=== PATIENT | female | born 1965 | race Caucasian/White ===

== ENCOUNTER 2016-05-13 10:55 | Outpatient (CLI) | payer MEDICAID | END 2016-05-13 10:56 | disposition home or self-care (01) | DX: Z12.31 Encounter for screening mammogram for malignant neoplasm of breast (principal) ==

== ENCOUNTER 2016-05-17 08:19 | Outpatient (CLI) | payer MEDICAID | END 2016-05-17 08:20 | disposition home or self-care (01) | DX: M85.88 Other specified disorders of bone density and structure, other site (principal) ==

== ENCOUNTER 2017-06-21 08:25 | Outpatient (CLI) | payer MEDICAID ==
--- NOTE | 2017-06-21 17:22 | Mammography Report ---
DIGITAL SCREENING MAMMOGRAM: 06/21/2017 CLINICAL INDICATION: A 52-year-old with history of late childbearing for screening. COMPARISON: 04/2016, 04/2014, 03/2010, 04/2009. TECHNIQUE: Routine CC and MLO projections as well as bilateral laterally exaggerated craniocaudal views were obtained of the breasts. FINDINGS: The breasts again demonstrate heterogeneously dense fibroglandular parenchyma bilaterally. Coarse and punctate, typically benign calcifications are present. No suspicious masses, clustered microcalcifications, or regions of architectural distortion are identified. IMPRESSION: BENIGN FINDINGS. RECOMMENDATION: Routine annual screening unless otherwise clinically indicated. BI-RADS category 2 benign findings. STANDARD QUALIFYING STATEMENTS 1. This examination was reviewed with the aid of Computed-Aided Detection (CAD). 2. A negative or benign imaging report should not delay biopsy if clinically suspicious findings are present. Consider surgical consultation if warranted. More than 5% of cancers are not identified by imaging. 3. Dense breasts may obscure an underlying neoplasm. TD: 06/21/2017 17:21
== END 2017-06-21 08:26 | disposition home or self-care (01) ==
LOC: DI.S 08:25
PROVIDERS: ATTEND Nurse Practitioner Family
DX: Z12.31 Encounter for screening mammogram for malignant neoplasm of breast (principal)
CPT/HCPCS: 77067

== ENCOUNTER 2017-10-02 12:15 | Outpatient (CLI) | payer MEDICAID | END 2017-10-02 12:16 | LOC: LAB.R 12:15 | PROVIDERS: ATTEND Nurse Practitioner Family | DX: E11.9 Type 2 diabetes mellitus without complications (principal) | CPT/HCPCS: 82043 ==

== ENCOUNTER 2017-10-09 08:59 | Outpatient (CLI) | payer MEDICAID ==
[2017-10-09 17:51] LABS: BASOPHILS % (AUTO) 0.7 %; EOSINOPHILS % (AUTO) 0.9 %; HGB - HEMOGLOBIN 13.4 g/dL (12.0-16.0); LYMPHOCYTES # (AUTO) 1.4 10^3/uL (1.5-3.5); MEAN CORPUSCULAR HEMOGLOBIN 36.6 pg (27.0-31.0); MEAN CORPUSCULAR HGB CONC 34.3 g/dL (32.0-36.0); MEAN CORPUSCULAR VOLUME 106.8 fL (81.0-99.0); MEAN PLATELET VOLUME 11.2 fL (7.9-10.8); MONOCYTES # (AUTO) 0.5 10^3/uL (0.0-1.0); MONOCYTES % (AUTO) 10.8 %; NEUTROPHILS # (AUTO) 2.7 10^3/uL (1.5-6.6); NEUTROPHILS % (AUTO) 57.6 %; PLT - PLATELET COUNT 131 10^3/uL (130-450); RED BLOOD COUNT 3.67 10^6/uL (4.20-5.40); RED CELL DISTRIBUTION WIDTH 12.6 % (12.0-15.0); WHITE BLOOD COUNT 4.6 x10^3/uL (4.8-10.8)
[2017-10-09 18:29] LABS: ALBUMIN 4.2 g/dL (3.2-5.5); ALBUMIN/GLOBULIN RATIO 1.2 (1.0-2.2); ALKALINE PHOSPHATASE 87 IU/L (42-121); ALT ALANINE AMINOTRANSFERASE 55 IU/L (10-60); AST ASPARTATE AMINOTRANSFERASE 161 IU/L (10-42); BILIRUBIN,TOTAL 1.1 mg/dL (0.2-1.0); BUN - BLOOD UREA NITROGEN 5 mg/dL (6-20); CALCIUM 9.3 mg/dL (8.5-10.3); CARBON DIOXIDE - CO2 25 mmol/L (21-32); CHLORIDE 92 mmol/L (101-111); CHOL/HDL RATIO 1.5 (<4.4); CHOLESTEROL 168 mg/dL; CREATININE 0.4 mg/dL (0.4-1.0); GFR - MDRD 166 (>89); GLUCOSE 119 mg/dL (70-100); HDL CHOLESTEROL 113 mg/dL; LDL CHOLESTEROL,CALCULATED 45 mg/dL; LDL/HDL RATIO 0.4 (<4.4); SODIUM 133 mmol/L (135-145); TOTAL PROTEIN 7.6 g/dL (6.7-8.2); VLDL CHOLESTEROL 10 mg/dL
[2017-10-09 19:05] LABS: PLATELET ESTIMATE, MANUAL NORMAL (130-450,000) (NORMAL); PLATELET MORPHOLOGY 1+ GIANT PLATELETS (NORMAL); RBC MORPHOLOGY (MULTIPLE) 2+ MACROCYTOSIS (NORMAL)
[2017-10-09 19:27] LABS: HB2 TOTAL 14.1 g/dL; HEMOGLOBIN A1C 0.52 g/dL; HEMOGLOBIN A1C % 5.5 % (4.6-6.2)
== END 2017-10-09 09:00 | disposition home or self-care (01) ==
LOC: LAB.S 08:59
PROVIDERS: ATTEND Nurse Practitioner Family
DX: I10 Essential (primary) hypertension (principal); Z13.220 Encounter for screening for lipoid disorders; E11.9 Type 2 diabetes mellitus without complications
CPT/HCPCS: 36415; 80053; 80061; 82043; 83036; 83721; 84443; 85025

== ENCOUNTER 2017-10-12 08:23 | Outpatient (CLI) | payer MEDICAID | END 2017-10-12 08:24 | disposition home or self-care (01) | LOC: LAB.F 08:23 | PROVIDERS: ATTEND Nurse Practitioner Family | DX: D53.9 Nutritional anemia, unspecified (principal) | CPT/HCPCS: 36415; 82607; 82746; 82977 ==

== ENCOUNTER 2017-11-06 11:18 | Outpatient (CLI) | payer MEDICAID ==
[2017-11-06 18:13] LABS: BASOPHILS % (AUTO) 0.6 %; EOSINOPHILS % (AUTO) 0.3 %; HGB - HEMOGLOBIN 13.1 g/dL (12.0-16.0); LYMPHOCYTES # (AUTO) 1.2 10^3/uL (1.5-3.5); LYMPHOCYTES % (AUTO) 18.8 %; MEAN CORPUSCULAR HEMOGLOBIN 36.5 pg (27.0-31.0); MEAN CORPUSCULAR HGB CONC 34.2 g/dL (32.0-36.0); MEAN CORPUSCULAR VOLUME 106.8 fL (81.0-99.0); MEAN PLATELET VOLUME 10.7 fL (7.9-10.8); MONOCYTES # (AUTO) 0.6 10^3/uL (0.0-1.0); MONOCYTES % (AUTO) 9.1 %; NEUTROPHILS # (AUTO) 4.6 10^3/uL (1.5-6.6); NEUTROPHILS % (AUTO) 71.2 %; PLT - PLATELET COUNT 153 10^3/uL (130-450); RED BLOOD COUNT 3.59 10^6/uL (4.20-5.40); RED CELL DISTRIBUTION WIDTH 12.8 % (12.0-15.0); WHITE BLOOD COUNT 6.5 x10^3/uL (4.8-10.8)
[2017-11-06 18:33] LABS: ALBUMIN 4.4 g/dL (3.2-5.5); ALBUMIN/GLOBULIN RATIO 1.5 (1.0-2.2); BILIRUBIN,TOTAL 0.8 mg/dL (0.2-1.0); CALCIUM 9.3 mg/dL (8.5-10.3); CREATININE 0.4 mg/dL (0.4-1.0); TOTAL PROTEIN 7.4 g/dL (6.7-8.2)
== END 2017-11-06 11:19 | disposition home or self-care (01) ==
LOC: LAB.S 11:18
PROVIDERS: ATTEND Nurse Practitioner Family
DX: R11.2 Nausea with vomiting, unspecified (principal); R10.9 Unspecified abdominal pain
CPT/HCPCS: 36415; 80053; 82150; 83690; 85025

== ENCOUNTER 2017-11-07 08:00 | Outpatient (CLI) | payer MEDICAID ==
[2017-11-07 16:47] LABS: H. PYLORIS ANTIGEN STL NEGATIVE (Negative)
== END 2017-11-07 08:01 | disposition home or self-care (01) ==
LOC: LAB.R 08:00
PROVIDERS: ATTEND Nurse Practitioner Family
DX: R11.2 Nausea with vomiting, unspecified (principal); R10.9 Unspecified abdominal pain
CPT/HCPCS: 87338

== ENCOUNTER 2017-11-17 08:24 | Outpatient (CLI) | payer MEDICAID ==
--- NOTE | 2017-11-17 16:10 | Ultrasound Report ---
Reason: NAUSEA AND VOMITING Procedure Date: 11/17/2017 Accession Number: [id number] / [id number] Procedure: US - Abdomen Limited CPT Code: FULL RESULT: EXAM: ABDOMEN ULTRASOUND LIMITED, RUQ EXAM DATE: 11/17/2017 10:13 AM. CLINICAL HISTORY: Nausea and vomiting. COMPARISON: None. TECHNIQUE: Real-time scanning was performed with static images obtained. FINDINGS: Liver: Liver parenchyma is echogenic in keeping with parenchymal disease such as steatosis. Right lobe measures at least 14.6 cm. Main portal vein flow: Hepatopetal. Gallbladder: Normal. No stones, wall thickening, or sonographic Deleon's sign. Biliary System: CBD measures 4 mm. No intrahepatic or extrahepatic ductal dilatation. Other: Right kidney appears grossly unremarkable and measures up to 9.8 cm. IMPRESSION: Echogenic hepatic parenchyma, suspect steatosis. [facility]
== END 2017-11-17 08:25 | disposition home or self-care (01) ==
LOC: DI 08:24
PROVIDERS: ATTEND Nurse Practitioner Family
DX: R11.2 Nausea with vomiting, unspecified (principal); K76.89 Other specified diseases of liver
CPT/HCPCS: 76705

== ENCOUNTER 2017-11-28 22:45 | Outpatient (CLI) | payer MEDICAID ==
[2017-11-28 17:20] LABS: BILIRUBIN,URINE NEGATIVE (NEGATIVE); GLUCOSE, URINE (UA) >=1000 mg/dL (NEGATIVE); KETONES,URINE (UA) TRACE mg/dL (NEGATIVE); LEUKOCYTE ESTERASE, URINE SMALL (NEGATIVE); NITRITE,URINE NEGATIVE (NEGATIVE); OCCULT BLOOD,URINE TRACE-INTA (NEGATIVE); PROTEIN,URINE NEGATIVE (NEGATIVE); UROBILINOGEN,URINE 0.2 (NORMAL) E.U./dL (NORMAL)
[2017-11-28 17:27] LABS: CLARITY,URINE CLOUDY (CLEAR)
[2017-11-28 17:46] LABS: BACTERIA,URINE Rare /HPF (None Seen); RBC,URINE 0-5 /HPF (0-5); SQUAMOUS EPITHELIAL CELL,UR RARE Squamous (<= Few); WBC CLUMPS,URINE PRESENT
== END 2017-11-28 22:46 | disposition home or self-care (01) ==
LOC: LAB.R 22:45
PROVIDERS: ATTEND Nurse Practitioner Family
DX: R30.0 Dysuria (principal)
CPT/HCPCS: 81001; 87086

== ENCOUNTER 2017-12-11 18:01 | Outpatient (CLI) | payer MEDICAID | END 2017-12-11 18:02 | disposition critical access hospital (66) | LOC: EMS 18:01 | PROVIDERS: ATTEND Surgery | DX: S49.92XA Unspecified injury of left shoulder and upper arm, initial encounter (principal); W18.2XXA Fall in (into) shower or empty bathtub, initial encounter; Y92.002 Bathroom of unspecified non-institutional (private) residence as the place of occurrence of the external cause | CPT/HCPCS: A0425; A0427; A0999 ==

== ENCOUNTER 2017-12-11 18:37 | Inpatient (IN) | payer MEDICAID ==
[2017-12-11] MEDS ORDERED: MORPHINE 2 MG/ML CARPUJECT IVP STA (19:33)
--- NOTE | 2017-12-11 19:37 | ED Physician Documentation ---
History of Present Illness - Stated complaint Stated Complaint: L ARM PAIN, FALL - Chief complaint Chief Complaint: General - History obtained from History obtained from: Patient - History of Present Illness Timing: Other (52-year-old woman with history of alcohol abuse. Says she was drinking last night but denies alcohol use today. Around 1030 this morning she was taking the stopper out of her tub and slipped and fell on her left arm and also hit her head. She had a couple more dizzy episodes today and scraped up her left leg. Tetanus is up-to-date. She is able to walk and bear weight. 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 - Present Medications Home Medications: Ambulatory Orders Medication Instructions Recorded Confirmed RX: Lisinopril 30 mg PO 12/11/17 RX: Omeprazole 12/11/17 RX: buPROPion [Wellbutrin Sr] 12/11/17 - Allergies Allergies/Adverse Reactions: Allergies Allergy/AdvReac Type Severity Reaction Status Date / Time Penicillins Allergy Hives Verified 12/11/17 19:18 - Social History Does the pt smoke?: Yes Smoking Status: Current every day smoker Does the pt drink ETOH?: Yes ETOH Use: Beer Does the pt have substance abuse?: No - Family History Family history: reports: Non contributory - Immunizations Immunizations are current?: Yes PD ED PE NORMAL - Vitals Vital signs reviewed: Yes - General General: Alert and oriented X 3, No acute distress - HEENT HEENT: PERRL, EOMI, Pharynx benign - Neck Neck: Supple, no meningeal sign, No bony TTP - Cardiac Cardiac: RRR, No murmur - Respiratory Respiratory: No respiratory distress, Clear bilaterally - Abdomen Abdomen: Non tender - Rectal Rectal: Other (brown guaiac neg stool) - Back Back: No CVA TTP, No spinal TTP - Extremities Extremities: Other (Very tender to the mid humerus on the left, cannot range it at all. Wrist and hand seem normal. Right upper extremity is nontender. She has scrapes over the anterior left tib-fib, tender over the tibial plateau on the left but not exquisitely so. Pedal pulses are normal.) - Neuro Neuro: Alert and oriented X 3, Normal speech - Psych Psych: Normal mood, Normal affect Results - Vitals Vitals: Vital Signs - 24 hr 12/11/17 12/11/17 12/11/17 18:50 19:22 21:27 Temperature 35.9 C L Heart Rate 99 105 H 98 Respiratory 19 15 15 Rate Blood Pressure 89/54 L 103/60 100/70 O2 Saturation 93 99 100 Oxygen O2 Source Room air - Labs Labs: Laboratory Tests 12/11/17 12/11/17 12/11/17 19:51 19:51 19:51 WBC 7.9 RBC 2.21 L Hgb 8.2 L Hct 22.7 L MCV 102.7 H MCH 36.9 H MCHC 35.9 RDW 11.8 L Plt Count 147 MPV 9.8 Neut # (Auto) 6.7 H Lymph # (Auto) 0.5 L [place] # (Auto) 0.6 Eos # (Auto) 0.0 Baso # (Auto) 0.0 Absolute Nucleated RBC 0.00 Nucleated RBC % 0.0 Sodium 114 L* Potassium 3.7 Chloride 79 L* Carbon Dioxide 15 L Anion Gap 20.0 H BUN 37 H Creatinine 1.7 H Estimated GFR (MDRD) 31 L Glucose 152 H Calcium 8.7 Magnesium 2.3 Total Bilirubin 0.8 AST 42 ALT 26 Alkaline Phosphatase 87 Total Protein 7.1 Albumin 4.0 Globulin 3.1 Albumin/Globulin Ratio 1.3 Amylase 223 H Lipase 205 H Ethyl Alcohol 18.4 - Rads (name of study) CT C spine Radiology: EMP read contemporaneously (DDD/ no frx) L humerus XR' Radiology: EMP read contemporaneously (Angulated and displaced mid humeral fracture) L knee and tib fib XR Radiology: EMP read contemporaneously (neg) Procedures - Splint (location) L arm Splint applied by: Physician Type of splint: Fiberglass (co-apt), Long arm Other: Patient tolerated well, No complications, Neurovascular intact PD MEDICAL DECISION MAKING - ED course ED course: 52-year-old woman with history of alcohol abuse presents with episodes of dizziness calling set causing several falls today and clearly pretty bad humeral fracture. Case was discussed by phone with Dr. Flores, agrees with coaptation splint and admission to medicine given her comorbidities. Plan is likely nonoperative/conservative Management. Workup also shows profound hyponatremia and anemia. She is surprisingly guaiac negative. These labs are new and significantly worsened compared to outpatient labs done a month ago. Spoke with Dr. Lord for admission at 9:25 PM Departure - Departure Disposition: 66 [facility] DC/Xfer Clinical Impression: Anemia, Alcohol abuse, Hyponatremia, Dizziness, Fall, Left humeral fracture, Head injury, Contusion of knee, left Condition: Serious
[2017-12-11 20:09] LABS: BASOPHILS % (AUTO) 0.2 %; HGB - HEMOGLOBIN 8.2 g/dL (12.0-16.0); LYMPHOCYTES # (AUTO) 0.5 10^3/uL (1.5-3.5); LYMPHOCYTES % (AUTO) 6.7 %; MEAN CORPUSCULAR HEMOGLOBIN 36.9 pg (27.0-31.0); MEAN CORPUSCULAR HGB CONC 35.9 g/dL (32.0-36.0); MEAN CORPUSCULAR VOLUME 102.7 fL (81.0-99.0); MEAN PLATELET VOLUME 9.8 fL (7.9-10.8); MONOCYTES # (AUTO) 0.6 10^3/uL (0.0-1.0); MONOCYTES % (AUTO) 7.8 %; NEUTROPHILS # (AUTO) 6.7 10^3/uL (1.5-6.6); NEUTROPHILS % (AUTO) 85.3 %; PLT - PLATELET COUNT 147 10^3/uL (130-450); RED BLOOD COUNT 2.21 10^6/uL (4.20-5.40); RED CELL DISTRIBUTION WIDTH 11.8 % (12.0-15.0); WHITE BLOOD COUNT 7.9 x10^3/uL (4.8-10.8)
[2017-12-11 20:40] LABS: ALBUMIN/GLOBULIN RATIO 1.3 (1.0-2.2); BILIRUBIN,TOTAL 0.8 mg/dL (0.2-1.0); CALCIUM 8.7 mg/dL (8.5-10.3); CREATININE 1.7 mg/dL (0.4-1.0); TOTAL PROTEIN 7.1 g/dL (6.7-8.2)
[2017-12-11] MEDS ORDERED: FOLIC ACID INJ 1 MG, THIAMINE INJ 100 MG, MAGNESIUM SULFATE 2 GM, MULTIVITAMIN 10 ML in... IV STA ×5 (20:47)
[2017-12-11] MEDS ORDERED: HYDROmorphone 1 MG/ML CARPUJECT IVP STA (20:52)
--- NOTE | 2017-12-11 20:57 | CT Report ---
Reason: head, L arm/leg inj p fall Procedure Date: 12/11/2017 Accession Number: [id number] / [id number] Procedure: CT - Cervical Spine W/O CPT Code: FULL RESULT: EXAM: CT CERVICAL SPINE WITHOUT CONTRAST DATE: 12/11/2017 08:34 PM. HISTORY: Fall. Head injury. Neck pain. COMPARISONS: None. TECHNIQUE: Thin-section axial images were acquired of the cervical spine without contrast. Post-processing: Coronal and sagittal reformats. Other: None. In accordance with CT protocol optimization, one or more of the following dose reduction techniques were utilized for this exam: automated exposure control, adjustment of mA and/or KV based on patient size, or use of iterative reconstructive technique. FINDINGS: Alignment: Moderate kyphosis centered at C5. Bones: No fracture or bone lesion. Interspace Levels/Facets: C1-C2: Unremarkable. C2-C3: Unremarkable. C3-C4: Normal caliber. Old small right-sided disk herniation. Moderate right C3-C4 bony neural foraminal compromise. C4-C5: Mild narrowing. Moderate left C4-C5 bony neural foraminal compromise. C5-C6: Moderate to marked narrowing. Old large central and left-sided disk herniation. Moderate central spinal canal stenosis with flattening of the cervical cord. Mild right and moderate to marked left C5-C6 neural foraminal compromise. C6-C7: Moderate to marked narrowing. Old moderate central and right-sided disk herniation. Moderate central spinal canal stenosis with flattening of the cervical cord. Moderate left C6-C7 bony neural foraminal compromise. C7-T1: Unremarkable. Musculature: Normal. No fatty atrophy. Other: The paravertebral and prevertebral soft tissues are unremarkable. The lung apices are clear. IMPRESSION: 1. No acute bony abnormality. 2. Moderate central spinal canal stenosis at C5-C6 and C6-C7. [facility]
--- NOTE | 2017-12-11 21:03 | XRAY Report ---
Reason: head, L arm/leg inj p fall Procedure Date: 12/11/2017 Accession Number: [id number] / [id number] Procedure: XR - Tib/Fib LT CPT Code: FULL RESULT: EXAM: LEFT TIBIA/FIBULA RADIOGRAPHY EXAM DATE: 12/11/2017 08:42 PM. CLINICAL HISTORY: Fall. Injury. Lower leg pain. COMPARISON: None. TECHNIQUE: 2 views. FINDINGS: Bones: Normal. No fracture or bone lesion. Joints: The visualized knee and ankle joints are normal. No effusions. Soft Tissues: Unremarkable. IMPRESSION: Normal tibia/fibula radiography. [facility]
--- NOTE | 2017-12-11 21:04 | XRAY Report ---
Reason: head, L arm/leg inj p fall Procedure Date: 12/11/2017 Accession Number: [id number] / [id number] Procedure: XR - Knee 4 View LT CPT Code: FULL RESULT: EXAM: LEFT KNEE RADIOGRAPHY EXAM DATE: 12/11/2017 08:42 PM. CLINICAL HISTORY: Fall. Injury. Knee pain. COMPARISON: None. TECHNIQUE: 4 views. FINDINGS: Bones: Normal. No fractures or bone lesions. Joints: Normal. No effusion. No subluxations. Soft Tissues: Unremarkable. IMPRESSION: Normal knee radiography. [facility]
--- NOTE | 2017-12-11 21:06 | XRAY Report ---
Reason: head, L arm/leg inj p fall Procedure Date: 12/11/2017 Accession Number: [id number] / [id number] Procedure: XR - Humerus LT CPT Code: FULL RESULT: EXAM: LEFT HUMERUS RADIOGRAPHY EXAM DATE: 12/11/2017 08:42 PM. CLINICAL HISTORY: Fall. Injury. Arm pain. COMPARISON: None. TECHNIQUE: 2 views. FINDINGS: Bones: There is an angulated and displaced distal shaft fracture. Joints: Normal. No effusions or subluxations in the visualized shoulder or elbow joints. Soft Tissues: Associated soft tissue swelling. IMPRESSION: Angulated and displaced distal humeral shaft fracture. [facility]
[2017-12-11] MEDS ORDERED: THIAMINE 100 MG/1 ML 2 ML MDV ONE (21:35)
--- NOTE | 2017-12-11 21:37 | CT Report ---
Reason: head, L arm/leg inj p fall Procedure Date: 12/11/2017 Accession Number: [id number] / [id number] Procedure: CT - Head W/O CPT Code: FULL RESULT: EXAM: CT HEAD EXAM DATE: 12/11/2017 08:33 PM. CLINICAL HISTORY: Fall. Head injury. COMPARISON: None. TECHNIQUE: Multiaxial CT images were obtained from the foramen magnum to the vertex. Reformats: Sagittal and coronal. IV contrast: None. In accordance with CT protocol optimization, one or more of the following dose reduction techniques were utilized for this exam: automated exposure control, adjustment of mA and/or KV based on patient size, or use of iterative reconstructive technique. FINDINGS: Parenchyma: No intraparenchymal hemorrhage. No evidence of mass, midline shift, or CT findings of infarction. Gomez-white differentiation is distinct. Extraaxial Spaces: Normal for age. No subdural or epidural collections identified. Ventricles: Normal in size and position. Sinuses and Orbits: Imaged paranasal sinuses, orbits, and mastoids show no significant abnormality. Bones: No evidence of fracture or calvarial defect. Other: None. IMPRESSION: Normal head CT. RAD[facility]
[2017-12-11] MEDS ORDERED: PROCHLORPERAZINE 10 MG/2 ML VIAL IVP PRN (21:38)
[2017-12-11] MEDS ORDERED: MAGNESIUM SULFATE 2 GRAM 0 GM/0 ML BAG IV ONE (21:53)
[2017-12-11] MEDS ORDERED: MAGNESIUM SULFATE 1 GM/2 ML VIAL ONE (22:01)
[2017-12-11 22:17] LABS: MAGNESIUM 2.3 mg/dL (1.7-2.8)
[2017-12-11] MEDS: HYDROmorphone 0.5 MG/0.5 ML SYRINGE IVP PRN (22:56)
[2017-12-11 23:13] LABS: INR 1.1 (0.8-1.2)
[2017-12-12] MEDS: SODIUM CHLORIDE FLUSH 0.9% 10 ML SYRINGE IVP SCH ×3 (00:13→17:16)
[2017-12-12] MEDS: SODIUM CHLORIDE FLUSH 0.9% 10 ML SYRINGE IVP PRN (00:46)
[2017-12-12] MEDS: oxyCODONE ER 10 MG TABLET PO SCH ×3 (00:46→20:29)
--- NOTE | 2017-12-12 01:01 | XRAY Report ---
Reason: Smoker, eval for mass Procedure Date: 12/11/2017 Accession Number: [id number] / [id number] Procedure: XR - Chest 1 View X-Ray CPT Code: 77781 FULL RESULT: EXAM: CHEST RADIOGRAPHY EXAM DATE: 12/11/2017 10:44 PM. CLINICAL HISTORY: Smoker, eval for mass. COMPARISON: None. TECHNIQUE: 1 view. FINDINGS: Lungs/Pleura: Minimal linear atelectasis in the left lung. No effusion or pneumothorax. Mediastinum: Within exam limitations, the cardiomediastinal contour is normal. Other: None. IMPRESSION: Minimal linear atelectasis in the left lung. [facility]
--- NOTE | 2017-12-12 01:22 | HISTORY & PHYSICAL EXAMINATION ---
DATE OF SERVICE: 12/11/2017 Physician: Sherry Lord MD HISTORY OF PRESENT ILLNESS: This is a 52-year-old white female with history of alcohol abuse. She drinks many beers a day. The patient otherwise just has a history of hypertension and a prior . She was drinking the previous night but on the day of admission was in her tub, slipped and fell, and hit her left arm and also her head. She described being dizzy. There were a few more episodes of falling in her home, and she scraped her left leg with those. She does not think there was syncope with any of the episodes. She came to the emergency room because of severe pain in the left arm and has been diagnosed with a fracture as well as signs of liver disease from alcohol abuse and severe hyponatremia. PAST MEDICAL HISTORY 1. Alcohol abuse. 2. Hypertension. ALLERGIES: PENICILLIN. MEDICATIONS 1. Lisinopril 30 mg daily. 2. Omeprazole possibly daily. 3. Wellbutrin SR 100 mg daily. SOCIAL HISTORY: The patient smokes daily for many years, drinks beer daily, the total amount is not known (I am seeing her after she has received narcotics for pain; therefore, she is somnolent and cannot give a detailed history). The chart indicates she does not use illicit drugs. FAMILY HISTORY: No inherited diseases. REVIEW OF SYSTEMS: A comprehensive review of systems was performed from chart review, and the pertinent positives are in the HPI; the rest are negative. PHYSICAL EXAMINATION GENERAL: Somnolent, thin white female. She smells of smoke. She is disheveled, and she appears older than her age. She is in no distress currently after a narcotic dose. VITAL SIGNS: Blood pressure 89/54, pulse of 99 in sinus rhythm, afebrile, room air saturation 93%. HEENT: Reveals dry oral mucosa, disheveled appearance, temporal wasting. NECK: Without JVD. No carotid bruits. CHEST: Clear. HEART: Sounds are distant. ABDOMEN: Soft, nontender. No organomegaly. EXTREMITIES: No clubbing, cyanosis, edema. The left knee has a contusion. The left arm is in a splint. NEUROLOGIC: Somnolent. She was responding normally, alert and oriented according to the emergency room evaluation. LABORATORY DATA: Sodium 114, potassium 3.7, chloride 79, BUN 37, creatinine 1.7, magnesium 2.3. Normal liver tests, bilirubin and alkaline phosphatase. Lipase 205. Amylase 223. INR normal at 1.1. White blood count 7.9 with a left shift, hemoglobin 8.2 with an MCV of 102.7, platelet count normal at 147. Serum alcohol level was present at 18.4 (despite her last alcohol intake being about 24 hours before this). Urinalysis is pending. IMAGING 1. Her head CT showed no masses or bleeding. Normal head CT. 2. X-ray of the left arm showed angulated and displaced distal humerus shaft fracture with surrounding edema of the soft tissue. 3. Her left knee x-ray showed no fracture or dislocation. 4. The lower leg x-ray was unremarkable. ELECTROCARDIOGRAM: No EKG was done. Her telemetry shows sinus rhythm. IMPRESSION/DIAGNOSES 1. Dehydration with hyponatremia. 2. Acute kidney injury. 3. Alcohol abuse. 4. Fall(s) in her home. Possibly from dehydration causing orthostasis, or due to an arrhythmia from the severe hyponatremia or due to poor gait from chronic alcohol use or simply from being drunk. 5. Fracture of the left humerus. 6. Left knee contusion. 7. Macrocytic anemia. 8. Elevated amylase and lipase, possible pancreatitis, but without GI complaints. PLAN: 1) Admit the patient to a medical/surgical bed on telemetry. 2) Continue with IV fluids, and start a banana bag. Follow her electrolytes, BUN and creatinine, magnesium daily. 3) Continue with pain control for the fractured humerus. Obtain an Orthopedic consult (Dr. Flores was called by the emergency room doctor and indicated that her management would be non-operative). 4) Start a CIWA protocol for likely impending alcohol withdrawal, with Ativan IV as needed. Obtain a MUDS screen for other illicit drug use. 5) Type and Screen for a possible blood transfusion. Follow her CBC and obtain a stool guaiac. The problem would be if she has a heme positive stool guaic test, since an EGD would be high risk since she is very likely to have esophageal varices and therefore an EGD would need to be done at a center with capability to handle acute esophageal variceal bleeding. Start H2 blockers. 6) Obtain imaging of the pancreas for possibly present pancreatitis and follow her amylase and lipase daily. Adjust her diet and consider a surgery consult if she has pancreatitis. CODE STATUS: FULL CODE. DEEP VENOUS THROMBOSIS PROPHYLAXIS: SCDs. ATTESTATION: The patient is expected to be discharged or transferred to another facility within 96 hours: Yes. cc: MAR Jimenez TD: 12/12/2017 01:02 MTDD
[2017-12-12] MEDS: SODIUM CHLORIDE 0.9% 1,000 ML IV SCH ×2 (05:22→20:33)
[2017-12-12 05:55] LABS: MUDS CUTOFF CONCENTRATIONS CUTOFF CONC BELOW:
[2017-12-12 05:56] LABS: BILIRUBIN,URINE NEGATIVE (NEGATIVE); GLUCOSE, URINE (UA) >=1000 mg/dL (NEGATIVE); KETONES,URINE (UA) TRACE mg/dL (NEGATIVE); LEUKOCYTE ESTERASE, URINE NEGATIVE (NEGATIVE); NITRITE,URINE NEGATIVE (NEGATIVE); OCCULT BLOOD,URINE SMALL (NEGATIVE); PROTEIN,URINE NEGATIVE (NEGATIVE); UROBILINOGEN,URINE 0.2 (NORMAL) E.U./dL (NORMAL)
[2017-12-12 05:57] LABS: CLARITY,URINE CLEAR (CLEAR)
[2017-12-12 06:02] LABS: BACTERIA,URINE Rare /HPF (None Seen); RBC,URINE 0-5 /HPF (0-5); SQUAMOUS EPITHELIAL CELL,UR MANY Squamous (<= Few)
[2017-12-12 06:03] LABS: BASOPHILS % (AUTO) 0.1 %; EOSINOPHILS % (AUTO) 0.1 %; HGB - HEMOGLOBIN 7.3 g/dL (12.0-16.0); LYMPHOCYTES % (AUTO) 14.1 %; MEAN CORPUSCULAR HEMOGLOBIN 36.3 pg (27.0-31.0); MEAN CORPUSCULAR HGB CONC 35.2 g/dL (32.0-36.0); MEAN CORPUSCULAR VOLUME 103.1 fL (81.0-99.0); MEAN PLATELET VOLUME 10.1 fL (7.9-10.8); MONOCYTES # (AUTO) 0.6 10^3/uL (0.0-1.0); MONOCYTES % (AUTO) 8.9 %; NEUTROPHILS # (AUTO) 5.6 10^3/uL (1.5-6.6); NEUTROPHILS % (AUTO) 76.8 %; PLT - PLATELET COUNT 125 10^3/uL (130-450); RED CELL DISTRIBUTION WIDTH 11.8 % (12.0-15.0); WHITE BLOOD COUNT 7.3 x10^3/uL (4.8-10.8)
[2017-12-12 06:08] LABS: AMPHETAMINE SCREEN,URINE NEGATIVE (NEGATIVE); BENZODIAZEPINES SCREEN, URINE NEGATIVE (NEGATIVE); COCAINE SCREEN URINE NEGATIVE (NEGATIVE); METHADONE SCREEN, URINE NEGATIVE (NEGATIVE); METHAMPHETAMINES SCREEN, URINE NEGATIVE (NEGATIVE); OPIATE SCREEN, URINE POSITIVE (NEGATIVE); OXYCODONE SCREEN, URINE NEGATIVE (NEGATIVE); PROPOXYPHENE SCREEN, URINE NEGATIVE (NEGATIVE); TRICYCLIC ANTIDEPRESSANT,URINE NEGATIVE (NEGATIVE)
[2017-12-12 06:18] LABS: ALBUMIN 3.6 g/dL (3.2-5.5); ALBUMIN/GLOBULIN RATIO 1.2 (1.0-2.2); CALCIUM 8.6 mg/dL (8.5-10.3); CREATININE 1.2 mg/dL (0.4-1.0); TOTAL PROTEIN 6.5 g/dL (6.7-8.2)
[2017-12-12] MEDS: buPROPion SR 100 MG TABLET PO SCH (08:34)
[2017-12-12] MEDS: POLYETHYLENE GLYCOL 3350 17 GM PACKET PO SCH (08:34)
[2017-12-12] MEDS: FAMOTIDINE 20 MG TABLET PO SCH (08:34)
[2017-12-12] MEDS ORDERED: IOPAMIDOL-300 100 ML VIAL ONE (08:44)
[2017-12-12] MEDS ORDERED: IOPAMIDOL-300 100 ML VIAL IVP ONE (09:44)
[2017-12-12 09:48] LABS: MEAN RETIC VALUE 103.5; RED BLOOD COUNT 1.89 10^6/uL (4.20-5.40)
[2017-12-12 09:57] LABS: % IRON SATURATION 70 % (20-50); IRON 145 ug/dL (28-170); TOTAL IRON BINDING CAPACITY 206 ug/dL (250-450); TRANSFERRIN 147 mg/dL (192-382)
[2017-12-12] MEDS: MULTIVITAMIN 10 ML, FOLIC ACID INJ 1 MG, THIAMINE INJ 100 MG, MAGNESIUM SULFATE 2 GM in... IV SCH ×5 (09:59)
--- NOTE | 2017-12-12 10:41 | CT Report ---
Reason: POSSIBLE PANCREATITIS Procedure Date: 12/12/2017 Accession Number: [id number] / [id number] Procedure: CT - Abdomen/Pelvis W/ CPT Code: FULL RESULT: EXAM: CT ABDOMEN AND PELVIS WITH CONTRAST EXAM DATE: 12/12/2017 09:35 AM. CLINICAL HISTORY: Possible pancreatitis. COMPARISONS: CT abdomen and pelvis 04/16/2009. TECHNIQUE: Routine helical CT imaging was performed through the abdomen and pelvis. IV contrast: Isovue 300, 60 mL. Enteric contrast: No. Reconstructions: Coronal and sagittal. In accordance with CT protocol optimization, one or more of the following dose reduction techniques were utilized for this exam: automated exposure control, adjustment of mA and/or KV based on patient size, or use of iterative reconstructive technique. FINDINGS: Lung Bases: Unremarkable. Liver: Normal. No masses. Gallbladder/Bile Ducts: Unremarkable. Spleen: Normal. Pancreas: Interval development of pancreatic atrophy and calcification of the pancreatic body and tail. Masslike enlargement without atrophy of the pancreatic head. Adrenal Glands: Normal. Kidneys: Normal. No masses or hydronephrosis. Peritoneal Cavity/Bowel: Normal. No free fluid, free air or adenopathy. No masses or acute inflammatory process. Pelvic Organs: There is a 13 x 6.8 x 11.4 cm pelvic soft tissue density, relatively homogenous mass without overt enhancement intimately associated with the uterus. Comparison to the 2009 CT reveals a previous left adnexal region mass which measured 2.6 x 6.7 cm. Vasculature: No aneurysms or other significant abnormality. Bones: No aggressive osseous lesions. Other: None. IMPRESSION: Interval development of pancreatic atrophy of the body and tail with an appearance compatible with chronic pancreatitis with questionable preservation/development of mass in the pancreatic head. Marked interval enlargement of the previously seen left adnexal mass. Recommendation: Recommend ERCP with consideration for brush biopsy. Recommend referral to gynecology with consideration for transabdominal and transvaginal pelvic ultrasound versus exploratory laparotomy. [facility] CRITICAL RESULT: The findings were discussed with PA. Brown On 12/12/2017 at 10:40 AM.
[2017-12-12] MEDS: HYDROmorphone 0.5 MG/0.5 ML SYRINGE IVP PRN (12:49)
--- NOTE | 2017-12-12 12:59 | PROVIDER PROGRESS NOTE ---
Subjective - Prog Note Date Prog Note Date: 12/12/17 - Subjective Pt reports feeling: No change Subjective: pt still complain her left shoulder pain after she had fall. she denies fever,chill, cough, chest pain, and SOB. Pt had CT of abdomen in the morning. 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 I discussed with pt for the plan to transfer her to other hospital to do ERCP. unfortunately pt refused to do that. She state she had animal she need to take care of. she like her PCP to refer to GI to do ERCP as out-pt. Current Medications - Current Medications Current Medications: Active Medications Bupropion HCl (Wellbutrin Sr) 100 mg PO DAILY [facility] Last Admin: 12/12/17 08:34 Dose: 100 mg Famotidine (Pepcid) 20 mg PO DAILY NOEL Last Admin: 12/12/17 08:34 Dose: 20 mg Hydromorphone HCl (Dilaudid Inj Syringe) 1 mg IVP Q2H PRN PRN Reason: Pain 8 to 10 Last Admin: 12/12/17 12:49 Dose: 1 mg Sodium Chloride (Normal Saline 0.9%) 1,000 mls @ 100 mls/hr IV .Q10H NOEL Last Infusion: 12/12/17 09:45 Dose: 100 mls/hr Multivitamins 10 ml/ Folic Acid 1 mg/ Thiamine HCl 100 mg / Magnesium Sulfate 2 gm/Sodium Chloride 1,015.2 mls @ 100 mls/hr IV DAILY NOEL Last Admin: 12/12/17 09:59 Dose: 100 mls/hr Lorazepam (Ativan Inj (Vial)) 2 mg IVP Q2H PRN PRN Reason: Alcohol Withdrawal Nicotine (Nicoderm) 1 patch TOP DAILY PRN PRN Reason: Nicotine Craving Oxycodone HCl (Oxycontin) 10 mg PO BID NOEL Last Admin: 12/12/17 08:34 Dose: 10 mg Polyethylene Glycol (Miralax) 17 gm PO DAILY NOEL Last Admin: 12/12/17 08:34 Dose: 17 gm Prochlorperazine Edisylate (Compazine Inj) 10 mg IVP Q6HR PRN PRN Reason: Nausea / Vomiting Last Admin: 12/12/17 00:46 Dose: 10 mg Sodium Chloride (Normal Saline Flush 0.9%) 10 ml IVP PRN PRN PRN Reason: NEEDED PER PROVIDER ORDERS Last Admin: 12/12/17 00:46 Dose: 10 ml Sodium Chloride (Normal Saline Flush 0.9%) 10 ml IVP 0100,0900,1700 NOEL Last Admin: 12/12/17 07:44 Dose: Not Given Lisinopril 30 mg PO 12/11/17 Omeprazole 12/11/17 buPROPion [Wellbutrin Sr] 12/11/17 Objective - Vital Signs/Intake & Output Reviewed Vital Signs: Yes Vital Signs: Vital Signs x48h Temp Pulse Resp BP Pulse Ox 12/12/17 11:02 36.9 C 105 H 18 106/46 L 97 12/12/17 08:00 36.6 C 107 H 18 98/50 L 94 12/12/17 05:33 37.0 C 100 16 94/47 L 98 Intake & Output: Intake & Output 12/09/17 12/10/17 12/11/17 12/12/17 23:59 23:59 23:59 23:59 Intake Total 1573.533 Output Total 625 Balance 948.533 - Objective General Appearance: positive: No acute distress, Alert. negative: Lethargic Eyes Bilateral: positive: Normal inspection, PERRL, No lid inflammation, Conjunctivae nml ENT: positive: ENT inspection nml, Pharynx nml, No signs of dehydration. negative: Purulent nasal drainage, Pharyngeal erythema, Oral lesions Neck: positive: Nml inspection, Thyroid nml, No JVD, Trachea midline. negative: Thyromegaly, Lymphadenopathy (R), Lymphadenopathy (L), Stiff neck, Swelling/bruising, Tracheal deviation Respiratory: positive: Chest non-tender, No respiratory distress, Breath sounds nml. negative: Wheezes, Rales, Rhonchi Cardiovascular: positive: Regular rate & rhythm, No murmur, No gallop. negative: Irregularly irregular, Extrasystoles, Tachycardia, Bradycardia, Systolic murmur, Diastolic murmur Peripheral Pulses: 2+ Radial (R), 2+ Radial (L), 2+ Dorsalis pedis (R), 2+ Dorsalis pedis (L) Abdomen: positive: No organomegaly, Nml bowel sounds, No distention, Tenderness. negative: Guarding, Rebound Back: positive: Nml inspection. negative: CVA tenderness (R), CVA tenderness (L) Skin: positive: Color nml, No rash, Warm, Dry. negative: Cyanosis, Diaphoresis, Pallor Extremities: positive: Non-tender, Full ROM, Nml appearance. negative: Calf tenderness, Joint swelling, Manuel's sign/cords Neurologic/Psychiatric: positive: Motor nml, Sensation nml, Mood/affect nml. negative: Weakness, Sensory loss, Facial droop, Slurred/abnml speech, Depressed mood/affect - Lab Results Fish Bones: 12/12/17 05:40 12/12/17 05:40 Other Labs: Lab Results x24hrs 12/12/17 12/12/17 12/12/17 Range/Units 09:00 09:00 09:00 WBC (4.8-10.8) x10^3/uL RBC (4.20-5.40) 10^6/uL Hgb (12.0-16.0) g/dL Hct (37.0-47.0) % MCV (81.0-99.0) fL MCH (27.0-31.0) pg MCHC (32.0-36.0) g/dL RDW (12.0-15.0) % Plt Count (130-450) 10^3/uL MPV (7.9-10.8) fL Reticulocyte % (Auto) (0.5-2.3) % Neut # (Auto) (1.5-6.6) 10^3/uL Lymph # (Auto) (1.5-3.5) 10^3/uL Coal # (Auto) (0.0-1.0) 10^3/uL Eos # (Auto) (0.0-0.7) 10^3/uL Baso # (Auto) (0.0-0.1) 10^3/uL Absolute Nucleated RBC x10^3/uL Nucleated RBC % /100WBC Absolute Retic (0.020-0.110) 10^6/uL PT (9.9-12.6) secs INR (0.8-1.2) Sodium (135-145) mmol/L Potassium (3.5-5.0) mmol/L Chloride (101-111) mmol/L Carbon Dioxide (21-32) mmol/L Anion Gap (6-13) BUN (6-20) mg/dL Creatinine (0.4-1.0) mg/dL Estimated GFR (MDRD) (>89) Glucose (70-100) mg/dL Calcium (8.5-10.3) mg/dL Magnesium (1.7-2.8) mg/dL Iron (28-170) ug/dL TIBC (250-450) ug/dL % Saturation (20-50) % Transferrin (192-382) mg/dL Ferritin 1394.0 H (11.0-306.8) ng/mL Total Bilirubin (0.2-1.0) mg/dL AST (10-42) IU/L ALT (10-60) IU/L Alkaline Phosphatase (42-121) IU/L Lactate Dehydrogenase 116 (91-225) IU/L Total Protein (6.7-8.2) g/dL Albumin (3.2-5.5) g/dL Globulin (2.1-4.2) g/dL Albumin/Globulin Ratio (1.0-2.2) Amylase (28-100) U/L Lipase (22-51) U/L Carcinoembryonic Ag 4.2 ng/mL Vitamin B12 1069 H (180-914) pg/mL Urine Color Urine Clarity (CLEAR) Urine pH (5.0-7.5) PH Ur Specific [place] (1.002-1.030) Urine Protein (NEGATIVE) mg/dL Urine Glucose (UA) (NEGATIVE) mg/dL Urine Ketones (NEGATIVE) mg/dL Urine Occult Blood (NEGATIVE) Urine Nitrite (NEGATIVE) Urine Bilirubin (NEGATIVE) Urine Urobilinogen (NORMAL) E.U./dL Ur Leukocyte Esterase (NEGATIVE) Urine RBC (0-5) /HPF Urine WBC (0-5) /HPF Ur Squamous Epith Cells (<= Few) Urine Bacteria (None Seen) /HPF Urine Culture Comments Urine Opiates Screen (NEGATIVE) Ur Oxycodone Screen (NEGATIVE) Urine Methadone Screen (NEGATIVE) Ur Propoxyphene Screen (NEGATIVE) Ur Barbiturates Screen (NEGATIVE) Ur Tricyclics Screen (NEGATIVE) Ur Phencyclidine Scrn (NEGATIVE) Ur Amphetamine Screen (NEGATIVE) U Methamphetamines Scrn (NEGATIVE) U Benzodiazepines Scrn (NEGATIVE) Urine Cocaine Screen (NEGATIVE) U Cannabinoids Screen (NEGATIVE) Ethyl Alcohol mg/dL Blood Type Blood Type Recheck Antibody Screen 12/12/17 12/12/17 12/12/17 Range/Units 09:00 09:00 05:40 WBC (4.8-10.8) x10^3/uL RBC 1.89 L (4.20-5.40) 10^6/uL Hgb (12.0-16.0) g/dL Hct (37.0-47.0) % MCV (81.0-99.0) fL MCH (27.0-31.0) pg MCHC (32.0-36.0) g/dL RDW (12.0-15.0) % Plt Count (130-450) 10^3/uL MPV (7.9-10.8) fL Reticulocyte % (Auto) 0.40 L (0.5-2.3) % Neut # (Auto) (1.5-6.6) 10^3/uL Lymph # (Auto) (1.5-3.5) 10^3/uL Coal # (Auto) (0.0-1.0) 10^3/uL Eos # (Auto) (0.0-0.7) 10^3/uL Baso # (Auto) (0.0-0.1) 10^3/uL Absolute Nucleated RBC x10^3/uL Nucleated RBC % /100WBC Absolute Retic 0.008 L (0.020-0.110) 10^6/uL PT (9.9-12.6) secs INR (0.8-1.2) Sodium 118 L* (135-145) mmol/L Potassium 4.3 (3.5-5.0) mmol/L Chloride 86 L (101-111) mmol/L Carbon Dioxide 19 L (21-32) mmol/L Anion Gap 13.0 (6-13) BUN 35 H (6-20) mg/dL Creatinine 1.2 H (0.4-1.0) mg/dL Estimated GFR (MDRD) 47 L (>89) Glucose 156 H (70-100) mg/dL Calcium 8.6 (8.5-10.3) mg/dL Magnesium (1.7-2.8) mg/dL Iron 145 (28-170) ug/dL TIBC 206 L (250-450) ug/dL % Saturation 70 H (20-50) % Transferrin 147 L (192-382) mg/dL Ferritin (11.0-306.8) ng/mL Total Bilirubin 1.0 (0.2-1.0) mg/dL AST 34 (10-42) IU/L ALT 23 (10-60) IU/L Alkaline Phosphatase 75 (42-121) IU/L Lactate Dehydrogenase (91-225) IU/L Total Protein 6.5 L (6.7-8.2) g/dL Albumin 3.6 (3.2-5.5) g/dL Globulin 2.9 (2.1-4.2) g/dL Albumin/Globulin Ratio 1.2 (1.0-2.2) Amylase 144 H (28-100) U/L Lipase 105 H (22-51) U/L Carcinoembryonic Ag ng/mL Vitamin B12 (180-914) pg/mL Urine Color Urine Clarity (CLEAR) Urine pH (5.0-7.5) PH Ur Specific [place] (1.002-1.030) Urine Protein (NEGATIVE) mg/dL Urine Glucose (UA) (NEGATIVE) mg/dL Urine Ketones (NEGATIVE) mg/dL Urine Occult Blood (NEGATIVE) Urine Nitrite (NEGATIVE) Urine Bilirubin (NEGATIVE) Urine Urobilinogen (NORMAL) E.U./dL Ur Leukocyte Esterase (NEGATIVE) Urine RBC (0-5) /HPF Urine WBC (0-5) /HPF Ur Squamous Epith Cells (<= Few) Urine Bacteria (None Seen) /HPF Urine Culture Comments Urine Opiates Screen (NEGATIVE) Ur Oxycodone Screen (NEGATIVE) Urine Methadone Screen (NEGATIVE) Ur Propoxyphene Screen (NEGATIVE) Ur Barbiturates Screen (NEGATIVE) Ur Tricyclics Screen (NEGATIVE) Ur Phencyclidine Scrn (NEGATIVE) Ur Amphetamine Screen (NEGATIVE) U Methamphetamines Scrn (NEGATIVE) U Benzodiazepines Scrn (NEGATIVE) Urine Cocaine Screen (NEGATIVE) U Cannabinoids Screen (NEGATIVE) Ethyl Alcohol mg/dL Blood Type Blood Type Recheck Antibody Screen 12/12/17 12/12/17 12/12/17 Range/Units 05:40 05:27 00:50 WBC 7.3 (4.8-10.8) x10^3/uL RBC 2.00 L (4.20-5.40) 10^6/uL Hgb 7.3 L (12.0-16.0) g/dL Hct 20.6 L (37.0-47.0) % MCV 103.1 H (81.0-99.0) fL MCH 36.3 H (27.0-31.0) pg MCHC 35.2 (32.0-36.0) g/dL RDW 11.8 L (12.0-15.0) % Plt Count 125 L (130-450) 10^3/uL MPV 10.1 (7.9-10.8) fL Reticulocyte % (Auto) (0.5-2.3) % Neut # (Auto) 5.6 (1.5-6.6) 10^3/uL Lymph # (Auto) 1.0 L (1.5-3.5) 10^3/uL Coal # (Auto) 0.6 (0.0-1.0) 10^3/uL Eos # (Auto) 0.0 (0.0-0.7) 10^3/uL Baso # (Auto) 0.0 (0.0-0.1) 10^3/uL Absolute Nucleated RBC 0.00 x10^3/uL Nucleated RBC % 0.0 /100WBC Absolute Retic (0.020-0.110) 10^6/uL PT (9.9-12.6) secs INR (0.8-1.2) Sodium 116 L* (135-145) mmol/L Potassium (3.5-5.0) mmol/L Chloride (101-111) mmol/L Carbon Dioxide (21-32) mmol/L Anion Gap (6-13) BUN (6-20) mg/dL Creatinine (0.4-1.0) mg/dL Estimated GFR (MDRD) (>89) Glucose (70-100) mg/dL Calcium (8.5-10.3) mg/dL Magnesium (1.7-2.8) mg/dL Iron (28-170) ug/dL TIBC (250-450) ug/dL % Saturation (20-50) % Transferrin (192-382) mg/dL Ferritin (11.0-306.8) ng/mL Total Bilirubin (0.2-1.0) mg/dL AST (10-42) IU/L ALT (10-60) IU/L Alkaline Phosphatase (42-121) IU/L Lactate Dehydrogenase (91-225) IU/L Total Protein (6.7-8.2) g/dL Albumin (3.2-5.5) g/dL Globulin (2.1-4.2) g/dL Albumin/Globulin Ratio (1.0-2.2) Amylase (28-100) U/L Lipase (22-51) U/L Carcinoembryonic Ag ng/mL Vitamin B12 (180-914) pg/mL Urine Color YELLOW Urine Clarity CLEAR (CLEAR) Urine pH 6.0 (5.0-7.5) PH Ur Specific [place] 1.020 (1.002-1.030) Urine Protein NEGATIVE (NEGATIVE) mg/dL Urine Glucose (UA) >=1000 H (NEGATIVE) mg/dL Urine Ketones TRACE (NEGATIVE) mg/dL Urine Occult Blood SMALL H (NEGATIVE) Urine Nitrite NEGATIVE (NEGATIVE) Urine Bilirubin NEGATIVE (NEGATIVE) Urine Urobilinogen 0.2 (NORMAL) (NORMAL) E.U./dL Ur Leukocyte Esterase NEGATIVE (NEGATIVE) Urine RBC 0-5 (0-5) /HPF Urine WBC 0-3 (0-5) /HPF Ur Squamous Epith Cells MANY Squamous H (<= Few) Urine Bacteria Rare (None Seen) /HPF Urine Culture Comments NOT INDICATED Urine Opiates Screen POSITIVE H (NEGATIVE) Ur Oxycodone Screen NEGATIVE (NEGATIVE) Urine Methadone Screen NEGATIVE (NEGATIVE) Ur Propoxyphene Screen NEGATIVE (NEGATIVE) Ur Barbiturates Screen NEGATIVE (NEGATIVE) Ur Tricyclics Screen NEGATIVE (NEGATIVE) Ur Phencyclidine Scrn NEGATIVE (NEGATIVE) Ur Amphetamine Screen NEGATIVE (NEGATIVE) U Methamphetamines Scrn NEGATIVE (NEGATIVE) U Benzodiazepines Scrn NEGATIVE (NEGATIVE) Urine Cocaine Screen NEGATIVE (NEGATIVE) U Cannabinoids Screen NEGATIVE (NEGATIVE) Ethyl Alcohol mg/dL Blood Type Blood Type Recheck Antibody Screen 12/11/17 12/11/17 12/11/17 Range/Units 23:00 23:00 19:51 WBC (4.8-10.8) x10^3/uL RBC (4.20-5.40) 10^6/uL Hgb (12.0-16.0) g/dL Hct (37.0-47.0) % MCV (81.0-99.0) fL MCH (27.0-31.0) pg MCHC (32.0-36.0) g/dL RDW (12.0-15.0) % Plt Count (130-450) 10^3/uL MPV (7.9-10.8) fL Reticulocyte % (Auto) (0.5-2.3) % Neut # (Auto) (1.5-6.6) 10^3/uL Lymph # (Auto) (1.5-3.5) 10^3/uL Coal # (Auto) (0.0-1.0) 10^3/uL Eos # (Auto) (0.0-0.7) 10^3/uL Baso # (Auto) (0.0-0.1) 10^3/uL Absolute Nucleated RBC x10^3/uL Nucleated RBC % /100WBC Absolute Retic (0.020-0.110) 10^6/uL PT 12.0 (9.9-12.6) secs INR 1.1 (0.8-1.2) Sodium (135-145) mmol/L Potassium (3.5-5.0) mmol/L Chloride (101-111) mmol/L Carbon Dioxide (21-32) mmol/L Anion Gap (6-13) BUN (6-20) mg/dL Creatinine (0.4-1.0) mg/dL Estimated GFR (MDRD) (>89) Glucose (70-100) mg/dL Calcium (8.5-10.3) mg/dL Magnesium (1.7-2.8) mg/dL Iron (28-170) ug/dL TIBC (250-450) ug/dL % Saturation (20-50) % Transferrin (192-382) mg/dL Ferritin (11.0-306.8) ng/mL Total Bilirubin (0.2-1.0) mg/dL AST (10-42) IU/L ALT (10-60) IU/L Alkaline Phosphatase (42-121) IU/L Lactate Dehydrogenase (91-225) IU/L Total Protein (6.7-8.2) g/dL Albumin (3.2-5.5) g/dL Globulin (2.1-4.2) g/dL Albumin/Globulin Ratio (1.0-2.2) Amylase (28-100) U/L Lipase (22-51) U/L Carcinoembryonic Ag ng/mL Vitamin B12 (180-914) pg/mL Urine Color Urine Clarity (CLEAR) Urine pH (5.0-7.5) PH Ur Specific [place] (1.002-1.030) Urine Protein (NEGATIVE) mg/dL Urine Glucose (UA) (NEGATIVE) mg/dL Urine Ketones (NEGATIVE) mg/dL Urine Occult Blood (NEGATIVE) Urine Nitrite (NEGATIVE) Urine Bilirubin (NEGATIVE) Urine Urobilinogen (NORMAL) E.U./dL Ur Leukocyte Esterase (NEGATIVE) Urine RBC (0-5) /HPF Urine WBC (0-5) /HPF Ur Squamous Epith Cells (<= Few) Urine Bacteria (None Seen) /HPF Urine Culture Comments Urine Opiates Screen (NEGATIVE) Ur Oxycodone Screen (NEGATIVE) Urine Methadone Screen (NEGATIVE) Ur Propoxyphene Screen (NEGATIVE) Ur Barbiturates Screen (NEGATIVE) Ur Tricyclics Screen (NEGATIVE) Ur Phencyclidine Scrn (NEGATIVE) Ur Amphetamine Screen (NEGATIVE) U Methamphetamines Scrn (NEGATIVE) U Benzodiazepines Scrn (NEGATIVE) Urine Cocaine Screen (NEGATIVE) U Cannabinoids Screen (NEGATIVE) Ethyl Alcohol mg/dL Blood Type O POSITIVE Blood Type Recheck O POSITIVE Antibody Screen NEGATIVE 12/11/17 12/11/17 12/11/17 Range/Units 19:51 19:51 19:51 WBC 7.9 (4.8-10.8) x10^3/uL RBC 2.21 L (4.20-5.40) 10^6/uL Hgb 8.2 L (12.0-16.0) g/dL Hct 22.7 L (37.0-47.0) % MCV 102.7 H (81.0-99.0) fL MCH 36.9 H (27.0-31.0) pg MCHC 35.9 (32.0-36.0) g/dL RDW 11.8 L (12.0-15.0) % Plt Count 147 (130-450) 10^3/uL MPV 9.8 (7.9-10.8) fL Reticulocyte % (Auto) (0.5-2.3) % Neut # (Auto) 6.7 H (1.5-6.6) 10^3/uL Lymph # (Auto) 0.5 L (1.5-3.5) 10^3/uL Coal # (Auto) 0.6 (0.0-1.0) 10^3/uL Eos # (Auto) 0.0 (0.0-0.7) 10^3/uL Baso # (Auto) 0.0 (0.0-0.1) 10^3/uL Absolute Nucleated RBC 0.00 x10^3/uL Nucleated RBC % 0.0 /100WBC Absolute Retic (0.020-0.110) 10^6/uL PT (9.9-12.6) secs INR (0.8-1.2) Sodium 114 L* (135-145) mmol/L Potassium 3.7 (3.5-5.0) mmol/L Chloride 79 L* (101-111) mmol/L Carbon Dioxide 15 L (21-32) mmol/L Anion Gap 20.0 H (6-13) BUN 37 H (6-20) mg/dL Creatinine 1.7 H (0.4-1.0) mg/dL Estimated GFR (MDRD) 31 L (>89) Glucose 152 H (70-100) mg/dL Calcium 8.7 (8.5-10.3) mg/dL Magnesium 2.3 (1.7-2.8) mg/dL Iron (28-170) ug/dL TIBC (250-450) ug/dL % Saturation (20-50) % Transferrin (192-382) mg/dL Ferritin (11.0-306.8) ng/mL Total Bilirubin 0.8 (0.2-1.0) mg/dL AST 42 (10-42) IU/L ALT 26 (10-60) IU/L Alkaline Phosphatase 87 (42-121) IU/L Lactate Dehydrogenase (91-225) IU/L Total Protein 7.1 (6.7-8.2) g/dL Albumin 4.0 (3.2-5.5) g/dL Globulin 3.1 (2.1-4.2) g/dL Albumin/Globulin Ratio 1.3 (1.0-2.2) Amylase 223 H (28-100) U/L Lipase 205 H (22-51) U/L Carcinoembryonic Ag ng/mL Vitamin B12 (180-914) pg/mL Urine Color Urine Clarity (CLEAR) Urine pH (5.0-7.5) PH Ur Specific [place] (1.002-1.030) Urine Protein (NEGATIVE) mg/dL Urine Glucose (UA) (NEGATIVE) mg/dL Urine Ketones (NEGATIVE) mg/dL Urine Occult Blood (NEGATIVE) Urine Nitrite (NEGATIVE) Urine Bilirubin (NEGATIVE) Urine Urobilinogen (NORMAL) E.U./dL Ur Leukocyte Esterase (NEGATIVE) Urine RBC (0-5) /HPF Urine WBC (0-5) /HPF Ur Squamous Epith Cells (<= Few) Urine Bacteria (None Seen) /HPF Urine Culture Comments Urine Opiates Screen (NEGATIVE) Ur Oxycodone Screen (NEGATIVE) Urine Methadone Screen (NEGATIVE) Ur Propoxyphene Screen (NEGATIVE) Ur Barbiturates Screen (NEGATIVE) Ur Tricyclics Screen (NEGATIVE) Ur Phencyclidine Scrn (NEGATIVE) Ur Amphetamine Screen (NEGATIVE) U Methamphetamines Scrn (NEGATIVE) U Benzodiazepines Scrn (NEGATIVE) Urine Cocaine Screen (NEGATIVE) U Cannabinoids Screen (NEGATIVE) Ethyl Alcohol 18.4 mg/dL Blood Type Blood Type Recheck Antibody Screen ABX Reporting Has patient been on IV antibiotics over the past 48 hours?: No Assessment/Plan - Problem List (1) Left humeral fracture Impression: pt had fall, Xray reveals left humeral fracture. pt had splint follow up orthopedics pain control fall precaution will consider PT/OT Qualifiers: Encounter type: initial encounter Humerus Location: shaft Fracture type: closed Fracture morphology: oblique Fracture alignment: displaced Qualif ied Code(s): S42.332A - Displaced oblique fracture of shaft of humerus, left arm, initial encounter for closed fracture (2) Alcohol abuse Impression: hx of alcohol abuse CAWA protocol, alcohol withdrawal continue banana bag advise pt quit alcohol (3) Hyponatremia Impression: it seems hypovolum hyponatremia will IVF of NS lab monitor (4) Anemia Impression: HGB 7.3 today, anemia study, B12 is high. alcoholic Macrocytic anemia daily lab monitor, continue monitor HGB, Qualifiers: Anemia type: other cause Other causes of anemia: other cause, not classified Qualified Code(s): D64.89 - Other specified anemias (5) Acute kidney injury Impression: improved. will continue IVF of NS, may be caused by dehydration daily lab monitor (6) Elevated amylase and lipase Impression: mild elevated lipase and amylase. pt is with hx of chronic pancreatitis with alcoholism CT of abdomen, radiologist recommend pt has ERCP for brush biopsy, pt refuse to be transferred to other hospital for ERCP, advise follow up out-pt GI for ERCP continue IVF of NS continue check Lipase, amylase. continue pain control continue clear diet for bowel rest now
[2017-12-12] MEDS: NICOTINE 14 MG PATCH TOP PRN (13:33)
[2017-12-12] MEDS ORDERED: SODIUM CHLORIDE 0.9% 500 ML IV ONE (16:34)
--- NOTE | 2017-12-12 17:52 | CONSULTATION NOTE ---
DATE OF SERVICE: 12/12/2017 Physician: Anabelle Flores MD REQUESTING PHYSICIAN: Dr. Alexis De Jesus REASON FOR CONSULTATION: Left closed humerus fracture. HISTORY OF PRESENT ILLNESS: This 52-year-old right-hand dominant female is a chronic alcoholic who, at 10:30 in the morning on 12/11/2017, suffered a fall into her bathtub, causing injury of her left a rm with deformity and severe pain. The patient was brought to the emergency room and evaluated and d iagnosed by x-ray. She was found to have significant abnormalities of her electrolytes, and she was anemic with hematocrit of 22. The patient, however, by reports of Dr. De Jesus, was not intoxicated wi th ethyl alcohol level of 18.4. Patient was admitted to the hospital. Also by report of Dr. De Jesus, the patient was in extreme pain, and it is unclear whether she had radial nerve function or not, but the patient claims that she did on admission. The patient's history and physical exam are delineated in her admit note and record. Her physical ex am shows a somewhat emaciated lady who appears older than her stated age, but today is alert and orie nted and not in distress or severe pain. The patient voices that she does not want to have any surge ry done on her arm, and she is anxious to have a cast placed. The patient has noticed some numbness on the radial side of her forearm extending into her thumb and hand. She had not previously noticed until I pointed it out to her that she could not extend her wrist or her fingers or her thumb, and th erefore has a complete radial nerve palsy. The patient has normal color of skin, pulses, and no abno rmal swelling. She has less pressure on her arm when some of the Mando wrap is loosened, but there is no evidence of bunching or rolls or pressure under her splint, which is fitting well. LAB RESULTS: The patient's x-ray evaluation shows a distal third of the humerus oblique displaced an d angulated into varus fracture. IMPRESSION AND PLAN: The patient has a closed humerus fracture, oblique in the distal third of the b one with an associated radial nerve palsy, and my suspicion is that the palsy has been present from a dmission and from the point of injury. The patient is presently not a surgery candidate with unstabl e vital signs and unstable laboratory tests because of instability of her anemia and hyponatremia. T he patient continues to voice an opinion that she does not want to have surgery on her arm, but she h as just now become aware of a radial nerve palsy, and I believe this may change the discussion a inderjit le bit. I have advised her of the palsy and will have further discussion with her. The patient will be follo wed and is expected to be in the hospital at least for a few days. TD: 12/12/2017 13:51
[2017-12-13] MEDS: SODIUM CHLORIDE FLUSH 0.9% 10 ML SYRINGE IVP SCH ×3 (00:10→17:36)
[2017-12-13] MEDS: HYDROmorphone 0.5 MG/0.5 ML SYRINGE IVP PRN ×4 (00:21→20:55)
[2017-12-13] MEDS: SODIUM CHLORIDE 0.9% 1,000 ML IV SCH ×3 (06:43→19:05)
[2017-12-13 08:13] LABS: BASOPHILS % (AUTO) 0.6 %; EOSINOPHILS % (AUTO) 0.5 %; LYMPHOCYTES % (AUTO) 20.6 %; MEAN CORPUSCULAR HEMOGLOBIN 36.2 pg (27.0-31.0); MEAN CORPUSCULAR HGB CONC 34.9 g/dL (32.0-36.0); MEAN CORPUSCULAR VOLUME 103.6 fL (81.0-99.0); MEAN PLATELET VOLUME 9.8 fL (7.9-10.8); MONOCYTES # (AUTO) 0.7 10^3/uL (0.0-1.0); MONOCYTES % (AUTO) 14.3 %; NEUTROPHILS # (AUTO) 3.3 10^3/uL (1.5-6.6); PLT - PLATELET COUNT 108 10^3/uL (130-450); RED BLOOD COUNT 1.74 10^6/uL (4.20-5.40); RED CELL DISTRIBUTION WIDTH 11.8 % (12.0-15.0); WHITE BLOOD COUNT 5.1 x10^3/uL (4.8-10.8)
[2017-12-13 08:19] LABS: HGB - HEMOGLOBIN 6.3 g/dL (12.0-16.0)
[2017-12-13 08:23] LABS: ALBUMIN 3.5 g/dL (3.2-5.5); ALBUMIN/GLOBULIN RATIO 1.3 (1.0-2.2); BILIRUBIN,TOTAL 0.6 mg/dL (0.2-1.0); CALCIUM 8.3 mg/dL (8.5-10.3); CREATININE 0.6 mg/dL (0.4-1.0); TOTAL PROTEIN 6.3 g/dL (6.7-8.2)
[2017-12-13] MEDS: buPROPion SR 100 MG TABLET PO SCH (10:03)
[2017-12-13] MEDS: FAMOTIDINE 20 MG TABLET PO SCH (10:03)
[2017-12-13] MEDS: oxyCODONE ER 10 MG TABLET PO SCH ×2 (10:03→20:56)
[2017-12-13] MEDS: POLYETHYLENE GLYCOL 3350 17 GM PACKET PO SCH (10:03)
[2017-12-13] MEDS: NICOTINE 14 MG PATCH TOP PRN (10:03)
[2017-12-13] MEDS: MULTIVITAMIN 10 ML, FOLIC ACID INJ 1 MG, THIAMINE INJ 100 MG, MAGNESIUM SULFATE 2 GM in... IV SCH ×5 (10:04)
--- NOTE | 2017-12-13 12:00 | XRAY Report ---
Reason: cough, fever Procedure Date: 12/13/2017 Accession Number: [id number] / [id number] Procedure: XR - Chest 1 View X-Ray CPT Code: 84622 FULL RESULT: EXAM: CHEST RADIOGRAPHY EXAM DATE: 12/13/2017 11:50 AM. CLINICAL HISTORY: Cough, fever. COMPARISON: None. TECHNIQUE: 1 view. FINDINGS: Lungs/Pleura: There is indistinct slight silhouetting of the left hemidiaphragm, concerning for left lower lobe infiltrate. Lateral view was not performed. Mediastinum: Within exam limitations, the cardiomediastinal contour is normal. IMPRESSION: Favor a left lower lobe infiltrate. Correlate clinically for pneumonia. Recommend follow-up evaluation. [facility]
[2017-12-13] MEDS: AZITHROMYCIN 250 MG TABLET PO SCH (13:03)
--- NOTE | 2017-12-13 14:52 | PROVIDER PROGRESS NOTE ---
Subjective - Prog Note Date Prog Note Date: 12/13/17 - Subjective Pt reports feeling: No change Subjective: pt report she had cough, but denies chest pain, dizziness, palpitation. Pt's HGB is 6.3, but pt refused to have blood transfusion. I discussed with pt's elevated tumor jazz CA19-9, pancreatic cancer tumor marker. pt still refused to have ERCP and refused to be transferred to other hospital to have ERCP for biopsy. Current Medications - Current Medications Current Medications: Active Medications Azithromycin (Zithromax) 500 mg PO DAILY [facility] Last Admin: 12/13/17 13:03 Dose: 500 mg Bupropion HCl (Wellbutrin Sr) 100 mg PO DAILY [facility] Last Admin: 12/13/17 10:03 Dose: 100 mg Ceftriaxone Sodium (Rocephin) 1 gm IVP DAILY [facility] Famotidine (Pepcid) 20 mg PO DAILY [facility] Last Admin: 12/13/17 10:03 Dose: 20 mg Hydromorphone HCl (Dilaudid Inj Syringe) 1 mg IVP Q2H PRN PRN Reason: Pain 8 to 10 Last Admin: 12/13/17 11:22 Dose: 1 mg Sodium Chloride (Normal Saline 0.9%) 1,000 mls @ 75 mls/hr IV .[id number] [facility] Last Admin: 12/13/17 14:31 Dose: 75 mls/hr Lorazepam (Ativan Inj (Vial)) 2 mg IVP Q2H PRN PRN Reason: Alcohol Withdrawal Nicotine (Nicoderm) 1 patch TOP DAILY PRN PRN Reason: Nicotine Craving Last Admin: 12/13/17 10:03 Dose: 1 patch Oxycodone HCl (Oxycontin) 10 mg PO BID [facility] Last Admin: 12/13/17 10:03 Dose: 10 mg Polyethylene Glycol (Miralax) 17 gm PO DAILY [facility] Last Admin: 12/13/17 10:03 Dose: 17 gm Multivit/Folic Acid/Iron (Trinatal Rx 1) 1 tab PO DAILYWM [facility] Prochlorperazine Edisylate (Compazine Inj) 10 mg IVP Q6HR PRN PRN Reason: Nausea / Vomiting Last Admin: 12/12/17 00:46 Dose: 10 mg Sodium Chloride (Normal Saline Flush 0.9%) 10 ml IVP PRN PRN PRN Reason: NEEDED PER PROVIDER ORDERS Last Admin: 12/12/17 00:46 Dose: 10 ml Sodium Chloride (Normal Saline Flush 0.9%) 10 ml IVP 0100,0900,1700 [facility] Last Admin: 12/13/17 08:33 Dose: Not Given Thiamine HCl (Vitamin B-1) 100 mg PO DAILY [facility] Lisinopril 30 mg PO DAILY 12/11/17 buPROPion [Wellbutrin Sr] 100 mg PO TID 12/11/17 Omeprazole 20 mg PO DAILY 12/12/17 QUEtiapine [SEROquel] 25 mg PO QPM 12/12/17 Objective - Vital Signs/Intake & Output Reviewed Vital Signs: Yes Vital Signs: Vital Signs x48h Temp Pulse Pulse Resp BP Pulse Ox 12/13/17 11:22 37.9 C H 101 H 20 131/74 H 100 12/13/17 09:10 37 C 110 H 18 93 12/13/17 07:57 37.0 C 116 H 18 126/71 93 Intake & Output: Intake & Output 12/10/17 12/11/17 12/12/17 12/13/17 23:59 23:59 23:59 23:59 Intake Total 4530.733 2361.66 Output Total 1075 200 Balance 3455.733 2161.66 - Objective General Appearance: positive: No acute distress, Alert. negative: Lethargic Eyes Bilateral: positive: Normal inspection, PERRL, No lid inflammation, Conjunctivae nml ENT: positive: ENT inspection nml, Pharynx nml, No signs of dehydration. negative: Purulent nasal drainage, Pharyngeal erythema, Oral lesions Neck: positive: Nml inspection, Thyroid nml, No JVD, Trachea midline. negative: Thyromegaly, Lymphadenopathy (R), Lymphadenopathy (L), Stiff neck, Swelling/bruising, Tracheal deviation Respiratory: positive: Chest non-tender, No respiratory distress, Breath sounds nml. negative: Wheezes, Rales, Rhonchi Cardiovascular: positive: Regular rate & rhythm, No murmur, No gallop. negative: Irregularly irregular, Extrasystoles, Tachycardia, Bradycardia, JVD present, Systolic murmur, Diastolic murmur Peripheral Pulses: 2+ Radial (R), 2+ Radial (L), 2+ Dorsalis pedis (R), 2+ Dorsalis pedis (L) Abdomen: positive: Non-tender, No organomegaly, Nml bowel sounds, No distention. negative: Tenderness, Guarding, Rebound Back: positive: Nml inspection. negative: CVA tenderness (R), CVA tenderness (L) Skin: positive: Color nml, No rash, Warm, Dry. negative: Cyanosis, Diaphoresis, Pallor Extremities: positive: Non-tender, Full ROM, Nml appearance. negative: Calf tenderness, Joint swelling, Manuel's sign/cords Neurologic/Psychiatric: positive: Oriented x3, Sensation nml, Mood/affect nml. negative: Weakness, Sensory loss, Facial droop, Slurred/abnml speech, Depressed mood/affect - Lab Results Fish Bones: 12/13/17 08:03 12/13/17 08:03 Other Labs: Lab Results x24hrs 12/13/17 12/13/17 12/13/17 Range/Units 08:03 08:03 08:03 WBC (4.8-10.8) x10^3/uL RBC (4.20-5.40) 10^6/uL Hgb (12.0-16.0) g/dL Hct (37.0-47.0) % MCV (81.0-99.0) fL MCH (27.0-31.0) pg MCHC (32.0-36.0) g/dL RDW (12.0-15.0) % Plt Count (130-450) 10^3/uL MPV (7.9-10.8) fL Neut # (Auto) (1.5-6.6) 10^3/uL Lymph # (Auto) (1.5-3.5) 10^3/uL [place] # (Auto) (0.0-1.0) 10^3/uL Eos # (Auto) (0.0-0.7) 10^3/uL Baso # (Auto) (0.0-0.1) 10^3/uL Absolute Nucleated RBC x10^3/uL Nucleated RBC % /100WBC Sodium 128 L (135-145) mmol/L Potassium 3.9 (3.5-5.0) mmol/L Chloride 96 L (101-111) mmol/L Carbon Dioxide 21 (21-32) mmol/L Anion Gap 11.0 (6-13) BUN 24 H (6-20) mg/dL Creatinine 0.6 (0.4-1.0) mg/dL Estimated GFR (MDRD) 104 (>89) Glucose 185 H (70-100) mg/dL Calcium 8.3 L (8.5-10.3) mg/dL Total Bilirubin 0.6 (0.2-1.0) mg/dL AST 42 (10-42) IU/L ALT 26 (10-60) IU/L Alkaline Phosphatase 113 (42-121) IU/L Total Protein 6.3 L (6.7-8.2) g/dL Albumin 3.5 (3.2-5.5) g/dL Globulin 2.8 (2.1-4.2) g/dL Albumin/Globulin Ratio 1.3 (1.0-2.2) Amylase 91 (28-100) U/L Lipase 77 H (22-51) U/L CA 19-9 Antigen (<34) U/mL TSH 2.03 (0.34-5.60) uIU/mL Cortisol AM Sample 17.9 ug/dL Cortisol 4pm Sample ug/dL 12/13/17 12/12/17 12/12/17 Range/Units 08:03 16:48 09:00 WBC 5.1 (4.8-10.8) x10^3/uL RBC 1.74 L (4.20-5.40) 10^6/uL Hgb 6.3 L* (12.0-16.0) g/dL Hct 18.0 L* (37.0-47.0) % MCV 103.6 H (81.0-99.0) fL MCH 36.2 H (27.0-31.0) pg MCHC 34.9 (32.0-36.0) g/dL RDW 11.8 L (12.0-15.0) % Plt Count 108 L (130-450) 10^3/uL MPV 9.8 (7.9-10.8) fL Neut # (Auto) 3.3 (1.5-6.6) 10^3/uL Lymph # (Auto) 1.0 L (1.5-3.5) 10^3/uL [place] # (Auto) 0.7 (0.0-1.0) 10^3/uL Eos # (Auto) 0.0 (0.0-0.7) 10^3/uL Baso # (Auto) 0.0 (0.0-0.1) 10^3/uL Absolute Nucleated RBC 0.00 x10^3/uL Nucleated RBC % 0.0 /100WBC Sodium (135-145) mmol/L Potassium (3.5-5.0) mmol/L Chloride (101-111) mmol/L Carbon Dioxide (21-32) mmol/L Anion Gap (6-13) BUN (6-20) mg/dL Creatinine (0.4-1.0) mg/dL Estimated GFR (MDRD) (>89) Glucose (70-100) mg/dL Calcium (8.5-10.3) mg/dL Total Bilirubin (0.2-1.0) mg/dL AST (10-42) IU/L ALT (10-60) IU/L Alkaline Phosphatase (42-121) IU/L Total Protein (6.7-8.2) g/dL Albumin (3.2-5.5) g/dL Globulin (2.1-4.2) g/dL Albumin/Globulin Ratio (1.0-2.2) Amylase (28-100) U/L Lipase (22-51) U/L CA 19-9 Antigen 101 H (<34) U/mL TSH (0.34-5.60) uIU/mL Cortisol AM Sample ug/dL Cortisol 4pm Sample 11.7 ug/dL ABX Reporting Has patient been on IV antibiotics over the past 48 hours?: Yes Assessment/Plan - Problem List (1) Left humeral fracture Impression: 12/13 pt's left hand, distal of left humeral fracture with intact sensation, but slight reduced mobility, but also denies pain. Nurse will contact Orthopedics to check pt. continue pain control pt had fall, Xray reveals left humeral fracture. pt had splint follow up orthopedics pain control fall precaution will consider PT/OT (2) Alcohol abuse Impression: hx of alcohol abuse CAWA protocol, alcohol withdrawal continue banana bag advise pt quit alcohol (3) Hyponatremia Impression: 12/13, improved Na 128 continue slight IVF of NS, 75cc/h daily lab monitor it seems hypovolum hyponatremia will IVF of NS lab monitor (4) Anemia Impression: 12/13 HGB 6.3 today, pt refused to have blood transfusion. pt is asymptomatic, no palpitation, chest pain, dizziness Occult stool test is pending, pt denies black stool, GI bleeding HGB 7.3 today, anemia study, B12 is high. alcoholic Macrocytic anemia daily lab monitor, continue monitor HGB, (5) Acute kidney injury Impression: resolved improved. will continue IVF of NS, may be caused by dehydration daily lab monitor (6) Elevated amylase and lipase Impression: 12/13 pt tolerate regular diet, denies N/V/D, no abdominal pain, lipase is down to 77 mild elevated lipase and amylase. pt is with hx of chronic pancreatitis with alcoholism CT of abdomen, radiologist recommend pt has ERCP for brush biopsy, pt refuse to be transferred to other hospital for ERCP, advise follow up out-pt GI for ERCP continue IVF of NS continue check Lipase, amylase. continue pain control continue clear diet for bowel rest now (7) pneumonia pt present cough, and elevated to temp 37.9 pt refused to have blood culture CXR reveals infiltration antibiotics, Azith and rocephin Qualifiers: Encounter type: initial encounter Humerus Location: shaft Fracture type: closed Fracture morphology: oblique Fracture alignment: displaced Qualified Code(s): S42.332A - Displaced oblique fracture of shaft of humerus, left arm, initial encounter for closed fracture (4) Anemia Qualifiers: Anemia type: other cause Other causes of anemia: other cause, not classified Qualified Code(s): D64.89 - Other specified anemias
[2017-12-14] MEDS: SODIUM CHLORIDE FLUSH 0.9% 10 ML SYRINGE IVP SCH ×4 (00:58→23:53)
[2017-12-14 06:00] LABS: BASOPHILS % (AUTO) 0.7 %; EOSINOPHILS % (AUTO) 0.7 %; LYMPHOCYTES % (AUTO) 16.9 %; MEAN CORPUSCULAR HGB CONC 33.7 g/dL (32.0-36.0); MEAN CORPUSCULAR VOLUME 106.9 fL (81.0-99.0); MEAN PLATELET VOLUME 9.9 fL (7.9-10.8); MONOCYTES # (AUTO) 0.8 10^3/uL (0.0-1.0); MONOCYTES % (AUTO) 13.2 %; NEUTROPHILS # (AUTO) 4.1 10^3/uL (1.5-6.6); NEUTROPHILS % (AUTO) 68.5 %; PLT - PLATELET COUNT 124 10^3/uL (130-450); RED BLOOD COUNT 1.63 10^6/uL (4.20-5.40); RED CELL DISTRIBUTION WIDTH 12.2 % (12.0-15.0)
[2017-12-14 06:06] LABS: HGB - HEMOGLOBIN 5.9 g/dL (12.0-16.0)
[2017-12-14 06:09] LABS: ALBUMIN 3.4 g/dL (3.2-5.5); ALBUMIN/GLOBULIN RATIO 1.2 (1.0-2.2); BILIRUBIN,TOTAL 0.6 mg/dL (0.2-1.0); CALCIUM 8.8 mg/dL (8.5-10.3); CREATININE 0.5 mg/dL (0.4-1.0); TOTAL PROTEIN 6.3 g/dL (6.7-8.2)
[2017-12-14] MEDS: SODIUM CHLORIDE 0.9% 1,000 ML IV SCH (08:29)
[2017-12-14] MEDS: cefTRIAXone 1 GM in SODIUM CHLORIDE 0.9% MINIBAG 100 ML IV SCH (08:29)
[2017-12-14] MEDS: AZITHROMYCIN 250 MG TABLET PO SCH (08:35)
[2017-12-14] MEDS: THIAMINE 100 MG TABLET PO SCH (08:35)
[2017-12-14] MEDS: oxyCODONE ER 10 MG TABLET PO SCH ×2 (08:35→22:30)
[2017-12-14] MEDS: FAMOTIDINE 20 MG TABLET PO SCH (08:35)
[2017-12-14] MEDS: buPROPion SR 100 MG TABLET PO SCH (08:36)
[2017-12-14] MEDS: NICOTINE 14 MG PATCH TOP PRN (08:36)
[2017-12-14] MEDS: DOCUSATE SODIUM 250 MG CAPSULE PO SCH (08:36)
[2017-12-14] MEDS: SENNA 8.6 MG TABLET PO SCH (08:36)
[2017-12-14] MEDS: POLYETHYLENE GLYCOL 3350 17 GM PACKET PO SCH (08:36)
[2017-12-14] MEDS: PRENATAL VITAMIN TABLET PO SCH (08:36)
[2017-12-14] MEDS ORDERED: cefTRIAXone 1 GM VIAL IVP SCH (09:00)
--- NOTE | 2017-12-14 09:43 | CONSULTATION NOTE ---
DATE OF SERVICE: 12/12/2017 Physician: Anabelle Flores MD REQUESTING PHYSICIAN: Dr. Goodman. REASON FOR CONSULTATION: Patient with left humeral fracture. HISTORY OF PRESENT ILLNESS: Patient is a 52-year-old female who is an alcoholic who suffered a in th e bathtub slip and fall on the morning of 12/11/2017. Came to the hospital with a displaced fracture of the left humerus and with abrasions on her left leg. She was found to be severely hyponatremic a nd anemic and for this reason for medical reasons only was admitted to the hospital. She was placed in a coaptation splint by Dr. De Jesus. The patient's prior medical history is documented in her recor d. The patient's examination showed her to be on December 12, 2017, alert and fully oriented and not in severe pain and not complaining of anything but her humerus. She had a coaptation splint around h er arm and her exposed forearm and hand had mild to moderate swelling. Her radial nerve was definite ly not functioning. She could not extend her fingers, wrist or thumb and she had sensory deficit on the dorsal forearm and hand. Her pulses were normal, skin color normal, and no evidence of compartme nt syndrome. Upon loosening her splint somewhat she had some relief of discomfort in the arm. The p atient's elbow itself was palpated from the anterior aspect between the coaptation splint. It was no t painful. The patient's remaining abrasions on the left leg were unremarkable and neurovascular exa m in the lower extremities was normal. X-ray review showed an oblique non-comminuted but widely disp laced and angulated fracture of the left distal humerus, [place] type fracture. RECOMMENDATION: The patient will remain in a coaptation splint, that occupational therapy be drawn i n as a consult to place a wrist dorsiflexion splint and to begin range of motion of fingers and thumb in the view of radial nerve palsy. She ultimately will be transferred into a humeral fracture brace with a nonoperative course of management. The patient has a high likelihood of both healing and a h igh likelihood also of eventual radial nerve recovery. TD: 12/14/2017 08:57
[2017-12-14] MEDS ORDERED: SODIUM CHLORIDE 0.9% 500 ML IV ONE ×2 (10:18→13:45)
--- NOTE | 2017-12-14 11:52 | PROVIDER PROGRESS NOTE ---
Subjective - General Admit Date: 12/11/17 - Review of Systems Wound/Incisions: positive: Other (splint on left arm. Admission here) Musculoskeletal: positive: Joint pain, Joint swelling Neurological: Objective - Patient Data Reviewed Vital Signs: Yes Vital Signs: Vital Signs x48h Temp Pulse Pulse Resp BP BP Pulse Ox 12/14/17 10:37 37.1 C 110 H 18 139/81 H 12/14/17 10:20 37.2 C 114 H 20 134/80 H 12/14/17 10:03 37.2 C 114 H 18 134/80 H 92 12/14/17 07:54 37.1 C 112 H 18 146/82 H 93 12/14/17 04:00 37.1 C 114 H 20 140/77 H 98 Weight: Weight 12/12/17 12/13/17 12/14/17 23:59 23:59 23:59 Weight (kg) 53 kg 54 kg 56.5 kg Intake & Output: Intake and Output Totals x24h 12/12/17 12/13/17 12/14/17 23:59 23:59 23:59 Intake Total 4530.733 3404.16 2044.25 Output Total 2571 614 9903 Balance 3455.733 2724.16 1044.25 - Lab Results Lab Results: 12/14/17 05:25 12/14/17 05:25 Other Lab Results: Lab Results x24hrs 12/14/17 12/14/17 12/11/17 Range/Units 05:25 05:25 23:00 WBC 6.0 (4.8-10.8) x10^3/uL RBC 1.63 L (4.20-5.40) 10^6/uL Hgb 5.9 L* (12.0-16.0) g/dL Hct 17.4 L* (37.0-47.0) % MCV 106.9 H (81.0-99.0) fL MCH 36.0 H (27.0-31.0) pg MCHC 33.7 (32.0-36.0) g/dL RDW 12.2 (12.0-15.0) % Plt Count 124 L (130-450) 10^3/uL MPV 9.9 (7.9-10.8) fL Neut # (Auto) 4.1 (1.5-6.6) 10^3/uL Lymph # (Auto) 1.0 L (1.5-3.5) 10^3/uL [place] # (Auto) 0.8 (0.0-1.0) 10^3/uL Eos # (Auto) 0.0 (0.0-0.7) 10^3/uL Baso # (Auto) 0.0 (0.0-0.1) 10^3/uL Absolute Nucleated RBC 0.00 x10^3/uL Nucleated RBC % 0.1 /100WBC Sodium 131 L (135-145) mmol/L Potassium 4.0 (3.5-5.0) mmol/L Chloride 101 (101-111) mmol/L Carbon Dioxide 21 (21-32) mmol/L Anion Gap 9.0 (6-13) BUN 17 (6-20) mg/dL Creatinine 0.5 (0.4-1.0) mg/dL Estimated GFR (MDRD) 129 (>89) Glucose 212 H (70-100) mg/dL Calcium 8.8 (8.5-10.3) mg/dL Total Bilirubin 0.6 (0.2-1.0) mg/dL AST 39 (10-42) IU/L ALT 23 (10-60) IU/L Alkaline Phosphatase 85 (42-121) IU/L Total Protein 6.3 L (6.7-8.2) g/dL Albumin 3.4 (3.2-5.5) g/dL Globulin 2.9 (2.1-4.2) g/dL Albumin/Globulin Ratio 1.2 (1.0-2.2) Amylase 66 (28-100) U/L Lipase 49 (22-51) U/L Blood Type O POSITIVE Antibody Screen NEGATIVE Crossmatch IS Only See Detail - Current Medications Current Medications: Current Medications Generic Name Dose Route Start Last Admin Trade Name Ashuq PRN Reason Stop Dose Admin Azithromycin 500 mg 12/13/17 12:00 12/14/17 08:35 Zithromax PO 500 mg DAILY NOEL Administration Bupropion HCl 100 mg 12/12/17 09:00 12/14/17 08:36 Wellbutrin Sr PO 100 mg DAILY NOEL Administration Docusate Sodium 250 - 500 mg 12/14/17 09:00 12/14/17 08:36 Colace 250mg Capsule PO 250 mg DAILY NOEL Administration Famotidine 20 mg 12/12/17 09:00 12/14/17 08:35 Pepcid PO 20 mg DAILY [facility] Administration Hydromorphone HCl 1 mg 12/11/17 21:38 12/13/17 20:55 Dilaudid Inj Syringe IVP 1 mg Q2H PRN Administration Pain 8 to 10 Sodium Chloride 1,000 mls @ 75 mls/hr 12/13/17 14:08 12/14/17 10:24 Normal Saline 0.9% IV 0 mls/hr .[id number] NO[facility] Infusion Ceftriaxone Sodium 1 gm/ 100 mls @ 200 mls/hr 12/14/17 09:00 12/14/17 09:07 Sodium Chloride IV Infused DAILY [facility] Infusion Nicotine 1 patch 12/11/17 22:02 12/14/17 08:36 Nicoderm TOP 1 patch DAILY PRN Administration Nicotine Craving Oxycodone HCl 10 mg 12/12/17 01:00 12/14/17 08:35 Oxycontin PO 10 mg BID NOEL Administration Polyethylene Glycol 17 gm 12/12/17 09:00 12/14/17 08:36 Miralax PO 17 gm DAILY NO[facility] Administration Multivit/Folic Acid/Iron 1 tab 12/14/17 08:00 12/14/17 08:36 Trinatal Rx 1 PO 1 tab DAILYWM NOEL Administration Prochlorperazine Edisylate 10 mg 12/11/17 21:38 12/12/17 00:46 Compazine Inj IVP 10 mg Q6HR PRN Administration Nausea / Vomiting Senna 8.6 - 17.2 mg 12/14/17 09:00 12/14/17 08:36 Senokot PO 8.6 mg DAILY [facility] Administration Sodium Chloride 10 ml 12/11/17 21:38 12/12/17 00:46 Normal Saline Flush 0.9% IVP 10 ml PRN PRN Administration NEEDED PER PROVIDER ORDERS Sodium Chloride 10 ml 12/12/17 01:00 12/14/17 08:15 Normal Saline Flush 0.9% IVP Not Given 0100,0900,1700 NOEL Thiamine HCl 100 mg 12/14/17 09:00 12/14/17 08:35 Vitamin B-1 PO 100 mg DAILY NO[facility] Administration - Physical Exam General Appearance: positive: Anxious Extremities: positive: Joint swelling, Other (compartments are soft. Tender at humeral fx site. 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 decreased sensation in left forearm, no wrist extension, thumb or finger extension.) Impression/Plan - Problem List Problem List: Ortho: Consult has been done on 12/12. Redictated today 12/14 This patient has a closed left distal 1/3 humeral shaft fracture associated with radial nerve palsy. This injury will be treated closed and with a fracture brace which has been ordered. Hospitalization at this time is solely due to medical issues. Occupation therapy has been ordered. They are not available today. They will proceed to work on ROM of the wrist, fingers and thumb, and try to control swelling. It is expected and inevitable that the patient will struggle with forearm and hand swelling with a humeral fracture. This problem is also exacebated by the radial nerve palsy. At ultimate discharge the patient will be seen in ortho clinic within 3-5 days.
[2017-12-14] MEDS: HYDROmorphone 0.5 MG/0.5 ML SYRINGE IVP PRN (14:37)
--- NOTE | 2017-12-14 15:41 | PROVIDER PROGRESS NOTE ---
Subjective - Prog Note Date Prog Note Date: 12/14/17 - Subjective Pt reports feeling: Improved Subjective: pt report she feel weakness and change her mind, and agree to have blood transfusion. pt denies GI bleeding, block stool. Occult blood stool is pending from nurse to collect the sample for test. I called Dr. Flores and reported to him pt's swelling pt's dorsum of hand and reduced mobility on her left hand. Current Medications - Current Medications Current Medications: Active Medications Azithromycin (Zithromax) 500 mg PO DAILY [facility] Last Admin: 12/14/17 08:35 Dose: 500 mg Bupropion HCl (Wellbutrin Sr) 100 mg PO DAILY [facility] Last Admin: 12/14/17 08:36 Dose: 100 mg Docusate Sodium (Colace 250mg Capsule) 250 - 500 mg PO DAILY [facility] Last Admin: 12/14/17 08:36 Dose: 250 mg Famotidine (Pepcid) 20 mg PO DAILY [facility] Last Admin: 12/14/17 08:35 Dose: 20 mg Hydromorphone HCl (Dilaudid Inj Syringe) 1 mg IVP Q2H PRN PRN Reason: Pain 8 to 10 Last Admin: 12/14/17 14:37 Dose: 1 mg Ceftriaxone Sodium 1 gm/ (Sodium Chloride) 100 mls @ 200 mls/hr IV DAILY [facility] Last Infusion: 12/14/17 09:07 Dose: Infused Lorazepam (Ativan Inj (Vial)) 2 mg IVP Q2H PRN PRN Reason: Alcohol Withdrawal Metoprolol Succinate (Toprol Xl) 25 mg PO DAILY [facility] Last Admin: 12/14/17 16:41 Dose: 25 mg Nicotine (Nicoderm) 1 patch TOP DAILY PRN PRN Reason: Nicotine Craving Last Admin: 12/14/17 08:36 Dose: 1 patch Oxycodone HCl (Oxycontin) 10 mg PO BID [facility] Last Admin: 12/14/17 08:35 Dose: 10 mg Polyethylene Glycol (Miralax) 17 gm PO DAILY [facility] Last Admin: 12/14/17 08:36 Dose: 17 gm Multivit/Folic Acid/Iron (Trinatal Rx 1) 1 tab PO DAILYWM [facility] Last Admin: 12/14/17 08:36 Dose: 1 tab Prochlorperazine Edisylate (Compazine Inj) 10 mg IVP Q6HR PRN PRN Reason: Nausea / Vomiting Last Admin: 12/12/17 00:46 Dose: 10 mg Senna (Senokot) 8.6 - 17.2 mg PO DAILY [facility] Last Admin: 12/14/17 08:36 Dose: 8.6 mg Sodium Chloride (Normal Saline Flush 0.9%) 10 ml IVP PRN PRN PRN Reason: NEEDED PER PROVIDER ORDERS Last Admin: 12/12/17 00:46 Dose: 10 ml Sodium Chloride (Normal Saline Flush 0.9%) 10 ml IVP 0100,0900,1700 [facility] Last Admin: 12/14/17 16:41 Dose: 10 ml Thiamine HCl (Vitamin B-1) 100 mg PO DAILY [facility] Last Admin: 12/14/17 08:35 Dose: 100 mg Lisinopril 30 mg PO DAILY 12/11/17 buPROPion [Wellbutrin Sr] 100 mg PO TID 12/11/17 Omeprazole 20 mg PO DAILY 12/12/17 QUEtiapine [SEROquel] 25 mg PO QPM 12/12/17 Objective - Vital Signs/Intake & Output Reviewed Vital Signs: Yes Vital Signs: Vital Signs x48h Temp Pulse Pulse Resp BP BP Pulse Ox 12/14/17 14:10 37.5 C 110 H 18 149/84 H 12/14/17 14:01 37.5 C 116 H 18 151/81 H 12/14/17 13:52 37.5 C 116 H 18 146/85 H 12/14/17 13:31 37.5 C 112 H 18 149/83 H 12/14/17 10:37 37.1 C 110 H 18 139/81 H 12/14/17 10:30 100 12/14/17 10:20 37.2 C 114 H 20 134/80 H 12/14/17 10:03 37.2 C 114 H 18 134/80 H 92 12/14/17 07:54 37.1 C 112 H 18 146/82 H 93 Intake & Output: Intake & Output 12/11/17 12/12/17 12/13/17 12/14/17 23:59 23:59 23:59 23:59 Intake Total 4530.733 3404.16 2664.25 Output Total 4735 388 2444 Balance 3455.733 2724.16 1539.25 - Objective General Appearance: positive: No acute distress, Alert. negative: Lethargic Eyes Bilateral: positive: Normal inspection, PERRL, No lid inflammation, Conjunctivae nml ENT: positive: ENT inspection nml, Pharynx nml, No signs of dehydration. negative: Purulent nasal drainage, Pharyngeal erythema, Oral lesions Neck: positive: Nml inspection, Thyroid nml, No JVD, Trachea midline. negative: Thyromegaly, Lymphadenopathy (R), Lymphadenopathy (L), Stiff neck, Swelling/bruising, Tracheal deviation Respiratory: positive: Chest non-tender, No respiratory distress, Breath sounds nml. negative: Wheezes, Rales, Rhonchi Cardiovascular: positive: Regular rate & rhythm, No murmur, No gallop, Tachycardia. negative: Irregularly irregular, Extrasystoles, Bradycardia, JVD present, Systolic murmur, Diastolic murmur Peripheral Pulses: 2+ Radial (R), 2+ Radial (L), 2+ Dorsalis pedis (R), 2+ Dorsalis pedis (L) Abdomen: positive: Non-tender, No organomegaly, Nml bowel sounds, No distention. negative: Tenderness, Guarding, Rebound Back: positive: Nml inspection. negative: CVA tenderness (R), CVA tenderness (L) Skin: positive: Color nml, No rash, Warm, Dry. negative: Cyanosis, Diaphoresis, Pallor Extremities: positive: Non-tender, Full ROM, Nml appearance. negative: Calf tenderness, Joint swelling, Manuel's sign/cords Neurologic/Psychiatric: positive: Oriented x3, Sensation nml, Mood/affect nml. negative: Weakness, Sensory loss, Facial droop, Slurred/abnml speech, Depressed mood/affect - Lab Results Fish Bones: 12/14/17 05:25 12/14/17 05:25 Other Labs: Lab Results x24hrs 12/14/17 12/14/17 12/11/17 Range/Units 05:25 05:25 23:00 WBC 6.0 (4.8-10.8) x10^3/uL RBC 1.63 L (4.20-5.40) 10^6/uL Hgb 5.9 L* (12.0-16.0) g/dL Hct 17.4 L* (37.0-47.0) % MCV 106.9 H (81.0-99.0) fL MCH 36.0 H (27.0-31.0) pg MCHC 33.7 (32.0-36.0) g/dL RDW 12.2 (12.0-15.0) % Plt Count 124 L (130-450) 10^3/uL MPV 9.9 (7.9-10.8) fL Neut # (Auto) 4.1 (1.5-6.6) 10^3/uL Lymph # (Auto) 1.0 L (1.5-3.5) 10^3/uL [place] # (Auto) 0.8 (0.0-1.0) 10^3/uL Eos # (Auto) 0.0 (0.0-0.7) 10^3/uL Baso # (Auto) 0.0 (0.0-0.1) 10^3/uL Absolute Nucleated RBC 0.00 x10^3/uL Nucleated RBC % 0.1 /100WBC Sodium 131 L (135-145) mmol/L Potassium 4.0 (3.5-5.0) mmol/L Chloride 101 (101-111) mmol/L Carbon Dioxide 21 (21-32) mmol/L Anion Gap 9.0 (6-13) BUN 17 (6-20) mg/dL Creatinine 0.5 (0.4-1.0) mg/dL Estimated GFR (MDRD) 129 (>89) Glucose 212 H (70-100) mg/dL Calcium 8.8 (8.5-10.3) mg/dL Total Bilirubin 0.6 (0.2-1.0) mg/dL AST 39 (10-42) IU/L ALT 23 (10-60) IU/L Alkaline Phosphatase 85 (42-121) IU/L Total Protein 6.3 L (6.7-8.2) g/dL Albumin 3.4 (3.2-5.5) g/dL Globulin 2.9 (2.1-4.2) g/dL Albumin/Globulin Ratio 1.2 (1.0-2.2) Amylase 66 (28-100) U/L Lipase 49 (22-51) U/L Blood Type O POSITIVE Antibody Screen NEGATIVE Crossmatch IS Only See Detail ABX Reporting Has patient been on IV antibiotics over the past 48 hours?: Yes Assessment/Plan - Problem List (1) Left humeral fracture Impression: 12/[address] Flores about pt's distal of hand's conditions: swelling hand, and reduced mobility. pt did not report increase pain on her left hand. order home OT per Dr. Flores's recommendation. 12/13 pt's left hand, distal of left humeral fracture with intact sensation, but slight reduced mobility, but also denies pain. Nurse will contact Orthopedics to check pt. continue pain control pt had fall, Xray reveals left humeral fracture. pt had splint follow up orthopedics pain control fall precaution will consider PT/OT (2) Alcohol abuse Impression: continue CAWA protocol hx of alcohol abuse CAWA protocol, alcohol withdrawal continue banana bag advise pt quit alcohol (3) Hyponatremia Impression: 12/14 improved, Na 131 today 12/13, improved Na 128 continue slight IVF of NS, 75cc/h daily lab monitor it seems hypovolum hyponatremia will IVF of NS lab monitor (4) Anemia Impression: pt agree to have blood transfusion. pt had 5.9 HGB today 12/13 HGB 6.3 today, pt refused to have blood transfusion. pt is asymptomatic, no palpitation, chest pain, dizziness Occult stool test is pending, pt denies black stool, GI bleeding HGB 7.3 today, anemia study, B12 is high. alcoholic Macrocytic anemia daily lab monitor, continue monitor HGB, (5) Acute kidney injury Impression: resolved improved. will continue IVF of NS, may be caused by dehydration daily lab monitor (6) Elevated amylase and lipase Impression: 12/13 pt tolerate regular diet, denies N/V/D, no abdominal pain, lipase is down to 77 mild elevated lipase and amylase. pt is with hx of chronic pancreatitis with alcoholism CT of abdomen, radiologist recommend pt has ERCP for brush biopsy, pt refuse to be transferred to other hospital for ERCP, advise follow up out-pt GI for ERCP continue IVF of NS continue check Lipase, amylase. continue pain control continue clear diet for bowel rest now (7) pneumonia 12/14 Improved. no fever, chill. WBC is normal. 94% sats on room air continue antibiotics pt present cough, and elevated to temp 37.9 pt refused to have blood culture CXR reveals infiltration antibiotics, Azith and rocephin (8) elevated tumor jazz CA19-9 pt refused to be transferred to other other hospital to do ERCP and biopsy. I discussed pt about elevated tumor marker CA19-9. pt would like to her PCP to referral to GI as out-pt after d/c from hospital. (9) sinus tachycardia pt has HR is around 110. EKG reveals ST. denies palpitation, chest pain pt also had slight elevated BP, order Metoprolol Succinate for pt Qualifiers: Encounter type: initial encounter Humerus Location: shaft Fracture type: closed Fracture morphology: oblique Fracture alignment: displaced Qualified Code(s): S42.332A - Displaced oblique fracture of shaft of humerus, left arm, initial encounter for closed fracture (4) Anemia Qualifiers: Anemia type: other cause Other causes of anemia: other cause, not classified Qualified Code(s): D64.89 - Other specified anemias
[2017-12-14] MEDS: METOPROLOL SUCCINATE 25 MG TABLET PO SCH (16:41)
[2017-12-14] MEDS: SODIUM CHLORIDE FLUSH 0.9% 10 ML SYRINGE IVP PRN (18:07)
[2017-12-14] MEDS: LORazepam 2 MG/ML VIAL IVP PRN ×2 (18:07→23:53)
[2017-12-14 22:45] LABS: BILIRUBIN,URINE NEGATIVE (NEGATIVE); GLUCOSE, URINE (UA) >=1000 mg/dL (NEGATIVE); KETONES,URINE (UA) NEGATIVE (NEGATIVE); LEUKOCYTE ESTERASE, URINE NEGATIVE (NEGATIVE); NITRITE,URINE NEGATIVE (NEGATIVE); OCCULT BLOOD,URINE NEGATIVE (NEGATIVE); PROTEIN,URINE NEGATIVE (NEGATIVE); UROBILINOGEN,URINE 0.2 (NORMAL) E.U./dL (NORMAL)
[2017-12-14 22:58] LABS: CLARITY,URINE CLEAR (CLEAR); RBC,URINE 0-5 /HPF (0-5)
[2017-12-14 22:59] LABS: BACTERIA,URINE None Seen /HPF (None Seen); SQUAMOUS EPITHELIAL CELL,UR MANY Squamous (<= Few)
[2017-12-15] MEDS ORDERED: FUROSEMIDE 20 MG/2 ML VIAL IVP STA (00:30)
--- NOTE | 2017-12-15 00:40 | XRAY Report ---
Reason: SOB and hypoxia worried about fluid overload Procedure Date: 12/15/2017 Accession Number: [id number] / [id number] Procedure: XR - Chest 1 View X-Ray CPT Code: 28584 FULL RESULT: EXAM: CHEST RADIOGRAPHY EXAM DATE: 12/15/2017 12:23 AM. CLINICAL HISTORY: Shortness of breath and hypoxia. Recent broken arm. COMPARISON: CHEST 1 VIEW 12/13/2017 11:37 AM. TECHNIQUE: 1 view. FINDINGS: Lungs/Pleura: Pulmonary vascular congestion. New bilateral interstitial and airspace opacities. Trace pleural effusions. No pneumothorax. Mediastinum: Within exam limitations, the cardiomediastinal contour is probably normal. Other: Osteopenia. Spiral fracture in the shaft of the left humerus. IMPRESSION: 1. Pulmonary vascular congestion or volume overload with new pulmonary opacities probably due to pulmonary edema. Infiltrate less likely but not entirely excluded. 2. Trace pleural effusions. [facility]
[2017-12-15] MEDS: SODIUM CHLORIDE FLUSH 0.9% 10 ML SYRINGE IVP PRN ×2 (01:14→18:52)
[2017-12-15 06:08] LABS: EOSINOPHILS % (AUTO) 0.1 %; HGB - HEMOGLOBIN 9.3 g/dL (12.0-16.0); LYMPHOCYTES % (AUTO) 13.6 %; MEAN CORPUSCULAR HEMOGLOBIN 33.6 pg (27.0-31.0); MEAN CORPUSCULAR HGB CONC 34.7 g/dL (32.0-36.0); MEAN CORPUSCULAR VOLUME 96.8 fL (81.0-99.0); MEAN PLATELET VOLUME 9.5 fL (7.9-10.8); MONOCYTES % (AUTO) 17.1 %; NEUTROPHILS % (AUTO) 68.2 %; PLT - PLATELET COUNT 148 10^3/uL (130-450); RED BLOOD COUNT 2.76 10^6/uL (4.20-5.40); RED CELL DISTRIBUTION WIDTH 16.9 % (12.0-15.0); WHITE BLOOD COUNT 9.2 x10^3/uL (4.8-10.8)
[2017-12-15 06:16] LABS: ABNORMAL LYMPHS % (MANUAL) 0 %
[2017-12-15 06:26] LABS: ALBUMIN 3.4 g/dL (3.2-5.5); ALBUMIN/GLOBULIN RATIO 1.2 (1.0-2.2); BILIRUBIN,TOTAL 1.3 mg/dL (0.2-1.0); CALCIUM 9.1 mg/dL (8.5-10.3); CREATININE 0.3 mg/dL (0.4-1.0); TOTAL PROTEIN 6.3 g/dL (6.7-8.2)
[2017-12-15 06:44] LABS: BAND NEUTROPHILS % (MANUAL) 6 %; LYMPHOCYTES # (MANUAL) 1.9 10^3/uL (1.5-3.5); LYMPHOCYTES % (MANUAL) 21 %; NEUTROPHILS # (MANUAL) 6.3 10^3/uL (1.5-6.6); NEUTROPHILS % (MANUAL) 62 %; PLATELET ESTIMATE, MANUAL NORMAL (130-450,000) (NORMAL); RBC MORPHOLOGY (MULTIPLE) NORMAL APPEARANCE (NORMAL)
[2017-12-15 06:45] LABS: DIFFERENTIAL COMMENT MANUAL DIFFERENTIAL
[2017-12-15] MEDS ORDERED: FUROSEMIDE 20 MG TABLET PO SCH ×2 (09:00→15:00)
[2017-12-15] MEDS: LORazepam 2 MG/ML VIAL IVP PRN ×3 (10:13→18:52)
[2017-12-15] MEDS: SODIUM CHLORIDE FLUSH 0.9% 10 ML SYRINGE IVP SCH ×2 (10:13→15:49)
[2017-12-15] MEDS: AZITHROMYCIN 250 MG TABLET PO SCH (10:15)
[2017-12-15] MEDS: FAMOTIDINE 20 MG TABLET PO SCH (10:17)
[2017-12-15] MEDS: oxyCODONE ER 10 MG TABLET PO SCH ×2 (10:17→21:44)
[2017-12-15] MEDS: buPROPion SR 100 MG TABLET PO SCH (10:20)
[2017-12-15] MEDS: THIAMINE 100 MG TABLET PO SCH (10:20)
[2017-12-15] MEDS: DOCUSATE SODIUM 250 MG CAPSULE PO SCH (10:20)
[2017-12-15] MEDS: SENNA 8.6 MG TABLET PO SCH (10:20)
[2017-12-15] MEDS: POLYETHYLENE GLYCOL 3350 17 GM PACKET PO SCH (10:22)
[2017-12-15] MEDS: METOPROLOL SUCCINATE 25 MG TABLET PO SCH (10:24)
[2017-12-15] MEDS: PRENATAL VITAMIN TABLET PO SCH (10:27)
[2017-12-15] MEDS: cefTRIAXone 1 GM in SODIUM CHLORIDE 0.9% MINIBAG 100 ML IV SCH (10:32)
[2017-12-15] MEDS ORDERED: POTASSIUM CHLORIDE 20 MEQ TABLET PO ONE (13:56)
[2017-12-15] MEDS ORDERED: FUROSEMIDE 20 MG/2 ML VIAL IVP ONE ×2 (14:00→16:00)
--- NOTE | 2017-12-15 15:09 | PROVIDER PROGRESS NOTE ---
Subjective - Prog Note Date Prog Note Date: 12/15/17 - Subjective Pt reports feeling: Worse Subjective: pt is very congested today, and some confused. But she really want to be d/c to home. I called pt's parents Ms Conklin but could not get help to calm down pt and let pt stay at hospital for at least overnight. Pt is not ready to be d/c yet. I called pt's but I could not reach him and left short message to him. Current Medications - Current Medications Current Medications: Active Medications Azithromycin (Zithromax) 250 mg PO DAILY [facility] Bupropion HCl (Wellbutrin Sr) 100 mg PO DAILY [facility] Last Admin: 12/15/17 10:20 Dose: 100 mg Docusate Sodium (Colace 250mg Capsule) 250 - 500 mg PO DAILY [facility] Last Admin: 12/15/17 10:20 Dose: 250 mg Famotidine (Pepcid) 20 mg PO DAILY [facility] Last Admin: 12/15/17 10:17 Dose: 20 mg Furosemide (Lasix) 40 mg PO DAILY [facility] Furosemide (Lasix) 20 mg PO ONCE [facility] Stop: 12/15/17 17:00 Last Admin: 12/15/17 14:37 Dose: 20 mg Hydromorphone HCl (Dilaudid Inj Syringe) 1 mg IVP Q2H PRN PRN Reason: Pain 8 to 10 Last Admin: 12/14/17 14:37 Dose: 1 mg Ceftriaxone Sodium 1 gm/ (Sodium Chloride) 100 mls @ 200 mls/hr IV DAILY [facility] Last Infusion: 12/15/17 11:12 Dose: Infused Lorazepam (Ativan Inj (Vial)) 2 mg IVP Q2H PRN PRN Reason: Alcohol Withdrawal Last Admin: 12/15/17 10:13 Dose: 2 mg Metoprolol Succinate (Toprol Xl) 25 mg PO DAILY [facility] Last Admin: 12/15/17 10:24 Dose: 25 mg Nicotine (Nicoderm) 1 patch TOP DAILY PRN PRN Reason: Nicotine Craving Last Admin: 12/14/17 08:36 Dose: 1 patch Oxycodone HCl (Oxycontin) 10 mg PO BID [facility] Last Admin: 12/15/17 10:17 Dose: 10 mg Polyethylene Glycol (Miralax) 17 gm PO DAILY [facility] Last Admin: 12/15/17 10:22 Dose: 17 gm Multivit/Folic Acid/Iron (Trinatal Rx 1) 1 tab PO DAILYWM [facility] Last Admin: 12/15/17 10:27 Dose: 1 tab Prochlorperazine Edisylate (Compazine Inj) 10 mg IVP Q6HR PRN PRN Reason: Nausea / Vomiting Last Admin: 12/12/17 00:46 Dose: 10 mg Senna (Senokot) 8.6 - 17.2 mg PO DAILY [facility] Last Admin: 12/15/17 10:20 Dose: 8.6 mg Sodium Chloride (Normal Saline Flush 0.9%) 10 ml IVP PRN PRN PRN Reason: NEEDED PER PROVIDER ORDERS Last Admin: 12/15/17 01:14 Dose: 10 ml Sodium Chloride (Normal Saline Flush 0.9%) 10 ml IVP 0100,0900,1700 [facility] Last Admin: 12/15/17 10:13 Dose: 10 ml Thiamine HCl (Vitamin B-1) 100 mg PO DAILY [facility] Last Admin: 12/15/17 10:20 Dose: 100 mg Lisinopril 30 mg PO DAILY 12/11/17 buPROPion [Wellbutrin Sr] 100 mg PO TID 12/11/17 Omeprazole 20 mg PO DAILY 12/12/17 QUEtiapine [SEROquel] 25 mg PO QPM 12/12/17 Objective - Vital Signs/Intake & Output Reviewed Vital Signs: Yes Vital Signs: Vital Signs x48h Temp Pulse Resp BP Pulse Ox 12/15/17 13:06 117 H 19 109/77 92 12/15/17 08:00 36.4 C L 120 H 19 131/85 H 92 Intake & Output: Intake & Output 12/12/17 12/13/17 12/14/17 12/15/17 23:59 23:59 23:59 23:59 Intake Total 4530.733 3404.16 3034.25 920 Output Total 1847 476 5695 500 Balance 3455.733 2724.16 1759.25 420 - Objective General Appearance: positive: No acute distress, Alert. negative: Lethargic Eyes Bilateral: positive: Normal inspection, PERRL, No lid inflammation, Conjunctivae nml ENT: positive: ENT inspection nml, Pharynx nml, No signs of dehydration. negative: Purulent nasal drainage, Pharyngeal erythema, Oral lesions Neck: positive: Nml inspection, Thyroid nml, No JVD, Trachea midline. negative: Thyromegaly, Lymphadenopathy (R), Lymphadenopathy (L), Stiff neck, Swelling/bruising, Tracheal deviation Respiratory: positive: Chest non-tender, No respiratory distress, Breath sounds nml. negative: Wheezes, Rales, Rhonchi Cardiovascular: positive: Regular rate & rhythm, No murmur, No gallop. negative: Irregularly irregular, Extrasystoles, Tachycardia, Bradycardia, JVD present, Systolic murmur, Diastolic murmur Peripheral Pulses: 2+ Radial (R), 2+ Radial (L), 2+ Dorsalis pedis (R), 2+ Dorsalis pedis (L) Abdomen: positive: Non-tender, No organomegaly, Nml bowel sounds, No distention. negative: Tenderness, Guarding, Rebound Back: positive: Nml inspection. negative: CVA tenderness (R), CVA tenderness (L) Skin: positive: Color nml, No rash, Warm, Dry. negative: Cyanosis, Diaphoresis, Pallor Extremities: positive: Non-tender, Full ROM, Nml appearance. negative: Calf tenderness, Joint swelling, Manuel's sign/cords Neurologic/Psychiatric: positive: Sensation nml, Mood/affect nml. negative: Weakness, Sensory loss, Facial droop, Slurred/abnml speech, Depressed mood/affect - Lab Results Fish Bones: 12/15/17 06:00 12/15/17 06:00 Other Labs: Lab Results x24hrs 12/15/17 12/15/17 12/15/17 Range/Units 06:00 06:00 06:00 WBC 9.2 (4.8-10.8) x10^3/uL RBC 2.76 L (4.20-5.40) 10^6/uL Hgb 9.3 L (12.0-16.0) g/dL Hct 26.8 L (37.0-47.0) % MCV 96.8 (81.0-99.0) fL MCH 33.6 H (27.0-31.0) pg MCHC 34.7 (32.0-36.0) g/dL RDW 16.9 H (12.0-15.0) % Plt Count 148 (130-450) 10^3/uL MPV 9.5 (7.9-10.8) fL Neut # (Auto) Not Reportable Lymph # (Auto) Not Reportable [place] # (Auto) Not Reportable Eos # (Auto) Not Reportable Baso # (Auto) Not Reportable Absolute Nucleated RBC Not Reportable Total Counted 100 Band Neuts % (Manual) 6 (0 - 10) % Abnorm Lymph % (Manual) 0 % Nucleated RBC % Not Reportable Neutrophils # (Manual) 6.3 (1.5-6.6) 10^3/uL Lymphocytes # (Manual) 1.9 (1.5-3.5) 10^3/uL Monocytes # (Manual) 1.0 (0.0-1.0) 10^3/uL Eosinophils # (Manual) 0.0 (0-0.7) 10^3/uL Basophils # (Manual) 0.0 (0-0.1) 10^3/uL Differential Comment MANUAL DIFFERENTIAL Platelet Estimate NORMAL (130-450,000) (NORMAL) RBC Morph Micro Appear NORMAL APPEARANCE (NORMAL) Sodium 132 L (135-145) mmol/L Potassium 4.3 (3.5-5.0) mmol/L Chloride 102 (101-111) mmol/L Carbon Dioxide 19 L (21-32) mmol/L Anion Gap 11.0 (6-13) BUN 16 (6-20) mg/dL Creatinine 0.3 L (0.4-1.0) mg/dL Estimated GFR (MDRD) 232 (>89) Glucose 194 H (70-100) mg/dL Calcium 9.1 (8.5-10.3) mg/dL Total Bilirubin 1.3 H (0.2-1.0) mg/dL AST 37 (10-42) IU/L ALT 25 (10-60) IU/L Alkaline Phosphatase 69 (42-121) IU/L B-Natriuretic Peptide 1824 H (5-100) pg/mL Total Protein 6.3 L (6.7-8.2) g/dL Albumin 3.4 (3.2-5.5) g/dL Globulin 2.9 (2.1-4.2) g/dL Albumin/Globulin Ratio 1.2 (1.0-2.2) Urine Color Urine Clarity (CLEAR) Urine pH (5.0-7.5) PH Ur Specific [place] (1.002-1.030) Urine Protein (NEGATIVE) mg/dL Urine Glucose (UA) (NEGATIVE) mg/dL Urine Ketones (NEGATIVE) mg/dL Urine Occult Blood (NEGATIVE) Urine Nitrite (NEGATIVE) Urine Bilirubin (NEGATIVE) Urine Urobilinogen (NORMAL) E.U./dL Ur Leukocyte Esterase (NEGATIVE) Urine RBC (0-5) /HPF Urine WBC (0-5) /HPF Ur Squamous Epith Cells (<= Few) Urine Bacteria (None Seen) /HPF Urine Culture Comments 12/14/17 Range/Units 22:41 WBC (4.8-10.8) x10^3/uL RBC (4.20-5.40) 10^6/uL Hgb (12.0-16.0) g/dL Hct (37.0-47.0) % MCV (81.0-99.0) fL MCH (27.0-31.0) pg MCHC (32.0-36.0) g/dL RDW (12.0-15.0) % Plt Count (130-450) 10^3/uL MPV (7.9-10.8) fL Neut # (Auto) Lymph # (Auto) [place] # (Auto) Eos # (Auto) Baso # (Auto) Absolute Nucleated RBC Total Counted Band Neuts % (Manual) (0 - 10) % Abnorm Lymph % (Manual) % Nucleated RBC % Neutrophils # (Manual) (1.5-6.6) 10^3/uL Lymphocytes # (Manual) (1.5-3.5) 10^3/uL Monocytes # (Manual) (0.0-1.0) 10^3/uL Eosinophils # (Manual) (0-0.7) 10^3/uL Basophils # (Manual) (0-0.1) 10^3/uL Differential Comment Platelet Estimate (NORMAL) RBC Morph Micro Appear (NORMAL) Sodium (135-145) mmol/L Potassium (3.5-5.0) mmol/L Chloride (101-111) mmol/L Carbon Dioxide (21-32) mmol/L Anion Gap (6-13) BUN (6-20) mg/dL Creatinine (0.4-1.0) mg/dL Estimated GFR (MDRD) (>89) Glucose (70-100) mg/dL Calcium (8.5-10.3) mg/dL Total Bilirubin (0.2-1.0) mg/dL AST (10-42) IU/L ALT (10-60) IU/L Alkaline Phosphatase (42-121) IU/L B-Natriuretic Peptide (5-100) pg/mL Total Protein (6.7-8.2) g/dL Albumin (3.2-5.5) g/dL Globulin (2.1-4.2) g/dL Albumin/Globulin Ratio (1.0-2.2) Urine Color YELLOW Urine Clarity CLEAR (CLEAR) Urine pH 6.0 (5.0-7.5) PH Ur Specific [place] 1.010 (1.002-1.030) Urine Protein NEGATIVE (NEGATIVE) mg/dL Urine Glucose (UA) >=1000 H (NEGATIVE) mg/dL Urine Ketones NEGATIVE (NEGATIVE) mg/dL Urine Occult Blood NEGATIVE (NEGATIVE) Urine Nitrite NEGATIVE (NEGATIVE) Urine Bilirubin NEGATIVE (NEGATIVE) Urine Urobilinogen 0.2 (NORMAL) (NORMAL) E.U./dL Ur Leukocyte Esterase NEGATIVE (NEGATIVE) Urine RBC 0-5 (0-5) /HPF Urine WBC 6-10 H (0-5) /HPF Ur Squamous Epith Cells MANY Squamous H (<= Few) Urine Bacteria None Seen (None Seen) /HPF Urine Culture Comments NOT INDICATED ABX Reporting Has patient been on IV antibiotics over the past 48 hours?: Yes Assessment/Plan - Problem List (1) Left humeral fracture Impression: 12/15, pt denies pain but still some swelling at dorsum of hand will follow up orthopedics. pt will have OT evaulation and treatment, 12/[address] Flores about pt's distal of hand's conditions: swelling hand, and reduced mobility. pt did not report increase pain on her left hand. order home OT per Dr. Flores's recommendation. 12/13 pt's left hand, distal of left humeral fracture with intact sensation, but slight reduced mobility, but also denies pain. Nurse will contact Orthopedics to check pt. continue pain control pt had fall, Xray reveals left humeral fracture. pt had splint follow up orthopedics pain control fall precaution will consider PT/OT (2) Alcohol abuse Impression: CAWA protocol hx of alcohol abuse CAWA protocol, alcohol withdrawal continue banana bag advise pt quit alcohol (3) Hyponatremia Impression: 12/15 Improved Na 132 12/14 improved, Na 131 today 12/13, improved Na 128 continue slight IVF of NS, 75cc/h daily lab monitor it seems hypovolum hyponatremia will IVF of NS lab monitor (4) Anemia Impression: 12/15 HGB 9.3. Unknown the etiology for anemia. Occult stool is negative. continue monitor pt agree to have blood transfusion. pt had 5.9 HGB today 12/13 HGB 6.3 today, pt refused to have blood transfusion. pt is asymptomatic, no palpitation, chest pain, dizziness Occult stool test is pending, pt denies black stool, GI bleeding HGB 7.3 today, anemia study, B12 is high. alcoholic Macrocytic anemia daily lab monitor, continue monitor HGB, (5) Acute kidney injury Impression: resolved improved. will continue IVF of NS, may be caused by dehydration daily lab monitor (6) Elevated amylase and lipase Impression: 12/13 pt tolerate regular diet, denies N/V/D, no abdominal pain, lipase is down to 77 mild elevated lipase and amylase. pt is with hx of chronic pancreatitis with alc oholism CT of abdomen, radiologist recommend pt has ERCP for brush biopsy, pt refuse to be transferred to other hospital for ERCP, advise follow up out-pt GI for ERCP continue IVF of NS continue check Lipase, amylase. continue pain control continue clear diet for bowel rest now (7) pneumonia 12/14 Improved. no fever, chill. WBC is normal. 94% sats on room air continue antibiotics pt present cough, and elevated to temp 37.9 pt refused to have blood culture CXR reveals infiltration antibiotics, Azith and rocephin (8) elevated tumor jazz CA19-9 pt refused to be transferred to other other hospital to do ERCP and biopsy. I discussed pt about elevated tumor marker CA19-9. pt would like to her PCP to referral to GI as out-pt after d/c from hospital. (9) sinus tachycardia HR is still around 120, ST. add Cardizem 30 mg qid continue tele monitor pt has HR is around 110. EKG reveals ST. denies palpitation, chest pain pt also had slight elevated BP, order Metoprolol Succinate for pt (10) systolic heart failure ECHO reveals EF 30-35%, pt present congestion. CXR reveals pulmonary congestion Lasix vital and BNP monitor, continue tele monitor Qualifiers: Encounter type: initial encounter Humerus Location: shaft Fracture type: closed Fracture morphology: oblique Fracture alignment: displaced Qualified Code(s): S42.332A - Displaced oblique fracture of shaft of humerus, left arm, initial encounter for closed fracture (4) Anemia Qualifiers: Anemia type: other cause Other causes of anemia: other cause, not classified Qualified Code(s): D64.89 - Other specified anemias
[2017-12-15] MEDS: diltiaZEM 30 MG TABLET PO SCH (17:41)
[2017-12-15 18:46] LABS: ABG BASE EXCESS -4.9 mmol/L (-2.0-3.0); ABG HCO3 18.1 mmol/L (22.0-26.0); ABG OXYGEN SATURATION 91 % (94-98); ABG PCO2 27 mmHg (34-45); ABG PH 7.44 (7.35-7.45); ABG PO2 59 mmHg (80-100); ABG TCO2 18.9 MMOL/L (21.0-29.0); ALLEN TEST POSITIVE
--- NOTE | 2017-12-15 19:58 | XRAY Report ---
Reason: SOB Procedure Date: 12/15/2017 Accession Number: [id number] / [id number] Procedure: XR - Chest 1 View X-Ray CPT Code: 72755 FULL RESULT: EXAM: CHEST RADIOGRAPHY EXAM DATE: 12/15/2017 07:04 PM. CLINICAL HISTORY: Shortness of breath COMPARISON: CHEST 1 VIEW 12/15/2017 12:05 AM CHEST 1 VIEW 12/11/2017 10:32 PM. TECHNIQUE: 1 view. FINDINGS: Lungs/Pleura: Diffuse hazy lung opacities obscuring vascular markings. Probable trace left pleural effusion. No pneumothorax. Mediastinum: Within exam limitations, the cardiomediastinal contour is normal. Other: Displaced transverse left humeral shaft fracture noted. IMPRESSION: 1. Slight interval increase in pulmonary edema. 2. Displaced left humeral shaft fracture. [facility]
[2017-12-16] MEDS: diltiaZEM 30 MG TABLET PO SCH ×3 (00:06→13:01)
[2017-12-16] MEDS: SODIUM CHLORIDE FLUSH 0.9% 10 ML SYRINGE IVP SCH ×3 (00:14→13:35)
[2017-12-16] MEDS: LORazepam 2 MG/ML VIAL IVP PRN ×3 (00:55→13:33)
[2017-12-16 05:16] LABS: BASOPHILS # (AUTO) 0.1 10^3/uL (0.0-0.1); BASOPHILS % (AUTO) 0.5 %; EOSINOPHILS % (AUTO) 0.1 %; HGB - HEMOGLOBIN 9.1 g/dL (12.0-16.0); LYMPHOCYTES # (AUTO) 1.4 10^3/uL (1.5-3.5); LYMPHOCYTES % (AUTO) 14.1 %; MEAN CORPUSCULAR HEMOGLOBIN 33.5 pg (27.0-31.0); MEAN CORPUSCULAR HGB CONC 34.4 g/dL (32.0-36.0); MEAN CORPUSCULAR VOLUME 97.4 fL (81.0-99.0); MEAN PLATELET VOLUME 9.6 fL (7.9-10.8); MONOCYTES % (AUTO) 19.8 %; NEUTROPHILS # (AUTO) 6.7 10^3/uL (1.5-6.6); NEUTROPHILS % (AUTO) 65.5 %; PLT - PLATELET COUNT 174 10^3/uL (130-450); RED CELL DISTRIBUTION WIDTH 16.4 % (12.0-15.0); WHITE BLOOD COUNT 10.2 x10^3/uL (4.8-10.8)
[2017-12-16 05:29] LABS: ALBUMIN 3.3 g/dL (3.2-5.5); BILIRUBIN,TOTAL 1.3 mg/dL (0.2-1.0); CALCIUM 9.1 mg/dL (8.5-10.3); CREATININE 0.5 mg/dL (0.4-1.0); TOTAL PROTEIN 6.5 g/dL (6.7-8.2)
[2017-12-16] MEDS ORDERED: FUROSEMIDE 40 MG/4 ML VIAL IVP SCH (08:00)
[2017-12-16] MEDS: POLYETHYLENE GLYCOL 3350 17 GM PACKET PO SCH (08:22)
[2017-12-16] MEDS: oxyCODONE ER 10 MG TABLET PO SCH (08:29)
[2017-12-16] MEDS: METOPROLOL SUCCINATE 25 MG TABLET PO SCH (08:29)
[2017-12-16] MEDS: buPROPion SR 100 MG TABLET PO SCH (08:31)
[2017-12-16] MEDS: FAMOTIDINE 20 MG TABLET PO SCH (08:31)
[2017-12-16] MEDS: NICOTINE 14 MG PATCH TOP PRN (08:40)
[2017-12-16 08:50] LABS: ABG PH 7.47 (7.35-7.45)
[2017-12-16 08:51] LABS: ABG BASE EXCESS -4.4 mmol/L (-2.0-3.0); ABG OXYGEN SATURATION 93 % (94-98); ABG PO2 67 mmHg (80-100); ABG TCO2 18.8 MMOL/L (21.0-29.0); ALLEN TEST POSITIVE
[2017-12-16 08:54] LABS: ABG PCO2 25 mmHg (34-45)
[2017-12-16] MEDS ORDERED: AZITHROMYCIN 250 MG TABLET PO SCH ×2 (09:00)
[2017-12-16] MEDS ORDERED: guaiFENesin 600 MG TABLET PO SCH (09:00)
[2017-12-16] MEDS ORDERED: CEFEPIME 2 GM in SODIUM CHLORIDE 0.9% MINIBAG 100 ML IV SCH (09:00)
[2017-12-16] MEDS ORDERED: SPIRONOLACTONE 25 MG TABLET PO SCH (09:00)
[2017-12-16] MEDS ORDERED: LISINOPRIL 5 MG TABLET PO SCH (09:00)
[2017-12-16] MEDS ORDERED: FUROSEMIDE 40 MG TABLET PO SCH (09:00)
--- NOTE | 2017-12-16 12:45 | DISCHARGE SUMMARY ---
"Discharge Summary Discharge Date: 12/16/17 Discharging Provider: SHORT Primary Care Provider: Marta Sorto Condition at Discharge: Serious Discharge [facility] Name[facility] - DIAGNOSES Admission Diagnoses: (1) Left humeral fracture (2) Alcohol abuse (3) Hyponatremia (4) Anemia (5) Acute kidney injury (6) Elevated amylase and lipase Discharge Diagnoses with Status of Each Condition: (1) Left humeral fracture Orthopedics surgeon put Splints for pt, without surgery. reduced pain, but with some swelling at dorsum of hand, followup orthopedics care in [place] (2) Alcohol abuse Impression: chronic alcohol problem, stable. (3) Hyponatremia resolved. Na is 136 today (4) Anemia Impression: pt had two units of transfusion of blood, it appear alcoholic anemia. HGB 9.1 today (5) Acute kidney injury resolved (6) Elevated amylase and lipase Impression: resolved. pt tolerate regular diet, No N/V/D. (7) pneumonia 12/14 Improved. no fever, chill. WBC is normal. 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 Now she request to be transferred to have ERCP (9) sinus tachycardia HR is 105, ST, Cardizem 30 mg qid (10) systolic heart failure ECHO 30-35%. pt has metoprolol Succinate, Lisinopril, Spironolactine and Lasix (11) hypoxia 95% sats on for 4 liter of O2, CXR indicate increase pulmonary congestion. pt is on Lasix. - HPI History of Present Illness: pt was admitted for fall and left hand injury due to alcohol-caused fall. - CONSULTS | PROCEDURES Consultations: Dr. Flores, orthopedics Procedures: Splints - HOSPITAL COURSE Hospital Course: pt was admitted for fall and left hand injury due to alcohol-caused fall. Pt had orthopedics consult, unoperative fracture. pt had splints. Pt also complain abdominal pain, N/V. Pt had slight elevated Lipase. CT of abdomen reveals pancreatitis with mass-like head of pancreas, recommended to have ERCP for bio psy. pt also developed anemia. HGB was down to 5.9 without GI rectal bleeding or iron deficiency. Pt had ECHO reveals EF 30-35%. pt initially refused to have ERCP and transfer to other hospital, blood transfusion, now she request to have. Pt also developed pulmonary congestion, infiltration in the lung, and hypoxia. Lasix and antibiotics were prescribed to pt. - ALLERGIES Allergies/Adverse Reactions: Allergies Allergy/AdvReac Type Severity Reaction Status Date / Time Penicillins Allergy Hives Verified 12/11/17 19:18 - MEDICATIONS Home Medications: Ambulatory Orders Medication Instructions Recorded Confirmed Lisinopril 30 mg PO DAILY 12/11/17 12/12/17 buPROPion [Wellbutrin Sr] 100 mg PO TID 12/11/17 12/12/17 Omeprazole 20 mg PO DAILY 12/12/17 12/12/17 QUEtiapine [SEROquel] 25 mg PO QPM 12/12/17 12/12/17 - PHYSICAL EXAM AT DISCHARGE General Appearance: positive: No acute distress, Mild distress. negative: Lethargic Eyes Bilateral: positive: Normal inspection, PERRL, No lid inflammation, Conjunctivae nml ENT: positive: ENT inspection nml, Pharynx nml, No signs of dehydration. negative: Purulent nasal drainage, Pharyngeal erythema, Oral lesions Neck: positive: Nml inspection, Thyroid nml, No JVD, Trachea midline. negative: Thyromegaly, Lymphadenopathy (R), Lymphadenopathy (L), Stiff neck, Swelling/bruising, Tracheal deviation Respiratory: positive: Chest non-tender, No respiratory distress, Rales. negative: Wheezes Cardiovascular: positive: Regular rate & rhythm, No murmur, No gallop, Tachycardia. negative: Irregularly irregular, Extrasystoles, Bradycardia, JVD present, Systolic murmur, Diastolic murmur Peripheral Pulses: positive: 2+ Abdomen: positive: Non-tender, No organomegaly, Nml bowel sounds, No distention. negative: Tenderness, Guarding, Rebound Back: positive: Nml inspection. negative: CVA tenderness (R), CVA tenderness (L) Skin: positive: Color nml, No rash, Warm, Dry. negative: Cyanosis, Diaphoresis, Pallor Extremities: positive: Non-tender, Full ROM, Nml appearance. negative: Calf tenderness, Joint swelling, Manuel's sign/cords Neurologic/Psychiatric: positive: Motor nml, Sensation nml, Mood/affect nml. negative: Weakness, Sensory loss, Facial droop, Slurred/abnml speech, Depressed mood/affect - LABS Result Diagrams: 12/16/17 05:00 12/16/17 05:00 - FOLLOW UP Follow Up: transfer to [facility] for advance care - TIME SPENT Time Spent in Discharge (Minutes): 50"
[2017-12-16] MEDS: DOCUSATE SODIUM 250 MG CAPSULE PO SCH (12:57)
[2017-12-16] MEDS: SENNA 8.6 MG TABLET PO SCH (12:57)
[2017-12-16 13:01] VITALS: BP 102/78
[2017-12-16] MEDS: THIAMINE 100 MG TABLET PO SCH (13:03)
[2017-12-16] MEDS: PRENATAL VITAMIN TABLET PO SCH (13:05)
== END 2017-12-16 13:50 | disposition short-term general hospital (02) | DRG 682 ==
LOC: EDUNIT# → ED 18:37 → MS2 21:38
PROVIDERS: ADMIT Internal Medicine; ATTEND Nurse Practitioner Gerontology
PROC: 30233N1 Transfusion of Nonautologous Red Blood Cells into Peripheral Vein, Percutaneous Approach (ICD-10-PCS; principal; 2017-12-14)
DX: N17.9 Acute kidney failure, unspecified (principal); J18.9 Pneumonia, unspecified organism; S42.332A Displaced oblique fracture of shaft of humerus, left arm, initial encounter for closed fracture; E87.1 Hypo-osmolality and hyponatremia; I50.20 Unspecified systolic (congestive) heart failure; K86.0 Alcohol-induced chronic pancreatitis; F10.10 Alcohol abuse, uncomplicated; Y90.0 Blood alcohol level of less than 20 mg/100 ml; D63.8 Anemia in other chronic diseases classified elsewhere; I11.0 Hypertensive heart disease with heart failure; K86.89 Other specified diseases of pancreas; R97.8 Other abnormal tumor markers; R00.0 Tachycardia, unspecified; F17.201 Nicotine dependence, unspecified, in remission; E86.0 Dehydration; S64.22XA Injury of radial nerve at wrist and hand level of left arm, initial encounter; S09.90XA Unspecified injury of head, initial encounter; S80.212A Abrasion, left knee, initial encounter; W18.2XXA Fall in (into) shower or empty bathtub, initial encounter; R29.6 Repeated falls; Y93.E1 Activity, personal bathing and showering; Y92.002 Bathroom of unspecified non-institutional (private) residence as the place of occurrence of the external cause; Z91.81 History of falling
CPT/HCPCS: 29105; 36415; 36600; 70450; 71045; 72125; 74177; 80053; 80306; 80320; 81001; 81003; 82150; 82272; 82378; 82533; 82607; 82728; 82803; 83540; 83615; 83690; 83735; 83880; 84295; 84443; 84466; 85025; 85044; 85610; 86301; 86850; 86900; 86901; 86920; 87086; 93005; 93306; 96374; 96375; 99284; 99285

== ENCOUNTER 2018-01-01 07:24 | Outpatient (CLI) | payer MEDICAID ==
[2018-01-01 15:17] LABS: ALBUMIN 3.4 g/dL (3.2-5.5); ALBUMIN/GLOBULIN RATIO 0.9 (1.0-2.2); BILIRUBIN,TOTAL 0.8 mg/dL (0.2-1.0); CALCIUM 9.2 mg/dL (8.5-10.3); CREATININE 0.4 mg/dL (0.4-1.0); TOTAL PROTEIN 7.4 g/dL (6.7-8.2)
[2018-01-01 15:38] LABS: HB2 TOTAL 11.3 g/dL; HEMOGLOBIN A1C 0.52 g/dL; HEMOGLOBIN A1C % 6.4 % (4.6-6.2)
[2018-01-01 15:55] LABS: HGB - HEMOGLOBIN 10.8 g/dL (12.0-16.0); MEAN CORPUSCULAR HEMOGLOBIN 33.3 pg (27.0-31.0); MEAN CORPUSCULAR HGB CONC 32.6 g/dL (32.0-36.0); MEAN CORPUSCULAR VOLUME 102.2 fL (81.0-99.0); MEAN PLATELET VOLUME 10.4 fL (7.9-10.8); RED BLOOD COUNT 3.23 10^6/uL (4.20-5.40); RED CELL DISTRIBUTION WIDTH 16.6 % (12.0-15.0); WHITE BLOOD COUNT 6.3 x10^3/uL (4.8-10.8)
[2018-01-02 13:43] LABS: HEPATITIS C ANTIBODY NON-REACTIVE (NON-REACTIVE)
== END 2018-01-01 07:25 | disposition home or self-care (01) ==
LOC: LAB.F 07:24
PROVIDERS: ATTEND Nurse Practitioner Family
DX: I50.9 Heart failure, unspecified (principal); R74.8 Abnormal levels of other serum enzymes; R30.0 Dysuria; R81 Glycosuria; K70.0 Alcoholic fatty liver
CPT/HCPCS: 36415; 80053; 83036; 83880; 85027; 85610; 86803

== ENCOUNTER 2018-02-15 10:35 | Outpatient (CLI) | payer MEDICAID ==
--- NOTE | 2018-02-15 12:16 | XRAY Report ---
Reason: RADIAL NERVE PALSY,DISPLACE SEGMENTAL FRACTURE OF Procedure Date: 02/15/2018 Accession Number: [id number] / [id number] Procedure: XR - Wrist 4 View LT CPT Code: FULL RESULT: EXAM: LEFT WRIST RADIOGRAPHY EXAM DATE: 02/15/2018 11:09 AM. CLINICAL HISTORY: Complains of pain in wrist. 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 COMPARISON: KNEE 4 VIEW LT 12/11/2017 8:10 PM HUMERUS LT 12/11/2017 8:10 PM. TECHNIQUE: 3 views. FINDINGS: Bones: Bones appear globally osteopenic. No acute fracture is identified. Joints: The distal ulna is dorsally subluxed in relation to the proximal carpal row and radius which are aligned. Soft Tissues: Normal. No soft tissue swelling. IMPRESSION: Subluxation/dislocation of the distal ulna. RADIA
== END 2018-02-15 10:36 | disposition home or self-care (01) ==
LOC: DI 10:35
PROVIDERS: ATTEND Nurse Practitioner
DX: S63.072A Subluxation of distal end of left ulna, initial encounter (principal)

== ENCOUNTER 2018-09-07 13:07 | Outpatient (CLI) | payer MEDICAID ==
--- NOTE | 2018-09-10 08:15 | Mammography Report ---
Reason: MAMMO SCREENING Procedure Date: 09/07/2018 Accession Number: [id number] / [id number] Procedure: MGS - Screening Mammo Dig Bilat CPT Code: FULL RESULT: EXAM: Screening Mammo Dig Bilat DATE: 09/07/2018 1:40 PM CLINICAL HISTORY: Screening encounter. History of late childbearing. TECHNIQUE: (B) - Bilateral CC and MLO views were obtained. Left laterally exaggerated CC views obtained. COMPARISON: 06/21/2017 through 04/12/2010. PARENCHYMAL PATTERN: (D) - The breast(s) demonstrate(s) heterogeneously dense fibroglandular parenchyma. FINDINGS: There is an increasing grouping of calcifications in the region of focal asymmetry in the left upper outer breast 6.5 cm from the nipple which requires additional spot magnification views for characterization potentially with breast ultrasound.. There are no suspicious masses, calcifications, or areas of distortion. IMPRESSION: Incomplete examination. BI-RADS category 0. RECOMMENDATION: (ADDMU) - Additional views using both Mammography and Ultrasound recommended. BI-RADS CATEGORY: (0) - Incomplete Examination - need additional evaluation. STANDARD QUALIFYING STATEMENTS: 1. This examination was reviewed with the aid of Computer-Aided Detection (CAD). 2. A negative or benign imaging report should not preclude biopsy if clinically suspicious findings are present. 3. Dense breasts may obscure an underlying neoplasm. 4. This examination was reviewed without the aid of 3D breast imaging (tomosynthesis).
== END 2018-09-07 13:08 | disposition home or self-care (01) ==
LOC: DI.S 13:07
DX: Z12.31 Encounter for screening mammogram for malignant neoplasm of breast (principal)
CPT/HCPCS: 77067

== ENCOUNTER 2018-09-18 09:33 | Outpatient (CLI) | payer MEDICAID ==
--- NOTE | 2018-09-18 13:07 | Mammography Report ---
Reason: ABNORMAL MAMMOGRAM Procedure Date: 09/18/2018 Accession Number: [id number] / [id number] Procedure: GURU - Diag Special Views Dig LT CPT Code: FULL RESULT: EXAM: Diag Special Views Dig LT DATE: 09/18/2018 9:00 AM CLINICAL HISTORY: Diagnostic examination. The patient is recalled from screening for increasing left breast calcifications. TECHNIQUE: (L) - Left spot magnified CC, spot magnified MLO and ML images are obtained. COMPARISON: 09/07/2018 through 04/12/2010. PARENCHYMAL PATTERN: (D) - The breast(s) demonstrate(s) heterogeneously dense fibroglandular parenchyma. FINDINGS: Spot magnification views confirm the grouping of increasing calcifications in a region of focal asymmetry. 3-D mammography suggests regional architectural distortion as seen on 3-D image 16 in the same area, left upper outer breast 6.5 cm from the nipple. This should be further characterized by focused left breast ultrasound to complete evaluation. IMPRESSION: Incomplete examination. BI-RADS category 0. RECOMMENDATION: (ADDUS) - Targeted ultrasound recommended. BI-RADS CATEGORY: (0) - Incomplete Examination - need additional evaluation. STANDARD QUALIFYING STATEMENTS: 1. This examination was not reviewed with the aid of Computer-Aided Detection (CAD). 2. A negative or benign imaging report should not preclude biopsy if clinically suspicious findings are present. 3. Dense breasts may obscure an underlying neoplasm. 4. This examination was reviewed with the aid of 3D breast imaging (tomosynthesis).
== END 2018-09-18 09:34 | disposition home or self-care (01) ==
LOC: DI 09:33
PROVIDERS: ATTEND Physician Assistant Medical
DX: R92.8 Other abnormal and inconclusive findings on diagnostic imaging of breast (principal)

== ENCOUNTER 2018-09-20 11:35 | Outpatient (CLI) | payer MEDICAID ==
--- NOTE | 2018-09-20 16:44 | Ultrasound Report ---
Reason: ABNORMAL MAMMO Procedure Date: 09/20/2018 Accession Number: [id number] / [id number] Procedure: US - Breast Unilateral Limited CPT Code: FULL RESULT: EXAM: Breast Unilateral Limited DATE: 09/20/2018 12:15 PM CLINICAL HISTORY: Left breast nodule. Abnormal mammogram finding. COMPARISON: Diagnostic exam 09/18/2018 and screening exam 09/07/2018. TECHNIQUE: Targeted ultrasound was performed of the left breast in the area of clinical concern at 12 o'clock and 7 cm distance from the nipple. Color Doppler was employed as appropriate. FINDINGS: No mass lesion is identified in the region of mammographically appreciated architectural distortion with calcifications. Overall constellation remains probably benign. No suspicious sonographic findings are identified. IMPRESSION: Probable benign findings RECOMMENDATION: Recommend diagnostic left breast mammogram in 6 months. BIRADS CATEGORY 3 RADIA
== END 2018-09-20 11:36 | disposition home or self-care (01) ==
LOC: DI 11:35
PROVIDERS: ATTEND Physician Assistant Medical
DX: R92.8 Other abnormal and inconclusive findings on diagnostic imaging of breast (principal)
CPT/HCPCS: 76642

== ENCOUNTER 2019-04-16 08:17 | Outpatient (CLI) | payer MEDICAID ==
[2019-04-16 09:02] LABS: ALBUMIN 3.8 g/dL (3.2-5.5); BILIRUBIN,TOTAL 1.1 mg/dL (0.2-1.0); CALCIUM 9.9 mg/dL (8.5-10.3); CREATININE 0.8 mg/dL (0.4-1.0); TOTAL PROTEIN 7.6 g/dL (6.7-8.2)
[2019-04-16 09:15] LABS: BASOPHILS # (AUTO) 0.1 10^3/uL (0.0-0.1); BASOPHILS % (AUTO) 0.9 %; EOSINOPHILS # (AUTO) 0.1 10^3/uL (0.0-0.7); HGB - HEMOGLOBIN 11.3 g/dL (12.0-16.0); LYMPHOCYTES # (AUTO) 2.9 10^3/uL (1.5-3.5); LYMPHOCYTES % (AUTO) 35.4 %; MEAN CORPUSCULAR HEMOGLOBIN 34.7 pg (27.0-31.0); MEAN CORPUSCULAR HGB CONC 33.2 g/dL (32.0-36.0); MEAN CORPUSCULAR VOLUME 104.3 fL (81.0-99.0); MEAN PLATELET VOLUME 10.9 fL (7.9-10.8); MONOCYTES # (AUTO) 0.9 10^3/uL (0.0-1.0); MONOCYTES % (AUTO) 11.5 %; NEUTROPHILS # (AUTO) 4.1 10^3/uL (1.5-6.6); NEUTROPHILS % (AUTO) 50.5 %; PLT - PLATELET COUNT 281 10^3/uL (130-450); RED BLOOD COUNT 3.26 10^6/uL (4.20-5.40); RED CELL DISTRIBUTION WIDTH 12.5 % (12.0-15.0); WHITE BLOOD COUNT 8.1 x10^3/uL (4.8-10.8)
== END 2019-04-16 08:18 | disposition home or self-care (01) ==
LOC: LAB 08:17
PROVIDERS: ATTEND Physician Assistant Medical
DX: I10 Essential (primary) hypertension (principal)
CPT/HCPCS: 36415; 80053; 85025

== ENCOUNTER 2019-04-16 08:19 | Outpatient (CLI) | payer MEDICAID ==
--- NOTE | 2019-04-16 10:17 | Mammography Report ---
Reason: ABN MAMMO - 6 MO F/U Procedure Date: 04/16/2019 Accession Number: [id number] / [id number] Procedure: GURU - Diagnostic Dig LT CPT Code: Final Report FULL RESULT: EXAM: Diagnostic Dig LT DATE: 04/16/2019 9:07 AM CLINICAL HISTORY: Diagnostic examination. History of late childbearing. 6 month follow-up of left breast calcifications. TECHNIQUE: (L) - Left CC, MLO, LM images are obtained. Spot magnified LM and CC images are obtained. COMPARISON: 09/18/2018 through 04/12/2010. PARENCHYMAL PATTERN: (D) - The breast(s) demonstrate(s) heterogeneously dense fibroglandular parenchyma. FINDINGS: The probably benign grouping of calcifications in the left upper outer breast 6.5 cm from the nipple in the 1:00 axis demonstrates no interval pleomorphism and remains probably benign. There are no suspicious masses, calcifications, or areas of distortion. IMPRESSION: Probably Benign. BI-RADS category 3. RECOMMENDATION: (6MOS) - Recommend 6 month follow-up exam. At the time of annual screening tomography of the right breast. BI-RADS CATEGORY: (3) - Probably Benign. STANDARD QUALIFYING STATEMENTS: 1. This examination was not reviewed with the aid of Computer-Aided Detection (CAD). 2. A negative or benign imaging report should not preclude biopsy if clinically suspicious findings are present. 3. Dense breasts may obscure an underlying neoplasm. 4. This examination was reviewed without the aid of 3D breast imaging (tomosynthesis).
== END 2019-04-16 08:20 | disposition home or self-care (01) ==
LOC: DI 08:19
PROVIDERS: ATTEND Physician Assistant Medical
DX: R92.1 Mammographic calcification found on diagnostic imaging of breast (principal); I10 Essential (primary) hypertension
CPT/HCPCS: 36415; 80053; 85025

== ENCOUNTER 2019-07-05 09:48 | Outpatient (CLI) | payer MEDICAID ==
[2019-07-05 13:27] LABS: BASOPHILS % (AUTO) 0.5 %; EOSINOPHILS % (AUTO) 0.1 %; HGB - HEMOGLOBIN 9.1 g/dL (12.0-16.0); MEAN CORPUSCULAR HEMOGLOBIN 33.2 pg (27.0-31.0); MEAN CORPUSCULAR HGB CONC 34.2 g/dL (32.0-36.0); MEAN CORPUSCULAR VOLUME 97.1 fL (81.0-99.0); MEAN PLATELET VOLUME 10.7 fL (7.9-10.8); MONOCYTES % (AUTO) 10.3 %; NEUTROPHILS % (AUTO) 79.5 %; PLT - PLATELET COUNT 410 10^3/uL (130-450); RED BLOOD COUNT 2.74 10^6/uL (4.20-5.40); RED CELL DISTRIBUTION WIDTH 11.6 % (12.0-15.0); WHITE BLOOD COUNT 18.2 x10^3/uL (4.8-10.8)
[2019-07-05 13:31] LABS: ABNORMAL LYMPHS % (MANUAL) 0 %; BAND NEUTROPHILS % (MANUAL) 0 %
[2019-07-05 14:14] LABS: LYMPHOCYTES # (MANUAL) 1.5 10^3/uL (1.5-3.5); LYMPHOCYTES % (MANUAL) 8 %; MONOCYTES # (MANUAL) 1.8 10^3/uL (0.0-1.0)
[2019-07-05 14:15] LABS: DIFFERENTIAL COMMENT MANUAL DIFFERENTIAL; PLATELET ESTIMATE, MANUAL NORMAL (130-450,000) (NORMAL); PLATELET MORPHOLOGY NORMAL APPEARANCE (NORMAL); RBC MORPHOLOGY (MULTIPLE) 1+ HYPOCHROMASIA (NORMAL)
[2019-07-05 14:27] LABS: ALBUMIN 3.8 g/dL (3.2-5.5); ALBUMIN/GLOBULIN RATIO 0.9 (1.0-2.2); BILIRUBIN,TOTAL 0.7 mg/dL (0.2-1.0); CALCIUM 9.8 mg/dL (8.5-10.3); CREATININE 2.3 mg/dL (0.4-1.0); TOTAL PROTEIN 8.1 g/dL (6.7-8.2)
== END 2019-07-05 23:59 | disposition home or self-care (01) ==
LOC: LAB.WCP 09:48
PROVIDERS: ATTEND Family Medicine
DX: R10.13 Epigastric pain (principal)
CPT/HCPCS: 36415; 80053; 82150; 83690; 85025

== ENCOUNTER 2019-07-23 06:51 | Outpatient (CLI) | payer MEDICAID ==
--- NOTE | 2019-07-23 09:11 | Ultrasound Report ---
Reason: EPIGASTRIC PX Procedure Date: 07/23/2019 Accession Number: [id number] / [id number] Procedure: US - Abdomen Complete CPT Code: Final Report FULL RESULT: PROCEDURE: Abdomen Complete INDICATIONS: EPIGASTRIC PX TECHNIQUE: Real-time scanning was performed of the abdominal and retroperitoneal organs, with image documentation. COMPARISON: None. FINDINGS: Liver: Liver is 12.5 cm in length and demonstrates increased echogenicity throughout. Gallbladder: The gallbladder wall measures 1.7 mm in diameter. No stones, sludge, pericholecystic fluid, or sonographic Deleon sign. Biliary ducts: Intrahepatic bile ducts are non-dilated. Extrahepatic bile duct caliber measures 2.8 mm. Normal is 6-7 mm or less in diameter, or 10 mm or less post-cholecystectomy. Pancreas: The pancreas is not visualized. Spleen: Spleen is normal in size and homogeneous in echotexture. Kidneys: Kidneys are normal in size and echotexture. Right kidney measures 10.6 cm long; left kidney measures 9.8 cm long. No hydronephrosis or nephrolithiasis. No solid masses. Aorta: Visualized aorta is normal in caliber at less than 3 cm. Iliacs: The iliacs are not visualized. IVC: Intrahepatic inferior vena cava is patent. Miscellaneous: There is trace free fluid within the right upper quadrant adjacent to the right hepatic lobe. There is a 14.3 x 13.5 x 9.8 cm solid mass within the pelvis. This mass measured approximately 12.0 x 10.2 x 13.3 cm on the comparison CT dated 12/12/2017. IMPRESSION: 1. Probable hepatic steatosis although other sources of hepatocellular dysfunction cannot be excluded. 2. No cholelithiasis or findings to suggest choledocholithiasis or acute cholecystitis. 3. Large soft tissue mass within the pelvis likely associated with the uterus or adnexa. This mass is likely slightly increased in size when compared with the prior CT dated 12/12/2017. However, there is some limit to comparison given variation in imaging modality and measurements. If direct comparison is warranted, CT of the pelvis is recommended. To further characterize findings and evaluate uterine or adnexal origin, gynecological protocol MRI is recommended. Reviewed by: Jo Ann Tucker MD on 07/23/2019 9:10 AM PDT Approved by: Jo Ann Tucker MD on 07/23/2019 9:10 AM PDT Station ID: [id number]
== END 2019-07-23 06:52 | disposition home or self-care (01) ==
LOC: DI 06:51
PROVIDERS: ATTEND Family Medicine
DX: R19.00 Intra-abdominal and pelvic swelling, mass and lump, unspecified site (principal)
CPT/HCPCS: 76700

== ENCOUNTER 2019-07-30 14:57 | Outpatient (CLI) | payer MEDICAID ==
[2019-07-30 19:56] LABS: BASOPHILS # (AUTO) 0.1 10^3/uL (0.0-0.1); BASOPHILS % (AUTO) 0.6 %; EOSINOPHILS # (AUTO) 0.4 10^3/uL (0.0-0.7); HGB - HEMOGLOBIN 10.1 g/dL (12.0-16.0); LYMPHOCYTES # (AUTO) 2.3 10^3/uL (1.5-3.5); LYMPHOCYTES % (AUTO) 25.9 %; MEAN CORPUSCULAR HEMOGLOBIN 34.1 pg (27.0-31.0); MEAN CORPUSCULAR HGB CONC 32.3 g/dL (32.0-36.0); MEAN CORPUSCULAR VOLUME 105.7 fL (81.0-99.0); MEAN PLATELET VOLUME 11.2 fL (7.9-10.8); MONOCYTES # (AUTO) 0.7 10^3/uL (0.0-1.0); MONOCYTES % (AUTO) 7.6 %; NEUTROPHILS # (AUTO) 5.3 10^3/uL (1.5-6.6); NEUTROPHILS % (AUTO) 61.2 %; PLT - PLATELET COUNT 396 10^3/uL (130-450); RED BLOOD COUNT 2.96 10^6/uL (4.20-5.40); RED CELL DISTRIBUTION WIDTH 14.2 % (12.0-15.0); WHITE BLOOD COUNT 8.7 x10^3/uL (4.8-10.8)
[2019-07-30 20:04] LABS: ALBUMIN 4.1 g/dL (3.2-5.5); BILIRUBIN,TOTAL 0.7 mg/dL (0.2-1.0); CALCIUM 9.5 mg/dL (8.5-10.3); CREATININE 0.6 mg/dL (0.4-1.0); TOTAL PROTEIN 8.1 g/dL (6.7-8.2)
== END 2019-07-30 14:58 | disposition home or self-care (01) ==
LOC: LAB.S 14:57
PROVIDERS: ATTEND Family Medicine
DX: R19.00 Intra-abdominal and pelvic swelling, mass and lump, unspecified site (principal); R10.9 Unspecified abdominal pain
CPT/HCPCS: 36415; 80053; 85025

== ENCOUNTER 2019-08-07 12:03 | Outpatient (CLI) | payer MEDICAID ==
[2019-08-07 15:47] LABS: HB2 TOTAL 10.6 g/dL; HEMOGLOBIN A1C 0.53 g/dL; HEMOGLOBIN A1C % 6.7 % (4.6-6.2)
[2019-08-07 17:00] LABS: FOLATE > 49.60 ng/mL (5.90 - >24.8)
== END 2019-08-07 12:04 | disposition home or self-care (01) ==
LOC: LAB.S 12:03
PROVIDERS: ATTEND Physician Assistant
DX: R73.01 Impaired fasting glucose (principal); D64.9 Anemia, unspecified; I50.9 Heart failure, unspecified
CPT/HCPCS: 36415; 82043; 82607; 82746; 83036; 83880

== ENCOUNTER 2019-08-13 11:54 | Outpatient (CLI) | payer MEDICAID | END 2019-08-13 11:55 | disposition home or self-care (01) | LOC: LAB.S 11:54 | PROVIDERS: ATTEND Physician Assistant | DX: R73.01 Impaired fasting glucose (principal); D64.9 Anemia, unspecified; I50.9 Heart failure, unspecified | CPT/HCPCS: 36415; 83880 ==

== ENCOUNTER 2019-08-26 09:29 | Outpatient (CLI) | payer MEDICAID ==
[2019-08-26 16:24] LABS: HB2 TOTAL 10.9 g/dL; HEMOGLOBIN A1C 0.41 g/dL; HEMOGLOBIN A1C % 5.6 % (4.6-6.2)
== END 2019-08-26 09:30 | disposition home or self-care (01) ==
LOC: LAB.S 09:29
PROVIDERS: ATTEND Physician Assistant
DX: D64.9 Anemia, unspecified (principal); R73.01 Impaired fasting glucose
CPT/HCPCS: 36415; 82607; 82746; 83036

== ENCOUNTER 2019-08-26 10:45 | Outpatient (CLI) | payer MEDICAID ==
--- NOTE | 2019-08-26 17:33 | XRAY Report ---
PROCEDURE: Ribs w/PA Chest RT INDICATIONS: RIGHT SIDED RIB PAIN TECHNIQUE: 3 views of the right ribs were acquired, along with a single view chest. COMPARISON: Chest x-ray 12/15/2017 FINDINGS: Surgical changes and devices: None. Bones and chest wall: There is a posterior lateral ninth rib fracture. No suspicious bony lesions. O verlying soft tissues appear unremarkable. Lungs and pleura: Trace right effusion. Mediastinum: Mediastinal contours appear normal. Heart size is normal. IMPRESSION: Posterior lateral right rib fracture. Reviewed by: Minda Keys MD on 08/26/2019 5:32 PM PDT Approved by: Minda Keys MD on 08/26/2019 5:32 PM PDT Station ID: [id number]
== END 2019-08-26 10:46 | disposition home or self-care (01) ==
LOC: DI.S 10:45
PROVIDERS: ATTEND Physician Assistant
DX: S22.31XA Fracture of one rib, right side, initial encounter for closed fracture (principal); D64.9 Anemia, unspecified; R73.01 Impaired fasting glucose
CPT/HCPCS: 36415; 82607; 82746; 83036

== ENCOUNTER 2019-09-03 12:00 | Outpatient (CLI) | payer MEDICAID ==
[2019-09-03 15:53] LABS: % IRON SATURATION 15 % (20-50); IRON 55 ug/dL (28-170); TOTAL IRON BINDING CAPACITY 370 ug/dL (250-450); TRANSFERRIN 264 mg/dL (192-382)
== END 2019-09-03 12:01 | disposition home or self-care (01) ==
LOC: LAB.S 12:00
PROVIDERS: ATTEND Physician Assistant
DX: D64.9 Anemia, unspecified (principal)
CPT/HCPCS: 36415; 82728; 83540; 84466

== ENCOUNTER 2019-11-03 21:18 | Emergency (ER) | payer MEDICAID ==
[2019-11-03] MEDS ORDERED: BUFFERED LIDOCAINE 10 ML SYRINGE IU ONE (23:27)
--- NOTE | 2019-11-04 00:15 | ED Physician Documentation ---
History of Present Illness - Stated complaint Stated Complaint: LAC BUTTOCKS - Chief complaint Chief Complaint: Laceration - History obtained from History obtained from: Patient - Additonal information Additional information: Patient comes emergency department complaining of the last 3 into her right buttock after falling against her glass coffee table tonight after tripping over her dog. No other injuries. Patient states she is been ambulatory, but became alarmed when she is felt blood running down her leg. Tetanus up-to-date. No other complaints at this time. Review of Systems Ten Systems: 10 systems reviewed and negative Constitutional: reports: Reviewed and negative Eyes: reports: Reviewed and negative Ears: reports: Reviewed and negative Nose: reports: Reviewed and negative Throat: reports: Reviewed and negative Cardiac: reports: Reviewed and negative Respiratory: reports: Reviewed and negative GI: reports: Reviewed and negative : reports: Reviewed and negative Skin: reports: Laceration (s) Musculoskeletal: reports: Reviewed and negative Neurologic: reports: Reviewed and negative Psychiatric: reports: Reviewed and negative Endocrine: reports: Reviewed and negative Immunocompromised: reports: Reviewed and negative PD PAST MEDICAL HISTORY - Past Medical History Cardiovascular: Hypertension - Past Surgical History Past Surgical 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: 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 - Present Medications Home Medications: Ambulatory Orders Medication Instructions Recorded Confirmed buPROPion [Wellbutrin Sr] 100 mg PO TID 12/11/17 12/12/17 lisinopriL [Lisinopril] 30 mg PO DAILY 12/11/17 12/12/17 Omeprazole 20 mg PO DAILY 12/12/17 12/12/17 QUEtiapine [SEROquel] 25 mg PO QPM 12/12/17 12/12/17 - Allergies Allergies/Adverse Reactions: Allergies Allergy/AdvReac Type Severity Reaction Status Date / Time Penicillins Allergy Hives Verified 11/03/19 21:28 - Social History Does the pt smoke?: Yes Smoking Status: Current every day smoker Does the pt drink ETOH?: Yes Does the pt have substance abuse?: No - Immunizations Immunizations are current?: Yes PD ED PE NORMAL - Vitals Vital signs reviewed: Yes - General General: Alert and oriented X 3, No acute distress - HEENT HEENT: Atraumatic, PERRL, EOMI, Moist mucous membranes - Neck Neck: Supple, no meningeal sign - Respiratory Respiratory: No respiratory distress - Derm Derm: Normal color, Warm and dry, No rash, Other (5 cm total length Y-shaped laceration with a small arteriolar bleed on the right inferior buttock. No foreign body.) - Extremities Extremities: No deformity - Neuro Neuro: Alert and oriented X 3 - Psych Psych: Normal mood, Normal affect Results - Vitals Vitals: Vital Signs - 24 hr 11/03/19 21:28 Temperature 36.8 C Heart Rate 99 Respiratory 16 Rate Blood Pressure 149/65 H O2 Saturation 100 Oxygen O2 Source Room air Procedures - Laceration (location) buttock R Length in cm: 5 Wound type: Stellate Neurovascular status: Sensory intact, Motor intact Tendon involvement: No: Tendon Injury Anesthesia: Lidocaine 1% Wound Preparation: Hibiclens, Wound explored, To the base, Wound edges modified Skin layer closure: Nylon, Interrupted, Size #-0 - enter number (4.0), Sutures - enter # (11) Other: Patient tolerated well, No complications, Neurovascular intact, Dressing applied, Tetanus UTD Complexity: Intermediate PD MEDICAL DECISION MAKING - ED course Complexity details: considered differential, d/w patient ED course: Wound repaired as above. We have discussed home wound care and the timeline for suture removal. We have discussed the usual indications for return. Departure - Departure Disposition: 01 Home, Self Care Clinical Impression: Laceration Condition: Stable Instructions: ED Laceration All Comments: Please keep your wound clean and dry in general. You may let water and soap run over the wound, but please do not rub, scrub, or immerse the wound until sutures are removed. The sutures should be taken out by a medical provider in 10 days. If you develop redness and swelling that is spreading progressively away from your wound, or if the wound was dry and forming a scab but then splits open and drains pus, you should have it looked at immediately.
[2019-11-04] MEDS ORDERED: BACITRACIN ZINC OINT 1 PACKET TOP STA (00:19)
[2019-11-04 00:39] VITALS: BP 154/85
== END 2019-11-04 00:25 | disposition home or self-care (01) ==
LOC: ED 21:18
DX: S31.811A Laceration without foreign body of right buttock, initial encounter (principal); W01.190A Fall on same level from slipping, tripping and stumbling with subsequent striking against furniture, initial encounter; I10 Essential (primary) hypertension; F17.200 Nicotine dependence, unspecified, uncomplicated
CPT/HCPCS: 12032; 99282; A9270

== ENCOUNTER 2019-11-21 09:15 | Outpatient (CLI) | payer MEDICAID ==
--- NOTE | 2019-11-22 16:46 | Mammography Report ---
BILATERAL DIGITAL DIAGNOSTIC MAMMOGRAM 3D/2D: 11/21/2019 CLINICAL: Patient returns for 6 month follow up on left breast for calcifications. Comparison is made to exams dated: 04/16/2019 mammogram, 09/20/2018 ultrasound, 09/18/2018 mammogram, 09/07 mammogram, 06/21/2017 mammogram, and 05/13/2016 mammogram - [facility]. There a re scattered fibroglandular elements in both breasts. There are stable 0.4 cm grouped dystrophic appearing calcifications in the left breast at 1 o'clock m iddle depth. No other significant masses, calcifications, or other findings are seen in either breast. IMPRESSION: PROBABLY BENIGN Stable 0.4 cm grouped dystrophic appearing calcifications in the left breast are probably benign. A follow-up mammogram in 12 months is recommended to demonstrate 2 years long-term stability. Exam findings conveyed to the patient. This exam was interpreted at Station ID: [id number]. NOTE: For mammograms, a report in lay terms will be sent to the patient. Approximately 15% of breast malignancies will not be visualized mammographically. In the management of a palpable breast mass, a negative mammogram must not discourage biopsy of a clinically suspicious lesion. Electronically Signed By: Ok Wilkerson M.D. slc/:11/21/2019 11:54:54 ACR BI-RADS Category 3: Probably benign 3343F PARENCHYMAL PATTERN: (A) - The breast(s) demonstrate(s) scattered fibroglandular densities. BI-RADS CATEGORY: (3) - 3 Mammogram [id number] 12 month follow-up LATERALITY: (B)
== END 2019-11-21 09:16 | disposition home or self-care (01) ==
LOC: DI 09:15
PROVIDERS: ATTEND Physician Assistant
DX: R92.8 Other abnormal and inconclusive findings on diagnostic imaging of breast (principal)
CPT/HCPCS: 77066

== ENCOUNTER 2020-01-31 09:31 | Day surgery (SDC) | payer MEDICAID ==
[2020-01-31] MEDS ORDERED: LACTATED RINGERS 1,000 ML IV ONE (10:03)
[2020-01-31] MEDS ORDERED: MIDAZOLAM 2 MG/2 ML VIAL ONE ×4 (11:04→11:44)
[2020-01-31] MEDS ORDERED: fentaNYL 250 MCG/5 ML VIAL ONE (11:05)
[2020-01-31 12:07] VITALS: BP 114/61
== END 2020-01-31 09:32 | disposition home or self-care (01) ==
LOC: SDS 09:31
PROVIDERS: ATTEND Surgery
PROC: 0DBN8ZZ Excision of Sigmoid Colon, Via Natural or Artificial Opening Endoscopic (ICD-10-PCS; principal; 2020-01-31 10:45)
DX: Z12.11 Encounter for screening for malignant neoplasm of colon (principal); I11.0 Hypertensive heart disease with heart failure; I50.9 Heart failure, unspecified; F10.11 Alcohol abuse, in remission; K70.9 Alcoholic liver disease, unspecified; F17.210 Nicotine dependence, cigarettes, uncomplicated; F32.9 Major depressive disorder, single episode, unspecified; G62.9 Polyneuropathy, unspecified; Z79.891 Long term (current) use of opiate analgesic; Z79.899 Other long term (current) drug therapy
CPT/HCPCS: 45385; J3010; J7120

== ENCOUNTER 2020-02-09 08:00 | Outpatient (CLI) | payer MEDICAID | END 2020-02-09 23:59 | disposition home or self-care (01) | LOC: LAB.S 08:00 | PROVIDERS: ATTEND Emergency Medicine | DX: J02.9 Acute pharyngitis, unspecified (principal); R05 Cough; Z20.828 Contact with and (suspected) exposure to other viral communicable diseases ==

== ENCOUNTER 2020-03-26 07:08 | Outpatient (CLI) | payer MEDICAID ==
--- NOTE | 2020-03-26 13:44 | Ultrasound Report ---
PROCEDURE: Pelvic Limited or F/U INDICATIONS: ACUTE ABD PAIN, PALP LUMP IN PELVIC REGION TECHNIQUE: Real-time transabdominal scanning was performed of the pelvic organs, with image documentation. COMPARISON: CT abdomen and pelvis dated 09/20/2019. FINDINGS: Uterus: Status post interval hysterectomy. Ovaries: Status post interval bilateral oophorectomy. Other: No free pelvic fluid. At the palpable area of patient concern near the vertical surgical inc ision site, there is a lower abdominal/pelvic ventral hernia containing fat and a segment of peristal sing bowel. The incisional hernia defect measures approximately 4.9 x 4.2 cm in size. No suspicious m ass or fluid collections. IMPRESSION: Lower midline abdominal/pelvic ventral hernia containing fat and segment of peristalsing bowel. The s ize of the defect measures approximately 4.9 x 4.2 cm. Reviewed by: Michael Art MD on 03/26/2020 1:43 PM PST Approved by: Michael Art MD on 03/26/2020 1:43 PM PST Station ID: [id number]
== END 2020-03-26 07:09 | disposition home or self-care (01) ==
LOC: DI 07:08
PROVIDERS: ATTEND Physician Assistant
DX: R10.9 Unspecified abdominal pain (principal); K52.9 Noninfective gastroenteritis and colitis, unspecified; Z90.710 Acquired absence of both cervix and uterus; K43.9 Ventral hernia without obstruction or gangrene

== ENCOUNTER 2020-04-17 16:55 | Outpatient (CLI) | payer MEDICAID | END 2020-04-17 16:56 | disposition home or self-care (01) | LOC: COV 16:55 | PROVIDERS: ATTEND Surgery | DX: Z01.812 Encounter for preprocedural laboratory examination (principal); K43.2 Incisional hernia without obstruction or gangrene; Z20.822 Contact with and (suspected) exposure to COVID-19 ==

== ENCOUNTER 2020-04-28 13:30 | Inpatient (IN) | payer MEDICAID ==
[2020-05-01] MEDS ORDERED: LACTATED RINGERS 1,000 ML IV ONE ×2 (09:23→12:28)
[2020-05-01] MEDS ORDERED: BUPIVACAINE 0.5% PF 30 ML VIAL INFIL ONE ×2 (10:04)
[2020-05-01] MEDS ORDERED: LIDOCAINE 2%-EPI 1:100000 20 ML MDV SUBQ ONE ×2 (10:05)
[2020-05-01] MEDS ORDERED: ceFAZolin 1 GM VIAL IR ONE (10:05)
[2020-05-01] MEDS ORDERED: LIDOCAINE 2%-EPI 1:100000 20 ML MDV ONE (10:11)
[2020-05-01] MEDS ORDERED: BUPIVACAINE 0.5% PF 30 ML VIAL ONE (10:12)
[2020-05-01] MEDS ORDERED: ceFAZolin 1 GM VIAL ONE (10:12)
[2020-05-01] MEDS ORDERED: ePHEDrine 50 MG/ML VIAL IVP PRN (10:19)
[2020-05-01] MEDS ORDERED: NALOXONE 0.4 MG/ML VIAL IVP PRN (10:19)
[2020-05-01] MEDS ORDERED: ONDANSETRON 4 MG/2 ML VIAL IVP PRN (10:19)
[2020-05-01] MEDS ORDERED: HYDROmorphone 0.5 MG/0.5 ML SYRINGE IVP PRN (10:19)
[2020-05-01] MEDS ORDERED: ATROPINE ABBOJECT 1 MG/10 ML SYRINGE IVP PRN (10:19)
[2020-05-01] MEDS ORDERED: fentaNYL 100 MCG/2 ML VIAL IVP PRN (10:19)
[2020-05-01] MEDS ORDERED: MORPHINE 2 MG/ML CARPUJECT IVP PRN (10:19)
[2020-05-01] MEDS ORDERED: METOCLOPRAMIDE 10 MG/2 ML VIAL IVP PRN (10:19)
--- NOTE | 2020-05-01 10:19 | ANESTHESIA ---
Pre-Anesthesia VS, & Labs - Diagnosis incisional hernia - Procedure incisional hernia repair with mesh Vital Signs: Temp Pulse Resp BP Pulse Ox 36.4 C L 99 16 137/69 H 99 05/01/20 09:28 05/01/20 09:28 05/01/20 09:28 05/01/20 09:28 05/01/20 09:28 Height: 5 ft 2.5 in Weight (kg): 52.3 kg Body Mass Index: 20.7 BMI Classification: Healthy weight - NPO >8 hours - Is Patient ?: No - Lab Results Lab results reviewed: Yes Home Medications and Allergies buPROPion [Wellbutrin Sr] 200 mg PO DAILY 12/11/17 Gabapentin [Neurontin] 600 mg PO QID 01/30/20 Calcipotriene [Dovonex] 1 applic TP DAILY PRN 04/14/20 Fluocinolone Acetonide Oil [Flac Otic Oil] 1 applic TOP QPM 04/14/20 Losartan/Hydrochlorothiazide [Hyzaar 100-25 Tablet] 1 each PO DAILY 04/14/20 Ondansetron Odt [Zofran Odt] 4 mg TL Q6H PRN 04/14/20 methocarbamoL [Methocarbamol] 750 mg PO TID 04/14/20 Allergies/Adverse Reactions: Allergies Allergy/AdvReac Type Severity Reaction Status Date / Time Penicillins Allergy Hives Verified 05/01/20 09:54 Anes History & Medical History - Anesthetic History Anesthesia Complications: reports: No previous complications Family history of Anesthesia Complications: Denies Family history of Malignant Hyperthermia: Denies - Medical History Cardiovascular: reports: Hypertension Pulmonary: reports: None Gastrointestinal: reports: None, Other Urinary: reports: None Musculoskeletal: reports: None Endocrine/Autoimmune: reports: None Skin: reports: Psoriasis Smoking Status: Current every day smoker History of Cancer?: No - Surgical History Eyes Ears Nose Throat (EENT): reports: Cataracts Gynecologic: reports: Hysterectomy Orthopedic: reports: Other Exam General: Alert, Oriented x3, Cooperative Dental: WNL Mouth Openin Fingerbreadth Neck Mobility: Normal Mallampati classification: III Thyromental Distance: 4-6 cm Respiratory: Lungs clear, Normal breath sounds, No respiratory distress Cardiovascular: Regular rate Neurological: Normal speech Mental/Cognitive Status: Alert/Oriented X3 Cognitive Status: Within normal limits Plan Anesthesia Type: General, Transverse Abdominis Plane (TAP) Block Regional Block: Per Surgeon's request for Post Op pain control Consent for Procedure(s) Verified and Reviewed: Yes Code Status: Attempt Resuscitation ASA classification: 2-Mild systemic disease Is this case an emergency?: No
[2020-05-01] MEDS ORDERED: LACTATED RINGERS 1,000 ML IV SCH (11:00)
--- NOTE | 2020-05-01 12:08 | OPERATIVE REPORT ---
Operative Report - General Admit Date: 05/01/20 Procedure Date: 05/01/20 Planned Procedure: Incisional hernia repair with mesh Pre-Op Diagnosis: Large and painful incisional hernia Procedure Performed: Incisional hernia repair with mesh Post Op Diagnosis: Large and painful incisional hernia - Procedure Note Primary Surgeon: Thompson Anesthesia Provider: AKBAR Marcus Anesthesia Technique: General LMA, Local Estimated Blood Loss (mL): 75 Indications: Painful hernia following open JERROD Findings: 5 x 7 cm defect with a 12 x 12 cm hernia sac containing small bowel Complications: None apparent - Other Other Information/Narrative: After obtaining informed consent, the patient is brought to the operating room and placed in the supine position on the operating table. Following successful induction of general endotracheal anesthesia, appropriate padding of all bony prominences, and placement of appropriate monitors, the abdomen was prepped and draped in the standard surgical fashion. A timeout was held per scope protocol. All elements of the surgical safety checklist were followed before, during, and after the procedure. Following infiltration with local anesthetic to create a field block, an incision was created directly through the skin over the palpable and visible defect of the most inferior abdominal wall. The defect was noted to be appr oximately 5.0 cm x 7 cm in greatest dimension. The hernia sac itself was approximately 12 x 12 cm and was carefully dissected from the subcutaneous tissue and muscle surface. The contents of the sac was noted to small bowel. Proceeding with great care, the adhesions holding the small bowel to the abdominal wall were lysed creating space for mesh placement. The entire small bowel was carefully examined and was without evidence of injury or enterotomy following this process. Inferiorly, the bladder was identifed and carefully dissected from the anterior abdominal wall thereby creating a flap allowing the bladder to be freely distensible as well as creating space for mesh positioning. We elected to repair the defect with an 11 x [address] Hernia Patch. It was straightened and flattened in the peritoneal space up against the abdominal wall. Placement was checked and adjusted. Taking sutures of 0 Prolene were placed at the 4 quadrants. Once we were satisfied placement was ideal, the anterior leaflet of the mesh pocket was sewn to the fascia anteriorly superiorly and inferiorly. A 2-0 PDS suture was then applied as a whip stitich the secure the mesh to the abdominal wall without spaces that would allow entrapment of bowel in the future. The wound was checked for hemostasis and irrigated with warm saline solution. It was aspirated free of all fluid and particulate m atter. The hernia sac on the surface of the muscle and the subcutaneous space was now checked for hemostasis and irrigated once again. I elected to close the fascia with interrupted #1 Prolene sutures. The wound was checked for hemostasis once again. The subcutaneous tissue was reapproximated using 2-0 Vicryl sutures with an attempt to close the space more persistent on the left side than on the right. The skin was finally addressed with 4-0 Monocryl. All sponge, needle, and instrument counts were correct at the conclusion of the case. The patient was allowed awaken from anesthesia without difficulty and taken to the postanesthesia care unit in good condition.
[2020-05-01] MEDS ORDERED: SODIUM CHLORIDE FLUSH 0.9% 10 ML SYRINGE IVP PRN (12:20)
[2020-05-01] MEDS ORDERED: levoFLOXacin 500 MG/100 ML 500 MG/100 ML BAG IV SCH (13:00)
[2020-05-01] MEDS: oxyCODONE 5 MG TABLET PO PRN ×3 (13:23→21:19)
[2020-05-01] MEDS: SODIUM CHLORIDE 0.9% 1,000 ML IV SCH (13:23)
--- NOTE | 2020-05-01 15:57 | ANESTHESIA POST OP EVALUATION ---
Anesthesia Post Eval - Post Anesthesia Eval Vitals: Last Vital Signs Temp 36.7 C 05/01/20 15:00 Pulse 113 H 05/01/20 15:00 Resp 16 05/01/20 15:00 BP 134/61 H 05/01/20 15:00 Pulse Ox 92 05/01/20 15:00 CV Function Including HR & BP: positive: Stable Pain Control: positive: Satisfactory Nausea & Vomiting: positive: Negative Mental Status: positive: Baseline Respiratory Status: Airway Patent Hydration Status: Satisfactory Anesthesia Complications: positive: None
[2020-05-01] MEDS: SODIUM CHLORIDE FLUSH 0.9% 10 ML SYRINGE IVP SCH (16:01)
[2020-05-01] MEDS: HYDROmorphone 0.5 MG/0.5 ML SYRINGE IVP PRN ×3 (16:01→22:01)
[2020-05-01] MEDS: methocarbamoL 500 MG TABLET PO PRN ×2 (17:24→22:02)
[2020-05-01] MEDS: GABAPENTIN 300 MG CAPSULE PO SCH (20:44)
[2020-05-02] MEDS: HYDROmorphone 0.5 MG/0.5 ML SYRINGE IVP PRN ×5 (00:02→22:59)
[2020-05-02] MEDS: SODIUM CHLORIDE FLUSH 0.9% 10 ML SYRINGE IVP SCH ×3 (00:02→17:45)
[2020-05-02] MEDS: SODIUM CHLORIDE 0.9% 1,000 ML IV SCH ×2 (02:46→14:55)
[2020-05-02] MEDS: oxyCODONE 5 MG TABLET PO PRN ×5 (02:50→22:14)
[2020-05-02] MEDS: PANTOPRAZOLE 40 MG TABLET PO SCH (06:11)
[2020-05-02] MEDS: ENOXAPARIN 40 MG/0.4 ML SYRINGE SUBQ SCH (08:20)
[2020-05-02] MEDS: buPROPion XL 150 MG TABLET PO SCH (08:21)
[2020-05-02] MEDS: LOSARTAN 50 MG TABLET PO SCH (08:21)
[2020-05-02] MEDS: GABAPENTIN 300 MG CAPSULE PO SCH ×2 (08:21→20:20)
[2020-05-02] MEDS: hydroCHLOROthiazide 25 MG TABLET PO SCH (08:22)
[2020-05-02] MEDS: GABAPENTIN 400 MG CAPSULE PO SCH (11:20)
[2020-05-02] MEDS: polyethylene glycoL 3350 17 GM PACKET PO SCH (11:20)
--- NOTE | 2020-05-02 13:58 | PHARMACY PROGRESS NOTE ---
- Best Possible Medication History Admit Date and Time: 05/01/20917 Processed by: Nursing Medication History completed: Yes Patient Interview: Completed As the person ultimately responsible for medication therapy, providers are able to order a medication from an existing home medication list in [facility] via the "Reconcile Routine" prior to Confirmation of that medication by administrative support manager. Such practice is discouraged except when the physician, in their clinical judg ment, deems that a medical need exists for a medication without regard to previous use.
--- NOTE | 2020-05-02 15:22 | PROVIDER PROGRESS NOTE ---
Subjective - Prog Note Date Prog Note Date: 05/02/20 - Subjective Pt reports feeling: No change (very uncomfortable with movement) Objective - Vital Signs/Intake & Output Reviewed Vital Signs: Yes Vital Signs: Vital Signs x48h Temp Pulse Resp BP Pulse Ox 05/02/20 07:28 36.6 C 102 H 16 112/66 97 Intake & Output: Intake & Output 04/29/20 04/30/20 05/01/20 05/02/20 23:59 23:59 23:59 23:59 Intake Total 350 3168.75 Output Total 775 325 Balance -425 2843.75 - Objective General Appearance: positive: No acute distress, Alert Eyes Bilateral: positive: Normal inspection, PERRL, EOMI ENT: positive: No signs of dehydration Neck: positive: No JVD, Trachea midline Respiratory: positive: No respiratory distress Abdomen: positive: No distention, Other (dressing c/d/i no erythema) Neurologic/Psychiatric: positive: Oriented x3 Assessment/Plan - Problem List (1) Incisional hernia Impression: She had a very large repair of a very large incisional hernia. Pain as anticipated. Home when able to get out of bed and ambulate safely without assist
[2020-05-02] MEDS: methocarbamoL 500 MG TABLET PO PRN ×2 (15:32→23:47)
[2020-05-02] MEDS ORDERED: ONDANSETRON ODT 4 MG TABLET TL PRN (15:50)
[2020-05-02] MEDS: ONDANSETRON 4 MG/2 ML VIAL IVP PRN ×2 (16:12→20:30)
[2020-05-02] MEDS: DOCUSATE SODIUM 250 MG CAPSULE PO SCH ×2 (19:25→20:20)
[2020-05-02] MEDS ORDERED: LACTATED RINGERS 1,000 ML IV ONE (22:39)
[2020-05-02] MEDS: METOCLOPRAMIDE 10 MG/2 ML VIAL IVP PRN (23:46)
[2020-05-03] MEDS: HYDROmorphone 0.5 MG/0.5 ML SYRINGE IVP PRN (01:18)
[2020-05-03] MEDS: SODIUM CHLORIDE FLUSH 0.9% 10 ML SYRINGE IVP SCH ×3 (01:37→16:27)
[2020-05-03] MEDS: SODIUM CHLORIDE 0.9% 1,000 ML IV SCH ×2 (03:54→11:27)
[2020-05-03] MEDS: oxyCODONE 5 MG TABLET PO PRN ×3 (03:55→22:30)
[2020-05-03] MEDS: METOCLOPRAMIDE 10 MG/2 ML VIAL IVP PRN ×2 (05:40→20:54)
[2020-05-03] MEDS: PANTOPRAZOLE 40 MG TABLET PO SCH (06:33)
[2020-05-03 07:08] LABS: CALCIUM 8.3 mg/dL (8.5-10.3); POTASSIUM 3.8 mmol/L (3.5-5.0)
--- NOTE | 2020-05-03 09:00 | XRAY Report ---
PROCEDURE: Chest for Line Placement INDICATIONS: confirm NGT placement TECHNIQUE: One view of the chest was acquired. COMPARISON: CT chest 09/20/2019. CXR 08/26/2019. FINDINGS: Surgical changes and devices: Enteric tube courses into the stomach with the tip projecting in the re gion of the gastric fundus. Lungs and pleura: No pleural effusions or pneumothorax. Lungs are clear. Mediastinum: Mediastinal contours appear normal. Heart size is normal. Bones and chest wall: No suspicious bony lesions. Overlying soft tissues appear unremarkable. IMPRESSION: Enteric tube projects over the stomach. Lungs are clear. This report is concordant with the overnight preliminary interpretation. Reviewed by: Ok Wilkerson MD on 05/03/2020 7:58 AM SARANYA Approved by: Ok Wilkerson MD on 05/03/2020 7:58 AM SARANYA Station ID: [id number]
[2020-05-03] MEDS: GABAPENTIN 300 MG CAPSULE PO SCH ×2 (09:51→22:30)
[2020-05-03] MEDS: LOSARTAN 50 MG TABLET PO SCH (09:51)
[2020-05-03] MEDS: buPROPion XL 150 MG TABLET PO SCH (09:51)
[2020-05-03] MEDS: ENOXAPARIN 40 MG/0.4 ML SYRINGE SUBQ SCH (09:51)
[2020-05-03] MEDS: hydroCHLOROthiazide 25 MG TABLET PO SCH (09:51)
[2020-05-03] MEDS: DOCUSATE SODIUM 250 MG CAPSULE PO SCH ×2 (09:52→21:57)
[2020-05-03] MEDS: polyethylene glycoL 3350 17 GM PACKET PO SCH (09:52)
[2020-05-03] MEDS ORDERED: SODIUM CHLORIDE 0.9% 500 ML IV ONE (11:41)
[2020-05-03] MEDS: GABAPENTIN 400 MG CAPSULE PO SCH (11:41)
--- NOTE | 2020-05-03 12:29 | PROVIDER PROGRESS NOTE ---
Subjective - Prog Note Date Prog Note Date: 05/03/20 - Subjective Pt reports feeling: Improved (more comfortable with ngt) Objective - Vital Signs/Intake & Output Reviewed Vital Signs: Yes Vital Signs: Vital Signs x48h Temp Pulse Pulse Resp BP Pulse Ox 05/03/20 08:24 36.4 C L 120 H 20 96 05/03/20 08:10 37.2 C 119 H 20 114/79 94 05/03/20 05:45 36.4 C L 120 H 18 141/80 H 96 Intake & Output: Intake & Output 04/30/20 05/01/20 05/02/20 05/03/20 23:59 23:59 23:59 23:59 Intake Total 350 3923.75 2398.75 Output Total 775 1025 3000 Balance -425 2898.75 -601.25 - Objective General Appearance: positive: No acute distress, Alert Eyes Bilateral: positive: PERRL, EOMI Neck: positive: No JVD Respiratory: positive: No respiratory distress Abdomen: positive: Other (mild distension/ improved dressing c/d/i no erythema) Neurologic/Psychiatric: positive: Oriented x3 - Lab Results Fish Bones: 05/03/20 06:53 Other Labs: Lab Results x24hrs 05/03/20 Range/Units 06:53 Sodium 137 (135-145) mmol/L Potassium 3.8 (3.5-5.0) mmol/L Chloride 98 L (101-111) mmol/L Carbon Dioxide 23 (21-32) mmol/L Anion Gap 16.0 H (6-13) BUN 16 (6-20) mg/dL Creatinine 1.0 (0.4-1.0) mg/dL Estimated GFR (MDRD) 57 L (>89) Glucose 212 H (70-100) mg/dL Calcium 8.3 L (8.5-10.3) mg/dL Assessment/Plan - Problem List (1) Incisional hernia Impression: ileus after repair of a very large incisional hernia requiring ngt and ivf bolus. no signs or symptoms of infection or complication ivf bolus. continue ngt until improved recheck labs tomorrow
[2020-05-03] MEDS: D5.45NS W/20 MEQ KCL 1,000 ML IV SCH (14:10)
[2020-05-03] MEDS ORDERED: SODIUM CHLORIDE 0.9% 1,000 ML IV ONE (17:15)
[2020-05-03] MEDS: ONDANSETRON 4 MG/2 ML VIAL IVP PRN (18:37)
[2020-05-04] MEDS: D5.45NS W/20 MEQ KCL 1,000 ML IV SCH ×4 (02:49→18:36)
[2020-05-04] MEDS: SODIUM CHLORIDE FLUSH 0.9% 10 ML SYRINGE IVP SCH ×3 (02:50→17:26)
[2020-05-04] MEDS: oxyCODONE 5 MG TABLET PO PRN ×5 (05:51→22:51)
[2020-05-04] MEDS: PANTOPRAZOLE 40 MG TABLET PO SCH (05:51)
[2020-05-04 06:01] LABS: HCT - HEMATOCRIT 23.4 % (37.0-47.0); HGB - HEMOGLOBIN 7.9 g/dL (12.0-16.0); MEAN CORPUSCULAR HEMOGLOBIN 35.6 pg (27.0-31.0); MEAN CORPUSCULAR HGB CONC 33.8 g/dL (32.0-36.0); MEAN CORPUSCULAR VOLUME 105.4 fL (81.0-99.0); MEAN PLATELET VOLUME 11.7 fL (7.9-10.8); RED BLOOD COUNT 2.22 10^6/uL (4.20-5.40); RED CELL DISTRIBUTION WIDTH 12.9 % (12.0-15.0); WHITE BLOOD COUNT 7.6 x10^3/uL (4.8-10.8)
[2020-05-04 06:11] LABS: ALBUMIN 3.2 g/dL (3.2-5.5); ALBUMIN/GLOBULIN RATIO 1.2 (1.0-2.2); BILIRUBIN,TOTAL 0.8 mg/dL (0.2-1.0); CALCIUM 7.7 mg/dL (8.5-10.3); CREATININE 0.8 mg/dL (0.4-1.0); POTASSIUM 3.4 mmol/L (3.5-5.0); TOTAL PROTEIN 5.8 g/dL (6.7-8.2)
[2020-05-04] MEDS: buPROPion XL 150 MG TABLET PO SCH (09:09)
[2020-05-04] MEDS: LOSARTAN 50 MG TABLET PO SCH (09:09)
[2020-05-04] MEDS: hydroCHLOROthiazide 25 MG TABLET PO SCH (09:10)
[2020-05-04] MEDS: DOCUSATE SODIUM 250 MG CAPSULE PO SCH ×2 (09:10→21:30)
[2020-05-04] MEDS: polyethylene glycoL 3350 17 GM PACKET PO SCH (09:11)
[2020-05-04] MEDS: ENOXAPARIN 40 MG/0.4 ML SYRINGE SUBQ SCH (09:11)
[2020-05-04] MEDS: GABAPENTIN 300 MG CAPSULE PO SCH ×2 (09:11→21:30)
[2020-05-04] MEDS ORDERED: METOCLOPRAMIDE 10 MG/2 ML VIAL IVP PRN (11:42)
[2020-05-04] MEDS ORDERED: BISACODYL 10 MG SUPP PR PRN (11:42)
[2020-05-04] MEDS ORDERED: INSULIN REGULAR HUMAN 300 UNIT/3 ML VIAL SUBQ SCH (12:00)
[2020-05-04] MEDS: NICOTINE 7 MG PATCH TOP SCH (13:17)
[2020-05-04] MEDS: INSULIN ASPART 300 UNIT/3 ML PEN SUBQ SCH ×3 (13:17→21:29)
[2020-05-04] MEDS: GABAPENTIN 400 MG CAPSULE PO SCH (13:17)
--- NOTE | 2020-05-04 13:27 | PROVIDER PROGRESS NOTE ---
Subjective - Prog Note Date Prog Note Date: 05/04/20 Prog Note Time: 13:25 - Subjective Pt reports feeling: Improved Subjective: Medina reports feeling much improved today. She denies any nausea and says her pain is well controlled. She has passed some flatus this morning and feels that she can have a bowel movement if we would give her a cup of coffee.She is very anxious to go home. Objective - Vital Signs/Intake & Output Reviewed Vital Signs: Yes Vital Signs: Vital Signs x48h Temp Pulse Resp BP Pulse Ox 05/04/20 08:00 37.8 C 110 H 18 129/64 96 Intake & Output: Intake & Output 05/01/20 05/02/20 05/03/20 05/04/20 23:59 23:59 23:59 23:59 Intake Total 350 3923.75 4407.917 1638.333 Output Total 775 1025 5425 2200 Balance -425 2898.75 -1017.083 -561.667 - Objective General Appearance: positive: No acute distress, Alert Eyes Bilateral: positive: Normal inspection, PERRL ENT: positive: ENT inspection nml Neck: positive: Nml inspection Respiratory: positive: No respiratory distress, Breath sounds nml Cardiovascular: positive: Regular rate & rhythm, No murmur Abdomen: positive: Nml bowel sounds, Tenderness Extremities: positive: Non-tender, Full ROM - Lab Results Fish Bones: 05/04/20 05:25 05/04/20 05:25 Other Labs: Lab Results x24hrs 05/04/20 05/04/20 Range/Units 05:25 05:25 WBC 7.6 (4.8-10.8) x10^3/uL RBC 2.22 L (4.20-5.40) 10^6/uL Hgb 7.9 L (12.0-16.0) g/dL Hct 23.4 L (37.0-47.0) % MCV 105.4 H (81.0-99.0) fL MCH 35.6 H (27.0-31.0) pg MCHC 33.8 (32.0-36.0) g/dL RDW 12.9 (12.0-15.0) % Plt Count 124 L (130-450) 10^3/uL MPV 11.7 H (7.9-10.8) fL Sodium 138 (135-145) mmol/L Potassium 3.4 L (3.5-5.0) mmol/L Chloride 100 L (101-111) mmol/L Carbon Dioxide 26 (21-32) mmol/L Anion Gap 12.0 (6-13) BUN 11 (6-20) mg/dL Creatinine 0.8 (0.4-1.0) mg/dL Estimated GFR (MDRD) 74 L (>89) Glucose 260 H (70-100) mg/dL Calcium 7.7 L (8.5-10.3) mg/dL Total Bilirubin 0.8 (0.2-1.0) mg/dL AST 23 (10-42) IU/L ALT 20 (10-60) IU/L Alkaline Phosphatase 60 (42-121) IU/L Total Protein 5.8 L (6.7-8.2) g/dL Albumin 3.2 (3.2-5.5) g/dL Globulin 2.6 (2.1-4.2) g/dL Albumin/Globulin Ratio 1.2 (1.0-2.2) Assessment/Plan - Problem List (1) Incisional hernia Impression: Improving after treatment for ileus yesterday. 1. Remove NG tube 2. Dulcolax suppository 3. Full liquid diet 4. We will try to transition to oral pain medicines if she tolerates an oral diet. 5. Labs are reassuring. 6. Add 7 mg nicotine patch.
[2020-05-04] MEDS: methocarbamoL 500 MG TABLET PO PRN ×2 (14:15→21:37)
[2020-05-05] MEDS: SODIUM CHLORIDE FLUSH 0.9% 10 ML SYRINGE IVP SCH ×2 (01:01→08:09)
[2020-05-05] MEDS: BENZOCAINE/MENTHOL LOZENGE MM PRN ×2 (02:16→03:39)
[2020-05-05] MEDS: D5.45NS W/20 MEQ KCL 1,000 ML IV SCH (02:24)
[2020-05-05] MEDS: oxyCODONE 5 MG TABLET PO PRN ×2 (03:37→08:02)
[2020-05-05] MEDS: PANTOPRAZOLE 40 MG TABLET PO SCH (06:18)
[2020-05-05 07:33] VITALS: BP 153/89
[2020-05-05] MEDS: INSULIN ASPART 300 UNIT/3 ML PEN SUBQ SCH (08:00)
[2020-05-05] MEDS: LOSARTAN 50 MG TABLET PO SCH (08:01)
[2020-05-05] MEDS: DOCUSATE SODIUM 250 MG CAPSULE PO SCH (08:01)
[2020-05-05] MEDS: buPROPion XL 150 MG TABLET PO SCH (08:01)
[2020-05-05] MEDS: hydroCHLOROthiazide 25 MG TABLET PO SCH (08:02)
[2020-05-05] MEDS: polyethylene glycoL 3350 17 GM PACKET PO SCH (08:02)
[2020-05-05] MEDS: GABAPENTIN 300 MG CAPSULE PO SCH (08:02)
[2020-05-05] MEDS: ENOXAPARIN 40 MG/0.4 ML SYRINGE SUBQ SCH (08:03)
[2020-05-05] MEDS: NICOTINE 7 MG PATCH TOP SCH (08:10)
--- NOTE | 2020-05-05 10:15 | Discharge Plan ---
Discharge Plan Problem Reviewed?: Yes Disposition: Home, Self Care Condition: Stable Prescriptions: oxyCODONE [Roxicodone] 5 mg PO Q4HR PRN #30 tablet PRN Reason: Pain Ondansetron Odt [Zofran Odt] 4 mg TL Q6HR PRN #10 tablet PRN Reason: Nausea / Vomiting Docusate Sodium 250Mg Capsule [Colace 250Mg Capsule] 250 mg PO BID #60 tab methocarbamoL [Methocarbamol] 750 mg PO TID PRN #30 tab PRN Reason: Spasms Pantoprazole [Protonix] 40 mg PO QDAC #30 tablet Diet: Regular Activity Restrictions: 10 poumd lifting limit Shower Restrictions: No Driving Restrictions: Yes (not until after follow up) No Smoking: If you smoke, Please STOP! Call for help. Follow-up with: JIL NOLBE PA-C [Primary Care Provider] - Trevor Mackay MD [Provider Admit Priv/Credential] -
--- NOTE | 2020-05-05 10:35 | DISCHARGE SUMMARY ---
"Discharge Summary Admit Date: 05/02/20 Discharge Date: 05/05/20 Discharging Provider: Thompson Primary Care Provider: Zoey Machado Code Status: Attempt Resuscitation Condition at Discharge: Stable Discharge Disposition: 01 Home, Self Care - DIAGNOSES Admission Diagnoses: Incisional hernia Discharge Diagnoses with Status of Each Condition: Resolved - HPI History of Present Illness: Medina is a 54 year old lady with an incisional hernia after hysterectomy. She presented for repair on the date of admission. - CONSULTS | PROCEDURES Consultations: None Procedures: Incisonal hernia repair with mesh - HOSPITAL COURSE Hospital Course: Surgery was uneventful and the patient was admitted to the med surg unit for pain control and supportive care. On POD #2, she developed nausea and distension and an NGT was placed. Within 24 hours the distension resolved and bowel function returned. At this time, she is tolerating a full liquid diet and walking the halls unassisted. Her pain has been reasonably well controlled with oral medications - ALLERGIES Allergies/Adverse Reactions: Allergies Allergy/AdvReac Type Severity Reaction Status Date / Time Penicillins Allergy Hives Verified 05/01/20 09:54 - MEDICATIONS Home Medications: Ambulatory Orders Medication Instructions Recorded Confirmed Gabapentin [Neurontin] 600 mg PO QID 1704/30/20 Calcipotriene [Dovonex] 1 applic TP DAILY PRN 04/14/20 05/01/20 Fluocinolone Acetonide Oil [Flac 1 applic TOP QPM 04/14/20 05/01/20 Otic Oil] Losartan/Hydrochlorothiazide 1 each PO DAILY 04/14/20 04/30/20 [Hyzaar 100-25 Tablet] buPROPion HCL [Bupropion Xl] 300 mg PO DAILY 05/01/20 05/01/20 Docusate Sodium 250Mg Capsule 250 mg PO BID #60 tab 05/05/20 [Colace 250Mg Capsule] Ondansetron Odt [Zofran Odt] 4 mg TL Q6HR PRN #10 tablet 05/05/20 Pantoprazole [Protonix] 40 mg PO QDAC #30 tablet 05/05/20 buPROPion [Wellbutrin Xl] 300 mg PO DAILY tablet 05/05/20 methocarbamoL [Methocarbamol] 750 mg PO TID PRN #30 tab 05/05/20 oxyCODONE [Roxicodone] 5 mg PO Q4HR PRN #30 tablet 05/05/20 - PHYSICAL EXAM AT DISCHARGE General Appearance: positive: No acute distress, Alert Eyes Bilateral: positive: Normal inspection, PERRL, EOMI ENT: positive: ENT inspection nml Neck: positive: Nml inspection, Thyroid nml, No JVD Respiratory: positive: Chest non-tender, No respiratory distress, Breath sounds nml Cardiovascular: positive: Regular rate & rhythm, No murmur Abdomen: positive: Nml bowel sounds, No distention, Tenderness, Other (incision is clean and dry and intact) Back: positive: Nml inspection Skin: positive: Color nml Neurologic/Psychiatric: positive: Oriented x3, CN's nml (2-12) - LABS Result Diagrams: 05/04/20 05:25 05/04/20 05:25 - QUALITY (Female Hip Fx Only) Was patient sent home on osteoporosis medication?: No - FOLLOW UP Follow Up: Zoey Machado in 1 weeks for suspected hyperglycemia Thompson in 2 weeks for surgical follow up - TIME SPENT Time Spent in Discharge (Minutes): 20"
[2020-05-05] MEDS ORDERED: guaiFENesin 600 MG TABLET PO SCH (11:00)
== END 2020-05-05 13:00 | disposition home or self-care (01) | DRG 940 ==
LOC: MS2 05-01 09:18
PROVIDERS: ADMIT Surgery; ATTEND Surgery
PROC: 0WUF0JZ Supplement Abdominal Wall with Synthetic Substitute, Open Approach (ICD-10-PCS; principal; 2020-05-01 10:15)
DX: G89.18 Other acute postprocedural pain (principal); K56.7 Ileus, unspecified; K43.2 Incisional hernia without obstruction or gangrene; I11.0 Hypertensive heart disease with heart failure; I50.9 Heart failure, unspecified; F10.11 Alcohol abuse, in remission; F17.210 Nicotine dependence, cigarettes, uncomplicated; Z90.710 Acquired absence of both cervix and uterus
CPT/HCPCS: 36415; 71045; 80048; 80053; 85027; 97161; A9270; C1781; J1170; J1650; J2765; J7120; Q0162

== ENCOUNTER 2020-04-28 17:38 | Outpatient (CLI) | payer MEDICAID | END 2020-04-28 17:39 | disposition home or self-care (01) | LOC: COV 17:38 | PROVIDERS: ATTEND Surgery | DX: Z01.812 Encounter for preprocedural laboratory examination (principal); K43.2 Incisional hernia without obstruction or gangrene; Z20.822 Contact with and (suspected) exposure to COVID-19 ==

== ENCOUNTER 2020-05-13 10:42 | Outpatient (CLI) | payer MEDICAID ==
--- OUTSIDE RECORDS SUMMARY | 2020-05-20 00:33 | EXTERNAL MEDICAL SUMMARY RPT | Continuity of Care Document ---
:1965 Demographics Phone Unavailable Preferred Language Unknown Marital Status Unknown Samaritan Affiliation Unknown Race Unknown Ethnic Group Unknown Author Organization [facility] Address [address] [place] [address] Phone Problems date description facility [id number] High grade SBO complicated by ETOH [employer] withdrawl Social History date description facility [id number]
== END 2020-05-13 23:59 | disposition critical access hospital (66) ==
LOC: EMS 10:42
PROVIDERS: ATTEND Emergency Medicine
DX: R41.82 Altered mental status, unspecified (principal); Z74.2 Need for assistance at home and no other household member able to render care
CPT/HCPCS: A0425; A0427; A0999

== ENCOUNTER 2020-05-13 11:13 | Inpatient (IN) | payer MEDICAID ==
[2020-05-13] MEDS ORDERED: FOLIC ACID INJ 1 MG, THIAMINE INJ 100 MG, MAGNESIUM SULFATE 2 GM, MULTIVITAMIN 10 ML in... IV STA ×5 (11:20)
--- NOTE | 2020-05-13 11:20 | ED Physician Documentation ---
PD HPI ALTERED MENTAL STATUS - Stated complaint Stated Complaint: AMS - History obtained from History obtained from: Patient, Family, EMS - History of Present Illness Timing - onset: Today Timing - duration: Hours Timing - details: Gradual onset, Still present Quality / character: Less responsive, Confused, Disoriented Associated symptoms: General weakness Contributing factors: Intoxicated, Other (recent incisional hernia repair.) Basline status: Alert and oriented X 3, Ambulatory, Independent Similar symptoms before: Has not had sx before Recently seen: Surgery - Additional information Additional information: 54-year-old female who has had incisional hernia repair done 12 days ago called her this morning sounded confused. He had the son go to check on her and he found her laying on the floor confused. She does have blood to the back of her scalp. She is a heavy drinker and appears intoxicated according to the medics. They indicated that the patient wanted to refuse transport at the scene. 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 HEENT: Cataracts - Present Medications Home Medications: Ambulatory Orders Medication Instructions Recorded Confirmed Gabapentin [Neurontin] 600 mg PO QID 01/30/20 04/30/20 Calcipotriene [Dovonex] 1 applic TP DAILY PRN 04/14/20 05/01/20 Fluocinolone Acetonide Oil [Flac 1 applic TOP QPM 04/14/20 05/01/20 Otic Oil] Losartan/Hydrochlorothiazide 1 each PO DAILY 04/14/20 04/30/20 [Hyzaar 100-25 Tablet] buPROPion HCL [Bupropion Xl] 300 mg PO DAILY 05/01/20 05/01/20 Docusate Sodium 250Mg Capsule 250 mg PO BID #60 tab 05/05/20 [Colace 250Mg Capsule] Ondansetron Odt [Zofran Odt] 4 mg TL Q6HR PRN #10 tablet 05/05/20 Pantoprazole [Protonix] 40 mg PO QDAC #30 tablet 05/05/20 buPROPion [Wellbutrin Xl] 300 mg PO DAILY tablet 05/05/20 methocarbamoL [Methocarbamol] 750 mg PO TID PRN #30 tab 05/05/20 oxyCODONE [Roxicodone] 5 mg PO Q4HR PRN #30 tablet 05/05/20 - Allergies Allergies/Adverse Reactions: Allergies Allergy/AdvReac Type Severity Reaction Status Date / Time Penicillins Allergy Hives Verified 05/13/20 11:27 - Social History Does the pt smoke?: Yes Smoking Status: Current every day smoker Does the pt drink ETOH?: Yes Does the pt have substance abuse?: No - Immunizations Immunizations are current?: Yes - POLST Patient has POLST: No PD ED PE NORMAL - Vitals Vital signs reviewed: Yes (hypotensive ) - General General: No acute distress, Well developed/nourished, Other (responds appropriately but slowly ) - HEENT HEENT: Atraumatic, PERRL, EOMI - Neck Neck: Supple, no meningeal sign, No bony TTP - Cardiac Cardiac: No murmur, Other (tachy to 100) - Respiratory Respiratory: No respiratory distress, Other (diminished breath sounds) - Abdomen Abdomen: Soft, Other (seems distended. Non tender bandaged midline incision without signs of inflamation .) - Back Back: No CVA TTP, No spinal TTP - Derm Derm: Normal color, Warm and dry, No rash - Extremities Extremities: No deformity, No edema - Neuro Neuro: rehabilitator 2-12 intact, No motor deficit, No sensory deficit, Normal speech Eye Opening: Spontaneous Motor: Obeys Commands Verbal: Confused GCS Score: 14 - Psych Psych: Normal mood, Normal affect Results - Vitals Vitals: Vital Signs - 24 hr 05/13/20 05/13/20 05/13/20 11:19 11:29 11:37 Temperature 36.6 C 36.0 C L Heart Rate 100 97 Respiratory 20 15 Rate Blood Pressure 90/44 L 75/49 L 86/48 L O2 Saturation 97 98 05/13/20 05/13/20 05/13/20 11:56 12:19 12:30 Temperature 36.3 C L Heart Rate 96 98 93 Respiratory 16 15 15 Rate Blood Pressure 80/43 L 91/53 L 73/41 L O2 Saturation 99 100 100 05/13/20 05/13/20 05/13/20 13:00 13:30 13:58 Temperature 36.5 C Heart Rate 96 90 88 Respiratory 16 16 Rate Blood Pressure 80/53 L 79/44 L 86/48 L O2 Saturation 100 100 05/13/20 05/13/20 05/13/20 14:05 14:15 14:26 Temperature Heart Rate 87 95 89 Respiratory 11 L 12 Rate Blood Pressure 93/59 L 99/56 L 99/50 L O2 Saturation 100 100 05/13/20 05/13/20 05/13/20 14:30 15:00 15:20 Temperature 36.4 C L Heart Rate 89 89 88 Respiratory 16 16 Rate Blood Pressure 95/51 L 85/45 L 103/58 L O2 Saturation 99 96 Oxygen O2 Source Nasal cannula - Labs Labs: Laboratory Tests 05/13/20 05/13/20 05/13/20 12:00 12:15 13:41 WBC 20.8 H RBC 2.54 L Hgb 8.6 L Hct 25.7 L MCV 101.2 H MCH 33.9 H MCHC 33.5 RDW 13.0 Plt Count 376 MPV 12.4 H Neut # (Auto) 16.1 H Lymph # (Auto) 1.8 Forest # (Auto) 1.8 H Eos # (Auto) 0.0 Baso # (Auto) 0.0 Absolute Nucleated RBC 0.00 Nucleated RBC % 0.0 Manual Slide Review Indicated WBC Morphology 3+ TOXIC GRANULATION Sodium Potassium Chloride Carbon Dioxide Anion Gap BUN Creatinine Estimated GFR (MDRD) Glucose Lactic Acid Calcium Total Bilirubin AST ALT Alkaline Phosphatase Total Protein Albumin Globulin Albumin/Globulin Ratio Lipase Urine Color BROWN Urine Clarity HAZY Urine pH 5.0 Ur Specific [place] >=1.030 H Urine Protein TRACE Urine Glucose (UA) NEGATIVE Urine Ketones TRACE Urine Occult Blood NEGATIVE Urine Nitrite NEGATIVE Urine Bilirubin NEGATIVE Urine Urobilinogen 0.2 (NORMAL) Ur Leukocyte Esterase NEGATIVE Urine RBC 0-5 Urine WBC 4-5 Ur Epithelial Cells MANY Transitional H Ur Squamous Epith Cells MANY Squamous H Amorphous Sediment Marked Urine Bacteria Many H Urine Casts 3-5 Hyaline Casts Ur Microscopic Review INDICATED Urine Culture Comments NOT INDICATED Nasal Adenovirus (PCR) NOT DETECTED Nasal B. parapertussis DNA (PCR) NOT DETECTED Nasal Coronavir 229E PCR NOT DETECTED Nasal Coronavir HKU1 PCR NOT DETECTED Nasal Coronavir NL63 PCR NOT DETECTED Nasal Coronavir OC43 PCR NOT DETECTED Nasal Enterovir/Rhinovir PCR NOT DETECTED Nasal Influenza B PCR NOT DETECTED Nasal Influenza A PCR NOT DETECTED Nasal Parainfluen 1 PCR NOT DETECTED Nasal Parainfluen 2 PCR NOT DETECTED Nasal Parainfluen 3 PCR NOT DETECTED Nasal Parainfluen 4 PCR NOT DETECTED Nasal RSV (PCR) NOT DETECTED Nasal B.pertussis DNA PCR NOT DETECTED Nasal C.pneumoniae (PCR) NOT DETECTED Db Human Metapneumo PCR NOT DETECTED Nasal M.pneumoniae (PCR) NOT DETECTED Nasal SARS-CoV-2 (PCR) NOT DETECTED Urine Opiates Screen NEGATIVE Ur Oxycodone Screen POSITIVE H Urine Methadone Screen NEGATIVE Ur Propoxyphene Screen NEGATIVE Ur Barbiturates Screen NEGATIVE Ur Tricyclics Screen NEGATIVE Ur Phencyclidine Scrn NEGATIVE Ur Amphetamine Screen NEGATIVE U Methamphetamines Scrn NEGATIVE U Benzodiazepines Scrn NEGATIVE Urine Cocaine Screen NEGATIVE U Cannabinoids Screen NEGATIVE Ethyl Alcohol 05/13/20 05/13/20 14:50 14:50 WBC RBC Hgb Hct MCV MCH MCHC RDW Plt Count MPV Neut # (Auto) Lymph # (Auto) [place] # (Auto) Eos # (Auto) Baso # (Auto) Absolute Nucleated RBC Nucleated RBC % Manual Slide Review WBC Morphology Sodium 133 L Potassium 2.8 L Chloride 94 L Carbon Dioxide 16 L Anion Gap 23.0 H BUN 62 H Creatinine 7.5 H* Estimated GFR (MDRD) 6 L Glucose 162 H Lactic Acid 0.7 Calcium 6.2 L* Total Bilirubin 1.6 H AST 17 ALT 17 Alkaline Phosphatase 76 Total Protein 5.9 L Albumin 2.5 L Globulin 3.4 Albumin/Globulin Ratio 0.7 L Lipase 11 L Urine Color Urine Clarity Urine pH Ur Specific [place] Urine Protein Urine Glucose (UA) Urine Ketones Urine Occult Blood Urine Nitrite Urine Bilirubin Urine Urobilinogen Ur Leukocyte Esterase Urine RBC Urine WBC Ur Epithelial Cells Ur Squamous Epith Cells Amorphous Sediment Urine Bacteria Urine Casts Ur Microscopic Review Urine Culture Comments Nasal Adenovirus (PCR) Nasal B. parapertussis DNA (PCR) Nasal Coronavir 229E PCR Nasal Coronavir HKU1 PCR Nasal Coronavir NL63 PCR Nasal Coronavir OC43 PCR Nasal Enterovir/Rhinovir PCR Nasal Influenza B PCR Nasal Influenza A PCR Nasal Parainfluen 1 PCR Nasal Parainfluen 2 PCR Nasal Parainfluen 3 PCR Nasal Parainfluen 4 PCR Nasal RSV (PCR) Nasal B.pertussis DNA PCR Nasal C.pneumoniae (PCR) Db Human Metapneumo PCR Nasal M.pneumoniae (PCR) Nasal SARS-CoV-2 (PCR) Urine Opiates Screen Ur Oxycodone Screen Urine Methadone Screen Ur Propoxyphene Screen Ur Barbiturates Screen Ur Tricyclics Screen Ur Phencyclidine Scrn Ur Amphetamine Screen U Methamphetamines Scrn U Benzodiazepines Scrn Urine Cocaine Screen U Cannabinoids Screen Ethyl Alcohol < 5.0 - Rads (name of study) head CT Radiology: Prelim report reviewed (Impression: No intracranial hemorrhage is found, no brain parenchyma contusion is identified. Note is made of the mild leftward deviation of the anterior midline septum and the bilateral adjacent nasal bones in their tips, potentially a manifestation of acute trauma versus prior trauma.), EMP read indepedently, See rad report chest #2 Radiology: Prelim report reviewed (Impression: Interval increased bilateral pulmonary opacities. While there is the appearance of edema superimposed areas of airspace disease such as pneumonia cannot be excluded.), EMP read indepedently, See rad report chest #3 Radiology: Prelim report reviewed (Impression: Right internal jugular central venous catheter tip is projecting into the expected location of the at the SVC. persistent bilateral scattered pulmonary opacities suggestive of pulmonary edema and possibly superimposed infiltrates. No gross pneumothorax.), EMP read indepedently, See rad report Procedures - IVC sono (time) 1120 Bedside IVC sono: IVC measures (cm) (0.59), Profound dehydration (est 3+ liter deficit) 1600 Bedside IVC sono: IVC measures (cm) (1.20), IVC collapsed c insp (cm) (complete), Low CVP, Dehydration (est 1 liter deficit) PD MEDICAL DECISION MAKING - ED course Complexity details: reviewed old records, reviewed results, re-evaluated patient, considered differential, d/w patient ED course: 54-year-old female who is 12 days out from a ventral incisional hernia repair was found down in her home today confused and unable to provide any history. She is a known alcoholic and today she is found to have no alcohol on board. She arrived to the emergency department confused and with profound dehydration. We would not able to get blood initially and were able to provide intravenous hydration the patient was hypotensive in the upper 70s and lower 80s and she did not respond to 2 L of a banana bag and saline. A central line was begun and she was administered a Levophed drip keeping her pressure around 100.The patient continues to be confused and is unable to provide further history for us. She is unable to say how long she was on the floor. She has evidence of renal failure, With hypokalemia and hypocalcemia. She is administered both calcium gluconate and potassium.Her chest x-ray is concerning for pneumonia and possibly failure and I did go back to reevaluate the patient after having received 3 L saline and she still has a collapsing inferior vena cava consistent with sepsis. She is treated for hospital-acquired pneumonia with cefepime and vancomycin intravenously. At shift change a read for CT ab/pel is pending, Dr. Goodman is working on family contact and she continues to receive care in the ED including replacement of potassium, calcium and saline. She is on a levophed drip. Care in the ED is turned over to Dr. De Jesus. Departure - Departure Disposition: 66 [facility] DC/Xfer Clinical Impression: Sepsis associated hypotension, Dehydration, Acute kidney injury, Hypokalemia, Hypocalcemia Pneumonia Qualifiers: Pneumonia type: due to unspecified organism Laterality: bilateral Lung location: lower lobe of lung Qualified Code(s): J18.9 - Pneumonia, unspecified organism
[2020-05-13 12:15] LABS: BASOPHILS % (AUTO) 0.2 %; EOSINOPHILS % (AUTO) 0.2 %; HCT - HEMATOCRIT 25.7 % (37.0-47.0); HGB - HEMOGLOBIN 8.6 g/dL (12.0-16.0); LYMPHOCYTES # (AUTO) 1.8 10^3/uL (1.5-3.5); LYMPHOCYTES % (AUTO) 8.6 %; MEAN CORPUSCULAR HEMOGLOBIN 33.9 pg (27.0-31.0); MEAN CORPUSCULAR HGB CONC 33.5 g/dL (32.0-36.0); MEAN CORPUSCULAR VOLUME 101.2 fL (81.0-99.0); MEAN PLATELET VOLUME 12.4 fL (7.9-10.8); MONOCYTES # (AUTO) 1.8 10^3/uL (0.0-1.0); MONOCYTES % (AUTO) 8.8 %; NEUTROPHILS # (AUTO) 16.1 10^3/uL (1.5-6.6); NEUTROPHILS % (AUTO) 77.3 %; PLT - PLATELET COUNT 376 10^3/uL (130-450); RED BLOOD COUNT 2.54 10^6/uL (4.20-5.40); WHITE BLOOD COUNT 20.8 x10^3/uL (4.8-10.8)
[2020-05-13 12:16] LABS: SLIDE REVIEW? Indicated
[2020-05-13 12:24] LABS: MUDS CUTOFF CONCENTRATIONS CUTOFF CONC BELOW:
[2020-05-13 12:25] LABS: GLUCOSE, URINE (UA) NEGATIVE (NEGATIVE); KETONES,URINE (UA) TRACE mg/dL (NEGATIVE); LEUKOCYTE ESTERASE, URINE NEGATIVE (NEGATIVE); NITRITE,URINE NEGATIVE (NEGATIVE); OCCULT BLOOD,URINE NEGATIVE (NEGATIVE); PROTEIN,URINE TRACE mg/dL (NEGATIVE); UROBILINOGEN,URINE 0.2 (NORMAL) E.U./dL (NORMAL)
[2020-05-13 12:32] LABS: BILIRUBIN,URINE NEGATIVE (NEGATIVE); CLARITY,URINE HAZY (CLEAR); ICTOTEST,URINE NEGATIVE
[2020-05-13 12:36] LABS: WBC MORPHOLOGY (MULTIPLE) 3+ TOXIC GRANULATION (NORMAL)
[2020-05-13 12:36] LABS: AMPHETAMINE SCREEN,URINE NEGATIVE (NEGATIVE); BARBITURATE SCREEN,UR NEGATIVE (NEGATIVE); BENZODIAZEPINES SCREEN, URINE NEGATIVE (NEGATIVE); COCAINE SCREEN URINE NEGATIVE (NEGATIVE); METHADONE SCREEN, URINE NEGATIVE (NEGATIVE); METHAMPHETAMINES SCREEN, URINE NEGATIVE (NEGATIVE); OPIATE SCREEN, URINE NEGATIVE (NEGATIVE); OXYCODONE SCREEN, URINE POSITIVE (NEGATIVE); PROPOXYPHENE SCREEN, URINE NEGATIVE (NEGATIVE); THC CANNABINOID SCREEN, URINE NEGATIVE (NEGATIVE); TRICYCLIC ANTIDEPRESSANT,URINE NEGATIVE (NEGATIVE)
[2020-05-13 12:44] LABS: AMORPHOUS SEDIMENT,UR Marked /LPF; BACTERIA,URINE Many /HPF (None Seen); EPITHELIAL CELLS,UR MANY Transitional /HPF (<= Few); RBC,URINE 0-5 /HPF (0-5); SQUAMOUS EPITHELIAL CELL,UR MANY Squamous (<= Few)
--- NOTE | 2020-05-13 12:57 | CT Report ---
PROCEDURE: HEAD WO INDICATIONS: fall altered LOC TECHNIQUE: Noncontrast 4.5 mm thick angled axial sections acquired from the foramen magnum to the vertex. For r adiation dose reduction, the following was used: automated exposure control, adjustment of mA and/or kV according to patient size. COMPARISON: None. FINDINGS: Image quality: Mildly degraded by patient motion during image acquisition. CSF spaces: Basal cisterns are patent. No extra-axial fluid collections. Ventricles are normal in size and shape. Brain: No midline shift. No intracranial masses or hemorrhage. Gomez-white matter interface is norm al. Skull and face: Calvarium and visualized facial bones are intact, without suspicious lesions. Sinuses: Visualized sinuses and mastoids are clear. IMPRESSION: No intracranial hemorrhage is found, no brain parenchymal contusion is identified. Note is made of mild leftward deviation of the anterior midline septum and in the bilateral adjacent nasal bones at their tips, potentially a manifestation of acute trauma versus prior trauma. Reviewed by: Ayo Xie MD on 05/13/2020 12:55 PM PDT Approved by: Ayo Xie MD on 05/13/2020 12:55 PM PDT Station ID: [id number]
[2020-05-13] MEDS ORDERED: SODIUM CHLORIDE 0.9% 1,000 ML IV STA ×2 (13:11→13:39)
--- NOTE | 2020-05-13 13:56 | XRAY Report ---
PROCEDURE: Chest 1 View X-Ray INDICATIONS: chest pain TECHNIQUE: One view of the chest was acquired. COMPARISON: Chest x-ray 05/03/2020 FINDINGS: Surgical changes and devices: None. Lungs and pleura: Interval increased patchy bilateral opacities. Mediastinum: Mediastinal contours appear normal. Heart size is normal. Bones and chest wall: No suspicious bony lesions. Overlying soft tissues appear unremarkable. IMPRESSION: Interval increased bilateral pulmonary opacities. While there is an appearance of edema, superimposed areas of airspace disease such as pneumonia cannot be excluded. Reviewed by: Minda Keys MD on 05/13/2020 1:55 PM PDT Approved by: Minda Keys MD on 05/13/2020 1:55 PM PDT Station ID: [id number]
[2020-05-13 14:36] LABS: B. PARAPERTUSSIS- RESP PCR PAN NOT DETECTED; B. PERTUSSIS- RESP PCR PANEL NOT DETECTED; C. PNEUMONIAE- RESP PCR PANEL NOT DETECTED; CORONAVIRUS 229E-RESP PCR NOT DETECTED; CORONAVIRUS HKU1-RESP PCR NOT DETECTED; CORONAVIRUS NL63-RESP PCR NOT DETECTED; CORONAVIRUS OC43-RESP PCR NOT DETECTED; HUMAN METAPNEUMOVIRUS NOT DETECTED; INFLUENZA A- RESP PCR PANEL NOT DETECTED; INFLUENZA B - RESP PCR PANEL NOT DETECTED; M. PNEUMONIAE- RESP PCR PANEL NOT DETECTED; PARAINFLUENZA VIRUS 1 NOT DETECTED; PARAINFLUENZA VIRUS 2 NOT DETECTED; PARAINFLUENZA VIRUS 3 NOT DETECTED; PARAINFLUENZA VIRUS 4 NOT DETECTED; RHINOVIRUS/ENTEROVIRUS NOT DETECTED; RSV- RESP PCR PANEL NOT DETECTED; SARS-CoV-2 -RESP PCR PANEL NOT DETECTED
--- NOTE | 2020-05-13 15:08 | XRAY Report ---
PROCEDURE: Chest for Line Placement INDICATIONS: central line placement TECHNIQUE: One view of the chest was acquired. COMPARISON: Earlier study from the same day FINDINGS: Surgical changes and devices: There is interval placement of a right internal jugular central venous catheter, the tip is projecting in the expected location of SVC.. Lungs and pleura: No pleural effusions or pneumothorax. Ill-defined airspace opacities are again see n scattered in bilateral lung mayen more prominent on the left side. Mediastinum: Mediastinal contours appear normal. Heart size is normal. Bones and chest wall: No suspicious bony lesions. Overlying soft tissues appear unremarkable. IMPRESSION: Right internal jugular central venous catheter tip is projecting in the expected location of SVC. Per sistent bilateral scattered pulmonary opacities suggestive of pulmonary edema and possibly superimpos ed infiltrates. No gross pneumothorax. Reviewed by: nAupam Trejo MD on 05/13/2020 3:07 PM PDT Approved by: Anupam Trejo MD on 05/13/2020 3:07 PM PDT Station ID: [id number]
[2020-05-13 15:10] LABS: ALBUMIN 2.5 g/dL (3.2-5.5); ALBUMIN/GLOBULIN RATIO 0.7 (1.0-2.2); ALKALINE PHOSPHATASE 76 IU/L (42-121); ALT ALANINE AMINOTRANSFERASE 17 IU/L (10-60); AST ASPARTATE AMINOTRANSFERASE 17 IU/L (10-42); BILIRUBIN,TOTAL 1.6 mg/dL (0.2-1.0); BUN - BLOOD UREA NITROGEN 62 mg/dL (6-20); CARBON DIOXIDE - CO2 16 mmol/L (21-32); CHLORIDE 94 mmol/L (101-111); ETOH - ETHANOL < 5.0 mg/dL; GFR - MDRD 6 (>89); GLUCOSE 162 mg/dL (70-100); LIPASE 11 U/L (22-51); POTASSIUM 2.8 mmol/L (3.5-5.0); SODIUM 133 mmol/L (135-145); TOTAL PROTEIN 5.9 g/dL (6.7-8.2)
--- NOTE | 2020-05-13 15:10 | ANESTHESIA PROCEDURE NOTE ---
Anesth Central Line Template - Central Line Central Line Preparation: Consent Obtained Central line location: Right IJ Central line type: Triple lumen Central line catheter tip site resides: Superior vena cava (SVC) Central line aftercare: Chlorhexidine disc placed, Secured, Placement confirmed, No pneumothorax, No complications, Bundle checklist complete, Pt tolerated well
[2020-05-13 15:12] LABS: CALCIUM 6.2 mg/dL (8.5-10.3); CREATININE 7.5 mg/dL (0.4-1.0)
--- NOTE | 2020-05-13 15:13 | CONSULTATION NOTE ---
Consultation Report: consulted by Dr. Squires for emergency CVL placement in ED. Consent obtained from patient. U/S guided R IJ CVL placed with sterile technique. Secured at 14cm. Pt tolerated well, VSS, NAC. Placement confirmed with CXR
[2020-05-13] MEDS ORDERED: CEFEPIME 2 GM in SODIUM CHLORIDE 0.9% MINIBAG 100 ML IV STA (15:22)
[2020-05-13] MEDS ORDERED: VANCOMYCIN INJ 1.25 GM in SODIUM CHLORIDE 0.9% 250 ML IV STA (15:22)
[2020-05-13] MEDS ORDERED: CALCIUM GLUCONATE 1000 MG/10 ML VIAL IVP STA (15:41)
[2020-05-13] MEDS ORDERED: POTASSIUM CHLOR 20 MEQ/100 ML 20 MEQ/100 ML BAG IV ONE (15:41)
--- NOTE | 2020-05-13 16:49 | CT Report ---
PROCEDURE: Abdomen/Pelvis WO INDICATIONS: post op distention TECHNIQUE: Noncontrast 5 mm thick sections acquired from the diaphragms to the symphysis. 5 mm coronal and sagi ttal reformats were then performed. For radiation dose reduction, the following was used: automated exposure control, adjustment of mA and/or kV according to patient size. COMPARISON: None. FINDINGS: Image quality: Excellent. ABDOMEN: Lung bases: Lungs demonstrate patchy and confluent areas of bilateral pulmonary opacity. Minimal left effusion is present. Heart size is normal. Solid organs: Liver and spleen are normal in size. Gallbladder is unremarkable Pancreas is normal in contours. No adrenal nodules. Kidneys are normal in size, without hydronephrosis or nephrolithia sis. Peritoneum and bowel: Dilated fluid-filled small bowel loops are present largest measuring approximat blanquita 5.2 cm. Stomach is prominently dilated. Nodes and vessels: No retroperitoneal or mesenteric adenopathy by size criteria. Aorta and inferior vena cava are normal in caliber. Miscellaneous: No ventral hernias. PELVIS: Genitourinary: Bladder wall thickness is normal. Miscellaneous: No inguinal hernias or adenopathy. Mild fluid is noted within the subcutaneous fat o f the lower pelvis, suspected to be postoperative. Bones: No suspicious bony lesions. No vertebral body compression fractures. IMPRESSION: Prominently dilated fluid-filled loops of small bowel most consistent with partial small bowel obstru ction. Reviewed by: Minda Keys MD on 05/13/2020 4:47 PM PDT Approved by: Minda Keys MD on 05/13/2020 4:47 PM PDT Station ID: [id number]
[2020-05-13] MEDS ORDERED: ONDANSETRON ODT 4 MG TABLET TL PRN (17:10)
[2020-05-13] MEDS ORDERED: ONDANSETRON 4 MG/2 ML VIAL IVP PRN (17:10)
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
[2020-05-13] MEDS ORDERED: MULTIVITAMIN 10 ML, FOLIC ACID INJ 1 MG, THIAMINE INJ 100 MG, MAGNESIUM SULFATE 2 GM in... IV SCH ×5 (18:49)
[2020-05-13] MEDS: LACTATED RINGERS 1,000 ML IV SCH (19:07)
[2020-05-13] MEDS: PANTOPRAZOLE 40 MG VIAL IVP SCH (19:07)
[2020-05-13] MEDS: SODIUM CHLORIDE FLUSH 0.9% 10 ML SYRINGE IVP PRN ×2 (19:29→21:14)
[2020-05-13] MEDS: MORPHINE 2 MG/ML CARPUJECT IVP PRN (19:29)
--- NOTE | 2020-05-13 20:17 | XRAY Report ---
PROCEDURE: Chest for Line Placement INDICATIONS: NG tube placement TECHNIQUE: One view of the chest was acquired. COMPARISON: 05/13/2020 at 1436 hours FINDINGS: Surgical changes and devices: Right IJ line as before. Interval placement of an NG tube which project s at least into the stomach.. Lungs and pleura: No pleural effusions or pneumothorax. Patchy bilateral consolidation. Mediastinum: Mediastinal contours appear normal. Heart size is normal. Bones and chest wall: No suspicious bony lesions. Overlying soft tissues appear unremarkable. IMPRESSION: 1. NG tube projects at least into the stomach. 2. Patchy bilateral pulmonary infiltrates. Reviewed by: Yobany Hobbs MD on 05/13/2020 8:15 PM PDT Approved by: Yobany Hobbs MD on 05/13/2020 8:15 PM PDT Station ID: [id number]
[2020-05-13] MEDS: SODIUM CHLORIDE FLUSH 0.9% 10 ML SYRINGE IVP SCH (21:15)
[2020-05-13] MEDS ORDERED: LACTATED RINGERS 1,000 ML IV ONE (21:28)
[2020-05-13 21:38] LABS: CALCIUM 7.5 mg/dL (8.5-10.3); CREATININE 6.8 mg/dL (0.4-1.0); POTASSIUM 3.4 mmol/L (3.5-5.0)
[2020-05-13] MEDS: HEPARIN 5,000 UNIT/ML VIAL SUBQ SCH (21:54)
[2020-05-13] MEDS: metroNIDAZOLE 500 MG/100 ML 500 MG/100 ML BAG IV SCH (21:57)
[2020-05-13] MEDS ORDERED: SODIUM CHLORIDE 0.9% 500 ML IV PRN (22:05)
[2020-05-14] MEDS: POTASSIUM CHLOR 20 MEQ/100 ML 20 MEQ/100 ML BAG IV SCH ×2 (00:17→01:21)
[2020-05-14] MEDS: SODIUM CHLORIDE FLUSH 0.9% 10 ML SYRINGE IVP PRN ×2 (05:10)
[2020-05-14 06:11] LABS: BASOPHILS % (AUTO) 0.1 %; EOSINOPHILS % (AUTO) 1.2 %; HCT - HEMATOCRIT 22.9 % (37.0-47.0); HGB - HEMOGLOBIN 7.8 g/dL (12.0-16.0); LYMPHOCYTES % (AUTO) 16.4 %; MEAN CORPUSCULAR HEMOGLOBIN 34.1 pg (27.0-31.0); MEAN CORPUSCULAR HGB CONC 34.1 g/dL (32.0-36.0); MEAN PLATELET VOLUME 11.6 fL (7.9-10.8); MONOCYTES % (AUTO) 10.8 %; NEUTROPHILS % (AUTO) 66.3 %; PLT - PLATELET COUNT 309 10^3/uL (130-450); RED BLOOD COUNT 2.29 10^6/uL (4.20-5.40); RED CELL DISTRIBUTION WIDTH 13.2 % (12.0-15.0); WHITE BLOOD COUNT 11.2 x10^3/uL (4.8-10.8)
[2020-05-14 06:18] LABS: ALBUMIN 2.3 g/dL (3.2-5.5); ALBUMIN/GLOBULIN RATIO 0.7 (1.0-2.2); BILIRUBIN,TOTAL 1.7 mg/dL (0.2-1.0); CALCIUM 7.3 mg/dL (8.5-10.3); CREATININE 4.5 mg/dL (0.4-1.0); MAGNESIUM 2.3 mg/dL (1.7-2.8); PHOSPHORUS 2.5 mg/dL (2.5-4.6); POTASSIUM 3.9 mmol/L (3.5-5.0); TOTAL PROTEIN 5.6 g/dL (6.7-8.2)
[2020-05-14 06:19] LABS: ABNORMAL LYMPHS % (MANUAL) 0 %
[2020-05-14] MEDS: LACTATED RINGERS 1,000 ML IV SCH ×3 (07:02→21:55)
[2020-05-14] MEDS: PANTOPRAZOLE 40 MG VIAL IVP SCH (07:07)
[2020-05-14] MEDS: metroNIDAZOLE 500 MG/100 ML 500 MG/100 ML BAG IV SCH ×3 (07:09→21:29)
[2020-05-14 07:41] LABS: BAND NEUTROPHILS % (MANUAL) 5 %; BASOPHILS # (MANUAL) 0.1 10^3/uL (0-0.1); BASOPHILS % (MANUAL) 1 %; EOSINOPHILS # (MANUAL) 0.1 10^3/uL (0-0.7); LYMPHOCYTES # (MANUAL) 1.7 10^3/uL (1.5-3.5); LYMPHOCYTES % (MANUAL) 15 %; METAMYELOCYTES % (MANUAL) 1 %; MONOCYTES # (MANUAL) 1.1 10^3/uL (0.0-1.0); MYELOCYTES % (MANUAL) 1 %; PLATELET ESTIMATE, MANUAL NORMAL (130-450,000) (NORMAL); PLATELET MORPHOLOGY 1+ GIANT PLATELETS (NORMAL); RBC MORPHOLOGY (MULTIPLE) 1+ MACROCYTOSIS (NORMAL); WBC MORPHOLOGY (MULTIPLE) 2+ TOXIC GRANULATION (NORMAL)
[2020-05-14 07:42] LABS: DIFFERENTIAL COMMENT MANUAL DIFFERENTIAL
[2020-05-14] MEDS: MORPHINE 2 MG/ML CARPUJECT IVP PRN ×3 (07:45→21:55)
[2020-05-14] MEDS: SODIUM CHLORIDE FLUSH 0.9% 10 ML SYRINGE IVP SCH ×2 (08:48→17:02)
[2020-05-14] MEDS: CEFEPIME 1 GM in SODIUM CHLORIDE 0.9% MINIBAG 100 ML IV SCH (08:50)
[2020-05-14] MEDS ORDERED: ENOXAPARIN 40 MG/0.4 ML SYRINGE SUBQ SCH (09:00)
[2020-05-14] MEDS: HEPARIN 5,000 UNIT/ML VIAL SUBQ SCH ×2 (10:00→21:29)
--- NOTE | 2020-05-14 15:19 | PROVIDER PROGRESS NOTE ---
Subjective - Prog Note Date Prog Note Date: 05/14/20 Prog Note Time: 15:27 - Subjective Subjective: She sometimes does not know where she is. But she is definitely verbal this morning. Does not like the NG. Wants food. States that she is not in too much pain. Thinks throat is very sore because of the NG but she denies fever, chills, chest pain. Son has already called and spoken to her. Nursing has updated them. Still a little paranoid. A little worried that we are hurting her. Little worried that neighbors have put her in this place. Current Medications - Current Medications Current Medications: Active Medications Heparin Sodium (Porcine) (Heparin 5,000 Unit/Ml Vial) 5,000 unit SUBQ BID [facility] Last Admin: 05/14/20 10:00 Dose: 5,000 unit Documented by: Lactated Ringer's (Lr) 1,000 mls @ 100 mls/hr IV .Q10H [facility] Last Infusion: 05/14/20 15:00 Dose: 100 mls/hr Documented by: Cefepime HCl 1 gm/ Sodium (Chloride) 100 mls @ 200 mls/hr IV Q24H [facility] Last Infusion: 05/14/20 09:20 Dose: Infused Documented by: Metronidazole (Flagyl 500 Mg/100 Ml) 500 mg in 100 mls @ 100 mls/hr IV TID [facility] Last Admin: 05/14/20 14:25 Dose: 100 mls/hr Documented by: Norepinephrine Bitartrate 8 mg (/ Dextrose) 250 mls @ 15 mls/hr IV .[id number] [facility]; Protocol Last Titration: 05/14/20 15:00 Dose: 4 mcg/min, 7.5 mls/hr Documented by: Sodium Chloride (Normal Saline 0.9%) 500 mls @ 20 mls/hr IV Q24H PRN PRN Reason: TKO RATE Multivitamins 10 ml/ Folic Acid 1 mg/ Thiamine HCl 100 mg / Magnesium Sulfate 2 gm/Sodium Chloride 1,015.2 mls @ 100 mls/hr IV 1900 [facility] Morphine Sulfate (Morphine 2 Mg/Ml Carpuject) 2 mg IVP Q2HR PRN PRN Reason: Pain 8 to 10 Last Admin: 05/14/20 07:45 Dose: 2 mg Documented by: Ondansetron HCl (Ondansetron Odt 4 Mg Tablet) 4 mg TL Q6HR PRN PRN Reason: Nausea / Vomiting Ondansetron HCl (Ondansetron 4 Mg/2 Ml Vial) 4 mg IVP Q6HR PRN PRN Reason: Nausea / Vomiting Pantoprazole Sodium (Pantoprazole 40 Mg Vial) 40 mg IVP QDAC [facility] Last Admin: 05/14/20 07:07 Dose: 40 mg Documented by: Sodium Chloride (Sodium Chloride Flush 0.9% 10 Ml Syringe) 10 ml IVP 0100,0900,1700 [facility] Last Admin: 05/14/20 08:48 Dose: 10 ml Documented by: Sodium Chloride (Sodium Chloride Flush 0.9% 10 Ml Syringe) 10 ml IVP PRN PRN PRN Reason: NEEDED PER PROVIDER ORDERS Last Admin: 05/14/20 05:10 Dose: 10 ml Documented by: Sodium Chloride (Sodium Chloride Flush 0.9% 10 Ml Syringe) 20 ml IVP PRN PRN PRN Reason: After Blood Draw Last Admin: 05/14/20 05:10 Dose: 20 ml Documented by: Vancomycin HCl (Vancomycin: Pharmacy To Dose) 1 each MC ONCE PRN PRN Reason: PER PHARMACY Stop: 05/15/20 17:14 Gabapentin [Neurontin] 600 mg PO QID 01/30/20 Calcipotriene [Dovonex] 1 applic TP DAILY PRN 04/14/20 Fluocinolone Acetonide Oil [Flac Otic Oil] 1 applic TOP QPM 04/14/20 Losartan/Hydrochlorothiazide [Hyzaar 100-25 Tablet] 1 each PO DAILY 04/14/20 buPROPion HCL [Bupropion Xl] 300 mg PO DAILY 05/01/20 Objective - Vital Signs/Intake & Output Reviewed Vital Signs: Yes Vital Signs: Vital Signs x48h Temp Pulse Resp BP Pulse Ox 05/14/20 15:00 105 H 24 123/69 100 05/14/20 14:00 36.5 C 105 H 16 126/61 91 L 05/14/20 13:00 101 H 16 108/57 L 96 05/14/20 12:00 105 H 21 114/58 L 95 05/14/20 11:00 105 H 18 107/57 L 94 05/14/20 10:00 36.4 C L 101 H 19 117/60 96 05/14/20 09:00 100 18 107/52 L 95 05/14/20 08:00 103 H 19 90/60 98 Intake & Output: Intake & Output 05/11/20 05/12/20 05/13/20 05/14/20 23:59 23:59 23:59 23:59 Intake Total 4733.201 3670.450 Output Total 1475 2140 Balance 3258.201 1530.450 - Objective General Appearance: positive: No acute distress, Alert, Other (Speech is still slightly slow, lethargic but she is much more awake than when I saw her last night as I left shift.) Eyes Bilateral: positive: PERRL, EOMI ENT: positive: Dry mucous membranes Neck: negative: No JVD, Stiff neck Respiratory: positive: No respiratory distress. negative: Wheezes, Rales, Rhonchi Cardiovascular: positive: Regular rate & rhythm, Tachycardia (Sticking to 105 most of the day), Systolic murmur. negative: Gallop/S4, Friction rub Skin: positive: Warm, Dry, Pallor Extremities: positive: Non-tender, No pedal edema Neurologic/Psychiatric: positive: CN's nml (2-12), Motor nml, Disoriented to place, Disoriented to time, Weakness (generalized) - Lab Results Fish Bones: 05/14/20 05:12 05/14/20 05:12 Other Labs: Lab Results x24hrs 05/14/20 05/14/20 05/13/20 Range/Units 05:12 05:12 21:15 WBC 11.2 H (4.8-10.8) x10^3/uL RBC 2.29 L (4.20-5.40) 10^6/uL Hgb 7.8 L (12.0-16.0) g/dL Hct 22.9 L (37.0-47.0) % MCV 100.0 H (81.0-99.0) fL MCH 34.1 H (27.0-31.0) pg MCHC 34.1 (32.0-36.0) g/dL RDW 13.2 (12.0-15.0) % Plt Count 309 (130-450) 10^3/uL MPV 11.6 H (7.9-10.8) fL Neut # (Auto) Not Reportable Lymph # (Auto) Not Reportable [place] # (Auto) Not Reportable Eos # (Auto) Not Reportable Baso # (Auto) Not Reportable Absolute Nucleated RBC Not Reportable Total Counted 100 Band Neuts % (Manual) 5 (0 - 10) % Abnorm Lymph % (Manual) 0 % Metamyelocytes % 1 H ( - 0) % Myelocytes % 1 H ( - 0) % Nucleated RBC % Not Reportable Neutrophils # (Manual) 8.0 H (1.5-6.6) 10^3/uL Lymphocytes # (Manual) 1.7 (1.5-3.5) 10^3/uL Monocytes # (Manual) 1.1 H (0.0-1.0) 10^3/uL Eosinophils # (Manual) 0.1 (0-0.7) 10^3/uL Basophils # (Manual) 0.1 (0-0.1) 10^3/uL Differential Comment MANUAL DIFFERENTIAL WBC Morphology 2+ TOXIC GRANULATION (NORMAL) Platelet Estimate NORMAL (130-450,000) (NORMAL) Platelet Morphology 1+ GIANT PLATELETS (NORMAL) RBC Morph Micro Appear 1+ MACROCYTOSIS (NORMAL) Sodium 135 135 (135-145) mmol/L Potassium 3.9 3.4 L (3.5-5.0) mmol/L Chloride 102 97 L (101-111) mmol/L Carbon Dioxide 16 L 15 L (21-32) mmol/L Anion Gap 17.0 H 23.0 H (6-13) BUN 56 H 66 H (6-20) mg/dL Creatinine 4.5 H 6.8 H (0.4-1.0) mg/dL Estimated GFR (MDRD) 10 L 6 L (>89) Glucose 209 H 214 H (70-100) mg/dL Calcium 7.3 L 7.5 L (8.5-10.3) mg/dL Phosphorus 2.5 (2.5-4.6) mg/dL Magnesium 2.3 (1.7-2.8) mg/dL Total Bilirubin 1.7 H (0.2-1.0) mg/dL AST 17 (10-42) IU/L ALT 16 (10-60) IU/L Alkaline Phosphatase 70 (42-121) IU/L Troponin I High Sens (2.3-14.8) ng/L Total Protein 5.6 L (6.7-8.2) g/dL Albumin 2.3 L (3.2-5.5) g/dL Globulin 3.3 (2.1-4.2) g/dL Albumin/Globulin Ratio 0.7 L (1.0-2.2) Nasal Screen MRSA (PCR) (NEGATIVE) 05/13/20 05/13/20 Range/Units 18:30 17:30 WBC (4.8-10.8) x10^3/uL RBC (4.20-5.40) 10^6/uL Hgb (12.0-16.0) g/dL Hct (37.0-47.0) % MCV (81.0-99.0) fL MCH (27.0-31.0) pg MCHC (32.0-36.0) g/dL RDW (12.0-15.0) % Plt Count (130-450) 10^3/uL MPV (7.9-10.8) fL Neut # (Auto) Lymph # (Auto) [place] # (Auto) Eos # (Auto) Baso # (Auto) Absolute Nucleated RBC Total Counted Band Neuts % (Manual) (0 - 10) % Abnorm Lymph % (Manual) % Metamyelocytes % ( - 0) % Myelocytes % ( - 0) % Nucleated RBC % Neutrophils # (Manual) (1.5-6.6) 10^3/uL Lymphocytes # (Manual) (1.5-3.5) 10^3/uL Monocytes # (Manual) (0.0-1.0) 10^3/uL Eosinophils # (Manual) (0-0.7) 10^3/uL Basophils # (Manual) (0-0.1) 10^3/uL Differential Comment WBC Morphology (NORMAL) Platelet Estimate (NORMAL) Platelet Morphology (NORMAL) RBC Morph Micro Appear (NORMAL) Sodium (135-145) mmol/L Potassium (3.5-5.0) mmol/L Chloride (101-111) mmol/L Carbon Dioxide (21-32) mmol/L Anion Gap (6-13) BUN (6-20) mg/dL Creatinine (0.4-1.0) mg/dL Estimated GFR (MDRD) (>89) Glucose (70-100) mg/dL Calcium (8.5-10.3) mg/dL Phosphorus (2.5-4.6) mg/dL Magnesium (1.7-2.8) mg/dL Total Bilirubin (0.2-1.0) mg/dL AST (10-42) IU/L ALT (10-60) IU/L Alkaline Phosphatase (42-121) IU/L Troponin I High Sens 12.8 (2.3-14.8) ng/L Total Protein (6.7-8.2) g/dL Albumin (3.2-5.5) g/dL Globulin (2.1-4.2) g/dL Albumin/Globulin Ratio (1.0-2.2) Nasal Screen MRSA (PCR) NEGATIVE (NEGATIVE) Sepsis Event Note (H) - Evaluation Current Stage of Sepsis: Septic shock Possible source of Sepsis: positive: Unknown - Sepsis Criteria Sepsis Criteria: WBC count greater than 12,000 or less than 4000 Assessment/Plan - Problem List (1) Sepsis with encephalopathy and septic shock Impression: At the time of admission,the differential was wide open as to the cause of her infection. She appeared to have possible pneumonia. Urine was concentrated and turbid but no leukocyte Estrace or nitrites. Abdomen CT showed small bowel obstruction but no free air and no thickened bowel zeng. Bladder and gallbladder looked uninfected. She is now on her second day of admission and she is slowly turning the corner. Still on Levophed but the rate is coming down. Definitely more awake but thought process is erratic, delusional, and at times paranoid. So far no fever. Still tachycardic at approximately 105. Room air saturations 94 to 96%. Preliminary echo report is an excellent study. Sinus rhythm. Ejection fraction 65 to 70%. No regional wall motion abnormalities. As compared to prior echo of December 2017 where her ejection fraction was 30 to 35%, she had great improvement. Mildly elevated right heart pressures at 44 mmHg. No significant valvular heart disease. Blood culture negative after 1 day WBC 20.8>> 11.2 Troponin 12.8 yesterday Lactic acid 0.7 yesterday Plan: Continue fluid resuscitation Broad-spectrum antibiotics with cefepime, Flagyl, vancomycin. Day #2. Vancomycin is being dosed by pharmacy. Continue vasopressin until BP stable. Looks like she may be able to come off it today. Qualifiers: Sepsis type: sepsis due to unspecified organism Qualified Code(s): A41.9 - Sepsis, unspecified organism; R65.21 - Severe sepsis with septic shock; G93.40 - Encephalopathy, unspecified (2) Acute renal failure due to dehydration from ?no po intake at home for 2 days Conclusion/Plan: Her baseline creatinine in the past has been normal. With her ventral hernia repair with mesh her creatinine was 0.8. That was May 04. Granular casts and Transitional cells present on admit UA I must assume there is an element of ATN due to hypotension at home No obstruction seen on CT of the abdomen Being aggressively hydrated with IV fluids Creatinine 7.5>> 6.8>> 4.5 Plan: Continue IVF until she can take po. I am letting her have ice chips right now. Repeat labs daily Pharmacy to dose vancomycin because it is nephrotoxic Qualifiers: Acute renal failure type: with acute tubular necrosis Qualified Code(s): N17.0 - Acute kidney failure with tubular necrosis (3) Pneumonia Conclusion/Plan: Again, broad-spectrum antibiotics. Radiologist is not calling it pneumonia. Says it could be pulmonary edema but her inferior vena cava is flat. According to her stepmother, the patient is a full code. She will need intubation if she goes into respiratory failure. Plan: Blood cultures negative after 1 day. Repeat chest x-ray in am Qualifiers: Pneumonia type: due to unspecified organism Laterality: bilateral Lung location: lower lobe of lung Qualified Code(s): J18.9 - Pneumonia, unspecified organism (4) Hypokalemia Conclusion/Plan: Initiated ICU protocol for replacement Potassium started out at 2.8 and is 3.9 this morning (5) Hypocalcemia Conclusion/Plan: Initiate ICU protocol for replacement (6) Cirrhosis with alcoholism Conclusion/Plan: Electronic medical record notes chronic macrocytic anemia, cirrhotic liver changes. Up until now there have been no esophageal varices, or splenic enlargement. Plan: Watch for alcohol withdrawal. So far without agitation. Blood pressure is low. She is delusional and paranoid. banana bag For 3 days Transfuse as necessary when hemoglobin drops below 7. She is 7.8 this am. Check stool for FOBT. (7) S/P ventral herniorrhaphy Conclusion/Plan: Postoperative day 16. Dr. Mackay is aware her patient is her. I do not need a consult but let her know as a courtesy. (8) Partial small bowel obstruction Conclusion/Plan: NG to low intermittent suction Already on empiric antibiotics No flatus or BM so far. Plan: YAMINI in am. continue ice chips
--- NOTE | 2020-05-14 17:03 | PHARMACY PROGRESS NOTE ---
- Best Possible Medication History Admit Date and Time: 05/13/20 1711 Processed by: Pharmacy Medication History completed: Yes Patient Interview: Pt unable to participate (PATIENT UNABLE TO BE INTERVIEWED. MED REC COMPLETED USING INSURANCE AND PHYSICIAN RECORDS) Secondary Source(s): Physician records, Pharmacy records, Insurance records As the person ultimately responsible for medication therapy, providers are able to order a medication from an existing home medication list in [facility] via the "Reconcile Routine" prior to Confirmation of that medication by client support professional. Such practice is discouraged except when the physician, in their clinical judgment, deems that a medical need exists for a medication without regard to previous use.
[2020-05-14] MEDS: MULTIVITAMIN 10 ML, FOLIC ACID INJ 1 MG, THIAMINE INJ 100 MG, MAGNESIUM SULFATE 2 GM in... IV SCH ×5 (18:30)
[2020-05-15] MEDS: MORPHINE 2 MG/ML CARPUJECT IVP PRN ×2 (00:39→20:48)
[2020-05-15] MEDS: SODIUM CHLORIDE FLUSH 0.9% 10 ML SYRINGE IVP SCH ×3 (00:40→17:35)
[2020-05-15] MEDS ORDERED: ACETAMINOPHEN 1,000 MG/100 ML 100 ML IV PRN (01:41)
[2020-05-15] MEDS: LORazepam 2 MG/ML VIAL IVP PRN ×4 (04:15→20:41)
[2020-05-15] MEDS ORDERED: LORazepam 2 MG/ML VIAL ONE (04:23)
[2020-05-15 05:03] LABS: BASOPHILS % (AUTO) 0.9 %; EOSINOPHILS % (AUTO) 1.2 %; LYMPHOCYTES % (AUTO) 15.7 %; MEAN CORPUSCULAR HEMOGLOBIN 33.5 pg (27.0-31.0); MEAN CORPUSCULAR HGB CONC 34.5 g/dL (32.0-36.0); MEAN CORPUSCULAR VOLUME 97.1 fL (81.0-99.0); MEAN PLATELET VOLUME 11.2 fL (7.9-10.8); MONOCYTES % (AUTO) 9.5 %; NEUTROPHILS % (AUTO) 67.3 %; PLT - PLATELET COUNT 216 10^3/uL (130-450); RED BLOOD COUNT 2.06 10^6/uL (4.20-5.40); RED CELL DISTRIBUTION WIDTH 12.8 % (12.0-15.0); WHITE BLOOD COUNT 12.5 x10^3/uL (4.8-10.8)
[2020-05-15 05:12] LABS: CALCIUM 7.8 mg/dL (8.5-10.3); CREATININE 1.2 mg/dL (0.4-1.0); POTASSIUM 2.9 mmol/L (3.5-5.0)
[2020-05-15 05:35] LABS: ABNORMAL LYMPHS % (MANUAL) 0 %; BAND NEUTROPHILS % (MANUAL) 0 %; HGB - HEMOGLOBIN 6.9 g/dL (12.0-16.0)
[2020-05-15 05:37] LABS: EOSINOPHILS # (MANUAL) 0.1 10^3/uL (0-0.7); LYMPHOCYTES # (MANUAL) 1.8 10^3/uL (1.5-3.5); LYMPHOCYTES % (MANUAL) 14 %; METAMYELOCYTES % (MANUAL) 1 %; MYELOCYTES % (MANUAL) 1 %; NEUTROPHILS # (MANUAL) 9.4 10^3/uL (1.5-6.6); RBC MORPHOLOGY (MULTIPLE) 2+ HYPOCHROMASIA (NORMAL)
[2020-05-15 05:38] LABS: DIFFERENTIAL COMMENT MANUAL DIFFERENTIAL; PLATELET ESTIMATE, MANUAL NORMAL (130-450,000) (NORMAL); PLATELET MORPHOLOGY NORMAL APPEARANCE (NORMAL); WBC MORPHOLOGY (MULTIPLE) NORMAL APPEARANCE (NORMAL)
[2020-05-15 06:06] LABS: MAGNESIUM 2.2 mg/dL (1.7-2.8); PHOSPHORUS 1.5 mg/dL (2.5-4.6)
[2020-05-15] MEDS: metroNIDAZOLE 500 MG/100 ML 500 MG/100 ML BAG IV SCH (06:27)
[2020-05-15] MEDS: POTASSIUM CHLOR 20 MEQ/100 ML 20 MEQ/100 ML BAG IV SCH ×4 (06:27→11:11)
[2020-05-15] MEDS: PANTOPRAZOLE 40 MG VIAL IVP SCH (06:27)
[2020-05-15 08:13] LABS: CALCIUM, IONIZED 1.08 mmol/L (1.15-1.33); VBG PH 7.356 (7.31-7.41)
[2020-05-15] MEDS: SODIUM CHLORIDE FLUSH 0.9% 10 ML SYRINGE IVP PRN ×3 (08:25→17:52)
--- NOTE | 2020-05-15 08:56 | XRAY Report ---
PROCEDURE: Abdomen 1 View X-Ray INDICATIONS: sbo on CT TECHNIQUE: 1 view of the abdomen were acquired. COMPARISON: CT dated 05/13/2020. FINDINGS: Surgical changes and devices: None. Bowel: There are dilated loops of small bowel consistent with bowel obstruction. No pneumoperitoneum . The bowel gas pattern is normal. No free air, pneumatosis, or portal venous gas. Soft tissues: No masses; visualized solid organ contours appear normal in size. No suspicious abdom inal calcifications. Bones: No suspicious bony abnormalities. IMPRESSION: Persistent dilated loops of small bowel consistent with small bowel obstruction seen on prior CT. No free air. Reviewed by: Sreedhar Felix on 05/15/2020 8:55 AM PDT Approved by: Sreedhar Felix on 05/15/2020 8:55 AM PDT Station ID: [id number]
--- NOTE | 2020-05-15 09:05 | XRAY Report ---
PROCEDURE: Chest 1 View X-Ray INDICATIONS: pneumonia on admit TECHNIQUE: One view of the chest was acquired. COMPARISON: None FINDINGS: Surgical changes and devices: A right IJ central catheter is seen. Nasogastric tube appears well-posi tioned.. Lungs and pleura: Perihilar patchy airspace opacities are seen consistent with pulmonary edema likel y due to CHF, volume overload, or a diffuse infectious process. No pleural effusions or pneumothorax. Lungs are clear. Mediastinum: Mediastinal contours appear normal. Heart size is normal. Bones and chest wall: No suspicious bony lesions. Overlying soft tissues appear unremarkable. IMPRESSION: Diffuse airspace opacities bilaterally consistent with CHF, volume overload, versus a di ffuse infectious process. Reviewed by: Sreedhar Felix on 05/15/2020 9:04 AM PDT Approved by: Sreedhar Felix on 05/15/2020 9:04 AM PDT Station ID: [id number]
[2020-05-15] MEDS: CEFEPIME 1 GM in SODIUM CHLORIDE 0.9% MINIBAG 100 ML IV SCH (09:48)
[2020-05-15] MEDS: HEPARIN 5,000 UNIT/ML VIAL SUBQ SCH ×2 (09:55→20:42)
[2020-05-15] MEDS: LACTATED RINGERS 1,000 ML IV SCH ×2 (11:13→20:39)
[2020-05-15 11:38] LABS: VANCOMYCIN,RANDOM 7.5 ug/mL
--- NOTE | 2020-05-15 11:40 | PROVIDER PROGRESS NOTE ---
Subjective - Prog Note Date Prog Note Date: 05/15/20 Prog Note Time: 11:44 - Subjective Subjective: A little more agitated last night and required some Ativan. Still mildly tachycardic at 100 and 5 in the morning. Hemoglobin dropped to less than 7 this morning and is being transfused per orders of proj mgr. No evidence of GI bleed with black stool or melena or vomiting of blood. She did not have any fevers. Able to come off of Levophed. NG drainage yesterday was 1025 cc. This morning so far she has 175 cc. Current Medications - Current Medications Current Medications: Active Medications Generic Name Dose Route Start Last Admin Trade Name Freq PRN Reason Stop Dose Admin Heparin Sodium (Porcine) 5,000 unit 05/13/20 21:00 05/15/20 09:55 Heparin 5,000 Unit/Ml Vial SUBQ 5,000 unit BID NOEL Administration Lactated Ringer's 1,000 mls @ 100 mls/hr 05/13/20 18:00 05/15/20 11:13 Lr IV 100 mls/hr .Q10H NOEL Administration Cefepime HCl 1 gm/ Sodium 100 mls @ 200 mls/hr 05/14/20 09:00 05/15/20 09:48 Chloride IV 200 mls/hr Q24H NOEL Administration Metronidazole 500 mg in 100 mls @ 100 mls/hr 05/13/20 22:00 05/15/20 07:30 Flagyl 500 Mg/100 Ml IV Infused TID NOEL Infusion Sodium Chloride 500 mls @ 20 mls/hr 05/13/20 22:05 Normal Saline 0.9% IV Q24H PRN TKO RATE Multivitamins 10 ml/ Folic 1,015.2 mls @ 100 mls/hr 05/14/20 10:00 05/15/20 04:40 Acid 1 mg/ Thiamine HCl 100 mg IV Infused / Magnesium Sulfate 2 gm/ 1900 NOEL Infusion Sodium Chloride Acetaminophen 100 mls @ 400 mls/hr 05/15/20 01:41 Ofirmev IV Q6HR PRN Pain or Fever > 38C (100.4F) Lorazepam 1 mg 05/15/20 04:11 05/15/20 04:15 Lorazepam 2 Mg/Ml Vial IVP 1 mg Q1H PRN Administration Alcohol Withdrawal Morphine Sulfate 2 mg 05/13/20 17:10 05/15/20 00:39 Morphine 2 Mg/Ml Carpuject IVP 2 mg Q2HR PRN Administration Pain 8 to 10 Ondansetron HCl 4 mg 05/13/20 17:10 Ondansetron Odt 4 Mg Tablet TL Q6HR PRN Nausea / Vomiting Ondansetron HCl 4 mg 05/13/20 17:10 Ondansetron 4 Mg/2 Ml Vial IVP Q6HR PRN Nausea / Vomiting Pantoprazole Sodium 40 mg 05/13/20 18:00 05/15/20 06:27 Pantoprazole 40 Mg Vial IVP 40 mg QDAC NOEL Administration Sodium Chloride 10 ml 05/14/20 01:00 05/15/20 00:40 Sodium Chloride Flush 0.9% 10 Ml Syringe IVP 10 ml 0100,0900,1700 NOEL Administration Sodium Chloride 10 ml 05/13/20 17:10 05/14/20 05:10 Sodium Chloride Flush 0.9% 10 Ml Syringe IVP 10 ml PRN PRN Administration NEEDED PER PROVIDER ORDERS Sodium Chloride 20 ml 05/13/20 22:05 05/15/20 08:25 Sodium Chloride Flush 0.9% 10 Ml Syringe IVP 30 ml PRN PRN Administration After Blood Draw Vancomycin HCl 1 each 05/13/20 17:15 Vancomycin: Pharmacy To Dose 05/15/20 17:14 ONCE PRN PER PHARMACY Gabapentin [Neurontin] 600 mg PO BID 01/30/20 Losartan/Hydrochlorothiazide [Hyzaar 100-25 Tablet] 1 each PO DAILY 04/14/20 Gabapentin [Neurontin] 600 mg PO 1200 05/14/20 Objective - Vital Signs/Intake & Output Reviewed Vital Signs: Yes Vital Signs: Vital Signs Temp Pulse Resp BP Pulse Ox 05/15/20 11:00 105 H 27 H 128/82 H 98 05/15/20 10:05 104 H 26 H 110/63 100 05/15/20 10:04 36.6 C 05/15/20 09:30 98 18 98/56 L 98 05/15/20 09:00 36.6 C 97 18 101/58 L 99 05/15/20 08:00 102 H 22 125/60 98 Intake & Output: Intake & Output 05/12/20 05/13/20 05/14/20 05/15/20 23:59 23:59 23:59 23:59 Intake Total 4733.201 5164.013 1813.867 Output Total 2085 3965 1635 Balance 3258.201 1199.013 178.867 - Objective General Appearance: positive: No acute distress, Lethargic, Other (In the morning she is relatively quiet. Legs with eyes closed, on her back, will open them to my voice and respond. Voice is low and hoarse.) Eyes Bilateral: positive: PERRL, EOMI ENT: positive: Dry mucous membranes Neck: positive: No JVD. negative: Stiff neck Respiratory: positive: No respiratory distress, Rhonchi. negative: Wheezes, Rales Cardiovascular: positive: Regular rate & rhythm, Tachycardia (Occasionally. Yesterday consistently above 105. This morning she drops into the 80s and 90s and bounced back up to 105.), Systolic murmur. negative: Gallop/S4, Friction rub Abdomen: positive: No organomegaly, Tenderness (Mild, generalized and upper abdomen.), Other (NG tube in place. No flatus or stools). negative: Guarding, Rebound Skin: positive: Warm, Dry, Pallor Extremities: positive: Non-tender, No pedal edema Neurologic/Psychiatric: positive: CN's nml (2-12), Disoriented to time. negative: Motor nml (generalized weakness, no tremors) - Lab Results Fish Bones: 05/15/20 04:34 05/15/20 04:34 Other Labs: Lab Results x24hrs 05/15/20 05/15/20 05/15/20 Range/Units 07:56 07:56 07:51 WBC (4.8-10.8) x10^3/uL RBC (4.20-5.40) 10^6/uL Hgb (12.0-16.0) g/dL Hct (37.0-47.0) % MCV (81.0-99.0) fL MCH (27.0-31.0) pg MCHC (32.0-36.0) g/dL RDW (12.0-15.0) % Plt Count (130-450) 10^3/uL MPV (7.9-10.8) fL Neut # (Auto) Lymph # (Auto) [place] # (Auto) Eos # (Auto) Baso # (Auto) Absolute Nucleated RBC Total Counted Band Neuts % (Manual) (0 - 10) % Abnorm Lymph % (Manual) % Metamyelocytes % ( - 0) % Myelocytes % ( - 0) % Nucleated RBC % Neutrophils # (Manual) (1.5-6.6) 10^3/uL Lymphocytes # (Manual) (1.5-3.5) 10^3/uL Monocytes # (Manual) (0.0-1.0) 10^3/uL Eosinophils # (Manual) (0-0.7) 10^3/uL Basophils # (Manual) (0-0.1) 10^3/uL Differential Comment WBC Morphology (NORMAL) Platelet Estimate (NORMAL) Platelet Morphology (NORMAL) RBC Morph Micro Appear (NORMAL) VBG pH 7.356 (7.31-7.41) Ionized Calcium 1.08 L (1.15-1.33) mmol/L Sodium (135-145) mmol/L Potassium (3.5-5.0) mmol/L Chloride (101-111) mmol/L Carbon Dioxide (21-32) mmol/L Anion Gap (6-13) BUN (6-20) mg/dL Creatinine (0.4-1.0) mg/dL Estimated GFR (MDRD) (>89) Glucose (70-100) mg/dL Calcium (8.5-10.3) mg/dL Phosphorus (2.5-4.6) mg/dL Magnesium (1.7-2.8) mg/dL Albumin 2.0 L (3.2-5.5) g/dL Blood Type O POSITIVE Antibody Screen NEGATIVE Crossmatch IS Only See Detail 05/15/20 05/15/20 05/15/20 Range/Units 04:34 04:34 04:34 WBC 12.5 H (4.8-10.8) x10^3/uL RBC 2.06 L (4.20-5.40) 10^6/uL Hgb 6.9 L* (12.0-16.0) g/dL Hct 20.0 L* (37.0-47.0) % MCV 97.1 (81.0-99.0) fL MCH 33.5 H (27.0-31.0) pg MCHC 34.5 (32.0-36.0) g/dL RDW 12.8 (12.0-15.0) % Plt Count 216 (130-450) 10^3/uL MPV 11.2 H (7.9-10.8) fL Neut # (Auto) Not Reportable Lymph # (Auto) Not Reportable [place] # (Auto) Not Reportable Eos # (Auto) Not Reportable Baso # (Auto) Not Reportable Absolute Nucleated RBC Not Reportable Total Counted 100 Band Neuts % (Manual) 0 (0 - 10) % Abnorm Lymph % (Manual) 0 % Metamyelocytes % 1 H ( - 0) % Myelocytes % 1 H ( - 0) % Nucleated RBC % Not Reportable Neutrophils # (Manual) 9.4 H (1.5-6.6) 10^3/uL Lymphocytes # (Manual) 1.8 (1.5-3.5) 10^3/uL Monocytes # (Manual) 1.0 (0.0-1.0) 10^3/uL Eosinophils # (Manual) 0.1 (0-0.7) 10^3/uL Basophils # (Manual) 0.0 (0-0.1) 10^3/uL Differential Comment MANUAL DIFFERENTIAL WBC Morphology NORMAL APPEARANCE (NORMAL) Platelet Estimate NORMAL (130-450,000) (NORMAL) Platelet Morphology NORMAL APPEARANCE (NORMAL) RBC Morph Micro Appear 2+ HYPOCHROMASIA (NORMAL) VBG pH (7.31-7.41) Ionized Calcium (1.15-1.33) mmol/L Sodium 137 (135-145) mmol/L Potassium 2.9 L (3.5-5.0) mmol/L Chloride 105 (101-111) mmol/L Carbon Dioxide 20 L (21-32) mmol/L Anion Gap 12.0 (6-13) BUN 38 H (6-20) mg/dL Creatinine 1.2 H (0.4-1.0) mg/dL Estimated GFR (MDRD) 46 L (>89) Glucose 199 H (70-100) mg/dL Calcium 7.8 L (8.5-10.3) mg/dL Phosphorus 1.5 L (2.5-4.6) mg/dL Magnesium 2.2 (1.7-2.8) mg/dL Albumin (3.2-5.5) g/dL Blood Type Antibody Screen Crossmatch IS Only Sepsis Event Note (H) - Evaluation Current Stage of Sepsis: Resolved Possible source of Sepsis: positive: Unknown - Sepsis Criteria Sepsis Criteria: WBC count greater than 12,000 or less than 4000, FLAT FOLDER: altered consciousness (unrelated to primary neuro pathology), SBP drop more than 40mHg, MAP less than 65 mmHg Assessment/Plan - Problem List (1) Sepsis with encephalopathy and septic shock Impression: Resolved At the time of admission,the differential was wide open as to the cause of her infection. +She appeared to have possible pneumonia on CXR with bilateral pulmonary opacities. +Urine was concentrated and turbid but no leukocyte Estrace or nitrites. Many squamous cells so no culture done. +Abdomen CT showed small bowel obstruction but no free air and no thickened bowel zeng. Bladder and gallbladder looked uninfected. +Preliminary echo report is an excellent study. Sinus rhythm. Ejection fraction 65 to 70%. No regional wall motion abnormalities. As compared to prior echo of December 2017 where her ejection fraction was 30 to 35%, she had great improvement. Mildly elevated right heart pressures at 44 mmHg. No significant valvular heart disease. +Follow-up chest x-ray today continues to show diffuse airspace opacities bilaterally consistent with either CHF, volume overload or an infectious process. Sitting her IVC was flat on admission, we are going with infectious process. +Blood cultures negative She is now on Day#3 of admission and she is improving. Levophed stopped this morning. Awake and throught process is erratic, delusional, and at times paranoid. So far no fever. Still tachycardic at approximately 105. Room air saturations 94 to 96%. Still on IVF for resuscitaion and for replacement of NG tube losses WBC 20.8>> 11.2>>12.5 Broad-spectrum antibiotics with cefepime, Flagyl, vancomycin. Day #3. Vancomycin is being dosed by pharmacy. Plan: The Flagyl and vancomycin. Continue with cefepime for total of 7 days. At this time is not clear if there is infected urine, or pneumonia or just severe, severe dehydration with small bowel obstruction. Qualifiers: Sepsis type: sepsis due to unspecified organism Qualified Code(s): A41.9 - Sepsis, unspecified organism; R65.21 - Severe sepsis with septic shock; G93.40 - Encephalopathy, unspecified (2) Acute renal failure due to dehydration from ?no po intake at home for 2 days Conclusion/Plan: Her baseline creatinine in the past has been normal. With her ventral hernia repair with mesh her creatinine was 0.8. That was May 04. Granular casts and Transitional cells present on admit UA I must assume there is an element of ATN due to hypotension at home No obstruction seen on CT of the abdomen Being aggressively hydrated with IV fluids Creatinine 7.5>> 6.8>> 4.5>>1.2 Plan: Continue IVF until she can take po. I am letting her have ice chips right now. Repeat labs daily Avoid nephrotoxic meds Qualifiers: Acute renal failure type: with acute tubular necrosis Qualified Code(s): N17.0 - Acute kidney failure with tubular necrosis (3) Pneumonia Conclusion/Plan: On broad-spectrum antibiotics. Radiologist is not calling it pneumonia. Says it could be pulmonary edema but her inferior vena cava is flat. According to her stepmother, the patient is a full code. She will need intubation if she goes into respiratory failure. Plan: Blood cultures negative after 2 day. Repeat x-ray continues to say either fluid overload or pneumonia. And again because her IVC was flat we think this is pneumonia. As above, de-escalate antibiotics to single agent cefepime Qualifiers: Pneumonia type: due to unspecified organism Laterality: bilateral Lung location: lower lobe of lung Qualified Code(s): J18.9 - Pneumonia, unspecified organism (4) Hypokalemia and hypophosphatemia Conclusion/Plan: Initiated ICU protocol for replacement Potassium started out at 2.8 and is 3.9 this morning (5) Hypocalcemia Conclusion/Plan: Initiate ICU protocol for replacement (6) Cirrhosis with alcoholism Conclusion/Plan: Electronic medical record notes chronic macrocytic anemia, cirrhotic liver changes. Today with Acute anemia, but no blood loss noted. Up until now there have been no esophageal varices, or splenic enlargement.Not sure if she is in alcohol withdrawal or with baseline delusional/paranoid status. Mild agitation. Ativan started last night with CIWA protocol. Plan: Today is of banana bag. Will oil change technician to IV thiamine IV push and IV folate if possible. Hemoglobin has dropped below 7. She is being transfused 1 unit. No stool yet for fecal occult blood positive check (7) S/P ventral herniorrhaphy Conclusion/Plan: Postoperative day 17. Dr. Mackay is aware her patient is her. I do not need a consult but let her know as a courtesy. (8) Partial small bowel obstruction Conclusion/Plan: NG to low intermittent suction Already on empiric antibiotics No flatus or BM so far. KUB shows persistent dilated loops of small bowel consistent with small bowel obstruction. No free air. Plan: continue ice chips, NG suction.
[2020-05-15] MEDS ORDERED: POTASSIUM PHOSPHATE 21 MMOL in SODIUM CHLORIDE 0.9% 250 ML IV ONE (12:30)
[2020-05-15] MEDS: CEFEPIME 2 GM in SODIUM CHLORIDE 0.9% MINIBAG 100 ML IV SCH (15:57)
[2020-05-15] MEDS: MIN OIL/DIMETHICON/COCONUT OIL 92 GM TUBE TOP PRN (17:42)
[2020-05-15] MEDS: MULTIVITAMIN 10 ML, FOLIC ACID INJ 1 MG, THIAMINE INJ 100 MG, MAGNESIUM SULFATE 2 GM in... IV SCH ×5 (20:39)
[2020-05-16] MEDS: SODIUM CHLORIDE FLUSH 0.9% 10 ML SYRINGE IVP SCH ×4 (01:39→18:27)
[2020-05-16] MEDS: LORazepam 2 MG/ML VIAL IVP PRN ×7 (01:39→23:16)
[2020-05-16] MEDS: CEFEPIME 2 GM in SODIUM CHLORIDE 0.9% MINIBAG 100 ML IV SCH ×2 (03:30→16:30)
[2020-05-16] MEDS: MORPHINE 2 MG/ML CARPUJECT IVP PRN ×6 (04:00→21:20)
[2020-05-16 05:11] LABS: CALCIUM, IONIZED 1.11 mmol/L (1.15-1.33); VBG PH 7.283 (7.31-7.41)
[2020-05-16 05:14] LABS: BASOPHILS # (AUTO) 0.2 10^3/uL (0.0-0.1); BASOPHILS % (AUTO) 0.9 %; EOSINOPHILS # (AUTO) 0.1 10^3/uL (0.0-0.7); EOSINOPHILS % (AUTO) 0.4 %; HCT - HEMATOCRIT 25.8 % (37.0-47.0); HGB - HEMOGLOBIN 9.2 g/dL (12.0-16.0); LYMPHOCYTES # (AUTO) 1.9 10^3/uL (1.5-3.5); LYMPHOCYTES % (AUTO) 10.2 %; MEAN CORPUSCULAR HEMOGLOBIN 33.7 pg (27.0-31.0); MEAN CORPUSCULAR HGB CONC 35.7 g/dL (32.0-36.0); MEAN CORPUSCULAR VOLUME 94.5 fL (81.0-99.0); MEAN PLATELET VOLUME 11.5 fL (7.9-10.8); MONOCYTES # (AUTO) 1.1 10^3/uL (0.0-1.0); NEUTROPHILS # (AUTO) 14.3 10^3/uL (1.5-6.6); NEUTROPHILS % (AUTO) 76.7 %; PLT - PLATELET COUNT 202 10^3/uL (130-450); RED BLOOD COUNT 2.73 10^6/uL (4.20-5.40); RED CELL DISTRIBUTION WIDTH 14.7 % (12.0-15.0); WHITE BLOOD COUNT 18.6 x10^3/uL (4.8-10.8)
[2020-05-16 05:21] LABS: CALCIUM 7.9 mg/dL (8.5-10.3); CREATININE 0.7 mg/dL (0.4-1.0); MAGNESIUM 1.8 mg/dL (1.7-2.8); PHOSPHORUS 2.6 mg/dL (2.5-4.6); POTASSIUM 3.5 mmol/L (3.5-5.0)
[2020-05-16] MEDS: SODIUM CHLORIDE FLUSH 0.9% 10 ML SYRINGE IVP PRN ×9 (05:46→23:16)
[2020-05-16] MEDS: LACTATED RINGERS 1,000 ML IV SCH (06:12)
[2020-05-16] MEDS: PANTOPRAZOLE 40 MG VIAL IVP SCH (06:16)
[2020-05-16] MEDS: HEPARIN 5,000 UNIT/ML VIAL SUBQ SCH ×2 (08:54→21:14)
--- NOTE | 2020-05-16 09:03 | PROVIDER PROGRESS NOTE ---
Subjective - Prog Note Date Prog Note Date: 05/16/20 Prog Note Time: 09:01 - Subjective Subjective: Not as alert today. More agitated. Constantly pulling at lines, uncomfortable in bed. Needing Ativan and morphine. Tachycardic and hypertensive. In this patient she is presenting as either worsening infection, or sliding into alcohol withdrawal and needing CIWA protocol Respiratory rate is up, pulse is up. NG-tube drainage is about 150 per shift. Current Medications - Current Medications Current Medications: Active Medications Albuterol (Albuterol Neb 2.5 Mg/3 Ml) 2.5 mg INH RTQ4H PRN PRN Reason: Wheezing Albuterol/Ipratropium (Ipratropium/Albuterol 3 Ml Neb) 3 ml INH RTQID PRN PRN Reason: Shortness of Air/Wheezing Budesonide (Budesonide 0.5 Mg/2 Ml Neb) 0.5 mg INH RTBID NOEL Heparin Sodium (Porcine) (Heparin 5,000 Unit/Ml Vial) 5,000 unit SUBQ BID [facility] Last Admin: 05/16/20 08:54 Dose: 5,000 unit Documented by: Lactated Ringer's (Lr) 1,000 mls @ 100 mls/hr IV .Q10H [facility] Last Infusion: 05/16/20 08:37 Dose: 100 mls/hr Documented by: Sodium Chloride (Normal Saline 0.9%) 500 mls @ 20 mls/hr IV Q24H PRN PRN Reason: TKO RATE Multivitamins 10 ml/ Folic Acid 1 mg/ Thiamine HCl 100 mg / Magnesium Sulfate 2 gm/Sodium Chloride 1,015.2 mls @ 100 mls/hr IV 1900 [facility] Last Infusion: 05/16/20 06:51 Dose: Infused Documented by: Acetaminophen (Ofirmev) 100 mls @ 400 mls/hr IV Q6HR PRN PRN Reason: Pain or Fever > 38C (100.4F) Cefepime HCl 2 gm/ Sodium (Chloride) 100 mls @ 200 mls/hr IV Q12H [facility] Last Infusion: 05/16/20 05:39 Dose: Infused Documented by: Lorazepam (Lorazepam 2 Mg/Ml Vial) 1 mg IVP Q1H PRN PRN Reason: Alcohol Withdrawal Last Admin: 05/16/20 04:37 Dose: 1 mg Documented by: Mineral Oil (Min Oil/Dimethicon/Coconut Oil 92 Gm Tube) 1 applic TOP PRN PRN PRN Reason: Skin Care Last Admin: 05/16/20 09:49 Dose: 1 applic Documented by: Morphine Sulfate (Morphine 2 Mg/Ml Carpuject) 2 mg IVP Q2HR PRN PRN Reason: Pain 8 to 10 Last Admin: 05/16/20 09:45 Dose: 2 mg Documented by: Ondansetron HCl (Ondansetron Odt 4 Mg Tablet) 4 mg TL Q6HR PRN PRN Reason: Nausea / Vomiting Ondansetron HCl (Ondansetron 4 Mg/2 Ml Vial) 4 mg IVP Q6HR PRN PRN Reason: Nausea / Vomiting Pantoprazole Sodium (Pantoprazole 40 Mg Vial) 40 mg IVP QDAC [facility] Last Admin: 05/16/20 06:16 Dose: 40 mg Documented by: Sodium Chloride (Sodium Chloride Flush 0.9% 10 Ml Syringe) 10 ml IVP 0100,0900,1700 [facility] Last Admin: 05/16/20 09:00 Dose: 10 ml Documented by: Sodium Chloride (Sodium Chloride Flush 0.9% 10 Ml Syringe) 10 ml IVP PRN PRN PRN Reason: NEEDED PER PROVIDER ORDERS Last Admin: 05/16/20 09:49 Dose: 20 ml Documented by: Sodium Chloride (Sodium Chloride Flush 0.9% 10 Ml Syringe) 20 ml IVP PRN PRN PRN Reason: After Blood Draw Last Admin: 05/16/20 10:05 Dose: 30 ml Documented by: Gabapentin [Neurontin] 600 mg PO BID 01/30/20 Losartan/Hydrochlorothiazide [Hyzaar 100-25 Tablet] 1 each PO DAILY 04/14/20 Gabapentin [Neurontin] 600 mg PO 1200 05/14/20 Objective - Vital Signs/Intake & Output Reviewed Vital Signs: Yes Vital Signs: Vital Signs Temp Pulse Pulse Resp BP Pulse Ox 05/16/20 08:00 36.7 C 106 H 24 126/71 96 05/16/20 07:00 109 H 20 125/61 95 05/16/20 06:00 110 H 23 137/68 H 93 05/16/20 05:50 36.6 C 120 H 24 94 Intake & Output: Intake & Output 05/13/20 05/14/20 05/15/20 04/03/21 23:59 23:59 23:59 23:59 Intake Total 4733.201 5164.013 3700.867 1356.867 Output Total 1475 3965 2975 1115 Balance 3258.201 1199.013 725.867 241.867 - Objective General Appearance: positive: Moderate distress, Lethargic, Other (Severely emaciated arms and legs with a protuberant slightly distended belly) Eyes Bilateral: positive: PERRL, EOMI ENT: positive: Dry mucous membranes (mouth breathing) Neck: positive: No JVD Respiratory: positive: Wheezes (Audible even without a stethoscope), Other (Abdominal wall retraction, rib cage retraction But not hypoxic) Cardiovascular: positive: Regular rate & rhythm, Tachycardia, Systolic murmur. negative: Gallop/S4, Friction rub Abdomen: positive: Other (Distended, NG tube draining 150 cc per shift, no bowel sounds) Skin: positive: Warm, Dry, Pallor Extremities: positive: Non-tender, No pedal edema Neurologic/Psychiatric: positive: CN's nml (2-12), Motor nml, Disoriented to person, Disoriented to place, Disoriented to time, Weakness (generalized), Other (She presented comatose, then started verbalizing and was asking for water and able to complete sentences. Then started getting delusional and paranoid. Today is mumbling, but no lucid sentences.) - Lab Results Fish Bones: 05/16/20 05:00 05/16/20 05:00 Other Labs: Lab Results x24hrs 05/16/20 05/16/20 05/16/20 Range/Units 05:00 05:00 05:00 WBC 18.6 H (4.8-10.8) x10^3/uL RBC 2.73 L (4.20-5.40) 10^6/uL Hgb 9.2 L (12.0-16.0) g/dL Hct 25.8 L (37.0-47.0) % MCV 94.5 (81.0-99.0) fL MCH 33.7 H (27.0-31.0) pg MCHC 35.7 (32.0-36.0) g/dL RDW 14.7 (12.0-15.0) % Plt Count 202 (130-450) 10^3/uL MPV 11.5 H (7.9-10.8) fL Neut # (Auto) 14.3 H (1.5-6.6) 10^3/uL Lymph # (Auto) 1.9 (1.5-3.5) 10^3/uL [place] # (Auto) 1.1 H (0.0-1.0) 10^3/uL Eos # (Auto) 0.1 (0.0-0.7) 10^3/uL Baso # (Auto) 0.2 H (0.0-0.1) 10^3/uL Absolute Nucleated RBC 0.00 x10^3/uL Nucleated RBC % 0.0 /100WBC VBG pH 7.283 L (7.31-7.41) Ionized Calcium 1.11 L (1.15-1.33) mmol/L Sodium 143 (135-145) mmol/L Potassium 3.5 (3.5-5.0) mmol/L Chloride 109 (101-111) mmol/L Carbon Dioxide 24 (21-32) mmol/L Anion Gap 10.0 (6-13) BUN 21 H (6-20) mg/dL Creatinine 0.7 (0.4-1.0) mg/dL Estimated GFR (MDRD) 86 L (>89) Glucose 187 H (70-100) mg/dL Calcium 7.9 L (8.5-10.3) mg/dL Phosphorus 2.6 (2.5-4.6) mg/dL Magnesium 1.8 (1.7-2.8) mg/dL Albumin (3.2-5.5) g/dL Last Dose Date Last Dose Time Random Vancomycin ug/mL Blood Type Antibody Screen Crossmatch IS Only 05/15/20 05/15/20 05/15/20 Range/Units 13:54 11:07 07:56 WBC (4.8-10.8) x10^3/uL RBC (4.20-5.40) 10^6/uL Hgb (12.0-16.0) g/dL Hct (37.0-47.0) % MCV (81.0-99.0) fL MCH (27.0-31.0) pg MCHC (32.0-36.0) g/dL RDW (12.0-15.0) % Plt Count (130-450) 10^3/uL MPV (7.9-10.8) fL Neut # (Auto) (1.5-6.6) 10^3/uL Lymph # (Auto) (1.5-3.5) 10^3/uL [place] # (Auto) (0.0-1.0) 10^3/uL Eos # (Auto) (0.0-0.7) 10^3/uL Baso # (Auto) (0.0-0.1) 10^3/uL Absolute Nucleated RBC x10^3/uL Nucleated RBC % /100WBC VBG pH (7.31-7.41) Ionized Calcium (1.15-1.33) mmol/L Sodium (135-145) mmol/L Potassium 3.9 (3.5-5.0) mmol/L Chloride (101-111) mmol/L Carbon Dioxide (21-32) mmol/L Anion Gap (6-13) BUN (6-20) mg/dL Creatinine (0.4-1.0) mg/dL Estimated GFR (MDRD) (>89) Glucose (70-100) mg/dL Calcium (8.5-10.3) mg/dL Phosphorus (2.5-4.6) mg/dL Magnesium (1.7-2.8) mg/dL Albumin (3.2-5.5) g/dL Last Dose Date NO DATE DOCUMENTED Last Dose Time NO TIME DOCUMENTED Random Vancomycin 7.5 ug/mL Blood Type O POSITIVE Antibody Screen NEGATIVE Crossmatch IS Only See Detail 05/15/20 Range/Units 07:51 WBC (4.8-10.8) x10^3/uL RBC (4.20-5.40) 10^6/uL Hgb (12.0-16.0) g/dL Hct (37.0-47.0) % MCV (81.0-99.0) fL MCH (27.0-31.0) pg MCHC (32.0-36.0) g/dL RDW (12.0-15.0) % Plt Count (130-450) 10^3/uL MPV (7.9-10.8) fL Neut # (Auto) (1.5-6.6) 10^3/uL Lymph # (Auto) (1.5-3.5) 10^3/uL [place] # (Auto) (0.0-1.0) 10^3/uL Eos # (Auto) (0.0-0.7) 10^3/uL Baso # (Auto) (0.0-0.1) 10^3/uL Absolute Nucleated RBC x10^3/uL Nucleated RBC % /100WBC VBG pH (7.31-7.41) Ionized Calcium (1.15-1.33) mmol/L Sodium (135-145) mmol/L Potassium (3.5-5.0) mmol/L Chloride (101-111) mmol/L Carbon Dioxide (21-32) mmol/L Anion Gap (6-13) BUN (6-20) mg/dL Creatinine (0.4-1.0) mg/dL Estimated GFR (MDRD) (>89) Glucose (70-100) mg/dL Calcium (8.5-10.3) mg/dL Phosphorus (2.5-4.6) mg/dL Magnesium (1.7-2.8) mg/dL Albumin 2.0 L (3.2-5.5) g/dL Last Dose Date Last Dose Time Random Vancomycin ug/mL Blood Type Antibody Screen Crossmatch IS Only Sepsis Event Note (H) - Evaluation Current Stage of Sepsis: Resolved Possible source of Sepsis: positive: Unknown - Sepsis Criteria Sepsis Criteria: WBC count greater than 12,000 or less than 4000, RETAIL COORDINATOR: altered consciousness (unrelated to primary neuro pathology), SBP drop more than 40mHg, MAP less than 65 mmHg Assessment/Plan - Problem List (1) Protein calorie malnutrition Impression: This patient is with severely decreased muscle mass, and extremities are painfully thin in comparison to her distended belly. She was not eating for at least 2 days before admission, and has not eaten for the 4 days she has been here. She is an alcoholic. All of this combines to a clinical picture of malnutrition. Plan: Start TPN Qualifiers: Protein-calorie malnutrition severity: unspecified severity Qualified Code(s): E46 - Unspecified protein-calorie malnutrition (2) Pneumonia Impression: At the time of admission,the differential was wide open as to the cause of her infection. She had sepsis with shock, and that criteria has resolved. +She appeared to have possible pneumonia on CXR with bilateral pulmonary opacities. +Urine was concentrated and turbid but no leukocyte Estrace or nitrites. Many squamous cells so no culture done. +Abdomen CT showed small bowel obstruction but no free air and no thickened bowel zeng. Bladder and gallbladder looked uninfected. +Preliminary echo report is an excellent study. Sinus rhythm. Ejection fraction 65 to 70%. No regional wall motion abnormalities. As compared to prior echo of December 2017 where her ejection fraction was 30 to 35%, she had great improvement. Mildly elevated right heart pressures at 44 mmHg. No significant valvular heart disease. +Follow-up chest x-ray 05/15 continues to show diffuse airspace opacities bilaterally consistent with either CHF, volume overload or an infectious process. Sitting her IVC was flat on admission, we are going with infectious p rocess. +Blood cultures negative +Follow-up KUB May 15 continues to show dilated loops of small bowel and no free air She is now on Day#4 of admission and she had improved enough to be off levophed by 4/2 am but she has not changed from then to today. WBC slightly higher, a little more tachycardica and tachypneic. Awake and throught process is erratic, delusional, and at times paranoid. So far no fever. Room air saturations 94 to 96%. Still on IVF for resuscitaion and for replacement of NG tube losses WBC 20.8>> 11.2>>12.5>>18.6 The change between yesterday and today with regards to treatment was stopping Flagyl and vancomycin. She is only on cefepime. Broad-spectrum antibiotics with cefepime, Flagyl, vancomycin completed 3 days. Vancomycin was being dosed by pharmacy. Flagyl and vanc dc'd 05/15. Plan: Continue with cefepime for total of 7 days. Today Day #4. At this time is not clear if there is infected urine, or pneumonia or just severe, severe dehydration with small bowel obstruction. She is a full code. Add azithromycin. She does have a hx of smoking, and is wheezing, add steroids for possible COPD exacerbation (3) Acute renal failure due to dehydration from ?no po intake at home for 2 days Conclusion/Plan: Her baseline creatinine in the past has been normal. With her ventral hernia repair with mesh her creatinine was 0.8. That was May 04. Granular casts and Transitional cells present on admit UA I must assume there is an element of ATN due to hypotension at home No obstruction seen on CT of the abdomen Being aggressively hydrated with IV fluids. She is approximately 5373 cc ahead over the last 4 days. Considering her severe dehydration status, it sounds about the fluid that she would need overall so I do not think she is fluid overloaded. Creatinine 7.5>> 6.8>> 4.5>>1.2 Plan: I will be changing over to TPN to start feeding her. Once that starts, we will stop maintenance IV fluids. Until that bag is hung, decrease fluid rate Repeat labs daily Avoid nephrotoxic meds Qualifiers: Acute renal failure type: with acute tubular necrosis Qualified Code(s): N17.0 - Acute kidney failure with tubular necrosis (4) Hypokalemia and hypophosphatemia Conclusion/Plan: Initiated ICU protocol for replacement Potassium started out at 2.8 (5) Hypocalcemia Conclusion/Plan: Initiate ICU protocol for replacement (6) Cirrhosis with alcoholism Conclusion/Plan: Electronic medical record notes chronic macrocytic anemia, cirrhotic liver changes. 4/2 had drop of hgb with Acute anemia, but no blood loss noted. Up until now there have been no esophageal varices, or splenic enlargement.Not sure if she is in alcohol withdrawal or with baseline delusional/paranoid status. Mild agitation. Ativan started last 05/14 in the evening with CIWA protocol. 4/2 was 3rd day of banana bag. Will gas meter prover to IV thiamine IV push and IV folate if possible. 4/2 Hemoglobin had dropped below 7. She was transfused 1 unit. No stool yet for fecal occult blood positive check This morning still confused, and I will check ammonia level. (7) S/P ventral herniorrhaphy Conclusion/Plan: Postoperative day 18. Dr. Mackay is aware her patient is her. I do not need a consult but let her know as a courtesy. (8) Partial small bowel obstruction Conclusion/Plan: NG to low intermittent suction Already on empiric antibiotics No flatus or BM so far. followup / KUB shows persistent dilated loops of small bowel consistent with small bowel obstruction. No free air. Plan: continue ice chips, NG suction. Will discuss with General Surgery today to see if they need me to do anything differently. After discussion with Dr. Mackay, not yet.
[2020-05-16] MEDS ORDERED: ALBUTEROL NEB 2.5 MG/3 ML INH PRN (09:41)
[2020-05-16] MEDS: MIN OIL/DIMETHICON/COCONUT OIL 92 GM TUBE TOP PRN ×2 (09:49→17:00)
[2020-05-16] MEDS ORDERED: methylPREDNISolone SUCCINATE 40 MG/ML VIAL IVP SCH (10:20)
[2020-05-16] MEDS: IPRATROPIUM/ALBUTEROL 3 ML NEB INH PRN (10:25)
[2020-05-16] MEDS ORDERED: LACTATED RINGERS 1,000 ML IV SCH (10:27)
[2020-05-16] MEDS: AZITHROMYCIN INJ 500 MG in SODIUM CHLORIDE 0.9% 250 ML IV SCH (11:27)
[2020-05-16 14:28] LABS: ABG BASE EXCESS -3.9 mmol/L (-2.0-3.0); ABG HCO3 20.7 mmol/L (22.0-26.0); ABG OXYGEN SATURATION 92 % (94-98); ABG PCO2 36 mmHg (34-45); ABG PH 7.38 (7.35-7.45); ABG PO2 62 mmHg (80-100); ABG TCO2 21.8 MMOL/L (21.0-29.0)
--- NOTE | 2020-05-16 14:55 | XRAY Report ---
PROCEDURE: Chest 1 View X-Ray INDICATIONS: acute resp failure TECHNIQUE: One view of the chest was acquired. COMPARISON: 05/15/2020 chest x-ray FINDINGS: Surgical changes and devices: Unchanged location of right internal jugular central venous catheter an d enteric tubes. Lungs and pleura: There are diffuse airspace opacities, similar in appearance to prior day chest radi ograph. Mediastinum: Mediastinal contours appear normal. Heart size is normal. Bones and chest wall: No suspicious bony lesions. Overlying soft tissues appear unremarkable. IMPRESSION: Diffuse airspace opacities throughout the lungs which can be seen in the setting of diffuse infectiou s process or pulmonary edema. The appearance is similar to 05/15/2000 comparison chest x-ray. Reviewed by: Jose Ryan on 05/16/2020 1:54 PM SARANYA Approved by: Jose Ryan on 05/16/2020 1:54 PM SARANYA Station ID: [id number]
[2020-05-16] MEDS: methylPREDNISolone SUCCINATE 40 MG/ML VIAL IVP SCH ×2 (16:34→21:14)
[2020-05-16] MEDS: FAT EMULSION 20% 250 ML IV SCH (18:36)
[2020-05-16] MEDS ORDERED: FORMOTEROL FUMARATE NEB 20 MCG/2 ML INH SCH (19:00)
[2020-05-16] MEDS ORDERED: TPN (CLINIMIX E 5/15) 2,000 ML with MULTIVITAMIN 10 ML, TRACE ELEMENTS 1 ML IV SCH ×3 (19:00)
[2020-05-16] MEDS: BUDESONIDE 0.5 MG/2 ML NEB INH SCH (19:00)
[2020-05-17] MEDS: MORPHINE 2 MG/ML CARPUJECT IVP PRN ×6 (00:19→21:12)
[2020-05-17] MEDS: SODIUM CHLORIDE FLUSH 0.9% 10 ML SYRINGE IVP SCH ×3 (00:20→16:58)
[2020-05-17] MEDS: LORazepam 2 MG/ML VIAL IVP PRN ×2 (01:59→04:19)
[2020-05-17] MEDS: SODIUM CHLORIDE FLUSH 0.9% 10 ML SYRINGE IVP PRN ×2 (01:59→04:20)
[2020-05-17] MEDS: CEFEPIME 2 GM in SODIUM CHLORIDE 0.9% MINIBAG 100 ML IV SCH ×2 (04:07→16:53)
[2020-05-17 05:15] LABS: BASOPHILS # (AUTO) 0.1 10^3/uL (0.0-0.1); BASOPHILS % (AUTO) 0.8 %; HCT - HEMATOCRIT 27.4 % (37.0-47.0); HGB - HEMOGLOBIN 9.1 g/dL (12.0-16.0); LYMPHOCYTES # (AUTO) 0.9 10^3/uL (1.5-3.5); LYMPHOCYTES % (AUTO) 4.8 %; MEAN CORPUSCULAR HEMOGLOBIN 33.6 pg (27.0-31.0); MEAN CORPUSCULAR HGB CONC 33.2 g/dL (32.0-36.0); MEAN CORPUSCULAR VOLUME 101.1 fL (81.0-99.0); MEAN PLATELET VOLUME 11.9 fL (7.9-10.8); MONOCYTES # (AUTO) 0.5 10^3/uL (0.0-1.0); MONOCYTES % (AUTO) 2.8 %; NEUTROPHILS % (AUTO) 82.3 %; PLT - PLATELET COUNT 247 10^3/uL (130-450); RED BLOOD COUNT 2.71 10^6/uL (4.20-5.40); RED CELL DISTRIBUTION WIDTH 15.9 % (12.0-15.0); WHITE BLOOD COUNT 18.2 x10^3/uL (4.8-10.8)
[2020-05-17 05:17] LABS: CALCIUM, IONIZED 1.16 mmol/L (1.15-1.33); VBG PH 7.196 (7.31-7.41)
[2020-05-17 05:19] LABS: INR 1.6 (0.8-1.2); PT - PROTHROMBIN TIME 16.9 secs (9.9-12.6)
[2020-05-17] MEDS: methylPREDNISolone SUCCINATE 40 MG/ML VIAL IVP SCH ×3 (06:06→21:08)
[2020-05-17] MEDS: PANTOPRAZOLE 40 MG VIAL IVP SCH (06:06)
[2020-05-17 06:14] LABS: ALBUMIN 2.5 g/dL (3.2-5.5); ALBUMIN/GLOBULIN RATIO 0.8 (1.0-2.2); BILIRUBIN,TOTAL 0.9 mg/dL (0.2-1.0); CALCIUM 8.1 mg/dL (8.5-10.3); MAGNESIUM 1.6 mg/dL (1.7-2.8); PHOSPHORUS 4.5 mg/dL (2.5-4.6); POTASSIUM 4.9 mmol/L (3.5-5.0); TOTAL PROTEIN 5.7 g/dL (6.7-8.2)
[2020-05-17] MEDS ORDERED: INSULIN REGULAR HUMAN 300 UNIT/3 ML VIAL IVP ONE (06:47)
[2020-05-17 08:20] LABS: ABG BASE EXCESS -6.4 mmol/L (-2.0-3.0); ABG HCO3 20.2 mmol/L (22.0-26.0); ABG PCO2 45 mmHg (34-45); ABG PH 7.27 (7.35-7.45); ABG PO2 60 mmHg (80-100); ABG TCO2 21.5 MMOL/L (21.0-29.0)
[2020-05-17 08:21] LABS: ABG OXYGEN SATURATION 89 % (94-98); ALLEN TEST POSITIVE
[2020-05-17] MEDS: THIAMINE INJ 100 MG in SODIUM CHLORIDE 0.9% 50 ML IV SCH (08:23)
[2020-05-17] MEDS: HEPARIN 5,000 UNIT/ML VIAL SUBQ SCH ×2 (08:27→21:08)
[2020-05-17] MEDS ORDERED: SUCCINYLCHOLINE 200 MG/10 ML VIAL ONE (08:41)
[2020-05-17] MEDS ORDERED: INSULIN GLARGINE 300 UNIT/3 ML PEN SUBQ SCH (09:00)
[2020-05-17] MEDS ORDERED: THIAMINE INJ 100 MG in SODIUM CHLORIDE 0.9% 50 ML IV SCH (09:00)
[2020-05-17] MEDS ORDERED: SUCCINYLCHOLINE 200 MG/10 ML VIAL IVP ONE (09:08)
[2020-05-17] MEDS ORDERED: VECURONIUM 10 MG VIAL IVP ONE (09:08)
[2020-05-17] MEDS: AZITHROMYCIN INJ 500 MG in SODIUM CHLORIDE 0.9% 250 ML IV SCH (09:36)
[2020-05-17] MEDS: MIDAZOLAM DRIP 50 MG/100 ML BAG IV SCH (09:42)
--- NOTE | 2020-05-17 09:47 | XRAY Report ---
PROCEDURE: Chest for Line Placement INDICATIONS: intubated now TECHNIQUE: One view of the chest was acquired. COMPARISON: 05/16/2020 chest x-ray FINDINGS: Surgical changes and devices: Interval placement of an endotracheal tube. The tip of the endotracheal tube terminates approximately 1.5 cm above the rg. Unchanged positioning of right internal jugul ar central venous catheter. An endotracheal tube tip terminates below the field of view, below the di aphragm. Lungs and pleura: There are worsening bibasilar airspace opacities and perihilar opacities. This susp ected trace right pleural effusion. No pneumothorax. Mediastinum: Mediastinal contours appear normal. Heart size is unremarkable. Bones and chest wall: No suspicious bony lesions. Overlying soft tissues appear unremarkable. IMPRESSION: Interval placement of endotracheal tube. The tip terminates 1.5 cm above the rg. Recommend retrac tion by approximately 2.5 cm. Bibasilar and perihilar airspace opacities, progressed since prior day's chest x-ray. Reviewed by: Jose Ryan on 05/17/2020 8:46 AM SARANYA Approved by: Jose Ryan on 05/17/2020 8:46 AM SARANYA Station ID: [id number]
--- NOTE | 2020-05-17 09:49 | XRAY Report ---
PROCEDURE: Abdomen 1 View X-Ray INDICATIONS: obtunded, ileus of sb TECHNIQUE: 1 view of the abdomen were acquired. COMPARISON: 05/16/2019 abdominal x-ray and 05/17/2020 chest x-ray FINDINGS: Surgical changes and devices: Enteric tube again seen projecting over the expected location of the st omach.. Bowel: No pneumoperitoneum. The bowel gas pattern is nonspecific. Soft tissues: No masses; visualized solid organ contours appear normal in size. No suspicious abdom inal calcifications. Bones: No suspicious bony abnormalities. Other findings: Bibasilar airspace opacities are noted, best seen on concurrent chest x-ray. IMPRESSION: Nonspecific bowel gas pattern. Enteric tube projects over the expected location of the stomach. Bibasilar airspace opacities, better seen on concurrent chest x-ray. Reviewed by: Jose Ryan on 05/17/2020 8:48 AM SARANYA Approved by: Jose Ryan on 05/17/2020 8:48 AM SARANYA Station ID: [id number]
[2020-05-17] MEDS ORDERED: PANTOPRAZOLE 40 MG VIAL IVP SCH (10:00)
[2020-05-17 10:27] LABS: ABG BASE EXCESS -3.1 mmol/L (-2.0-3.0); ABG HCO3 20.4 mmol/L (22.0-26.0); ABG MODE OF VENTILATION ASSIST/CONTROL; ABG OXYGEN SATURATION 96 % (94-98); ABG PCO2 31 mmHg (34-45); ABG PH 7.44 (7.35-7.45); ABG PO2 80 mmHg (80-100); ABG RESPIRATORY RATE 22 b/min; ABG TCO2 21.4 MMOL/L (21.0-29.0); ALLEN TEST POSITIVE
[2020-05-17] MEDS: IPRATROPIUM/ALBUTEROL 3 ML NEB INH PRN (10:53)
[2020-05-17] MEDS: BUDESONIDE 0.5 MG/2 ML NEB INH SCH (10:53)
[2020-05-17] MEDS ORDERED: MAGNESIUM SULFATE 2 GRAM 2 GM/50 ML BAG IV ONE (11:00)
[2020-05-17] MEDS: CHLORHEXIDINE GLUCONATE 15 ML UDC PO SCH ×2 (11:22→21:08)
[2020-05-17 12:38] LABS: ESTIMATED AVERAGE GLUCOSE 131 mg/dL (70-100); HEMOGLOBIN A1c% 6.2 % (4.27-6.07)
[2020-05-17] MEDS ORDERED: MAGNESIUM CITRATE 296 ML BOTTLE NG PRN (12:45)
[2020-05-17] MEDS ORDERED: DEXTROSE 5%-0.9% NACL 1,000 ML IV SCH (13:00)
[2020-05-17 13:09] LABS: GLUCOSE 801 mg/dL (70-100)
[2020-05-17 13:12] LABS: KETONES, SERUM (ACETEST) SMALL (NEGATIVE)
[2020-05-17] MEDS: INSULIN REGULAR HUMAN 100 UNIT in SODIUM CHLORIDE 0.9% 100ML 99 ML IV SCH ×2 (13:18→22:21)
[2020-05-17 13:23] LABS: BUN - BLOOD UREA NITROGEN 30 mg/dL (6-20); CALCIUM 8.1 mg/dL (8.5-10.3); CARBON DIOXIDE - CO2 20 mmol/L (21-32); CHLORIDE 108 mmol/L (101-111); GFR - MDRD 57 (>89); POTASSIUM 4.5 mmol/L (3.5-5.0); SODIUM 142 mmol/L (135-145)
[2020-05-17] MEDS: INSULIN REGULAR HUMAN 300 UNIT/3 ML VIAL SUBQ SCH ×2 (13:24→16:21)
[2020-05-17] MEDS: SODIUM CHLORIDE 0.9% 1,000 ML IV SCH ×2 (13:27→22:16)
[2020-05-17] MEDS ORDERED: SODIUM CHLORIDE INHALATION 3 ML NEB INH PRN (13:41)
[2020-05-17] MEDS ORDERED: POTASSIUM CHLOR 20 MEQ/100 ML 20 MEQ/100 ML BAG IV ONE ×3 (14:23→19:34)
[2020-05-17 14:27] LABS: CALCIUM 8.2 mg/dL (8.5-10.3); CREATININE 1.1 mg/dL (0.4-1.0); MAGNESIUM 2.4 mg/dL (1.7-2.8); POTASSIUM 4.2 mmol/L (3.5-5.0)
--- NOTE | 2020-05-17 14:36 | PROVIDER PROGRESS NOTE ---
Subjective - Prog Note Date Prog Note Date: 05/17/20 Prog Note Time: 14:34 - Subjective Subjective: Over the last couple of days she has steadily deteriorated. We have been checking blood gases and acidosis was not present until today. PO2 was being maintained until today. PCO2 has remained low as she hyperventilates with her agitation. We did start her on CIWA protocol for alcohol withdrawal and it did not seem to make a difference. She was also put in restraints yesterday. Overnight she has had increasing respiratory gurgling. We checked a blood gas this morning and her pH is now 7.27, PCO2 45, PO2 60. Base excess was -3.9 yesterday and is -6.4 today. This is on nasal cannula 5 L. As such I made the decision to go ahead and intubate her since she was breathing at a rate of 30 with this acidosis, mild hypercapnia, and hypoxemia. Now that she has been intubated and has a 5 mg drip of Versed her pH is 7.44, PCO2 is 31, PO2 is 80, HCO3 20.4, base excess -3.1. I have her on assist control, FiO2 65%, tidal volume 400, PEEP of 5. She is doing very well with this. Peak pressures 30 and mean pressures 12-13. Comfortable. Vitals stable. No tachycardia or hypertension. Copious, copious secretions are coming out of the ET tube that are clear. When she was first intubated mouth blood was present so we wondered if that was some of the gurgling we were hearing. She may have bitten her tongue without us realizing it. On KUB follow-up for her ileus versus small bowel obstruction, it is nonspecific bowel gas pattern now. She still not having flatus from what nurse can tell. No bowel movement for a few days. Current Medications - Current Medications Current Medications: Active Medications Albuterol (Albuterol Neb 2.5 Mg/3 Ml) 2.5 mg INH RTQ4H PRN PRN Reason: Wheezing Albuterol/Ipratropium (Ipratropium/Albuterol 3 Ml Neb) 3 ml INH RTQID PRN PRN Reason: Shortness of Air/Wheezing Last Admin: 05/17/20 10:53 Dose: 3 ml Documented by: Budesonide (Budesonide 0.5 Mg/2 Ml Neb) 0.5 mg INH RTBID [facility] Last Admin: 05/17/20 10:53 Dose: 0.5 mg Documented by: Chlorhexidine Gluconate (Chlorhexidine Gluconate 15 Ml Udc) 15 ml PO BID [facility] Last Admin: 05/17/20 11:22 Dose: 15 ml Documented by: Heparin Sodium (Porcine) (Heparin 5,000 Unit/Ml Vial) 5,000 unit SUBQ BID [facility] Last Admin: 05/17/20 08:27 Dose: 5,000 unit Documented by: Sodium Chloride (Normal Saline 0.9%) 500 mls @ 20 mls/hr IV Q24H PRN PRN Reason: TKO RATE Acetaminophen (Ofirmev) 100 mls @ 400 mls/hr IV Q6HR PRN PRN Reason: Pain or Fever > 38C (100.4F) Cefepime HCl 2 gm/ Sodium (Chloride) 100 mls @ 200 mls/hr IV Q12H [facility] Last Infusion: 05/17/20 04:45 Dose: Infused Documented by: Azithromycin 500 mg/ Sodium (Chloride) 250 mls @ 250 mls/hr IV DAILY [facility] Stop: 05/18/20 09:59 Last Infusion: 05/17/20 10:40 Dose: Infused Documented by: Multivitamins 10 ml/ TRACE ELEMENTS 1 ml/ Amino Ac/Electrol/Dextrose/Calcium 2,011 mls @ 73 mls/hr IV Q24H [facility]; Protocol Stop: 05/17/20 18:59 Last Admin: 05/16/20 18:30 Dose: 73 mls/hr Documented by: Fat Emulsion Intravenous (Intralipid 20%) 250 mls @ 21 mls/hr IV Q24H [facility] Last Infusion: 05/17/20 06:42 Dose: Infused Documented by: Thiamine HCl 100 mg/ Sodium (Chloride) 51 mls @ 100 mls/hr IV DAILY [facility] Last Infusion: 05/17/20 09:00 Dose: Infused Documented by: Midazolam HCl (Versed Drip) 50 mg in 100 mls @ 5.08 mls/hr IV .[id number] [facility]; Protocol Last Admin: 05/17/20 09:42 Dose: 0.04 mg/kg/hr, 5 mls/hr Documented by: Sodium Chloride (Normal Saline 0.9%) 1,000 mls @ 125 mls/hr IV .Q8H [facility] Last Admin: 05/17/20 13:27 Dose: 125 mls/hr Documented by: Dextrose/Sodium Chloride (D5ns) 1,000 mls @ 125 mls/hr IV .Q8H [facility] Insulin Human Regular 100 unit (/ Sodium Chloride) 100 mls @ 6 mls/hr IV .[id number] [facility]; Protocol Last Admin: 05/17/20 13:18 Dose: 6 unit/hr, 6 mls/hr Documented by: Potassium Chloride (Potassium Chloride) 20 meq in 100 mls @ 100 mls/hr IV ONCE ONE; Protocol Stop: 05/17/20 15:22 Multivitamins 10 ml/ TRACE ELEMENTS 1 ml/ Amino Acids/Electrolytes/Dextrose 2,011 mls @ 83 mls/hr IV Q24H [facility]; Protocol Insulin Glargine (Insulin Glargine 300 Unit/3 Ml Pen) 10 unit SUBQ DAILY [facility] Last Admin: 05/17/20 08:27 Dose: 10 unit Documented by: Insulin Human Regular (Insulin Regular Human 300 Unit/3 Ml Vial) 1 - 9 unit SUBQ Q6HR [facility]; Protocol Last Admin: 05/17/20 13:24 Dose: Not Given Documented by: Lorazepam (Lorazepam 2 Mg/Ml Vial) 2 mg IVP Q1H PRN PRN Reason: Alcohol Withdrawal Last Admin: 05/17/20 04:19 Dose: 2 mg Documented by: Magnesium Citrate (Magnesium Citrate 296 Ml Bottle) 296 ml NG ONCE PRN PRN Reason: Constipation Stop: 05/17/20 16:00 Last Admin: 05/17/20 13:33 Dose: 296 ml Documented by: Methylprednisolone (Methylprednisolone Succinate 40 Mg/Ml Vial) 40 mg IVP TID [facility] Last Admin: 05/17/20 13:31 Dose: 40 mg Documented by: Mineral Oil (Min Oil/Dimethicon/Coconut Oil 92 Gm Tube) 1 applic TOP PRN PRN PRN Reason: Skin Care Last Admin: 05/16/20 17:00 Dose: 1 applic Documented by: Morphine Sulfate (Morphine 2 Mg/Ml Carpuject) 2 mg IVP Q2HR PRN PRN Reason: Pain 8 to 10 Last Admin: 05/17/20 11:30 Dose: 2 mg Documented by: Ondansetron HCl (Ondansetron Odt 4 Mg Tablet) 4 mg TL Q6HR PRN PRN Reason: Nausea / Vomiting Ondansetron HCl (Ondansetron 4 Mg/2 Ml Vial) 4 mg IVP Q6HR PRN PRN Reason: Nausea / Vomiting Pantoprazole Sodium (Pantoprazole 40 Mg Vial) 40 mg IVP QDAC [facility] Last Admin: 05/17/20 06:06 Dose: 40 mg Documented by: Sodium Chloride (Sodium Chloride Flush 0.9% 10 Ml Syringe) 10 ml IVP 0100,0900,1700 [facility] Last Admin: 05/17/20 08:16 Dose: 10 ml Documented by: Sodium Chloride (Sodium Chloride Flush 0.9% 10 Ml Syringe) 10 ml IVP PRN PRN PRN Reason: NEEDED PER PROVIDER ORDERS Last Admin: 05/17/20 04:20 Dose: 10 ml Documented by: Sodium Chloride (Sodium Chloride Flush 0.9% 10 Ml Syringe) 20 ml IVP PRN PRN PRN Reason: After Blood Draw Last Admin: 05/17/20 01:59 Dose: 20 ml Documented by: Sodium Chloride (Sodium Chloride Inhalation 3 Ml Neb) 3 ml INH PRN PRN PRN Reason: RT TREATMENT Gabapentin [Neurontin] 600 mg PO BID 01/30/20 Losartan/Hydrochlorothiazide [Hyzaar 100-25 Tablet] 1 each PO DAILY 04/14/20 Gabapentin [Neurontin] 600 mg PO 1200 05/14/20 Objective - Vital Signs/Intake & Output Reviewed Vital Signs: Yes Vital Signs: Vital Signs Temp Pulse Pulse Resp BP Pulse Ox 05/17/20 14:00 128 H 19 157/75 H 95 05/17/20 13:00 124 H 16 126/60 97 05/17/20 12:00 36.6 C 107 H 16 158/88 H 98 05/17/20 11:00 100 101 H 16 141/82 H 98 Intake & Output: Intake & Output 05/14/20 05/15/20 05/16/20 05/17/20 23:59 23:59 23:59 23:59 Intake Total 5164.013 3700.867 2465.200 761 Output Total 3965 2975 1916 1150 Balance 1199.013 725.867 549.200 -389 - Objective General Appearance: positive: Other (Intubated, ET tube in place. Versed on board. Comfortable, the only time she reacts, unfortunately, is when my cold hands are doing a belly exam on her. She also grimaces and frowns when nursing does oral care.) Eyes Bilateral: positive: PERRL ENT: positive: No signs of dehydration Neck: positive: No JVD. negative: Stiff neck Respiratory: positive: Rhonchi (Course. Copious clear secretions being sucked out.). negative: Breath sounds nml, Wheezes, Rales Cardiovascular: positive: Regular rate & rhythm. negative: Tachycardia, Systolic murmur, Gallop/S4 Abdomen: positive: No distention, Other (Hypoactive bowel sounds. I really only heard 1 or 2). negative: Guarding, Rebound Skin: positive: Warm, Dry, Pallor Extremities: positive: Non-tender, No pedal edema, Other (For intubation and restraints this woman is moving all extremities spontaneously) Neurologic/Psychiatric: positive: Other (Responsive to pain and occasionally flutters her eyelids it voice. Nonverbal. Moving all extremities.) - Lab Results Fish Bones: 05/17/20 05:00 05/17/20 14:05 Other Labs: Lab Results x24hrs 05/17/20 05/17/20 05/17/20 Range/Units 14:05 12:19 12:19 WBC (4.8-10.8) x10^3/uL RBC (4.20-5.40) 10^6/uL Hgb (12.0-16.0) g/dL Hct (37.0-47.0) % MCV (81.0-99.0) fL MCH (27.0-31.0) pg MCHC (32.0-36.0) g/dL RDW (12.0-15.0) % Plt Count (130-450) 10^3/uL MPV (7.9-10.8) fL Neut # (Auto) (1.5-6.6) 10^3/uL Lymph # (Auto) (1.5-3.5) 10^3/uL Mcdowell # (Auto) (0.0-1.0) 10^3/uL Eos # (Auto) (0.0-0.7) 10^3/uL Baso # (Auto) (0.0-0.1) 10^3/uL Absolute Nucleated RBC x10^3/uL Nucleated RBC % /100WBC PT (9.9-12.6) secs INR (0.8-1.2) Bld Gas Analysis Time Sample Site ABG pH (7.35-7.45) ABG pCO2 (34-45) mmHg ABG pO2 (80-100) mmHg ABG HCO3 (22.0-26.0) mmol/L ABG Total CO2 (21.0-29.0) MMOL/L ABG O2 Saturation (94-98) % ABG Base Excess (-2.0-3.0) mmol/L Joaquin Test VBG pH (7.31-7.41) Ionized Calcium (1.15-1.33) mmol/L Respiration Rate b/min O2 Delivery Device O2 Liters/Min LPM Vent Mode FiO2 Tidal Volume mL PEEP cmH2O Sodium 142 142 (135-145) mmol/L Potassium 4.2 4.5 (3.5-5.0) mmol/L Chloride 110 108 (101-111) mmol/L Carbon Dioxide 22 20 L (21-32) mmol/L Anion Gap 10.0 14.0 H (6-13) BUN 31 H 30 H (6-20) mg/dL Creatinine 1.1 H 1.0 (0.4-1.0) mg/dL Estimated GFR (MDRD) 51 L 57 L (>89) Glucose 791 H* 801 H* 801 H* (70-100) mg/dL Estimat Average Glucose (70-100) mg/dL Hemoglobin A1c % (4.27-6.07) % Calcium 8.2 L 8.1 L (8.5-10.3) mg/dL Phosphorus (2.5-4.6) mg/dL Magnesium 2.4 2.0 (1.7-2.8) mg/dL Total Bilirubin (0.2-1.0) mg/dL AST (10-42) IU/L ALT (10-60) IU/L Alkaline Phosphatase (42-121) IU/L Total Protein (6.7-8.2) g/dL Albumin (3.2-5.5) g/dL Globulin (2.1-4.2) g/dL Albumin/Globulin Ratio (1.0-2.2) Prealbumin (18-45) mg/dL Triglycerides ( - 149) mg/dL Serum Ketones SMALL H (NEGATIVE) 05/17/20 05/17/20 05/17/20 Range/Units 10:10 08:11 05:15 WBC (4.8-10.8) x10^3/uL RBC (4.20-5.40) 10^6/uL Hgb (12.0-16.0) g/dL Hct (37.0-47.0) % MCV (81.0-99.0) fL MCH (27.0-31.0) pg MCHC (32.0-36.0) g/dL RDW (12.0-15.0) % Plt Count (130-450) 10^3/uL MPV (7.9-10.8) fL Neut # (Auto) (1.5-6.6) 10^3/uL Lymph # (Auto) (1.5-3.5) 10^3/uL Mcdowell # (Auto) (0.0-1.0) 10^3/uL Eos # (Auto) (0.0-0.7) 10^3/uL Baso # (Auto) (0.0-0.1) 10^3/uL Absolute Nucleated RBC x10^3/uL Nucleated RBC % /100WBC PT (9.9-12.6) secs INR (0.8-1.2) Bld Gas Analysis Time 1010 0811 Sample Site LEFT BRACHIAL RIGHT RADIAL ABG pH 7.44 7.27 L (7.35-7.45) ABG pCO2 31 L 45 (34-45) mmHg ABG pO2 80 60 L (80-100) mmHg ABG HCO3 20.4 L 20.2 L (22.0-26.0) mmol/L ABG Total CO2 21.4 21.5 (21.0-29.0) MMOL/L ABG O2 Saturation 96 89 L (94-98) % ABG Base Excess -3.1 L -6.4 L (-2.0-3.0) mmol/L Joaquin Test POSITIVE POSITIVE VBG pH (7.31-7.41) Ionized Calcium (1.15-1.33) mmol/L Respiration Rate 22 b/min O2 Delivery Device VENTILATOR NASAL CANNULA O2 Liters/Min 5.00 LPM Vent Mode ASSIST/CONTROL FiO2 65.00 Tidal Volume 400 mL PEEP 5 cmH2O Sodium 140 (135-145) mmol/L Potassium 4.9 (3.5-5.0) mmol/L Chloride 105 (101-111) mmol/L Carbon Dioxide 23 (21-32) mmol/L Anion Gap 12.0 (6-13) BUN 25 H (6-20) mg/dL Creatinine 1.0 (0.4-1.0) mg/dL Estimated GFR (MDRD) 57 L (>89) Glucose 613 H* (70-100) mg/dL Estimat Average Glucose (70-100) mg/dL Hemoglobin A1c % (4.27-6.07) % Calcium 8.1 L (8.5-10.3) mg/dL Phosphorus 4.5 (2.5-4.6) mg/dL Magnesium 1.6 L (1.7-2.8) mg/dL Total Bilirubin 0.9 (0.2-1.0) mg/dL AST 11 (10-42) IU/L ALT 17 (10-60) IU/L Alkaline Phosphatase 85 (42-121) IU/L Total Protein 5.7 L (6.7-8.2) g/dL Albumin 2.5 L (3.2-5.5) g/dL Globulin 3.2 (2.1-4.2) g/dL Albumin/Globulin Ratio 0.8 L (1.0-2.2) Prealbumin 5 L (18-45) mg/dL Triglycerides 313 H ( - 149) mg/dL Serum Ketones (NEGATIVE) 05/17/20 05/17/20 05/17/20 Range/Units 05:00 05:00 05:00 WBC (4.8-10.8) x10^3/uL RBC (4.20-5.40) 10^6/uL Hgb (12.0-16.0) g/dL Hct (37.0-47.0) % MCV (81.0-99.0) fL MCH (27.0-31.0) pg MCHC (32.0-36.0) g/dL RDW (12.0-15.0) % Plt Count (130-450) 10^3/uL MPV (7.9-10.8) fL Neut # (Auto) (1.5-6.6) 10^3/uL Lymph # (Auto) (1.5-3.5) 10^3/uL Mcdowell # (Auto) (0.0-1.0) 10^3/uL Eos # (Auto) (0.0-0.7) 10^3/uL Baso # (Auto) (0.0-0.1) 10^3/uL Absolute Nucleated RBC x10^3/uL Nucleated RBC % /100WBC PT 16.9 H (9.9-12.6) secs INR 1.6 H (0.8-1.2) Bld Gas Analysis Time Sample Site ABG pH (7.35-7.45) ABG pCO2 (34-45) mmHg ABG pO2 (80-100) mmHg ABG HCO3 (22.0-26.0) mmol/L ABG Total CO2 (21.0-29.0) MMOL/L ABG O2 Saturation (94-98) % ABG Base Excess (-2.0-3.0) mmol/L Joaquin Test VBG pH 7.196 L (7.31-7.41) Ionized Calcium 1.16 (1.15-1.33) mmol/L Respiration Rate b/min O2 Delivery Device O2 Liters/Min LPM Vent Mode FiO2 Tidal Volume mL PEEP cmH2O Sodium (135-145) mmol/L Potassium (3.5-5.0) mmol/L Chloride (101-111) mmol/L Carbon Dioxide (21-32) mmol/L Anion Gap (6-13) BUN (6-20) mg/dL Creatinine (0.4-1.0) mg/dL Estimated GFR (MDRD) (>89) Glucose (70-100) mg/dL Estimat Average Glucose 131 H (70-100) mg/dL Hemoglobin A1c % 6.2 H (4.27-6.07) % Calcium (8.5-10.3) mg/dL Phosphorus (2.5-4.6) mg/dL Magnesium (1.7-2.8) mg/dL Total Bilirubin (0.2-1.0) mg/dL AST (10-42) IU/L ALT (10-60) IU/L Alkaline Phosphatase (42-121) IU/L Total Protein (6.7-8.2) g/dL Albumin (3.2-5.5) g/dL Globulin (2.1-4.2) g/dL Albumin/Globulin Ratio (1.0-2.2) Prealbumin (18-45) mg/dL Triglycerides ( - 149) mg/dL Serum Ketones (NEGATIVE) 05/17/20 Range/Units 05:00 WBC 18.2 H (4.8-10.8) x10^3/uL RBC 2.71 L (4.20-5.40) 10^6/uL Hgb 9.1 L (12.0-16.0) g/dL Hct 27.4 L (37.0-47.0) % MCV 101.1 H (81.0-99.0) fL MCH 33.6 H (27.0-31.0) pg MCHC 33.2 (32.0-36.0) g/dL RDW 15.9 H (12.0-15.0) % Plt Count 247 (130-450) 10^3/uL MPV 11.9 H (7.9-10.8) fL Neut # (Auto) 15.0 H (1.5-6.6) 10^3/uL Lymph # (Auto) 0.9 L (1.5-3.5) 10^3/uL Mcdowell # (Auto) 0.5 (0.0-1.0) 10^3/uL Eos # (Auto) 0.0 (0.0-0.7) 10^3/uL Baso # (Auto) 0.1 (0.0-0.1) 10^3/uL Absolute Nucleated RBC 0.00 x10^3/uL Nucleated RBC % 0.0 /100WBC PT (9.9-12.6) secs INR (0.8-1.2) Bld Gas Analysis Time Sample Site ABG pH (7.35-7.45) ABG pCO2 (34-45) mmHg ABG pO2 (80-100) mmHg ABG HCO3 (22.0-26.0) mmol/L ABG Total CO2 (21.0-29.0) MMOL/L ABG O2 Saturation (94-98) % ABG Base Excess (-2.0-3.0) mmol/L Joaquin Test VBG pH (7.31-7.41) Ionized Calcium (1.15-1.33) mmol/L Respiration Rate b/min O2 Delivery Device O2 Liters/Min LPM Vent Mode FiO2 Tidal Volume mL PEEP cmH2O Sodium (135-145) mmol/L Potassium (3.5-5.0) mmol/L Chloride (101-111) mmol/L Carbon Dioxide (21-32) mmol/L Anion Gap (6-13) BUN (6-20) mg/dL Creatinine (0.4-1.0) mg/dL Estimated GFR (MDRD) (>89) Glucose (70-100) mg/dL Estimat Average Glucose (70-100) mg/dL Hemoglobin A1c % (4.27-6.07) % Calcium (8.5-10.3) mg/dL Phosphorus (2.5-4.6) mg/dL Magnesium (1.7-2.8) mg/dL Total Bilirubin (0.2-1.0) mg/dL AST (10-42) IU/L ALT (10-60) IU/L Alkaline Phosphatase (42-121) IU/L Total Protein (6.7-8.2) g/dL Albumin (3.2-5.5) g/dL Globulin (2.1-4.2) g/dL Albumin/Globulin Ratio (1.0-2.2) Prealbumin (18-45) mg/dL Triglycerides ( - 149) mg/dL Serum Ketones (NEGATIVE) Sepsis Event Note (H) - Evaluation Current Stage of Sepsis: Resolved Possible source of Sepsis: positive: Unknown - Sepsis Criteria Sepsis Criteria: WBC count greater than 12,000 or less than 4000, BULK SEALER: altered consciousness (unrelated to primary neuro pathology), SBP drop more than 40mHg, MAP less than 65 mmHg Assessment/Plan - Problem List (1) Acute respiratory failure with hypoxia Impression: The only recent changes I have done is stopping her Flagyl and vancomycin. That was on May 15. Between then and now she has continued to steadily deteriorate with respiratory status. Went from RA to 2 liters at midnight 05/15 and today gurgling w changing blood gas. BP has stayed stable and she has not needed the levophed again. Renal function better. I have thought of fluid overload and she was (+) but she had hypotension and wa only 5 liters ahead over 3 days. But I stopped her IV fluids and have been given her only TPN since yesterday. Unfortunately the TPN has resulted in severe hyperglycemia. Overall she is gone into respiratory failure with hypoxia. She is still on antibiotics and I will broaden that spectrum back to vancomycin. Continue to support her with the ventilator until stable on her own. One dose of lasix Review of her KUB from today shows that her small bowel obstruction/ileus is improved. Now it is called "nonspecific bowel gas pattern" as opposed to bowel obstruction. (2) Protein calorie malnutrition Impression: This patient is with severely decreased muscle mass, and extremities are painfully thin in comparison to her distended belly. She was not eating for at least 2 days before admission, and has not eaten for the 4 days she has been here. She is an alcoholic. All of this combines to a clinical picture of malnutrition. TPN started pm 4 and her glucose has gone up to 600 and she was started on lantus and SS insulin last night. This am went up to 800 so I have started an insulin drip. Will reduce the TPN from 15% to 5%. Keep lipids. Avoid propofol with vent sedation. Plan: change TPN as above. Qualifiers: Protein-calorie malnutrition severity: unspecified severity Qualified Code(s): E46 - Unspecified protein-calorie malnutrition (3) Pneumonia Impression: At the time of admission,the differential was wide open as to the cause of her infection. She had sepsis with shock, and that criteria has resolved. +She appeared to have possible pneumonia on CXR with bilateral pulmonary opacities. +Urine was concentrated and turbid but no leukocyte Estrace or nitrites. Many squamous cells so no culture done. +Abdomen CT showed small bowel obstruction but no free air and no thickened bowel zeng. Bladder and gallbladder looked uninfected. +Preliminary echo report is an excellent study. Sinus rhythm. Ejection fraction 65 to 70%. No regional wall motion abnormalities. As compared to prior echo of December 2017 where her ejection fraction was 30 to 35%, she had great improvement. Mildly elevated right heart pressures at 44 mmHg. No significant valvular heart disease. +Follow-up chest x-ray 05/15 continues to show diffuse airspace opacities bilaterally consistent with either CHF, volume overload or an infectious process. Sitting her IVC was flat on admission, we are going with infectious process. +Blood cultures negative +Follow-up KUB May 15 continues to show dilated loops of small bowel and no free air +CXR today shows worsening lung opacities. She is now on Day#5 of admission and she had improved enough to be off levophed by 4/2 am but she has not changed from then to today. WBC slightly higher. continued with tachycardica and tachypnea from yesterday to today. When she was awake 2 days ago, throught process is erratic, delusional, and at times paranoid. By yesterday no longer conversant. Still no fever. I had reduced IVF for replacement of NG tube losses WBC 20.8>> 11.2>>12.5>>18.6>>18.2 The change between yesterday and today with regards to treatment was stopping Flagyl and vancomycin. She is only on cefepime. Broad-spectrum antibiotics with cefepime, Flagyl, vancomycin completed 3 days. Vancomycin was being dosed by pharmacy. Flagyl and vanc dc'd 05/15. Plan: Continue with cefepime for total of 7 days. Today Day #4. At this time is not clear if there is infected urine, or pneumonia or just severe, severe dehydration with small bowel obstruction. She is a full code. Add azithromycin. She does have a hx of smoking, and is wheezing, add steroids for possible COPD exacerbation (4) Acute renal failure due to dehydration from ?no po intake at home for 2 days Conclusion/Plan: Her baseline creatinine in the past has been normal. With her ventral hernia repair with mesh her creatinine was 0.8. That was May 04. Granular casts and Transitional cells present on admit UA I must assume there is an element of ATN due to hypotension at home No obstruction seen on CT of the abdomen Being aggressively hydrated with IV fluids. She is approximately 5373 cc ahead over the last 4 days. Considering her severe dehydration status, it sounds about the fluid that she would need overall so I do not think she is fluid overloaded. Creatinine 7.5>> 6.8>> 4.5>>1.2>>0.7 and since I started TPN >>1.0>>1.1 Plan: I will be changing TPN. Starting insulin drip. Repeat labs daily Avoid nephrotoxic meds Qualifiers: Acute renal failure type: with acute tubular necrosis Qualified Code(s): N17.0 - Acute kidney failure with tubular necrosis (5) Hypokalemia and hypophosphatemia Conclusion/Plan: Initiated ICU protocol for replacement Potassium started out at 2.8 (6) Hypocalcemia Conclusion/Plan: Initiate ICU protocol for replacement (7) Cirrhosis with alcoholism Conclusion/Plan: Electronic medical record notes chronic macrocytic anemia, cirrhotic liver changes. /2 had drop of hgb with Acute anemia, but no blood loss noted. Up until now there have been no esophageal varices, or splenic enlargement.Not sure if she is in alcohol withdrawal or with baseline delusional/paranoid status. Mild agitation. Ativan started last 05/14 in the evening with CIWA protocol. 05/15 was 3rd day of banana bag. Will ticket dispenser changer to IV thiamine IV push and IV folate if possible. 05/15 Hemoglobin had dropped below 7. She was transfused 1 unit. 05/16 she was 9 and today 9 No stool yet for fecal occult blood positive check Ammonia level 40s. No lacutlose for now. (8) S/P ventral herniorrhaphy Conclusion/Plan: Postoperative day 19. Dr. Mackay is aware her patient is her. I do not need a consult but let her know as a courtesy. (9) Partial small bowel obstruction Conclusion/Plan: NG to low intermittent suction Already on empiric antibiotics No flatus or BM so far. followup 05/15 KUB shows persistent dilated loops of small bowel consistent with small bowel obstruction. No free air. Today KUB with nonspecific bowel gas pattern Plan: continue NG suction. Mg citrate since no BM for days now..
[2020-05-17 16:04] LABS: CALCIUM 8.3 mg/dL (8.5-10.3); CREATININE 1.2 mg/dL (0.4-1.0); MAGNESIUM 2.3 mg/dL (1.7-2.8); POTASSIUM 4.5 mmol/L (3.5-5.0)
[2020-05-17] MEDS: PPN (CLINIMIX E 4.25/5) 2,000 ML with MULTIVITAMIN 10 ML, TRACE ELEMENTS 1 ML IV SCH ×3 (19:01)
[2020-05-17] MEDS: FAT EMULSION 20% 250 ML IV SCH (19:04)
[2020-05-17 19:15] LABS: CALCIUM 8.2 mg/dL (8.5-10.3); CREATININE 1.1 mg/dL (0.4-1.0); POTASSIUM 4.4 mmol/L (3.5-5.0)
[2020-05-17 21:57] LABS: CALCIUM 8.6 mg/dL (8.5-10.3); POTASSIUM 4.8 mmol/L (3.5-5.0)
[2020-05-18] MEDS: INSULIN REGULAR HUMAN 300 UNIT/3 ML VIAL SUBQ SCH ×2 (00:43→05:55)
[2020-05-18] MEDS: MORPHINE 2 MG/ML CARPUJECT IVP PRN ×6 (00:47→19:10)
[2020-05-18] MEDS: MIDAZOLAM DRIP 50 MG/100 ML BAG IV SCH ×3 (01:09→20:18)
[2020-05-18] MEDS: SODIUM CHLORIDE FLUSH 0.9% 10 ML SYRINGE IVP SCH ×3 (01:47→17:05)
[2020-05-18] MEDS: CEFEPIME 2 GM in SODIUM CHLORIDE 0.9% MINIBAG 100 ML IV SCH ×2 (03:06→15:46)
[2020-05-18] MEDS ORDERED: POTASSIUM PHOSPHATE 15 MMOL in SODIUM CHLORIDE 0.9% 250 ML IV ONE (03:35)
[2020-05-18] MEDS: LORazepam 2 MG/ML VIAL IVP PRN ×4 (04:20→21:25)
[2020-05-18 05:00] LABS: BASOPHILS % (AUTO) 0.4 %; HCT - HEMATOCRIT 22.3 % (37.0-47.0); HGB - HEMOGLOBIN 7.6 g/dL (12.0-16.0); LYMPHOCYTES % (AUTO) 3.4 %; MEAN CORPUSCULAR HEMOGLOBIN 33.5 pg (27.0-31.0); MEAN CORPUSCULAR HGB CONC 34.1 g/dL (32.0-36.0); MEAN CORPUSCULAR VOLUME 98.2 fL (81.0-99.0); MEAN PLATELET VOLUME 12.4 fL (7.9-10.8); MONOCYTES % (AUTO) 3.8 %; NEUTROPHILS % (AUTO) 87.8 %; PLT - PLATELET COUNT 210 10^3/uL (130-450); RED BLOOD COUNT 2.27 10^6/uL (4.20-5.40); RED CELL DISTRIBUTION WIDTH 15.1 % (12.0-15.0); WHITE BLOOD COUNT 26.8 x10^3/uL (4.8-10.8)
[2020-05-18] MEDS: BUDESONIDE 0.5 MG/2 ML NEB INH SCH ×3 (05:08→18:15)
[2020-05-18 05:13] LABS: CALCIUM 8.4 mg/dL (8.5-10.3); CREATININE 0.9 mg/dL (0.4-1.0); POTASSIUM 5.1 mmol/L (3.5-5.0)
[2020-05-18 05:21] LABS: ABNORMAL LYMPHS % (MANUAL) 0 %; BAND NEUTROPHILS % (MANUAL) 0 %
[2020-05-18 05:35] LABS: LYMPHOCYTES # (MANUAL) 0.8 10^3/uL (1.5-3.5); LYMPHOCYTES % (MANUAL) 3 %; METAMYELOCYTES % (MANUAL) 2 %; MONOCYTES # (MANUAL) 1.3 10^3/uL (0.0-1.0); NEUTROPHILS # (MANUAL) 24.1 10^3/uL (1.5-6.6)
[2020-05-18 05:36] LABS: DIFFERENTIAL COMMENT MANUAL DIFFERENTIAL; PLATELET ESTIMATE, MANUAL NORMAL (130-450,000) (NORMAL); PLATELET MORPHOLOGY NORMAL APPEARANCE (NORMAL); WBC MORPHOLOGY (MULTIPLE) NORMAL APPEARANCE (NORMAL)
[2020-05-18 05:44] LABS: ABG PCO2 35 mmHg (34-45); ABG PH 7.42 (7.35-7.45)
[2020-05-18 05:45] LABS: ABG HCO3 22.1 mmol/L (22.0-26.0); ABG MODE OF VENTILATION ASSIST/CONTROL; ABG OXYGEN SATURATION 99 % (94-98); ABG PO2 140 mmHg (80-100); ABG RESPIRATORY RATE 16 b/min; ABG TCO2 23.2 MMOL/L (21.0-29.0); ALLEN TEST POSITIVE
[2020-05-18] MEDS: methylPREDNISolone SUCCINATE 40 MG/ML VIAL IVP SCH ×3 (06:07→22:17)
[2020-05-18] MEDS: PANTOPRAZOLE 40 MG VIAL IVP SCH (06:07)
[2020-05-18] MEDS: SODIUM CHLORIDE FLUSH 0.9% 10 ML SYRINGE IVP PRN ×2 (06:07)
[2020-05-18] MEDS: IPRATROPIUM/ALBUTEROL 3 ML NEB INH PRN ×3 (07:09→18:15)
--- NOTE | 2020-05-18 07:53 | PROVIDER PROGRESS NOTE ---
Subjective - Prog Note Date Prog Note Date: 05/18/20 Prog Note Time: 07:50 - Subjective Subjective: With the start of TPN, her glucose peaked at almost 900. She was started on insulin drip. As such we changed her TPN from D50 into D5. This morning gluc ose down to 126. But sodium is climbing up. Yesterday she was 146, today 147. White cell count is climbing up. She was admitted at 20.8. She was started on broad-spectrum empiric antibiotics and went down to 11.2. Once I started de- escalating antibiotics her white cell climbed up to 18.6 the next day, then 18.2 yesterday and this morning she is 26.8. I also think she started deteriorating from a respiratory status around the same time ID escalated antibiotics. Overall her KUB has showed resolution of the small bowel dilated loops. Yesterday it was nonspecific bowel gas patterns. She is not had a bowel movement since May 11 in spite of the magnesium citrate I gave her. As such I resumed her broad-spectrum cefepime, vancomycin, Flagyl this morning and am stopping her azithromycin. Current Medications - Current Medications Current Medications: Active Medications Albuterol (Albuterol Neb 2.5 Mg/3 Ml) 2.5 mg INH RTQ4H PRN PRN Reason: Wheezing Albuterol/Ipratropium (Ipratropium/Albuterol 3 Ml Neb) 3 ml INH RTQID PRN PRN Reason: Shortness of Air/Wheezing Last Admin: 05/18/20 07:09 Dose: 3 ml Documented by: Budesonide (Budesonide 0.5 Mg/2 Ml Neb) 0.5 mg INH RTBID [facility] Last Admin: 05/18/20 07:09 Dose: 0.5 mg Documented by: Chlorhexidine Gluconate (Chlorhexidine Gluconate 15 Ml Udc) 15 ml PO BID [facility] Last Admin: 05/17/20 21:08 Dose: 15 ml Documented by: Heparin Sodium (Porcine) (Heparin 5,000 Unit/Ml Vial) 5,000 unit SUBQ BID [facility] Last Admin: 05/17/20 21:08 Dose: 5,000 unit Documented by: Sodium Chloride (Normal Saline 0.9%) 500 mls @ 20 mls/hr IV Q24H PRN PRN Reason: TKO RATE Acetaminophen (Ofirmev) 100 mls @ 400 mls/hr IV Q6HR PRN PRN Reason: Pain or Fever > 38C (100.4F) Cefepime HCl 2 gm/ Sodium (Chloride) 100 mls @ 200 mls/hr IV Q12H [facility] Last Infusion: 05/18/20 04:24 Dose: Infused Documented by: Fat Emulsion Intravenous (Intralipid 20%) 250 mls @ 21 mls/hr IV Q24H [facility] Last Infusion: 05/18/20 06:29 Dose: Infused Documented by: Thiamine HCl 100 mg/ Sodium (Chloride) 51 mls @ 100 mls/hr IV DAILY [facility] Last Infusion: 05/17/20 09:00 Dose: Infused Documented by: Midazolam HCl (Versed Drip) 50 mg in 100 mls @ 5.08 mls/hr IV .[id number] [facility]; Protocol Last Titration: 05/18/20 04:24 Dose: 0.09 mg/kg/hr, 11.43 mls/hr Documented by: Sodium Chloride (Normal Saline 0.9%) 1,000 mls @ 125 mls/hr IV .Q8H [facility] Last Admin: 05/17/20 22:16 Dose: 125 mls/hr Documented by: Insulin Human Regular 100 unit (/ Sodium Chloride) 100 mls @ 6 mls/hr IV .[id number] [facility]; Protocol Last Titration: 05/18/20 06:51 Dose: 4 unit/hr, 4 mls/hr Documented by: Multivitamins 10 ml/ TRACE ELEMENTS 1 ml/ Amino Acids/Electrolytes/Dextrose 2,011 mls @ 83 mls/hr IV Q24H [facility]; Protocol Last Admin: 05/17/20 19:01 Dose: 83 mls/hr Documented by: Metronidazole (Flagyl 500 Mg/100 Ml) 500 mg in 100 mls @ 100 mls/hr IV Q8H [facility] Dextrose (D5w) 1,000 mls @ 83.333 mls/hr IV .Q12H [facility] Vancomycin HCl 1.75 gm/ Sodium (Chloride) 500 mls @ 250 mls/hr IV ONCE ONE Stop: 05/18/20 09:59 Lorazepam (Lorazepam 2 Mg/Ml Vial) 2 mg IVP Q1H PRN PRN Reason: Alcohol Withdrawal Last Admin: 05/18/20 04:20 Dose: 2 mg Documented by: Methylprednisolone (Methylprednisolone Succinate 40 Mg/Ml Vial) 40 mg IVP TID [facility] Last Admin: 05/18/20 06:07 Dose: 40 mg Documented by: Mineral Oil (Min Oil/Dimethicon/Coconut Oil 92 Gm Tube) 1 applic TOP PRN PRN PRN Reason: Skin Care Last Admin: 05/16/20 17:00 Dose: 1 applic Documented by: Morphine Sulfate (Morphine 2 Mg/Ml Carpuject) 2 mg IVP Q2HR PRN PRN Reason: Pain 8 to 10 Last Admin: 05/18/20 06:07 Dose: 2 mg Documented by: Ondansetron HCl (Ondansetron Odt 4 Mg Tablet) 4 mg TL Q6HR PRN PRN Reason: Nausea / Vomiting Ondansetron HCl (Ondansetron 4 Mg/2 Ml Vial) 4 mg IVP Q6HR PRN PRN Reason: Nausea / Vomiting Pantoprazole Sodium (Pantoprazole 40 Mg Vial) 40 mg IVP QDAC [facility] Last Admin: 05/18/20 06:07 Dose: 40 mg Documented by: Sodium Chloride (Sodium Chloride Flush 0.9% 10 Ml Syringe) 10 ml IVP 0100,0900,1700 [facility] Last Admin: 05/18/20 01:47 Dose: 10 ml Documented by: Sodium Chloride (Sodium Chloride Flush 0.9% 10 Ml Syringe) 10 ml IVP PRN PRN PRN Reason: NEEDED PER PROVIDER ORDERS Last Admin: 05/18/20 06:07 Dose: 10 ml Documented by: Sodium Chloride (Sodium Chloride Flush 0.9% 10 Ml Syringe) 20 ml IVP PRN PRN PRN Reason: After Blood Draw Last Admin: 05/18/20 06:07 Dose: 20 ml Documented by: Sodium Chloride (Sodium Chloride Inhalation 3 Ml Neb) 3 ml INH PRN PRN PRN Reason: RT TREATMENT Vancomycin HCl (Vancomycin: Pharmacy To Dose) 1 each MC ONCE PRN PRN Reason: PER PHARMACY Gabapentin [Neurontin] 600 mg PO BID 01/30/20 Losartan/Hydrochlorothiazide [Hyzaar 100-25 Tablet] 1 each PO DAILY 04/14/20 Gabapentin [Neurontin] 600 mg PO 1200 05/14/20 Objective - Vital Signs/Intake & Output Reviewed Vital Signs: Yes Vital Signs: Vital Signs x48h Temp Pulse Pulse Resp BP Pulse Ox 05/18/20 07:10 84 18 05/18/20 07:00 90 19 113/68 98 05/18/20 06:00 93 18 117/74 97 05/18/20 05:09 93 05/18/20 05:00 94 17 119/74 99 05/18/20 04:26 99 17 124/72 98 05/18/20 03:00 37.2 C 92 18 116/68 99 05/18/20 02:11 91 05/18/20 02:00 95 20 136/74 H 99 05/18/20 01:00 94 20 119/69 99 05/18/20 00:12 95 05/18/20 00:00 119 H 22 139/79 H 98 Intake & Output: Intake & Output 05/15/20 05/16/20 05/17/20 05/18/20 23:59 23:59 23:59 23:59 Intake Total 3700.867 2465.200 4167.341 672.312 Output Total 2975 1916 1780 575 Balance 725.867 287.121 6047.341 97.312 - Lab Results Fish Bones: 05/18/20 04:50 05/18/20 04:50 Other Labs: Lab Results x24hrs 05/18/20 05/18/20 05/18/20 Range/Units 05:33 04:50 04:50 WBC 26.8 H (4.8-10.8) x10^3/uL RBC 2.27 L (4.20-5.40) 10^6/uL Hgb 7.6 L (12.0-16.0) g/dL Hct 22.3 L (37.0-47.0) % MCV 98.2 (81.0-99.0) fL MCH 33.5 H (27.0-31.0) pg MCHC 34.1 (32.0-36.0) g/dL RDW 15.1 H (12.0-15.0) % Plt Count 210 (130-450) 10^3/uL MPV 12.4 H (7.9-10.8) fL Neut # (Auto) Not Reportable Lymph # (Auto) Not Reportable Cottle # (Auto) Not Reportable Eos # (Auto) Not Reportable Baso # (Auto) Not Reportable Absolute Nucleated RBC Not Reportable Total Counted 100 Band Neuts % (Manual) 0 (0 - 10) % Abnorm Lymph % (Manual) 0 % Metamyelocytes % 2 H ( - 0) % Nucleated RBC % Not Reportable Neutrophils # (Manual) 24.1 H (1.5-6.6) 10^3/uL Lymphocytes # (Manual) 0.8 L (1.5-3.5) 10^3/uL Monocytes # (Manual) 1.3 H (0.0-1.0) 10^3/uL Eosinophils # (Manual) 0.0 (0-0.7) 10^3/uL Basophils # (Manual) 0.0 (0-0.1) 10^3/uL Differential Comment MANUAL DIFFERENTIAL WBC Morphology NORMAL APPEARANCE (NORMAL) Platelet Estimate NORMAL (130-450,000) (NORMAL) Platelet Morphology NORMAL APPEARANCE (NORMAL) RBC Morph Micro Appear 1+ HYPOCHROMASIA (NORMAL) Bld Gas Analysis Time 0542 Sample Site LEFT RADIAL ABG pH 7.42 (7.35-7.45) ABG pCO2 35 (34-45) mmHg ABG pO2 140 H (80-100) mmHg ABG HCO3 22.1 (22.0-26.0) mmol/L ABG Total CO2 23.2 (21.0-29.0) MMOL/L ABG O2 Saturation 99 H (94-98) % ABG Base Excess -2.0 (-2.0-3.0) mmol/L Joaquin Test POSITIVE Respiration Rate 16 b/min O2 Delivery Device VENTILATOR O2 Liters/Min LPM Vent Mode ASSIST/CONTROL FiO2 65.00 Tidal Volume 400 mL PEEP 5 cmH2O Sodium 147 H (135-145) mmol/L Potassium 5.1 H (3.5-5.0) mmol/L Chloride 116 H (101-111) mmol/L Carbon Dioxide 24 (21-32) mmol/L Anion Gap 7.0 (6-13) BUN 35 H (6-20) mg/dL Creatinine 0.9 (0.4-1.0) mg/dL Estimated GFR (MDRD) 65 L (>89) Glucose 126 H (70-100) mg/dL Estimat Average Glucose (70-100) mg/dL Hemoglobin A1c % (4.27-6.07) % Calcium 8.4 L (8.5-10.3) mg/dL Phosphorus (2.5-4.6) mg/dL Magnesium (1.7-2.8) mg/dL Serum Ketones (NEGATIVE) 05/17/20 05/17/20 05/17/20 Range/Units 21:20 21:20 18:50 WBC (4.8-10.8) x10^3/uL RBC (4.20-5.40) 10^6/uL Hgb (12.0-16.0) g/dL Hct (37.0-47.0) % MCV (81.0-99.0) fL MCH (27.0-31.0) pg MCHC (32.0-36.0) g/dL RDW (12.0-15.0) % Plt Count (130-450) 10^3/uL MPV (7.9-10.8) fL Neut # (Auto) Lymph # (Auto) Cottle # (Auto) Eos # (Auto) Baso # (Auto) Absolute Nucleated RBC Total Counted Band Neuts % (Manual) (0 - 10) % Abnorm Lymph % (Manual) % Metamyelocytes % ( - 0) % Nucleated RBC % Neutrophils # (Manual) (1.5-6.6) 10^3/uL Lymphocytes # (Manual) (1.5-3.5) 10^3/uL Monocytes # (Manual) (0.0-1.0) 10^3/uL Eosinophils # (Manual) (0-0.7) 10^3/uL Basophils # (Manual) (0-0.1) 10^3/uL Differential Comment WBC Morphology (NORMAL) Platelet Estimate (NORMAL) Platelet Morphology (NORMAL) RBC Morph Micro Appear (NORMAL) Bld Gas Analysis Time Sample Site ABG pH (7.35-7.45) ABG pCO2 (34-45) mmHg ABG pO2 (80-100) mmHg ABG HCO3 (22.0-26.0) mmol/L ABG Total CO2 (21.0-29.0) MMOL/L ABG O2 Saturation (94-98) % ABG Base Excess (-2.0-3.0) mmol/L Joaquin Test Respiration Rate b/min O2 Delivery Device O2 Liters/Min LPM Vent Mode FiO2 Tidal Volume mL PEEP cmH2O Sodium 146 H (135-145) mmol/L Potassium 4.8 (3.5-5.0) mmol/L Chloride 114 H (101-111) mmol/L Carbon Dioxide 22 (21-32) mmol/L Anion Gap 10.0 (6-13) BUN 32 H (6-20) mg/dL Creatinine 1.0 (0.4-1.0) mg/dL Estimated GFR (MDRD) 57 L (>89) Glucose 352 H (70-100) mg/dL Estimat Average Glucose (70-100) mg/dL Hemoglobin A1c % (4.27-6.07) % Calcium 8.6 (8.5-10.3) mg/dL Phosphorus 2.0 L (2.5-4.6) mg/dL Magnesium 2.5 (1.7-2.8) mg/dL Serum Ketones (NEGATIVE) 05/17/20 05/17/20 05/17/20 Range/Units 18:50 17:37 16:30 WBC (4.8-10.8) x10^3/uL RBC (4.20-5.40) 10^6/uL Hgb (12.0-16.0) g/dL Hct (37.0-47.0) % MCV (81.0-99.0) fL MCH (27.0-31.0) pg MCHC (32.0-36.0) g/dL RDW (12.0-15.0) % Plt Count (130-450) 10^3/uL MPV (7.9-10.8) fL Neut # (Auto) Lymph # (Auto) Cottle # (Auto) Eos # (Auto) Baso # (Auto) Absolute Nucleated RBC Total Counted Band Neuts % (Manual) (0 - 10) % Abnorm Lymph % (Manual) % Metamyelocytes % ( - 0) % Nucleated RBC % Neutrophils # (Manual) (1.5-6.6) 10^3/uL Lymphocytes # (Manual) (1.5-3.5) 10^3/uL Monocytes # (Manual) (0.0-1.0) 10^3/uL Eosinophils # (Manual) (0-0.7) 10^3/uL Basophils # (Manual) (0-0.1) 10^3/uL Differential Comment WBC Morphology (NORMAL) Platelet Estimate (NORMAL) Platelet Morphology (NORMAL) RBC Morph Micro Appear (NORMAL) Bld Gas Analysis Time Sample Site ABG pH (7.35-7.45) ABG pCO2 (34-45) mmHg ABG pO2 (80-100) mmHg ABG HCO3 (22.0-26.0) mmol/L ABG Total CO2 (21.0-29.0) MMOL/L ABG O2 Saturation (94-98) % ABG Base Excess (-2.0-3.0) mmol/L Joaquin Test Respiration Rate b/min O2 Delivery Device O2 Liters/Min LPM Vent Mode FiO2 Tidal Volume mL PEEP cmH2O Sodium 143 (135-145) mmol/L Potassium 4.4 (3.5-5.0) mmol/L Chloride 111 (101-111) mmol/L Carbon Dioxide 23 (21-32) mmol/L Anion Gap 9.0 (6-13) BUN 32 H (6-20) mg/dL Creatinine 1.1 H (0.4-1.0) mg/dL Estimated GFR (MDRD) 51 L (>89) Glucose 514 H* 590 H* 694 H* (70-100) mg/dL Estimat Average Glucose (70-100) mg/dL Hemoglobin A1c % (4.27-6.07) % Calcium 8.2 L (8.5-10.3) mg/dL Phosphorus (2.5-4.6) mg/dL Magnesium (1.7-2.8) mg/dL Serum Ketones (NEGATIVE) 05/17/20 05/17/20 05/17/20 Range/Units 15:30 14:05 12:19 WBC (4.8-10.8) x10^3/uL RBC (4.20-5.40) 10^6/uL Hgb (12.0-16.0) g/dL Hct (37.0-47.0) % MCV (81.0-99.0) fL MCH (27.0-31.0) pg MCHC (32.0-36.0) g/dL RDW (12.0-15.0) % Plt Count (130-450) 10^3/uL MPV (7.9-10.8) fL Neut # (Auto) Lymph # (Auto) Cottle # (Auto) Eos # (Auto) Baso # (Auto) Absolute Nucleated RBC Total Counted Band Neuts % (Manual) (0 - 10) % Abnorm Lymph % (Manual) % Metamyelocytes % ( - 0) % Nucleated RBC % Neutrophils # (Manual) (1.5-6.6) 10^3/uL Lymphocytes # (Manual) (1.5-3.5) 10^3/uL Monocytes # (Manual) (0.0-1.0) 10^3/uL Eosinophils # (Manual) (0-0.7) 10^3/uL Basophils # (Manual) (0-0.1) 10^3/uL Differential Comment WBC Morphology (NORMAL) Platelet Estimate (NORMAL) Platelet Morphology (NORMAL) RBC Morph Micro Appear (NORMAL) Bld Gas Analysis Time Sample Site ABG pH (7.35-7.45) ABG pCO2 (34-45) mmHg ABG pO2 (80-100) mmHg ABG HCO3 (22.0-26.0) mmol/L ABG Total CO2 (21.0-29.0) MMOL/L ABG O2 Saturation (94-98) % ABG Base Excess (-2.0-3.0) mmol/L Joaquin Test Respiration Rate b/min O2 Delivery Device O2 Liters/Min LPM Vent Mode FiO2 Tidal Volume mL PEEP cmH2O Sodium 142 142 142 (135-145) mmol/L Potassium 4.5 4.2 4.5 (3.5-5.0) mmol/L Chloride 109 110 108 (101-111) mmol/L Carbon Dioxide 22 22 20 L (21-32) mmol/L Anion Gap 11.0 10.0 14.0 H (6-13) BUN 31 H 31 H 30 H (6-20) mg/dL Creatinine 1.2 H 1.1 H 1.0 (0.4-1.0) mg/dL Estimated GFR (MDRD) 46 L 51 L 57 L (>89) Glucose 731 H* 791 H* 801 H* (70-100) mg/dL Estimat Average Glucose (70-100) mg/dL Hemoglobin A1c % (4.27-6.07) % Calcium 8.3 L 8.2 L 8.1 L (8.5-10.3) mg/dL Phosphorus (2.5-4.6) mg/dL Magnesium 2.3 2.4 2.0 (1.7-2.8) mg/dL Serum Ketones SMALL H (NEGATIVE) 05/17/20 05/17/20 05/17/20 Range/Units 12:19 10:10 08:11 WBC (4.8-10.8) x10^3/uL RBC (4.20-5.40) 10^6/uL Hgb (12.0-16.0) g/dL Hct (37.0-47.0) % MCV (81.0-99.0) fL MCH (27.0-31.0) pg MCHC (32.0-36.0) g/dL RDW (12.0-15.0) % Plt Count (130-450) 10^3/uL MPV (7.9-10.8) fL Neut # (Auto) Lymph # (Auto) Cottle # (Auto) Eos # (Auto) Baso # (Auto) Absolute Nucleated RBC Total Counted Band Neuts % (Manual) (0 - 10) % Abnorm Lymph % (Manual) % Metamyelocytes % ( - 0) % Nucleated RBC % Neutrophils # (Manual) (1.5-6.6) 10^3/uL Lymphocytes # (Manual) (1.5-3.5) 10^3/uL Monocytes # (Manual) (0.0-1.0) 10^3/uL Eosinophils # (Manual) (0-0.7) 10^3/uL Basophils # (Manual) (0-0.1) 10^3/uL Differential Comment WBC Morphology (NORMAL) Platelet Estimate (NORMAL) Platelet Morphology (NORMAL) RBC Morph Micro Appear (NORMAL) Bld Gas Analysis Time 1010 0811 Sample Site LEFT BRACHIAL RIGHT RADIAL ABG pH 7.44 7.27 L (7.35-7.45) ABG pCO2 31 L 45 (34-45) mmHg ABG pO2 80 60 L (80-100) mmHg ABG HCO3 20.4 L 20.2 L (22.0-26.0) mmol/L ABG Total CO2 21.4 21.5 (21.0-29.0) MMOL/L ABG O2 Saturation 96 89 L (94-98) % ABG Base Excess -3.1 L -6.4 L (-2.0-3.0) mmol/L Joaquin Test POSITIVE POSITIVE Respiration Rate 22 b/min O2 Delivery Device VENTILATOR NASAL CANNULA O2 Liters/Min 5.00 LPM Vent Mode ASSIST/CONTROL FiO2 65.00 Tidal Volume 400 mL PEEP 5 cmH2O Sodium (135-145) mmol/L Potassium (3.5-5.0) mmol/L Chloride (101-111) mmol/L Carbon Dioxide (21-32) mmol/L Anion Gap (6-13) BUN (6-20) mg/dL Creatinine (0.4-1.0) mg/dL Estimated GFR (MDRD) (>89) Glucose 801 H* (70-100) mg/dL Estimat Average Glucose (70-100) mg/dL Hemoglobin A1c % (4.27-6.07) % Calcium (8.5-10.3) mg/dL Phosphorus (2.5-4.6) mg/dL Magnesium (1.7-2.8) mg/dL Serum Ketones (NEGATIVE) 05/17/20 Range/Units 05:00 WBC (4.8-10.8) x10^3/uL RBC (4.20-5.40) 10^6/uL Hgb (12.0-16.0) g/dL Hct (37.0-47.0) % MCV (81.0-99.0) fL MCH (27.0-31.0) pg MCHC (32.0-36.0) g/dL RDW (12.0-15.0) % Plt Count (130-450) 10^3/uL MPV (7.9-10.8) fL Neut # (Auto) Lymph # (Auto) Cottle # (Auto) Eos # (Auto) Baso # (Auto) Absolute Nucleated RBC Total Counted Band Neuts % (Manual) (0 - 10) % Abnorm Lymph % (Manual) % Metamyelocytes % ( - 0) % Nucleated RBC % Neutrophils # (Manual) (1.5-6.6) 10^3/uL Lymphocytes # (Manual) (1.5-3.5) 10^3/uL Monocytes # (Manual) (0.0-1.0) 10^3/uL Eosinophils # (Manual) (0-0.7) 10^3/uL Basophils # (Manual) (0-0.1) 10^3/uL Differential Comment WBC Morphology (NORMAL) Platelet Estimate (NORMAL) Platelet Morphology (NORMAL) RBC Morph Micro Appear (NORMAL) Bld Gas Analysis Time Sample Site ABG pH (7.35-7.45) ABG pCO2 (34-45) mmHg ABG pO2 (80-100) mmHg ABG HCO3 (22.0-26.0) mmol/L ABG Total CO2 (21.0-29.0) MMOL/L ABG O2 Saturation (94-98) % ABG Base Excess (-2.0-3.0) mmol/L Joaquin Test Respiration Rate b/min O2 Delivery Device O2 Liters/Min LPM Vent Mode FiO2 Tidal Volume mL PEEP cmH2O Sodium (135-145) mmol/L Potassium (3.5-5.0) mmol/L Chloride (101-111) mmol/L Carbon Dioxide (21-32) mmol/L Anion Gap (6-13) BUN (6-20) mg/dL Creatinine (0.4-1.0) mg/dL Estimated GFR (MDRD) (>89) Glucose (70-100) mg/dL Estimat Average Glucose 131 H (70-100) mg/dL Hemoglobin A1c % 6.2 H (4.27-6.07) % Calcium (8.5-10.3) mg/dL Phosphorus (2.5-4.6) mg/dL Magnesium (1.7-2.8) mg/dL Serum Ketones (NEGATIVE) Sepsis Event Note (H) - Evaluation Current Stage of Sepsis: Resolved Possible source of Sepsis: positive: Unknown - Sepsis Criteria Sepsis Criteria: WBC count greater than 12,000 or less than 4000, SURGICAL DEVICE SALES REPRESENTATIVE: altered consciousness (unrelated to primary neuro pathology), SBP drop more than 40mHg, MAP less than 65 mmHg Assessment/Plan - Problem List (1) Acute respiratory failure with hypoxia Impression: The only recent changes I have done is stopping her Flagyl and vancomycin. That was on May 15. Between then and now she has continued to steadily deteriorate with respiratory status. Went from RA to 2 liters at midnight /2 and 4/3 gurgling w changing blood gas. BP has stayed stable and she has not needed the levophed again. Renal function better. I have thought of fluid overload and she was (+) but she had hypotension and wa only 5 liters ahead over 3 days. But I stopped her IV fluids and was only giving her TPN since 05/16. Unfortunately the TPN has resulted in severe hyperglycemia. She slid into respiratory failure with hypoxia by 05/17 in spite of reducing her IVF and we intubated. Once that was done she stopped being restless, O2 sats stable on 65% Fi02. Today she is maxed on the versed. Arms shake w intention. pH 7.42, PCO2 35, PO2 140, base excess is improved to -2.0. At peak she was -6.4 before intubation. She is still on assist control, FiO2 65%, tidal volume 400, PEEP of 5. Respiratory rate yesterday was 22 and elevated to 16 and that is what she is on today. Plan: Reduce FiO2 Continue current vent settings other than the FiO2 (2) Protein calorie malnutrition Impression: This patient is with severely decreased muscle mass, and extremities are painf ully thin in comparison to her distended belly. She was not eating for at least 2 days before admission, and has not eaten for the 4 days she has been here. She is an alcoholic. All of this combines to a clinical picture of malnutrition. TPN started pm 05/16 and her glucose went up to 600 On that first night she was started. So Lantus was started in the evening of May 16. Plus sliding scale insulin. By May 17 her glucose peaked to close to 800 so we started her on an insulin drip. In spite of aggressively going up on the drip her glucose still remained quite high. As such I opted to change her TPN from 15% glucose to 5% glucose. Glucose has nicely responded and she is now in the 120s this morning. She is on D5, plus lipids. Avoiding propofol because of the lipids. Plan: Continue TPN for today. We gave her mag citrate yesterday and there is no bowel movement recorded. If she can get a bowel movement, and her belly is soft, she may be able to be started on tube feeds. And then we can stop the TPN. Qualifiers: Protein-calorie malnutrition severity: unspecified severity Qualified Code(s): E46 - Unspecified protein-calorie malnutrition (3) Pneumonia Impression: At the time of admission,the differential was wide open as to the cause of her infection. She had sepsis with shock, and that criteria has resolved. +She appeared to have possible pneumonia on CXR with bilateral pulmonary opacities. +Urine was concentrated and turbid but no leukocyte Estrace or nitrites. Many squamous cells so no culture done. +Abdomen CT showed small bowel obstruction but no free air and no thickened bowel zeng. Bladder and gallbladder looked uninfected. +Preliminary echo report is an excellent study. Sinus rhythm. Ejection fraction 65 to 70%. No regional wall motion abnormalities. As compared to prior echo of December 2017 where her ejection fraction was 30 to 35%, she had great improvement. Mildly elevated right heart pressures at 44 mmHg. No significant valvular heart disease. +Follow-up chest x-ray 05/15 continues to show diffuse airspace opacities bilaterally consistent with either CHF, volume overload or an infectious process. Sitting her IVC was flat on admission, we are going with infectious process. +Blood cultures negative +Follow-up KUB May 15 continues to show dilated loops of small bowel and no free air +CXR May 17 shows worsening lung opacities. She is now on Day#6 of admission and she had improved enough to be off levophed by 4/2 am but she has not changed from then to today. White cell count initially responded and was dropping, and when I deescalated therapy May 15 after 3 days of Flagyl, cefepime, and vancomycin she suddenly but definitely worsened. WBC is 26K today. I had already adjusted her antibiotics by adding azithromycin. In spite of this the patient continues to deteriorate. Today is day 5 of cefepime. Discontinue azithromycin and resume Flagyl and vancomycin. I also added steroids for possible COPD exacerbation in a smoker. (4) Acute renal failure due to dehydration from ?no po intake at home for 2 days Conclusion/Plan: Her baseline creatinine in the past has been normal. With her ventral hernia repair with mesh her creatinine was 0.8. That was May 04. Granular casts and Transitional cells present on admit UA I must assume there is an element of ATN due to hypotension at home No bladder obstruction seen on CT of the abdomen Being aggressively hydrated with IV fluids. She is approximately 5373 cc ahead over the first 4 days of admit days. Considering her severe dehydration admit status, it would be the fluid that she would need overall so I do not think she is fluid overloaded. CXR has continued to worsen. Creatinine 7.5>> 6.8>> 4.5>>1.2>>0.7 and since I started TPN >>1.0>>1.1>>1.2. TPN changed at 7 pm 05/17 and went from D15 to D5>>1.0>>0.9 Due to Na I have increased D5 rate and stopped 0.9 Qualifiers: Acute renal failure type: with acute tubular necrosis Qualified Code(s): N17.0 - Acute kidney failure with tubular necrosis (5) Hypokalemia and hypophosphatemia and now hypernatremia Conclusion/Plan: Initiated ICU protocol for replacement of K and Phos Potassium started out at 2.8 Stop NS that was being used as part of insulin drip protocol and increase D5 today. (6) Hypocalcemia Conclusion/Plan: Initiate ICU protocol for replacement (7) Cirrhosis with alcoholism Conclusion/Plan: Electronic medical record notes chronic macrocytic anemia, cirrhotic liver changes. 05/15 had drop of hgb with Acute anemia, but no blood loss noted. Up until now there have been no esophageal varices, or splenic enlargement.Not sure if she is in alcohol withdrawal or with baseline delusional/paranoid status. Mild agitation. Ativan started last 05/14 in the evening with CIWA protocol. 05/15 was 3rd day of banana bag. Will casino change attendant to IV thiamine IV push and IV folate if possible. 05/15 Hemoglobin had dropped below 7. She was transfused 1 unit. 05/16 and 05/17 she was 9 Today she is 7.6 Platelets have been normal. She did have blood in her mouth yesterday with intubation attributed to biting her tongue. But she has not been vomiting blood. There is no melanotic stool. So I am not seeing any evidence of GI bleed. Plan: Transfuse if she drops below 7 Check for hemolysis with LDH, reticulocyte count, haptoglobin (8) S/P ventral herniorrhaphy Conclusion/Plan: Postoperative day 20. Dr. Mackay is aware her patient is her. I do not need a consult but let her know as a courtesy. (9) Partial small bowel obstruction resolved on plain film 05/17 Conclusion/Plan: NG to low intermittent suction at the beginning with NPO status and emipiric abx. I have been following up with [facility]. As of yesterday it is now nonspecific bowel gas pattern. Belly is still distended and has hypoactive bowel sounds with no bowel movement. Mag citrate given yesterday with no response. Will ask nursing to try her enemas this morning. If we can get her to have a bowel movement, we might be able to change her to tube feeds as opposed to TPN
[2020-05-18] MEDS ORDERED: VANCOMYCIN INJ 1.75 GM in SODIUM CHLORIDE 0.9% 500 ML IV ONE (08:00)
[2020-05-18] MEDS: DEXTROSE 5% 1,000 ML IV SCH ×2 (08:31→20:24)
[2020-05-18] MEDS: THIAMINE INJ 100 MG in SODIUM CHLORIDE 0.9% 50 ML IV SCH (08:32)
[2020-05-18] MEDS: CHLORHEXIDINE GLUCONATE 15 ML UDC PO SCH ×2 (08:47→21:01)
[2020-05-18 08:48] LABS: ABSOLUTE RETICS # AUTO 0.033 10^6/uL (0.020-0.110); RED BLOOD COUNT 2.23 10^6/uL (4.20-5.40); RETICULOCYTE COUNT % (AUTO) 1.47 % (0.5-2.3)
[2020-05-18] MEDS: HEPARIN 5,000 UNIT/ML VIAL SUBQ SCH ×2 (08:50→21:01)
[2020-05-18] MEDS: metroNIDAZOLE 500 MG/100 ML 500 MG/100 ML BAG IV SCH ×2 (09:23→16:29)
[2020-05-18] MEDS ORDERED: MAGNESIUM CITRATE 296 ML BOTTLE PO ONE (10:19)
--- NOTE | 2020-05-18 11:37 | PHARMACY PROGRESS NOTE ---
- Therapy Status Vancomycin regimen day #: 1 Therapy status: Awaiting steady state Basis for treatment: Empirical (Patient improved while on broad spectrum therapy, but has progressively declined since antibiotics were narrowed) Treatment indication: Pneumonia Trough goal: 15-20 Concurrent antibiotics: Cefepime 2 gm IV q12h Flagyl 500 mg IV q8h - TOMY Risk Risk level for Acute Kidney Injury: Moderate Acute Kidney Injury risk factors: Baseline BUN:SCr >20:1, Goal trough >15, Admission to ICU - Monitoring and Recommendation Clinical response to treatment: I&O Previous 24 hours 05/16/20 05/17/20 05/18/20 23:59 23:59 23:59 Intake Total 2465.200 4167.341 1719.487 Output Total 1916 1780 642 Balance 276.545 3637.341 1077.487 Lab Results 05/18/20 05/17/20 05/17/20 04:50 21:20 18:50 BUN 35 H 32 H 32 H Creatinine 0.9 1.0 1.1 H Estimated GFR (MDRD) 65 L 57 L 51 L 05/17/20 05/17/20 05/17/20 15:30 14:05 12:19 BUN 31 H 31 H 30 H Creatinine 1.2 H 1.1 H 1.0 Estimated GFR (MDRD) 46 L 51 L 57 L 05/17/20 05/16/20 05/15/20 05:15 05:00 04:34 BUN 25 H 21 H 38 H Creatinine 1.0 0.7 1.2 H Estimated GFR (MDRD) 57 L 86 L 46 L 05/14/20 05/13/20 05/13/20 05:12 21:15 14:50 BUN 56 H 66 H 62 H Creatinine 4.5 H 6.8 H 7.5 H* Estimated GFR (MDRD) 10 L 6 L 6 L Vancomycin Monitoring 05/15/20 11:07 Random Vancomycin 7.5 Cultures 05/13/20 15:20 Blood Blood Culture - Preliminary 05/13/20 15:20 Blood Blood Culture (PCR) - Final 05/13/20 14:50 Blood Blood Culture - Preliminary NO GROWTH AFTER 2 DAYS Monitoring plan: Daily serum creatinine, Suggest ongoing fluid replacement Next trough due prior to maintenance dose #: 4 Next trough due (date/time): 05/20 at 0830 Pharmacy recommendation: Continue current regime
[2020-05-18] MEDS: INSULIN REGULAR HUMAN 100 UNIT in SODIUM CHLORIDE 0.9% 100ML 99 ML IV SCH (13:22)
[2020-05-18] MEDS ORDERED: IOPAMIDOL-300 100 ML VIAL ONE (17:24)
[2020-05-18] MEDS ORDERED: METOCLOPRAMIDE 10 MG/2 ML VIAL IVP PRN (17:31)
[2020-05-18] MEDS ORDERED: IOPAMIDOL-300 50 ML VIAL ONE (17:42)
[2020-05-18] MEDS: FAT EMULSION 20% 250 ML IV SCH (19:30)
[2020-05-18] MEDS: PPN (CLINIMIX E 4.25/5) 2,000 ML with MULTIVITAMIN 10 ML, TRACE ELEMENTS 1 ML IV SCH ×3 (20:22)
[2020-05-18] MEDS: VANCOMYCIN INJ 0.75 GM in SODIUM CHLORIDE 0.9% 250 ML IV SCH (21:00)
[2020-05-18] MEDS ORDERED: IOPAMIDOL-300 100 ML VIAL IVP ONE (22:27)
[2020-05-18] MEDS ORDERED: IOPAMIDOL-300 50 ML VIAL PO ONE (22:28)
[2020-05-19] MEDS: metroNIDAZOLE 500 MG/100 ML 500 MG/100 ML BAG IV SCH ×2 (00:06→08:00)
[2020-05-19] MEDS: SODIUM CHLORIDE FLUSH 0.9% 10 ML SYRINGE IVP SCH ×2 (00:14→09:05)
[2020-05-19] MEDS ORDERED: SODIUM CHLORIDE 0.9% 500 ML IV PRN (00:20)
[2020-05-19] MEDS ORDERED: SODIUM CHLORIDE 0.9% 500 ML IV ONE (00:20)
[2020-05-19] MEDS: LORazepam 2 MG/ML VIAL IVP PRN ×3 (00:27→05:39)
[2020-05-19] MEDS: MORPHINE 2 MG/ML CARPUJECT IVP PRN ×2 (02:32→08:22)
[2020-05-19] MEDS: CEFEPIME 2 GM in SODIUM CHLORIDE 0.9% MINIBAG 100 ML IV SCH (04:07)
[2020-05-19 05:27] LABS: BASOPHILS % (AUTO) 0.3 %; HCT - HEMATOCRIT 22.2 % (37.0-47.0); HGB - HEMOGLOBIN 7.6 g/dL (12.0-16.0); LYMPHOCYTES % (AUTO) 3.3 %; MEAN CORPUSCULAR HEMOGLOBIN 33.9 pg (27.0-31.0); MEAN CORPUSCULAR HGB CONC 34.2 g/dL (32.0-36.0); MEAN CORPUSCULAR VOLUME 99.1 fL (81.0-99.0); MEAN PLATELET VOLUME 12.5 fL (7.9-10.8); MONOCYTES % (AUTO) 2.9 %; NEUTROPHILS % (AUTO) 91.9 %; PLT - PLATELET COUNT 195 10^3/uL (130-450); RED BLOOD COUNT 2.24 10^6/uL (4.20-5.40); RED CELL DISTRIBUTION WIDTH 14.6 % (12.0-15.0)
[2020-05-19 05:29] LABS: ABNORMAL LYMPHS % (MANUAL) 0 %; BAND NEUTROPHILS % (MANUAL) 0 %
[2020-05-19 05:30] LABS: ABG BASE EXCESS -2.8 mmol/L (-2.0-3.0); ABG PCO2 32 mmHg (34-45); ABG PH 7.43 (7.35-7.45); ABG PO2 106 mmHg (80-100)
[2020-05-19 05:31] LABS: ABG MODE OF VENTILATION ASSIST/CONTROL; ABG OXYGEN SATURATION 98 % (94-98); ABG RESPIRATORY RATE 16 b/min; ALLEN TEST POSITIVE
[2020-05-19] MEDS: SODIUM CHLORIDE FLUSH 0.9% 10 ML SYRINGE IVP PRN ×3 (05:40→10:43)
[2020-05-19 05:41] LABS: ALBUMIN 2.1 g/dL (3.2-5.5); ALBUMIN/GLOBULIN RATIO 0.7 (1.0-2.2); BILIRUBIN,TOTAL 0.5 mg/dL (0.2-1.0); CREATININE 0.8 mg/dL (0.4-1.0); PHOSPHORUS 4.3 mg/dL (2.5-4.6); POTASSIUM 4.7 mmol/L (3.5-5.0)
[2020-05-19 05:44] LABS: LYMPHOCYTES # (MANUAL) 0.5 10^3/uL (1.5-3.5); LYMPHOCYTES % (MANUAL) 2 %; METAMYELOCYTES % (MANUAL) 1 %; MONOCYTES # (MANUAL) 0.5 10^3/uL (0.0-1.0); NEUTROPHILS # (MANUAL) 21.9 10^3/uL (1.5-6.6)
[2020-05-19 05:45] LABS: PLATELET ESTIMATE, MANUAL NORMAL (130-450,000) (NORMAL); PLATELET MORPHOLOGY 1+ GIANT PLATELETS (NORMAL); WBC MORPHOLOGY (MULTIPLE) NORMAL APPEARANCE (NORMAL)
[2020-05-19] MEDS: MIDAZOLAM DRIP 50 MG/100 ML BAG IV SCH ×2 (05:45→14:02)
[2020-05-19] MEDS: methylPREDNISolone SUCCINATE 40 MG/ML VIAL IVP SCH (06:12)
[2020-05-19] MEDS: PANTOPRAZOLE 40 MG VIAL IVP SCH (06:13)
[2020-05-19] MEDS: INSULIN REGULAR HUMAN 100 UNIT in SODIUM CHLORIDE 0.9% 100ML 99 ML IV SCH (06:21)
[2020-05-19] MEDS: DEXTROSE 5% 1,000 ML IV SCH (07:26)
[2020-05-19] MEDS: IPRATROPIUM/ALBUTEROL 3 ML NEB INH PRN (07:30)
[2020-05-19] MEDS: BUDESONIDE 0.5 MG/2 ML NEB INH SCH (07:30)
[2020-05-19] MEDS ORDERED: SODIUM CHLORIDE INHALATION 3 ML NEB ONE (07:51)
--- NOTE | 2020-05-19 07:52 | PROVIDER PROGRESS NOTE ---
Assessment/Plan - Current Meds Current Meds: Current Medications Generic Name Dose Route Start Last Admin Trade Name Freq PRN Reason Stop Dose Admin Albuterol/Ipratropium 3 ml 05/16/20 09:42 05/18/20 18:15 Ipratropium/Albuterol 3 Ml Neb INH 3 ml RTQID PRN Administration Shortness of Air/Wheezing Budesonide 0.5 mg 05/16/20 19:00 05/18/20 18:15 Budesonide 0.5 Mg/2 Ml Neb INH 0.5 mg RTBID NOEL Administration Chlorhexidine Gluconate 15 ml 05/17/20 10:00 05/18/20 21:01 Chlorhexidine Gluconate 15 Ml Udc PO 15 ml BID NOEL Administration Heparin Sodium (Porcine) 5,000 unit 05/13/20 21:00 05/18/20 21:01 Heparin 5,000 Unit/Ml Vial SUBQ 5,000 unit BID NOEL Administration Sodium Chloride 500 mls @ 20 mls/hr 05/13/20 22:05 05/19/20 00:29 Normal Saline 0.9% IV 20 mls/hr Q24H PRN Administration TKO RATE Cefepime HCl 2 gm/ Sodium 100 mls @ 200 mls/hr 05/15/20 16:00 05/19/20 04:42 Chloride IV Infused Q12H NOEL Infusion Fat Emulsion Intravenous 250 mls @ 21 mls/hr 05/16/20 19:00 05/18/20 19:30 Intralipid 20% IV 21 mls/hr Q24H NOEL Administration Thiamine HCl 100 mg/ Sodium 51 mls @ 100 mls/hr 05/17/20 09:00 05/18/20 09:05 Chloride IV Infused DAILY NOEL Infusion Midazolam HCl 50 mg in 100 mls @ 5.08 mls/hr 05/17/20 10:00 05/19/20 05:45 Versed Drip IV 0.1 mg/kg/hr .[id number] NOEL 12.7 mls/hr Administration Protocol 0.04 MG/KG/HR Insulin Human Regular 100 unit 100 mls @ 6 mls/hr 05/17/20 13:00 05/19/20 06:21 / Sodium Chloride IV 3.5 unit/hr .[id number] NOEL 3.5 mls/hr Administration Protocol 6 UNIT/HR Multivitamins 10 ml/ TRACE 2,011 mls @ 83 mls/hr 05/17/20 19:00 05/18/20 20:22 ELEMENTS 1 ml/ Amino Acids/ IV 83 mls/hr Electrolytes/Dextrose Q24H NOEL Administration Protocol Metronidazole 500 mg in 100 mls @ 100 mls/hr 05/18/20 08:00 05/19/20 01:06 Flagyl 500 Mg/100 Ml IV Infused Q8H NOEL Infusion Dextrose 1,000 mls @ 83.333 mls/hr 05/18/20 08:00 05/19/20 07:26 D5w IV 83.333 mls/hr .Q12H NOEL Administration Vancomycin HCl 0.75 gm/ Sodium 250 mls @ 167 mls/hr 05/18/20 21:00 05/18/20 22:53 Chloride IV Infused Q12H NOEL Infusion Lorazepam 2 mg 05/16/20 16:02 05/19/20 05:39 Lorazepam 2 Mg/Ml Vial IVP 2 mg Q1H PRN Administration Alcohol Withdrawal Methylprednisolone 40 mg 05/16/20 16:00 05/19/20 06:12 Methylprednisolone Succinate 40 Mg/Ml Vial IVP 40 mg TID NOEL Administration Mineral Oil 1 applic 05/15/20 16:16 05/16/20 17:00 Min Oil/Dimethicon/Coconut Oil 92 Gm Tube TOP 1 applic PRN PRN Administration Skin Care Morphine Sulfate 2 mg 05/13/20 17:10 05/19/20 02:32 Morphine 2 Mg/Ml Carpuject IVP 2 mg Q2HR PRN Administration Pain 8 to 10 Pantoprazole Sodium 40 mg 05/13/20 18:00 05/19/20 06:13 Pantoprazole 40 Mg Vial IVP 40 mg QDAC NOEL Administration Sodium Chloride 10 ml 05/14/20 01:00 05/19/20 00:14 Sodium Chloride Flush 0.9% 10 Ml Syringe IVP 10 ml 0100,0900,1700 NOEL Administration Sodium Chloride 10 ml 05/13/20 17:10 05/19/20 05:40 Sodium Chloride Flush 0.9% 10 Ml Syringe IVP 10 ml PRN PRN Administration NEEDED PER PROVIDER ORDERS Sodium Chloride 20 ml 05/13/20 22:05 05/19/20 05:40 Sodium Chloride Flush 0.9% 10 Ml Syringe IVP 20 ml PRN PRN Administration After Blood Draw - Lab Result Fish Bone Diagrams: 05/19/20 05:00 05/19/20 05:00 Objective Vital Signs: Vital Signs - 24 hr 05/18/20 05/18/20 05/18/20 08:00 09:00 09:10 Temperature 37.3 C Heart Rate 100 Heart Rate [ 96 92 Monitoring electrodes] Respiratory 19 29 H Rate Blood Pressure 119/71 124/74 [Left Brachial artery] Blood Pressure [Right Brachial artery] O2 Saturation 97 97 05/18/20 05/18/20 05/18/20 10:00 11:00 11:35 Temperature Heart Rate 85 Heart Rate [ 90 85 Monitoring electrodes] Respiratory 17 18 Rate Blood Pressure 122/73 113/69 [Left Brachial artery] Blood Pressure [Right Brachial artery] O2 Saturation 98 96 05/18/20 05/18/20 05/18/20 12:00 13:00 14:00 Temperature 37.2 C Heart Rate 102 H Heart Rate [ 100 84 88 Monitoring electrodes] Respiratory 23 20 17 Rate Blood Pressure 157/99 H 158/89 H 122/69 [Left Brachial artery] Blood Pressure [Right Brachial artery] O2 Saturation 100 98 98 05/18/20 05/18/20 05/18/20 15:00 16:00 16:35 Temperature 36.9 C Heart Rate 88 Heart Rate [ 96 98 Monitoring electrodes] Respiratory 20 19 Rate Blood Pressure 122/69 122/81 H [Left Brachial artery] Blood Pressure [Right Brachial artery] O2 Saturation 96 96 05/18/20 05/18/20 05/18/20 17:00 18:00 18:15 Temperature Heart Rate 84 Heart Rate [ 79 88 Monitoring electrodes] Respiratory 19 18 20 Rate Blood Pressure [Left Brachial artery] Blood Pressure 107/64 129/82 H [Right Brachial artery] O2 Saturation 97 99 05/18/20 05/18/20 05/18/20 18:52 19:50 20:00 Temperature 36.8 C Heart Rate 105 H Heart Rate [ 97 91 Monitoring electrodes] Respiratory 22 17 Rate Blood Pressure [Left Brachial artery] Blood Pressure 138/75 H [Right Brachial artery] O2 Saturation 100 99 05/18/20 05/18/20 05/18/20 21:00 22:00 22:23 Temperature Heart Rate 73 Heart Rate [ 87 79 Monitoring electrodes] Respiratory 17 19 Rate Blood Pressure [Left Brachial artery] Blood Pressure 140/85 H 140/81 H [Right Brachial artery] O2 Saturation 99 99 05/18/20 05/19/20 05/19/20 23:00 00:00 01:00 Temperature 36.6 C Heart Rate Heart Rate [ 73 84 84 Monitoring electrodes] Respiratory 19 16 20 Rate Blood Pressure [Left Brachial artery] Blood Pressure 137/82 H 158/100 H 142/83 H [Right Brachial artery] O2 Saturation 99 100 99 05/19/20 05/19/20 05/19/20 01:09 02:00 02:37 Temperature Heart Rate 83 86 Heart Rate [ 79 Monitoring electrodes] Respiratory 20 Rate Blood Pressure [Left Brachial artery] Blood Pressure 140/82 H [Right Brachial artery] O2 Saturation 98 05/19/20 05/19/20 05/19/20 03:00 04:00 05:00 Temperature 37.0 C Heart Rate Heart Rate [ 87 81 100 Monitoring electrodes] Respiratory 20 18 22 Rate Blood Pressure [Left Brachial artery] Blood Pressure 143/87 H 139/82 H 140/89 H [Right Brachial artery] O2 Saturation 98 98 99 05/19/20 05/19/20 05/19/20 05:47 06:00 07:00 Temperature Heart Rate 92 Heart Rate [ 97 90 Monitoring electrodes] Respiratory 29 H 20 Rate Blood Pressure [Left Brachial artery] Blood Pressure 151/98 H 122/74 [Right Brachial artery] O2 Saturation 99 99 05/19/20 07:32 Temperature Heart Rate 99 Heart Rate [ Monitoring electrodes] Respiratory Rate Blood Pressure [Left Brachial artery] Blood Pressure [Right Brachial artery] O2 Saturation Oxygen O2 Source Mechanical ventilator I&O (Last 24 Hrs): Intake and Output Totals x24h 05/17/20 05/18/20 05/19/20 23:59 23:59 23:59 Intake Total 4167.341 6340.865 1268.849 Output Total 1780 1524 731 Balance 2387.341 4816.865 537.849 - Results Results: Laboratory Results WBC 23.0 x10^3/uL (4.8-10.8) H 05/19/20 05:00 RBC 2.24 10^6/uL (4.20-5.40) L 05/19/20 05:00 Hgb 7.6 g/dL (12.0-16.0) L 05/19/20 05:00 Hct 22.2 % (37.0-47.0) L 05/19/20 05:00 MCV 99.1 fL (81.0-99.0) H 05/19/20 05:00 MCH 33.9 pg (27.0-31.0) H 05/19/20 05:00 MCHC 34.2 g/dL (32.0-36.0) 05/19/20 05:00 RDW 14.6 % (12.0-15.0) 05/19/20 05:00 Plt Count 195 10^3/uL (130-450) 05/19/20 05:00 MPV 12.5 fL (7.9-10.8) H 05/19/20 05:00 Reticulocyte % (Auto) 1.47 % (0.5-2.3) 05/18/20 08:38 Neut # (Auto) Not Reportable 05/19/20 05:00 Lymph # (Auto) Not Reportable 05/19/20 05:00 Alfalfa # (Auto) Not Reportable 05/19/20 05:00 Eos # (Auto) Not Reportable 05/19/20 05:00 Baso # (Auto) Not Reportable 05/19/20 05:00 Absolute Nucleated RBC Not Reportable 05/19/20 05:00 Total Counted 100 05/19/20 05:00 Band Neuts % (Manual) 0 % (0-10) 05/19/20 05:00 Abnorm Lymph % (Manual) 0 % 05/19/20 05:00 Metamyelocytes % 1 % (-0) H 05/19/20 05:00 Myelocytes % 1 % (-0) H 05/15/20 04:34 Nucleated RBC % Not Reportable 05/19/20 05:00 Neutrophils # (Manual) 21.9 10^3/uL (1.5-6.6) H 05/19/20 05:00 Lymphocytes # (Manual) 0.5 10^3/uL (1.5-3.5) L 05/19/20 05:00 Monocytes # (Manual) 0.5 10^3/uL (0.0-1.0) 05/19/20 05:00 Eosinophils # (Manual) 0.0 10^3/uL (0-0.7) 05/19/20 05:00 Basophils # (Manual) 0.0 10^3/uL (0-0.1) 05/19/20 05:00 Differential Comment MANUAL DIFFERENTIAL 05/18/20 04:50 Manual Slide Review Indicated 05/13/20 12:00 WBC Morphology NORMAL APPEARANCE (NORMAL) 05/19/20 05:00 Platelet Estimate NORMAL (130-450,000) (NORMAL) 05/19/20 05:00 Platelet Morphology 1+ GIANT PLATELETS (NORMAL) 05/19/20 05:00 RBC Morph Micro Appear 2+ HYPOCHROMASIA (NORMAL) 1+ ANISOCYTOSIS (NORMAL) 05/19/20 05:00 RBC Morph Micro Appear 2+ HYPOCHROMASIA (NORMAL) 1+ ANISOCYTOSIS (NORMAL) 05/19/20 05:00 Absolute Retic 0.033 10^6/uL (0.020-0.110) 05/18/20 08:38 PT 16.9 secs (9.9-12.6) H 05/17/20 05:00 INR 1.6 (0.8-1.2) H 05/17/20 05:00 Bld Gas Analysis Time 0505/19/20 05:15 Sample Site LEFT RADIAL 05/19/20 05:15 ABG pH 7.43 (7.35-7.45) 05/19/20 05:15 ABG pCO2 32 mmHg (34-45) L 05/19/20 05:15 ABG pO2 106 mmHg (80-100) H 05/19/20 05:15 ABG HCO3 21.0 mmol/L (22.0-26.0) L 05/19/20 05:15 ABG Total CO2 22.0 MMOL/L (21.0-29.0) 05/19/20 05:15 ABG O2 Saturation 98 % (94-98) 05/19/20 05:15 ABG Base Excess -2.8 mmol/L (-2.0-3.0) L 05/19/20 05:15 Joaquin Test POSITIVE 05/19/20 05:15 VBG pH 7.196 (7.31-7.41) L 05/17/20 05:00 Ionized Calcium 1.16 mmol/L (1.15-1.33) 05/17/20 05:00 Respiration Rate 16 b/min 05/19/20 05:15 O2 Delivery Device VENTILATOR 05/19/20 05:15 O2 Liters/Min 5.00 LPM 05/17/20 08:11 Vent Mode ASSIST/CONTROL 05/19/20 05:15 FiO2 55.00 05/19/20 05:15 Tidal Volume 400 mL 05/19/20 05:15 PEEP 5 cmH2O 05/19/20 05:15 Sodium 134 mmol/L (135-145) L 05/19/20 05:00 Potassium 4.7 mmol/L (3.5-5.0) 05/19/20 05:00 Chloride 106 mmol/L (101-111) 05/19/20 05:00 Carbon Dioxide 21 mmol/L (21-32) 05/19/20 05:00 Anion Gap 7.0 (6-13) 05/19/20 05:00 BUN 40 mg/dL (6-20) H 05/19/20 05:00 Creatinine 0.8 mg/dL (0.4-1.0) 05/19/20 05:00 Estimated GFR (MDRD) 74 (>89) L 05/19/20 05:00 Glucose 142 mg/dL (70-100) H 05/19/20 05:00 POC Whole Bld Glucose 139 mg/dL (70 - 100) H 05/19/20 07:02 Estimat Average Glucose 131 mg/dL (70-100) H 05/17/20 05:00 Hemoglobin A1c % 6.2 % (4.27-6.07) H 05/17/20 05:00 Lactic Acid 0.7 mmol/L (0.5-2.2) 05/13/20 14:50 Calcium 8.0 mg/dL (8.5-10.3) L 05/19/20 05:00 Phosphorus 4.3 mg/dL (2.5-4.6) 05/19/20 05:00 Magnesium 2.0 mg/dL (1.7-2.8) 05/19/20 05:00 Total Bilirubin 0.5 mg/dL (0.2-1.0) 05/19/20 05:00 AST 15 IU/L (10-42) 05/19/20 05:00 ALT 11 IU/L (10-60) 05/19/20 05:00 Alkaline Phosphatase 108 IU/L (42-121) 05/19/20 05:00 Ammonia 47.7 umol/L (7-35) H 05/16/20 10:02 Lactate Dehydrogenase 234 IU/L (91-225) H 05/18/20 08:38 Troponin I High Sens 12.8 ng/L (2.3-14.8) 05/13/20 17:30 Total Protein 5.0 g/dL (6.7-8.2) L 05/19/20 05:00 Albumin 2.1 g/dL (3.2-5.5) L 05/19/20 05:00 Globulin 2.9 g/dL (2.1-4.2) 05/19/20 05:00 Albumin/Globulin Ratio 0.7 (1.0-2.2) L 05/19/20 05:00 Prealbumin 13 mg/dL (18-45) L 05/19/20 05:00 Triglycerides 111 mg/dL (-149) 05/19/20 05:00 Lipase 11 U/L (22-51) L 05/13/20 14:50 Urine Color BROWN 05/13/20 12:15 Urine Clarity HAZY (CLEAR) 05/13/20 12:15 Urine pH 5.0 PH (5.0-7.5) 05/13/20 12:15 Ur Specific [place] >=1.030 (1.002-1.030) H 05/13/20 12:15 Urine Protein TRACE mg/dL (NEGATIVE) 05/13/20 12:15 Urine Glucose (UA) NEGATIVE mg/dL (NEGATIVE) 05/13/20 12:15 Urine Ketones TRACE mg/dL (NEGATIVE) 05/13/20 12:15 Urine Occult Blood NEGATIVE (NEGATIVE) 05/13/20 12:15 Urine Nitrite NEGATIVE (NEGATIVE) 05/13/20 12:15 Urine Bilirubin NEGATIVE (NEGATIVE) 05/13/20 12:15 Urine Urobilinogen 0.2 (NORMAL) E.U./dL (NORMAL) 05/13/20 12:15 Ur Leukocyte Esterase NEGATIVE (NEGATIVE) 05/13/20 12:15 Urine RBC 0-5 /HPF (0-5) 05/13/20 12:15 Urine WBC 4-5 /HPF (0-5) 05/13/20 12:15 Ur Epithelial Cells MANY Transitional /HPF (<= Few) H 05/13/20 12:15 Ur Squamous Epith Cells MANY Squamous (<= Few) H 05/13/20 12:15 Amorphous Sediment Marked /LPF 05/13/20 12:15 Urine Bacteria Many /HPF (None Seen) H 05/13/20 12:15 Urine Casts 3-5 Granular Casts /LPF3-5 Hyaline Casts /LPF 05/13/20 12:15 Urine Casts 3-5 Granular Casts /LPF3-5 Hyaline Casts /LPF 05/13/20 12:15 Ur Microscopic Review INDICATED 05/13/20 12:15 Urine Culture Comments NOT INDICATED 05/13/20 12:15 Nasal Adenovirus (PCR) NOT DETECTED 05/13/20 13:41 Nasal B. parapertussis DNA (PCR) NOT DETECTED 05/13/20 13:41 Nasal Coronavir 229E PCR NOT DETECTED 05/13/20 13:41 Nasal Coronavir HKU1 PCR NOT DETECTED 05/13/20 13:41 Nasal Coronavir NL63 PCR NOT DETECTED 05/13/20 13:41 Nasal Coronavir OC43 PCR NOT DETECTED 05/13/20 13:41 Nasal Enterovir/Rhinovir PCR NOT DETECTED 05/13/20 13:41 Nasal Influenza B PCR NOT DETECTED 05/13/20 13:41 Nasal Influenza A PCR NOT DETECTED 05/13/20 13:41 Nasal Parainfluen 1 PCR NOT DETECTED 05/13/20 13:41 Nasal Parainfluen 2 PCR NOT DETECTED 05/13/20 13:41 Nasal Parainfluen 3 PCR NOT DETECTED 05/13/20 13:41 Nasal Parainfluen 4 PCR NOT DETECTED 05/13/20 13:41 Nasal RSV (PCR) NOT DETECTED 05/13/20 13:41 Nasal Screen MRSA (PCR) NEGATIVE (NEGATIVE) 05/13/20 18:30 Nasal B.pertussis DNA PCR NOT DETECTED 05/13/20 13:41 Nasal C.pneumoniae (PCR) NOT DETECTED 05/13/20 13:41 Db Human Metapneumo PCR NOT DETECTED 05/13/20 13:41 Nasal M.pneumoniae (PCR) NOT DETECTED 05/13/20 13:41 Nasal SARS-CoV-2 (PCR) NOT DETECTED 05/13/20 13:41 Last Dose Date NO DATE DOCUMENTED 05/15/20 11:07 Last Dose Time NO TIME DOCUMENTED 05/15/20 11:07 Random Vancomycin 7.5 ug/mL 05/15/20 11:07 Urine Opiates Screen NEGATIVE (NEGATIVE) 05/13/20 12:15 Ur Oxycodone Screen POSITIVE (NEGATIVE) H 05/13/20 12:15 Urine Methadone Screen NEGATIVE (NEGATIVE) 05/13/20 12:15 Ur Propoxyphene Screen NEGATIVE (NEGATIVE) 05/13/20 12:15 Ur Barbiturates Screen NEGATIVE (NEGATIVE) 05/13/20 12:15 Ur Tricyclics Screen NEGATIVE (NEGATIVE) 05/13/20 12:15 Ur Phencyclidine Scrn NEGATIVE (NEGATIVE) 05/13/20 12:15 Ur Amphetamine Screen NEGATIVE (NEGATIVE) 05/13/20 12:15 U Methamphetamines Scrn NEGATIVE (NEGATIVE) 05/13/20 12:15 U Benzodiazepines Scrn NEGATIVE (NEGATIVE) 05/13/20 12:15 Urine Cocaine Screen NEGATIVE (NEGATIVE) 05/13/20 12:15 U Cannabinoids Screen NEGATIVE (NEGATIVE) 05/13/20 12:15 Ethyl Alcohol < 5.0 mg/dL 05/13/20 14:50 Serum Ketones SMALL (NEGATIVE) H 05/17/20 12:19 Blood Type O POSITIVE 05/15/20 07:56 Antibody Screen NEGATIVE 05/15/20 07:56 Crossmatch IS Only See Detail 05/15/20 07:56 - Procedures Procedures: Procedures EXCISION OF SIGMOID COLON, ENDO (01/31/20) SUPPLEMENT ABDOMINAL WALL WITH SYNTH SUB, OPEN APPROACH (05/01/20) TRANSFUSE NONAUT RED BLOOD CELLS IN PERIPH VEIN, PERC (12/11/17) Sepsis Event Note (H) - Evaluation Current Stage of Sepsis: Resolved Possible source of Sepsis: positive: Unknown - Sepsis Criteria Sepsis Criteria: WBC count greater than 12,000 or less than 4000, GU[employer]: altered consciousness (unrelated to primary neuro pathology), SBP drop more than 40mHg, MAP less than 65 mmHg
[2020-05-19] MEDS: THIAMINE INJ 100 MG in SODIUM CHLORIDE 0.9% 50 ML IV SCH ×2 (08:41→11:30)
[2020-05-19] MEDS ORDERED: fentaNYL 2,500 MCG in SODIUM CHLORIDE 0.9% 200 ML IV SCH (09:00)
--- NOTE | 2020-05-19 09:06 | CT Report ---
PROCEDURE: HEAD W/WO INDICATIONS: Loss of consciousness with posturing TECHNIQUE: 4.5 mm thick angled axial sections acquired from the foramen magnum to the vertex before and after th e administration of intravenous contrast. For radiation dose reduction, the following was used: aut omated exposure control, adjustment of mA and/or kV according to patient size. CONTRAST: IV CONTRAST: Isovue 300 ml: 100 PO CONTRAST: Isovue 300 ml50 COMPARISON: Head CT 05/03/2020 FINDINGS: These images demonstrate no acute intracranial hemorrhage, abnormal extra-axial fluid collection, fin dings of mass effect, or midline shift. The ventricular system and basilar cisterns are patent. There is mild global cerebral volume loss and mild chronic microvascular ischemic change. Gomez-white matte r differentiation is maintained, without CT evidence of acute large territory infarct. There is no ab normal intracranial enhancement identified on the postcontrast images. Regional soft tissues are with in normal limits. Osseous structures are intact. The paranasal sinuses and mastoid air cells are pred ominantly clear. No gross orbital abnormality identified. IMPRESSION: No acute intracranial process. No abnormal intracranial enhancement. Mild global cerebral volume loss and mild chronic microvascular ischemic change. If there is clinical concern for acute ischemia, MRI would be recommended. Reviewed by: Dalton Marin MD on 05/19/2020 9:05 AM PDT Approved by: Dalton Marin MD on 05/19/2020 9:05 AM PDT Station ID: [id number]
[2020-05-19] MEDS: CHLORHEXIDINE GLUCONATE 15 ML UDC PO SCH (09:20)
[2020-05-19] MEDS: HEPARIN 5,000 UNIT/ML VIAL SUBQ SCH (09:21)
[2020-05-19] MEDS: VANCOMYCIN INJ 0.75 GM in SODIUM CHLORIDE 0.9% 250 ML IV SCH (09:30)
--- NOTE | 2020-05-19 09:35 | XRAY Report ---
PROCEDURE: Chest 1 View X-Ray INDICATIONS: intubated, aspirated TECHNIQUE: One view of the chest was acquired. COMPARISON: 05/17/2020 FINDINGS: Surgical changes and devices: None ET tube tip is approximately 4.4 cm above the rg. A right int ernal jugular central venous catheter tip is in the region of SVC. NG tube tip is below the left john diaphragm. Post fixation changes are noted in mid to distal left humeral shaft. Lungs and pleura: There is suggestion of partially loculated right-sided pleural effusion with fluid extending to minor fissure. Ill-defined airspace opacities are again seen scattered in bilateral lung mayen more prominent on the right side with suggestion of superimposed pulmonary edema. No gross pn eumothorax. Mediastinum: Mediastinal contours appear normal. Heart size is normal. Bones and chest wall: No suspicious bony lesions. Overlying soft tissues appear unremarkable. IMPRESSION: Persistent bilateral scattered pulmonary opacities suggestive of pulmonary infiltrates. Suggestion of partially loculated right-sided pleural effusion and pulmonary edema. No gross pneumothorax. Reviewed by: Anupam Trejo MD on 05/19/2020 9:33 AM PDT Approved by: Anupam Trejo MD on 05/19/2020 9:33 AM PDT Station ID: [id number]
[2020-05-19] MEDS ORDERED: fentaNYL 2,500 MCG/250 ML 2,500 MCG/250 ML BAG IV SCH (09:55)
--- NOTE | 2020-05-19 10:01 | CT Report ---
PROCEDURE: Abdomen/Pelvis W INDICATIONS: no flatus or BM for days, ileus on KUB CONTRAST: IV CONTRAST: Isovue 300 ml: 100 PO CONTRAST: Isovue 300 ml50 TECHNIQUE: After the administration of oral and intravenous contrast, 5 mm thick sections acquired from the diap hragms to the symphysis. 5 mm thick coronal and sagittal reformats were acquired. For radiation dos e reduction, the following was used: automated exposure control, adjustment of mA and/or kV accordin g to patient size. COMPARISON: CT abdomen and pelvis without contrast dated 05/13/2020, CT abdomen and pelvis with contr ast dated 09/20/2019. FINDINGS: Image quality: Excellent. ABDOMEN: Lung bases: Extensive patchy bibasilar infiltrates, right greater than left. Moderate bilateral pleur al effusions, right greater than left. Compressive bibasilar atelectasis, right greater than left.. Heart size is normal. Solid organs: Liver and spleen are normal in size and enhancement. Gallbladder is nondistended but contains marked wall edema. Biliary system is non dilated. Pancreas enhances normally. Chronic dory cifications of chronic pancreatitis. No adrenal nodules. Kidneys demonstrate normal size and enhance ment, without hydronephrosis. Peritoneum and bowel: There is a small bowel obstruction present at the level of the ileum. There is definitely a transition point. Proximal to the transition point small bowel loops are dilated up to 3 .5 cm. The more distal loops proximal to the obstruction have associated wall thickening, and wall ed alberto. Image 14/14 demonstrates distended loops with wall edema.. There is minimal free fluid. No absce ss cavity. Nodes and vessels: No retroperitoneal or mesenteric adenopathy by size criteria. Aorta and inferior vena cava are normal in size. Miscellaneous: There are multiple small ventral hernias containing fat. There is anterior lower abdom inal and pelvic subcutaneous fluid, possibly related to surgery. Mild anasarca. Central line and NG t ube are in place. PELVIS: Genitourinary: A Mata catheter decompresses the bladder. Miscellaneous: No inguinal hernias or adenopathy. Uterus is surgically absent. Bones: No suspicious bony lesions. No vertebral body compression fractures. IMPRESSION: 1. There is a high-grade small bowel obstruction at the level of the ileum. Findings include distende d small bowel loops with significant wall edema. Cannot exclude close loop obstruction. 2. Development of marked wall edema in the gallbladder. 3. Moderate bilateral pleural effusions, right greater than left. Bibasilar atelectasis, right greate r than left. 4. Diffuse bilateral patchy airspace consolidation, right greater than left. Above discussed with Dr. Marlon Rico, the hospitalist caring for the patient, at the time of dictatio n on 05/19/2020 at 0958 hours. Reviewed by: Yobany Hobbs MD on 05/19/2020 10:00 AM PDT Approved by: Yobany Hobbs MD on 05/19/2020 10:00 AM PDT Station ID: [id number]
[2020-05-19] MEDS ORDERED: FUROSEMIDE 40 MG/4 ML VIAL IVP STA (10:41)
--- NOTE | 2020-05-19 11:15 | DISCHARGE SUMMARY ---
Discharge Summary Admit Date: 05/13/20 Discharge Date: 05/19/20 Discharging Provider: Marlon Dickens Condition at Discharge: Serious Discharge Disposition: 02 Transfer Acute Care Hosp Discharge Facility Name: [facility] - DIAGNOSES Admission Diagnoses: Sepsis with encephalopathy and septic shock Acute renal failure Pneumonia Hypokalemia Hypocalcemia Cirrhosis with alcoholism Status post ventral herniorrhaphy Partial small bowel obstruction Discharge Diagnoses with Status of Each Condition: Sepsis: Likely due to aspiration pneumonia. Cannot rule out cholecystitis. Acute respiratory failure with hypoxia: Intubated and sedated Acute renal failure: Resolved Aspiration pneumonia: On antibiotics Bilateral pleural effusion: Moderate. Lasix given High-grade small bowel obstruction. NG tube in place. 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 She had a 5 x 7 cm defect and outside of that a 12 x 12 cm hernia sac containing small bowel. That was fixed by Jo Ann Durán on May 01. She had an appointment to be seen today and she was a no-show for that appointment. This was for follow-up. Her ex- (she still lives with him) is fishing in [place] and spoke to her on the phone today and noted that she was acting strangely. So he sent her son to go check on her and he found her unc onscious in her home. He called ambulance and ambulance brought her in. Unfortunately there is no family accompanying her. I have made an extensive effort reviewing her office chart. The numbers at her office chart when the patient filled out release of information to her ex- and her best friend Cee Valadez but those numbers are all disconnected. I was able to finally find the number of her "step-mom" Alida Coknlin. [phone]. That is the one that tells me that the patient's ex- is in [place]. Unfortunately her best friend Cee Valadez a month ago. Ms. Conklin says that she is the second or third of the patient's dad. Even though she has no legal connection with the patient the patient always list her as her "stepmom". She describes the patient as someone who likes to "stretch to truth a little bit". She is a chronic problem with opioid addiction and abuse. She also has a problem with vodka. She last saw the patient 2 days ago. The patient had driven to see her to show off her new haircut. After an hour or 2 there the patient started changing her mental status. Ms. Conklin noted that the patient looks startled for a bit and asked her "how did I get here". She did not remember driving to see her stepmother. As the visit progressed the patient started becoming slurred, confused. Paranoid. Started claiming that "the neighbors were trying to poison her". She started not being able to walk a straight line and was falling down. So Mrs. Conklin called the patient's son, Jeff Villa, to come greens picker his mom and take her home. Jeff stated to Mrs. Conklin that he took the patient home and gave her some water to drink and put her to bed. Mrs. Conklin has not seen her since. From what Mrs. Conklin can put together, the next day the dog got out. The dog was hit by a car and taken to the [facility] where the dog was euthanized. Nobody could find Mrs. Villa. They also did not know where the dog was from. Today, Mrs. Villa spoke to her ex- who is in [place]. He noted that she was acting strangely and called her son. Her son called the ambulance. She has been found to be unresponsive hypothermic, hypotensive, with a respiratory rate of 11. Abdomen pelvis CT shows patchy and confluent areas of bilateral pulmonary opacities. Minimal left effusion. Solid organs appear normal. Dilated fluid-filled small bowels with a prominently dilated stomach is present. No free air. No hernias. Her urinary bladder wall thickness is normal. She appears to have a partial small bowel obstruction. Chest x-ray was done twice. 1 before a central line placement in 1 after a central line placement and continues to show patchy infiltration. Toxicology screen is positive for oxycodone but negative for all else. Respiratory panel is negative for Covid and of the respiratory syncytial viruses. Urinalysis is transitional cells, squamous cells, sediment, bacteria, granular casts. Leukocyte negative, nitrite negative. ER physician does not think this is congestive heart failure because her IVC is collapsed. Head CT is done and has no acute intracranial hemorrhage, parenchymal contusion. She is a mild leftward deviation of the anterior midline septum and in the bilateral adjacent nasal bones at the tips po tentially a manifestation of acute trauma versus prior trauma. Dr. Squires has given her vancomycin and cefepime, 2 L of fluid wide open, and started her on norepinephrine after central line was placed. - HOSPITAL COURSE Hospital Course: Patient was admitted to the ICU, started on broad-spectrum antibiotics with cefepime, Flagyl and vancomycin. White blood cell count at admission was 20.8. This improved to 11.2 the following day but then steadily became elevated to 26 on the prior to discharge . He also received continued IV resuscitation. She was initially started on vasopressin which was subsequently discontinued when blood pressure normalized. Her creatinine and GFR improved from 7.5 and 6 respectively on admission down to 0.8 and 74 respectively on the day of transfer. Her renal failure was thought to be due to dehydration and ATN. Patient's clinical status seem to worsen from 05/16/2119/03/21. Overnight of 05/16/20 she became agitated, had increasing respiratory gurgling. She was started on CIWA protocol for alcohol withdrawal which did not seem to make a difference. She required restraints. Her blood gas was checked on 05/17/20 and her pH 7.27, PCO2 45, PO2 60, base excess -3.9 on 5 L of nasal cannula. As a result the patient was intubated. She was placed on a Versed drip. She was on assist control, FiO2 65%, tidal volume 400, PEEP 5 On 05/16/20 the patient was started on TPN due to the fact that she was not eating for at least 2 days prior to admission and 4 days since admission. She had severely decreased muscle mass, her extremities were very thin in comparison to her distended abdomen Patient was on an insulin drip from 05/17-05/19 because blood draws indicated a blood glucose between 500-700. However the site of blood draw was questionable. HgA1C was 6.2. Patient is not on any diabetic medications at home. Insulin drip was discontinued prior to transfer. She had partial small bowel obstruction on KUB done on the day of admission. She had an NG tube placed to low to intermittent suction. Due to no bowel movement or flatus for [address] abdomen/pelvis was done on 05/18/20. Results reported on 05/19/20 morning showed a high-grade small bowel obstruction at the level of the ileum. Small bowel loops with significant wall edema. Cannot exclude closed-loop obstruction. Development of marked wall edema in the gallbladder. Moderate bilateral pleural effusion, right greater than left. B ibasilar atelectasis, right greater than left. Diffuse bilateral patchy airspace consolidation right greater than left. Fluids were discontinued and the patient was given Lasix 40 mg IV x1. The radiologic findings were discussed with the general surgeon on 05/19/20. He advised transfer for higher level of care. Concern was regarding the patient's gallbladder. Given alcoholism and liver cirrhosis, patient may need drainage tubes placed in the gallbladder. Consequently Dr. Anne Carmen the infant toddler lead teacher at [facility] was contacted and she accepted the patient to his service.. The patient was transferred to [facility] where ALS ambulance. - ALLERGIES Allergies/Adverse Reactions: Allergies Allergy/AdvReac Type Severity Reaction Status Date / Time Penicillins Allergy Hives Verified 05/13/20 11:27 - MEDICATIONS Home Medications: Ambulatory Orders Medication Instructions Recorded Confirmed Gabapentin [Neurontin] 600 mg PO BID 01/30/20 05/14/20 Losartan/Hydrochlorothiazide 1 each PO DAILY 04/14/20 05/14/20 [Hyzaar 100-25 Tablet] Ondansetron Odt [Zofran Odt] 4 mg TL Q6HR PRN #10 tablet 05/05/20 05/14/20 Pantoprazole [Protonix] 40 mg PO QDAC #30 tablet 05/05/20 05/14/20 buPROPion [Wellbutrin Xl] 300 mg PO DAILY tablet 05/05/20 05/14/20 methocarbamoL [Methocarbamol] 750 mg PO TID PRN #30 tab 05/05/20 05/14/20 oxyCODONE [Roxicodone] 5 mg PO Q4HR PRN #30 tablet 05/05/20 05/14/20 Gabapentin [Neurontin] 600 mg PO 1200 05/14/20 05/14/20 - PHYSICAL EXAM AT DISCHARGE General Appearance: positive: Other (Sedated and intubated) Eyes Bilateral: positive: PERRL, EOMI, No lid inflammation, No scleral icterus ENT: positive: No signs of dehydration, Other (face and neck appear puffy) Respiratory: positive: Rhonchi (bilaterally) Cardiovascular: positive: No murmur, Tachycardia (sinus) Abdomen: positive: Other (Distended abdomen. Soft, decreased bowel sounds) Back: positive: Nml inspection Skin: positive: Color nml, No rash, Warm, Dry Extremities: positive: Pedal edema (Upper extremities. 2+ pitting) Neurologic/Psychiatric: positive: Other (Sedated and intubated. Occasionally restless) - LABS Result Diagrams: 05/19/20 05:00 05/19/20 05:00 - SEPSIS Current Stage of Sepsis: Sepsis Possible source of Sepsis: Unknown Sepsis Criteria: WBC count greater than 12,000 or less than 4000, [employer]: altered consciousness (unrelated to primary neuro pathology), SBP drop more than 40mHg, MAP less than 65 mmHg - TIME SPENT Time Spent in Discharge (Minutes): 40
--- NOTE | 2020-05-19 11:25 | Discharge Plan ---
Discharge Plan Problem Reviewed?: Yes Disposition: 02 Transfer Acute Care Hosp Condition: Serious Health Concerns: Patient is currently intubated and sedated with midazolam and fentanyl due to acute respiratory failure with hypoxia. This is suspected to be secondary to aspiration pneumonia. She is on vancomycin, cefepime and Flagyl. The patient also has moderate bilateral pleural effusion. IV fluids have been discontinued and Lasix 40 mg IV x1 given The patient also has history of alcohol abuse with cirrhosis. There was concern for alcohol withdrawal. She is on midazolam drip. Due to lack of a bowel movement, flatus and ileus on KUB CT of the abdomen pelvis was done which showed High-grade small bowel obstruction at the level of the ileum. There is distended small bowel loops with significant wall edema. Cannot exclude closed-loop obstruction. Development of marked wall edema in the gallbladder. General surgery was contacted who recommended/advised transfer for higher level of care. The sports complex attendant on-call at [facility] was contacted. She accepted the patient to her service. Plan of Treatment: Patient is currently intubated and sedated with midazolam and fentanyl due to acute respiratory failure with hypoxia. This is suspected to be secondary to aspiration pneumonia. She is on vancomycin, cefepime and Flagyl. The patient also has moderate bilateral pleural effusion. IV fluids have been discontinued and Lasix 40 mg IV x1 given The patient also has history of alcohol abuse with cirrhosis. There was concern for alcohol withdrawal. She is on midazolam drip. Due to lack of a bowel movement, flatus and ileus on KUB CT of the abdomen pelvis was done which showed High-grade small bowel obstruction at the level of the ileum. There is distended small bowel loops with significant wall edema. Cannot exclude closed-loop obstruction. Development of marked wall edema in the gallbladder. General surgery was contacted who recommended/advised transfer for higher level of care. The sports complex attendant on-call at [facility] was contacted. She accepted the patient to her service. Care Goals: Patient is currently intubated and sedated with midazolam and fentanyl due to acute respiratory failure with hypoxia. This is suspected to be secondary to aspiration pneumonia. She is on vancomycin, cefepime and Flagyl. The patient also has moderate bilateral pleural effusion. IV fluids have been discontinued and Lasix 40 mg IV x1 given The patient also has history of alcohol abuse with cirrhosis. There was concern for alcohol withdrawal. She is on midazolam drip. Due to lack of a bowel movement, flatus and ileus on KUB CT of the abdomen pelvis was done which showed High-grade small bowel obstruction at the level of the ileum. There is distended small bowel loops with significant wall edema. Cannot exclude closed-loop obstruction. Development of marked wall edema in the gallbladder. General surgery was contacted who recommended/advised transfer for higher level of care. The sports complex attendant on-call at [facility] was contacted. She accepted the patient to her service. No Smoking: If you smoke, Please STOP! Call for help.
[2020-05-19 14:16] VITALS: BP 126/78
--- OUTSIDE RECORDS SUMMARY | 2020-05-19 23:47 | EXTERNAL MEDICAL SUMMARY RPT | Continuity of Care Document ---
:1965 Demographics Phone Unavailable Preferred Language Unknown Marital Status Unknown Judaism Affiliation Unknown Race Unknown Ethnic Group Unknown Author Organization [facility] Address [address] [place] [address] Phone Problems date description facility [id number] High grade SBO complicated by ETOH [employer] withdrawl Social History date description facility [id number]
--- NOTE | 2020-06-05 09:20 | ED Physician Documentation ---
ED Addendum - Addendum Addendum: I was called from the ED to ICU by Dr. Goodman on the morning of 05/17/20 to assist in pt care by providing endotracheal intubation services, secondary to deterioration in pt's mental status and ability to protect airway. Upon my arrival, pt was mildly agitated, but heavily somnolent and unarousable. O2 saturation [id number] 90's with some moist upper airway sounds on respiratory exam. Moderate tachycardia in 120's, mildly hypertensive. Pt was already somnolent, so no induction agent was given. Succinylcholine 100mg was administered, with good paralysis. Pt was intubated with Barlow #3 blade and 7.5 Fr ET tube, visualized passing through cords, and fixed at a lip line of 23 cm. Good capnometer color change. Equal, full breath sounds bilaterally, with no gastric air sounds. O2 sats 100% following intubation. CXR confirmed good placement. PT given Vecuronium 10mg following intubation. Dr. Goodman to manage sedation and vent settings after initial vent placement. 06/05/20 09:14 06/05/20 09:20
== END 2020-05-19 14:25 | disposition short-term general hospital (02) | DRG 871 ==
LOC: EDUNIT# → ED 11:13 → ICU 17:11
PROVIDERS: ADMIT Specialist; ATTEND Internal Medicine
PROC: 02HV33Z Insertion of Infusion Device into Superior Vena Cava, Percutaneous Approach (ICD-10-PCS; 2020-05-13)
PROC: 30233N1 Transfusion of Nonautologous Red Blood Cells into Peripheral Vein, Percutaneous Approach (ICD-10-PCS; 2020-05-15)
PROC: 3E0436Z Introduction of Nutritional Substance into Central Vein, Percutaneous Approach (ICD-10-PCS; 2020-05-16)
PROC: 0BH17EZ Insertion of Endotracheal Airway into Trachea, Via Natural or Artificial Opening (ICD-10-PCS; principal; 2020-05-17)
PROC: 5A1945Z Respiratory Ventilation, 24-96 Consecutive Hours (ICD-10-PCS; 2020-05-17)
DX: A41.9 Sepsis, unspecified organism (principal); J69.0 Pneumonitis due to inhalation of food and vomit; R65.21 Severe sepsis with septic shock; G93.41 Metabolic encephalopathy; J96.01 Acute respiratory failure with hypoxia; N17.0 Acute kidney failure with tubular necrosis; K56.600 Partial intestinal obstruction, unspecified as to cause; E46 Unspecified protein-calorie malnutrition; J90 Pleural effusion, not elsewhere classified; F10.239 Alcohol dependence with withdrawal, unspecified; E87.2 Acidosis; J98.11 Atelectasis; F11.20 Opioid dependence, uncomplicated; E87.0 Hyperosmolality and hypernatremia; E87.1 Hypo-osmolality and hyponatremia; F17.210 Nicotine dependence, cigarettes, uncomplicated; Z78.1 Physical restraint status; E86.0 Dehydration; F10.229 Alcohol dependence with intoxication, unspecified; K70.31 Alcoholic cirrhosis of liver with ascites; Z98.890 Other specified postprocedural states; D69.6 Thrombocytopenia, unspecified; K82.8 Other specified diseases of gallbladder; Z20.822 Contact with and (suspected) exposure to COVID-19; T68.XXXA Hypothermia, initial encounter; E87.6 Hypokalemia; E83.51 Hypocalcemia; R45.1 Restlessness and agitation; F22 Delusional disorders; E83.39 Other disorders of phosphorus metabolism; D53.9 Nutritional anemia, unspecified; K81.9 Cholecystitis, unspecified; I95.9 Hypotension, unspecified; F32.9 Major depressive disorder, single episode, unspecified; F41.9 Anxiety disorder, unspecified; I10 Essential (primary) hypertension; G89.4 Chronic pain syndrome
CPT/HCPCS: 0202U; 36415; 36600; 70450; 70470; 71045; 74018; 74176; 74177; 80048; 80053; 80202; 80306; 80320; 81001; 81599; 82009; 82040; 82140; 82330; 82803; 82947; 83010; 83036; 83605; 83615; 83690; 83735; 84100; 84132; 84134; 84478; 84484; 85025; 85045; 85610; 86850; 86900; 86901; 86920; 87040; 87150; 93306; 94002; 94003; 94640; A6250; A9270; J0131; J0330; J1815; J2060; J3010; J3370; J3411; J3490; J7040; J7120; J7626; P9016; Q9967; 36556; 51701; 81003; 87086; 87181; 88106; 94770; 99285

== ENCOUNTER 2020-09-12 10:00 | Outpatient (CLI) | payer MEDICAID ==
[2020-09-12 15:02] LABS: BASOPHILS % (AUTO) 0.5 %; EOSINOPHILS % (AUTO) 0.7 %; HCT - HEMATOCRIT 33.1 % (37.0-47.0); HGB - HEMOGLOBIN 10.7 g/dL (12.0-16.0); LYMPHOCYTES # (AUTO) 1.9 10^3/uL (1.5-3.5); LYMPHOCYTES % (AUTO) 31.6 %; MEAN CORPUSCULAR HEMOGLOBIN 34.3 pg (27.0-31.0); MEAN CORPUSCULAR HGB CONC 32.3 g/dL (32.0-36.0); MEAN CORPUSCULAR VOLUME 106.1 fL (81.0-99.0); MEAN PLATELET VOLUME 10.6 fL (7.9-10.8); MONOCYTES # (AUTO) 0.5 10^3/uL (0.0-1.0); MONOCYTES % (AUTO) 8.7 %; NEUTROPHILS # (AUTO) 3.5 10^3/uL (1.5-6.6); NEUTROPHILS % (AUTO) 58.2 %; PLT - PLATELET COUNT 253 10^3/uL (130-450); RED BLOOD COUNT 3.12 10^6/uL (4.20-5.40); RED CELL DISTRIBUTION WIDTH 13.9 % (12.0-15.0)
[2020-09-12 15:08] LABS: ALBUMIN 4.6 g/dL (3.2-5.5); ALBUMIN/GLOBULIN RATIO 1.6 (1.0-2.2); BILIRUBIN,TOTAL 0.9 mg/dL (0.2-1.0); CALCIUM 9.6 mg/dL (8.5-10.3); CREATININE 0.7 mg/dL (0.4-1.0); POTASSIUM 4.9 mmol/L (3.5-5.0); TOTAL PROTEIN 7.5 g/dL (6.7-8.2)
[2020-09-12 15:13] LABS: CREATININE,URINE 79.1 mg/dL; MICROALBUM/CREATININE RATIO,UR 17.7 ug/mg (<30.0); MICROALBUMIN,URINE 1.4 mg/dL (0-300.0)
[2020-09-12 15:26] LABS: THYROID STIMULATING HORMONE 1.32 uIU/mL (0.34-5.60)
[2020-09-12 19:14] LABS: ESTIMATED AVERAGE GLUCOSE 120 mg/dL (70-100); HEMOGLOBIN A1c% 5.8 % (4.27-6.07)
== END 2020-09-12 10:01 | disposition home or self-care (01) ==
LOC: LAB.S 10:00
PROVIDERS: ATTEND Physician Assistant
DX: E11.9 Type 2 diabetes mellitus without complications (principal); N17.9 Acute kidney failure, unspecified; D64.9 Anemia, unspecified; R10.9 Unspecified abdominal pain; K59.00 Constipation, unspecified; G62.9 Polyneuropathy, unspecified; I11.0 Hypertensive heart disease with heart failure; I50.9 Heart failure, unspecified; F41.9 Anxiety disorder, unspecified; F32.9 Major depressive disorder, single episode, unspecified
CPT/HCPCS: 36415; 80053; 82043; 82570; 83036; 84443; 85025

== ENCOUNTER 2020-09-18 12:54 | Outpatient (CLI) | payer MEDICAID ==
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
== END 2020-09-18 12:55 | disposition home or self-care (01) ==
LOC: DI.S 12:54
PROVIDERS: ATTEND Physician Assistant
DX: M79.622 Pain in left upper arm (principal)

== ENCOUNTER 2020-12-22 08:54 | Outpatient (CLI) | payer MEDICAID ==
--- NOTE | 2020-12-23 09:53 | Mammography Report ---
BILATERAL DIGITAL DIAGNOSTIC MAMMOGRAM 3D/2D: 12/22/2020 CLINICAL: Short term follow up of the left breast, due for bilateral imaging. Comparison is made to exams dated: 11/21/2019 mammogram, 04/16/2019 mammogram, 09/20/2018 ultrasound, 09/18 mammogram, 09/07/2018 mammogram, and 06/21/2017 mammogram - [facility]. The tis keyla of both breasts is heterogeneously dense. This may lower the sensitivity of mammography. There are grouped coarse dystrophic heterogeneous calcifications in the left breast at 1 o'clock midd le depth. These are increased in number of calcifications. There also are benign grouped coarse dystrophic calcifications in the left breast at 8 o'clock anteri or depth. These are increased in number of calcifications. No other significant masses, calcifications, or other findings are seen in either breast. IMPRESSION: BENIGN The grouped coarse dystrophic heterogeneous calcifications in the left breast at 1 o'clock middle dep th resemble a degenerating fibroadenoma and are benign. There is no mammographic evidence of malignancy. A 1 year screening mammogram is recommended. This exam was interpreted at Station ID: [id number]. NOTE: For mammograms, a report in lay terms will be sent to the patient. Approximately 15% of breast malignancies will not be visualized mammographically. In the management of a palpable breast mass, a negative mammogram must not discourage biopsy of a clinically suspicious lesion. Electronically Signed By: Olivier Mc M.D. ddp/:12/22/2020 10:40:12 ACR BI-RADS Category 2: Benign Finding(s) 3342F PARENCHYMAL PATTERN: (D) - The breast(s) demonstrate(s) heterogeneously dense fibroglandular tamie arita. BI-RADS CATEGORY: (2) - 2 RECOMMENDATION: (ANNUAL) - Recommend routine annual screening mammography. 20211223 1 year screening LATERALITY: (B)
== END 2020-12-22 08:55 | disposition home or self-care (01) ==
LOC: DI 08:54
PROVIDERS: ATTEND Internal Medicine
DX: R92.8 Other abnormal and inconclusive findings on diagnostic imaging of breast (principal); R92.1 Mammographic calcification found on diagnostic imaging of breast

== ENCOUNTER 2021-02-26 14:20 | Outpatient (CLI) | payer MEDICAID ==
[2021-02-26 20:44] LABS: BASOPHILS # (AUTO) 0.1 10^3/uL (0.0-0.1); BASOPHILS % (AUTO) 1.1 %; EOSINOPHILS # (AUTO) 0.1 10^3/uL (0.0-0.7); EOSINOPHILS % (AUTO) 1.2 %; HCT - HEMATOCRIT 36.1 % (37.0-47.0); HGB - HEMOGLOBIN 12.3 g/dL (12.0-16.0); LYMPHOCYTES # (AUTO) 0.9 10^3/uL (1.5-3.5); LYMPHOCYTES % (AUTO) 12.2 %; MEAN CORPUSCULAR HEMOGLOBIN 34.7 pg (27.0-31.0); MEAN CORPUSCULAR HGB CONC 34.1 g/dL (32.0-36.0); MEAN PLATELET VOLUME 11.8 fL (7.9-10.8); MONOCYTES # (AUTO) 0.5 10^3/uL (0.0-1.0); MONOCYTES % (AUTO) 6.2 %; NEUTROPHILS # (AUTO) 5.7 10^3/uL (1.5-6.6); NEUTROPHILS % (AUTO) 78.7 %; PLT - PLATELET COUNT 224 10^3/uL (130-450); RED BLOOD COUNT 3.54 10^6/uL (4.20-5.40); RED CELL DISTRIBUTION WIDTH 13.2 % (12.0-15.0); WHITE BLOOD COUNT 7.3 x10^3/uL (4.8-10.8)
[2021-02-26 21:12] LABS: ALBUMIN 4.8 g/dL (3.2-5.5); ALBUMIN/GLOBULIN RATIO 1.4 (1.0-2.2); ALKALINE PHOSPHATASE 93 IU/L (42-121); ALT ALANINE AMINOTRANSFERASE 41 IU/L (10-60); AST ASPARTATE AMINOTRANSFERASE 71 IU/L (10-42); BILIRUBIN,TOTAL 1.5 mg/dL (0.2-1.0); BUN - BLOOD UREA NITROGEN 14 mg/dL (6-20); CALCIUM 10.5 mg/dL (8.5-10.3); CARBON DIOXIDE - CO2 17 mmol/L (21-32); CHLORIDE 93 mmol/L (101-111); CHOL/HDL RATIO 1.7 (<4.4); CHOLESTEROL 231 mg/dL; CREATININE 0.9 mg/dL (0.4-1.0); GFR - MDRD 65 (>89); GLUCOSE 102 mg/dL (70-100); HDL CHOLESTEROL 138 mg/dL; LDL CHOLESTEROL,CALCULATED 82 mg/dL; LDL/HDL RATIO 0.6 (<4.4); POTASSIUM 4.4 mmol/L (3.5-5.0); SODIUM 137 mmol/L (135-145); TOTAL PROTEIN 8.3 g/dL (6.7-8.2); TRIGLYCERIDES 56 mg/dL; VLDL CHOLESTEROL 11 mg/dL
[2021-02-26 21:31] LABS: ESTIMATED AVERAGE GLUCOSE 105 mg/dL (70-100); HEMOGLOBIN A1c% 5.3 % (4.27-6.07)
== END 2021-02-26 14:21 | disposition home or self-care (01) ==
LOC: LAB.S 14:20
PROVIDERS: ATTEND Internal Medicine
DX: E11.9 Type 2 diabetes mellitus without complications (principal)
CPT/HCPCS: 36415; 80053; 80061; 83036; 83721; 85025

== ENCOUNTER 2021-03-15 07:25 | Outpatient (CLI) | payer MEDICAID ==
[2021-03-15 15:11] LABS: BASOPHILS % (AUTO) 0.7 %; EOSINOPHILS % (AUTO) 0.3 %; HGB - HEMOGLOBIN 9.5 g/dL (12.0-16.0); LYMPHOCYTES # (AUTO) 0.8 10^3/uL (1.5-3.5); MEAN CORPUSCULAR HEMOGLOBIN 34.8 pg (27.0-31.0); MEAN CORPUSCULAR HGB CONC 32.8 g/dL (32.0-36.0); MEAN CORPUSCULAR VOLUME 106.2 fL (81.0-99.0); MONOCYTES # (AUTO) 0.4 10^3/uL (0.0-1.0); MONOCYTES % (AUTO) 6.1 %; NEUTROPHILS # (AUTO) 4.8 10^3/uL (1.5-6.6); NEUTROPHILS % (AUTO) 78.9 %; PLT - PLATELET COUNT 249 10^3/uL (130-450); RED BLOOD COUNT 2.73 10^6/uL (4.20-5.40); RED CELL DISTRIBUTION WIDTH 14.1 % (12.0-15.0)
[2021-03-15 15:54] LABS: ALBUMIN 3.9 g/dL (3.2-5.5); ALBUMIN/GLOBULIN RATIO 1.3 (1.0-2.2); ALKALINE PHOSPHATASE 65 IU/L (42-121); ALT ALANINE AMINOTRANSFERASE 24 IU/L (10-60); AST ASPARTATE AMINOTRANSFERASE 31 IU/L (10-42); BILIRUBIN,TOTAL 0.7 mg/dL (0.2-1.0); BUN - BLOOD UREA NITROGEN 8 mg/dL (6-20); CALCIUM 9.1 mg/dL (8.5-10.3); CARBON DIOXIDE - CO2 22 mmol/L (21-32); CHLORIDE 103 mmol/L (101-111); CHOL/HDL RATIO 1.7 (<4.4); CHOLESTEROL 167 mg/dL; CREATININE 0.7 mg/dL (0.4-1.0); GFR - MDRD 86 (>89); GLUCOSE 165 mg/dL (70-100); HDL CHOLESTEROL 96 mg/dL; LDL CHOLESTEROL,CALCULATED 60 mg/dL; LDL/HDL RATIO 0.6 (<4.4); POTASSIUM 4.2 mmol/L (3.5-5.0); SODIUM 135 mmol/L (135-145); TOTAL PROTEIN 6.9 g/dL (6.7-8.2); TRIGLYCERIDES 53 mg/dL; VLDL CHOLESTEROL 11 mg/dL
[2021-03-15 18:52] LABS: ESTIMATED AVERAGE GLUCOSE 120 mg/dL (70-100); HEMOGLOBIN A1c% 5.8 % (4.27-6.07)
== END 2021-03-15 07:26 | disposition home or self-care (01) ==
LOC: LAB.S 07:25
PROVIDERS: ATTEND Internal Medicine
DX: E11.9 Type 2 diabetes mellitus without complications (principal)
CPT/HCPCS: 36415; 80053; 80061; 83036; 83721; 85025

== ENCOUNTER 2021-04-12 09:09 | Outpatient (CLI) | payer MEDICAID ==
[2021-04-12 14:29] LABS: BASOPHILS % (AUTO) 0.4 %; EOSINOPHILS % (AUTO) 0.2 %; HCT - HEMATOCRIT 34.2 % (37.0-47.0); HGB - HEMOGLOBIN 11.4 g/dL (12.0-16.0); LYMPHOCYTES # (AUTO) 1.2 10^3/uL (1.5-3.5); LYMPHOCYTES % (AUTO) 22.6 %; MEAN CORPUSCULAR HEMOGLOBIN 34.3 pg (27.0-31.0); MEAN CORPUSCULAR HGB CONC 33.3 g/dL (32.0-36.0); MEAN PLATELET VOLUME 11.9 fL (7.9-10.8); MONOCYTES # (AUTO) 0.6 10^3/uL (0.0-1.0); MONOCYTES % (AUTO) 10.3 %; NEUTROPHILS # (AUTO) 3.5 10^3/uL (1.5-6.6); NEUTROPHILS % (AUTO) 65.9 %; PLT - PLATELET COUNT 224 10^3/uL (130-450); RED BLOOD COUNT 3.32 10^6/uL (4.20-5.40); RED CELL DISTRIBUTION WIDTH 13.1 % (12.0-15.0); WHITE BLOOD COUNT 5.3 x10^3/uL (4.8-10.8)
== END 2021-04-12 09:10 | disposition home or self-care (01) ==
LOC: LAB.S 09:09
PROVIDERS: ATTEND Internal Medicine
DX: D64.9 Anemia, unspecified (principal)
CPT/HCPCS: 36415; 85025

== ENCOUNTER 2021-07-02 08:20 | Outpatient (CLI) | payer MEDICAID ==
--- NOTE | 2021-07-02 09:08 | DEXA Report ---
PROCEDURE: Dexa Spine and/or Hip INDICATIONS: POST MENOPAUSAL TECHNIQUE: Dual energy x-ray absorptiometry (DXA) was performed on a [employer] System. Regions measur ed are the AP Spine, femoral neck, and if needed forearm. COMPARISON: None. FINDINGS: Lumbar Spine: Bone Mineral Density 1.068 g/cm/cm,T score -0.9, normal Left total Hip: Bone Mineral Density 0.768 g/cm/cm,T score -1.9, osteopenia. Decreased 5.4% compared to prior. Left Femoral Neck: Bone Mineral Density 0.669 g/cm/cm, T score -2.7, osteoporosis. Increased 2.3% compared to prior. (T score greater or equal to -1.0: NORMAL) (T score from -1.1 to -2.4: OSTEOPENIA) (T score less than or equal to -2.5 to: OSTEOPOROSIS) Impression: Osteoporotic bone mineral density. Patients with diagnosis of osteoporosis or osteopenia should have regular bone mineral density assess ment. For those eligible for Medicare, routine testing is allowed once every 2 years. Testing frequ ency can be increased for patients who have rapidly progressing disease or for those who are receivin g medical therapy to restore bone mass. Reviewed by: Sreedhar Felix on 07/02/2021 9:07 AM PDT Approved by: Sreedhar Felix on 07/02/2021 9:07 AM PDT Station ID: [id number]
== END 2021-07-02 08:21 | disposition home or self-care (01) ==
LOC: DI 08:20
PROVIDERS: ATTEND Physician Assistant
DX: Z78.0 Asymptomatic menopausal state (principal); M81.0 Age-related osteoporosis without current pathological fracture

== ENCOUNTER 2021-12-23 07:30 | Outpatient (CLI) | payer MEDICAID ==
--- NOTE | 2021-12-24 15:38 | Mammography Report ---
BILATERAL DIGITAL SCREENING MAMMOGRAM 3D/2D WITH EXAGGERATED CC: 12/23/2021 CLINICAL: Routine screening. Comparison is made to exams dated: 12/22/2020 mammogram, 11/21/2019 mammogram, 04/16/2019 mammogram, 09/18 mammogram, and 09/07/2018 mammogram - [facility]. Both breasts are heterogeneously dense, which may obscure small masses (category c / 51-75% glandular tissue). No significant masses, calcifications, or other findings are seen in either breast. There has been no significant interval change. IMPRESSION: NEGATIVE There is no mammographic evidence of malignancy. A 1 year screening mammogram is recommended. Based on the Tyrer Cuzick model (a risk assessment model) the patients lifetime risk is 10.5% and he r 10 year risk is 3.9%. According to the ACR, ACS, and NCCN guidelines, an annual breast MRI exam tosha ng with mammogram is recommended if the patients lifetime risk is 20% or greater. This exam was interpreted at Station ID: [id number]. NOTE: For mammograms, a report in lay terms will be sent to the patient. Approximately 15% of breast malignancies will not be visualized mammographically. In the management of a palpable breast mass, a negative mammogram must not discourage biopsy of a clinically suspicious lesion. Electronically Signed By: Franklin cisse/dale:12/23/2021 13:24:49 ACR BI-RADS Category 1: Negative 3341F PARENCHYMAL PATTERN: (D) - The breast(s) demonstrate(s) heterogeneously dense fibroglandular tamie arita. BI-RADS CATEGORY: (1) - 1 RECOMMENDATION: (ANNUAL) - Recommend routine annual screening mammography. 20221224 1 year screening LATERALITY: (B)
== END 2021-12-23 07:31 | disposition home or self-care (01) ==
LOC: DI.S 07:30
DX: Z12.31 Encounter for screening mammogram for malignant neoplasm of breast (principal)

== ENCOUNTER 2021-12-27 10:04 | Emergency (ER) | payer MEDICAID ==
--- NOTE | 2021-12-27 11:10 | ED Physician Documentation ---
PD HPI ABD PAIN - Stated complaint Stated Complaint: LOW BP/WEAKNESS - Chief complaint Chief Complaint: Abd Pain - History obtained from History obtained from: Patient - History of Present Illness Timing - onset: How many days ago (4-5) Timing - duration: Days (4-5) Timing - details: Gradual onset (Onset last Monday of some nausea with vomiting and intermittent crampy abdominal pains. More consistent the last 2 days with pain in the mid to right abdomen. No fever. No hematemesis. Mild diarrhea. Seen at walk-in and referred to the ER.), Still present Quality: Cramping, Aching Location: Periumbilical, RLQ Radiation: Lower back. No: Chest, Right flank Improved by: No: Vomiting Worsened by: Eating Associated symptoms: Nausea, Vomiting, Diarrhea, Loss of appetite, Other (general weakness). No: Hematemesis, Melena Similar symptoms before: Diagnosis (Had an episode in the past with an infectious process/pneumonia and sepsis with acute renal insufficiency with cr eatinine to 7.5. Improved with fluids. More recently normal creatinine.) Review of Systems Constitutional: denies: Fever, Chills Nose: denies: Rhinorrhea / runny nose, Congestion Throat: denies: Sore throat Respiratory: denies: Cough GI: reports: Abdominal Pain, Nausea, Vomiting, Diarrhea. denies: Abdominal Swelling, Constipation, Hematemesis, Bloody / black stool : denies: Dysuria, Frequency Skin: denies: Rash, Lesions Musculoskeletal: denies: Extremity swelling Neurologic: reports: Generalized weakness. 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 HEENT: Cataracts - Present Medications Home Medications: Ambulatory Orders Medication Instructions Recorded Confirmed Gabapentin [Neurontin] 600 mg PO BID 01/30/20 05/14/20 Losartan/Hydrochlorothiazide 1 each PO DAILY 04/14/20 05/14/20 [Hyzaar 100-25 Tablet] Ondansetron Odt [Zofran Odt] 4 mg TL Q6HR PRN #10 tablet 05/05/20 05/14/20 Pantoprazole [Protonix] 40 mg PO QDAC #30 tablet 05/05/20 05/14/20 buPROPion [Wellbutrin Xl] 300 mg PO DAILY tablet 05/05/20 05/14/20 methocarbamoL [Methocarbamol] 750 mg PO TID PRN #30 tab 05/05/20 05/14/20 oxyCODONE [Roxicodone] 5 mg PO Q4HR PRN #30 tablet 05/05/20 05/14/20 Gabapentin [Neurontin] 600 mg PO 1200 05/14/20 05/14/20 - Allergies Allergies/Adverse Reactions: Allergies Allergy/AdvReac Type Severity Reaction Status Date / Time Penicillins Allergy Hives Verified 12/27/21 10:21 - Social History Does the pt smoke?: Yes Smoking Status: Current every day smoker Does the pt drink ETOH?: Yes Does the pt have substance abuse?: No - Immunizations Immunizations are current?: Yes - POLST Patient has POLST: No PD ED PE NORMAL - Vitals Vital signs reviewed: Yes - General General: Alert and oriented X 3, Well developed/nourished, Other (Appears in pain with mid abdominal discomfort. Holding an emesis bag. Slightly sleepy but easily aroused and oriented.) - HEENT HEENT: Moist mucous membranes, Pharynx benign - Neck Neck: Supple, no meningeal sign, No adenopathy - Cardiac Cardiac: No murmur. No: RRR (tachycardic but regular) - Respiratory Respiratory: Clear bilaterally - Abdomen Abdomen: Soft, Non distended, No organomegaly, Other (Tender in the mid to right lower abdomen without any distention. There is some percussion tenderness. Mild rebound.). No: Normal bowel sounds (diminished) - Female Female : Deferred - Rectal Rectal: Deferred - Back Back: No CVA TTP - Derm Derm: Warm and dry. No: Normal color (pallor) - Neuro Neuro: Alert and oriented X 3, No motor deficit, Normal speech, Other (does not have tremors nor shakiness. ) - Psych Psych: No: Normal affect (somewhat flat) Results - Vitals Vitals: Vital Signs - 24 hr 12/27/21 12/27/21 12/27/21 10:15 10:57 12:20 Temperature 36.6 C Heart Rate 109 H 105 H 103 H Respiratory 20 14 13 Rate Blood Pressure 111/58 L 145/86 H 128/53 L O2 Saturation 100 100 99 12/27/21 14:00 Temperature Heart Rate 108 H Respiratory 17 Rate Blood Pressure 117/66 O2 Saturation 100 Oxygen O2 Source Room air - Labs Labs: Laboratory Tests 12/27/21 12/27/21 12/27/21 12:37 13:04 13:21 WBC 9.0 RBC 3.17 L Hgb 10.6 L Hct 32.8 L MCV 103.5 H MCH 33.4 H MCHC 32.3 RDW 13.5 Plt Count 209 MPV 11.1 H Neut # (Auto) 6.6 Lymph # (Auto) 0.9 L [place] # (Auto) 1.4 H Eos # (Auto) 0.0 Baso # (Auto) 0.0 Absolute Nucleated RBC 0.00 Nucleated RBC % 0.0 Sodium Cancelled 126 L Potassium Cancelled 5.7 H Chloride Cancelled 76 L* Carbon Dioxide Cancelled 8 L* Anion Gap Cancelled 42.0 H BUN Cancelled 61 H Creatinine Cancelled 4.9 H Estimated GFR (MDRD) Cancelled 9 L Glucose Cancelled 327 H Calcium Cancelled 7.6 L Magnesium Cancelled 1.7 Total Bilirubin Cancelled 2.1 H AST Cancelled 47 H ALT Cancelled 29 Alkaline Phosphatase Cancelled 72 Total Protein Cancelled 7.0 Albumin Cancelled 4.4 Globulin Cancelled 2.6 Albumin/Globulin Ratio Cancelled 1.7 Lipase Cancelled 43 Urine Color Urine Clarity Urine pH Ur Specific [place] Urine Protein Urine Glucose (UA) Urine Ketones Urine Occult Blood Urine Nitrite Urine Bilirubin Urine Urobilinogen Ur Leukocyte Esterase Urine RBC Urine WBC Ur Squamous Epith Cells Urine Bacteria Ur Microscopic Review Urine Culture Comments Nasal Adenovirus (PCR) Nasal B. parapertussis DNA (PCR) Nasal Coronavir 229E PCR Nasal Coronavir HKU1 PCR Nasal Coronavir NL63 PCR Nasal Coronavir OC43 PCR Nasal Enterovir/Rhinovir PCR Nasal Influenza B PCR Nasal Influenza A PCR Nasal Parainfluen 1 PCR Nasal Parainfluen 2 PCR Nasal Parainfluen 3 PCR Nasal Parainfluen 4 PCR Nasal RSV (PCR) Nasal B.pertussis DNA PCR Nasal C.pneumoniae (PCR) Db Human Metapneumo PCR Nasal M.pneumoniae (PCR) Nasal SARS-CoV-2 (PCR) Ethyl Alcohol 12/27/21 12/27/21 12/27/21 14:17 14:30 15:20 WBC RBC Hgb Hct MCV MCH MCHC RDW Plt Count MPV Neut # (Auto) Lymph # (Auto) [place] # (Auto) Eos # (Auto) Baso # (Auto) Absolute Nucleated RBC Nucleated RBC % Sodium 127 L Potassium 4.7 Chloride 85 L Carbon Dioxide 10 L* Anion Gap 32.0 H BUN 63 H Creatinine 4.3 H Estimated GFR (MDRD) 11 L Glucose 312 H Calcium 6.7 L Magnesium Total Bilirubin AST ALT Alkaline Phosphatase Total Protein Albumin Globulin Albumin/Globulin Ratio Lipase Urine Color YELLOW Urine Clarity CLOUDY Urine pH 5.5 Ur Specific [place] >=1.030 H Urine Protein 30 H Urine Glucose (UA) NEGATIVE Urine Ketones 15 H Urine Occult Blood MODERATE H Urine Nitrite NEGATIVE Urine Bilirubin NEGATIVE Urine Urobilinogen 0.2 (NORMAL) Ur Leukocyte Esterase MODERATE H Urine RBC 6-10 H Urine WBC >25 H Ur Squamous Epith Cells MANY Squamous H Urine Bacteria Moderate H Ur Microscopic Review INDICATED Urine Culture Comments NOT INDICATED Nasal Adenovirus (PCR) NOT DETECTED Nasal B. parapertussis DNA (PCR) NOT DETECTED Nasal Coronavir 229E PCR NOT DETECTED Nasal Coronavir HKU1 PCR NOT DETECTED Nasal Coronavir NL63 PCR NOT DETECTED Nasal Coronavir OC43 PCR NOT DETECTED Nasal Enterovir/Rhinovir PCR NOT DETECTED Nasal Influenza B PCR NOT DETECTED Nasal Influenza A PCR NOT DETECTED Nasal Parainfluen 1 PCR NOT DETECTED Nasal Parainfluen 2 PCR NOT DETECTED Nasal Parainfluen 3 PCR NOT DETECTED Nasal Parainfluen 4 PCR NOT DETECTED Nasal RSV (PCR) NOT DETECTED Nasal B.pertussis DNA PCR NOT DETECTED Nasal C.pneumoniae (PCR) NOT DETECTED Db Human Metapneumo PCR NOT DETECTED Nasal M.pneumoniae (PCR) NOT DETECTED Nasal SARS-CoV-2 (PCR) NOT DETECTED Ethyl Alcohol < 5.0 - Rads (name of study) abd/pelvic CT Radiology: Prelim report reviewed (no acute process to account for pain. ), See rad report PD MEDICAL DECISION MAKING - ED course Complexity details: reviewed results (Acute renal insufficiency presume related to dehydration. Does not appear septic per se without any fever. She was initially hypotensive but improved with fluids. Abdominal pain but CT scan did not show an acute process. Presumed gastroenteritis.), considered differential, d/w patient, d/w entry level sales consultant (Discussed with hospitalist regarding need for hospitalization for ongoing care.We are full inpatient at the moment and so it admission orders will be written and the patient boarded here for now.) Departure - Departure Disposition: ED Place in Observation Clinical Impression: Nausea and vomiting, Abdominal pain, TOMY (acute kidney injury), Dehydration Condition: Stable Record reviewed to determine appropriate education?: Yes
[2021-12-27] MEDS ORDERED: HYDROmorphone 1 MG/ML CARPUJECT IVP STA (11:21)
[2021-12-27] MEDS ORDERED: ONDANSETRON 4 MG/2 ML VIAL IVP STA (11:21)
[2021-12-27] MEDS ORDERED: SODIUM CHLORIDE 0.9% 1,000 ML IV STA ×3 (11:21→15:57)
[2021-12-27] MEDS ORDERED: iohexoL-300 100 ML VIAL ONE (11:26)
[2021-12-27 13:24] LABS: ALBUMIN 4.4 g/dL (3.2-5.5); ALBUMIN/GLOBULIN RATIO 1.7 (1.0-2.2); BILIRUBIN,TOTAL 2.1 mg/dL (0.2-1.0); CALCIUM 7.6 mg/dL (8.5-10.3); CREATININE 4.9 mg/dL (0.4-1.0); MAGNESIUM 1.7 mg/dL (1.7-2.8); POTASSIUM 5.7 mmol/L (3.5-5.0)
[2021-12-27 13:29] LABS: BASOPHILS % (AUTO) 0.3 %; EOSINOPHILS % (AUTO) 0.3 %; HCT - HEMATOCRIT 32.8 % (37.0-47.0); HGB - HEMOGLOBIN 10.6 g/dL (12.0-16.0); LYMPHOCYTES # (AUTO) 0.9 10^3/uL (1.5-3.5); LYMPHOCYTES % (AUTO) 10.2 %; MEAN CORPUSCULAR HEMOGLOBIN 33.4 pg (27.0-31.0); MEAN CORPUSCULAR HGB CONC 32.3 g/dL (32.0-36.0); MEAN CORPUSCULAR VOLUME 103.5 fL (81.0-99.0); MEAN PLATELET VOLUME 11.1 fL (7.9-10.8); MONOCYTES # (AUTO) 1.4 10^3/uL (0.0-1.0); MONOCYTES % (AUTO) 15.5 %; NEUTROPHILS # (AUTO) 6.6 10^3/uL (1.5-6.6); NEUTROPHILS % (AUTO) 73.1 %; PLT - PLATELET COUNT 209 10^3/uL (130-450); RED BLOOD COUNT 3.17 10^6/uL (4.20-5.40); RED CELL DISTRIBUTION WIDTH 13.5 % (12.0-15.0)
[2021-12-27 14:37] LABS: GLUCOSE, URINE (UA) NEGATIVE (NEGATIVE); KETONES,URINE (UA) 15 mg/dL (NEGATIVE); LEUKOCYTE ESTERASE, URINE MODERATE (NEGATIVE); NITRITE,URINE NEGATIVE (NEGATIVE); OCCULT BLOOD,URINE MODERATE (NEGATIVE); PH,URINE 5.5 PH (5.0-7.5); PROTEIN,URINE 30 mg/dL (NEGATIVE); UROBILINOGEN,URINE 0.2 (NORMAL) E.U./dL (NORMAL)
[2021-12-27 14:39] LABS: CLARITY,URINE CLOUDY (CLEAR)
[2021-12-27 14:40] LABS: BILIRUBIN,URINE NEGATIVE (NEGATIVE); ICTOTEST,URINE NEGATIVE
[2021-12-27 14:44] LABS: BACTERIA,URINE Moderate /HPF (None Seen); SQUAMOUS EPITHELIAL CELL,UR MANY Squamous (<= Few); WBC,URINE >25 /HPF (0-5)
--- NOTE | 2021-12-27 15:02 | CT Report ---
PROCEDURE: ABDOMEN/PELVIS WO INDICATIONS: right/mid abd pain 4 days TECHNIQUE: Noncontrast 5 mm thick sections acquired from the diaphragms to the symphysis. 5 mm coronal and sagi ttal reformats were then performed. For radiation dose reduction, the following was used: automated exposure control, adjustment of mA and/or kV according to patient size. COMPARISON: None. FINDINGS: Image quality: Excellent. ABDOMEN: Lung bases: Lung bases are clear. Heart size is normal. Solid organs: Liver and spleen are normal in size. Previous gallbladder wall thickening has resolved . Gallbladder unremarkable without calcified gallstones. Extensive pancreatic calcifications are agai n noted, consistent with chronic pancreatitis. Pancreas is normal in contours. No adrenal nodules. Kidneys are normal in size, without hydronephrosis or nephrolithiasis. Peritoneum and bowel: Interval partial small bowel resection. Unenhanced bowel loops demonstrate nor mal wall thickness and caliber. No free fluid or air. Nodes and vessels: No retroperitoneal or mesenteric adenopathy by size criteria. Aorta and inferior vena cava are normal in caliber. Miscellaneous: No ventral hernias. PELVIS: Genitourinary: Bladder wall thickness is normal. Miscellaneous: No inguinal hernias or adenopathy. Uterus is surgically absent. Bones: No suspicious bony lesions. No acute vertebral body compression fractures. Chronic mild T12 compression. IMPRESSION: 1. No evidence of acute abdominal process. 2. Diffuse hepatic steatosis. 3. Changes of chronic pancreatitis. 4. Interval partial small bowel resection. Reviewed by: Yobany Hobbs MD on 12/27/2021 2:39 PM PST Approved by: Yobany Hobbs MD on 12/27/2021 2:39 PM PST Station ID: [id number]
[2021-12-27] MEDS ORDERED: FAMOTIDINE 20 MG/2 ML VIAL IVP STA (15:12)
[2021-12-27 15:35] LABS: B. PARAPERTUSSIS- RESP PCR PAN NOT DETECTED; B. PERTUSSIS- RESP PCR PANEL NOT DETECTED; C. PNEUMONIAE- RESP PCR PANEL NOT DETECTED; CORONAVIRUS 229E-RESP PCR NOT DETECTED; CORONAVIRUS HKU1-RESP PCR NOT DETECTED; CORONAVIRUS NL63-RESP PCR NOT DETECTED; CORONAVIRUS OC43-RESP PCR NOT DETECTED; HUMAN METAPNEUMOVIRUS NOT DETECTED; INFLUENZA A- RESP PCR PANEL NOT DETECTED; INFLUENZA B - RESP PCR PANEL NOT DETECTED; M. PNEUMONIAE- RESP PCR PANEL NOT DETECTED; PARAINFLUENZA VIRUS 1 NOT DETECTED; PARAINFLUENZA VIRUS 2 NOT DETECTED; PARAINFLUENZA VIRUS 3 NOT DETECTED; PARAINFLUENZA VIRUS 4 NOT DETECTED; RHINOVIRUS/ENTEROVIRUS NOT DETECTED; RSV- RESP PCR PANEL NOT DETECTED; SARS-CoV-2 -RESP PCR PANEL NOT DETECTED
[2021-12-27 15:41] LABS: BUN - BLOOD UREA NITROGEN 63 mg/dL (6-20); CALCIUM 6.7 mg/dL (8.5-10.3); CHLORIDE 85 mmol/L (101-111); CREATININE 4.3 mg/dL (0.4-1.0); ETOH - ETHANOL < 5.0 mg/dL; GFR - MDRD 11 (>89); GLUCOSE 312 mg/dL (70-100); POTASSIUM 4.7 mmol/L (3.5-5.0); SODIUM 127 mmol/L (135-145)
[2021-12-27 15:43] LABS: CARBON DIOXIDE - CO2 10 mmol/L (21-32)
[2021-12-27] MEDS ORDERED: ONDANSETRON 4 MG/2 ML VIAL IVP PRN (15:58)
[2021-12-27] MEDS ORDERED: SODIUM CHLORIDE FLUSH 0.9% 10 ML SYRINGE IVP PRN (15:58)
[2021-12-27] MEDS ORDERED: oxyCODONE 5 MG TABLET PO PRN (15:58)
[2021-12-27] MEDS ORDERED: ZOLPIDEM 5 MG TABLET PO PRN (15:58)
[2021-12-27] MEDS ORDERED: ONDANSETRON ODT 4 MG TABLET TL PRN (15:58)
[2021-12-27] MEDS ORDERED: ACETAMINOPHEN 325 MG TABLET PO PRN (15:58)
[2021-12-27] MEDS: SODIUM CHLORIDE FLUSH 0.9% 10 ML SYRINGE IVP SCH (18:04)
[2021-12-27] MEDS ORDERED: MAG HYDROX/AL HYDROX/SIMETH 30 ML UDC PO STA (19:06)
[2021-12-27] MEDS ORDERED: diphenhydrAMINE ELIXIR 25 MG/10 ML UDC PO STA (19:07)
[2021-12-27] MEDS: SODIUM CHLORIDE 0.9% 1,000 ML IV SCH (21:16)
[2021-12-28] MEDS: SODIUM CHLORIDE FLUSH 0.9% 10 ML SYRINGE IVP SCH ×3 (01:09→17:14)
[2021-12-28 07:25] LABS: BASOPHILS % (AUTO) 0.4 %; EOSINOPHILS % (AUTO) 0.2 %; HCT - HEMATOCRIT 27.4 % (37.0-47.0); HGB - HEMOGLOBIN 9.5 g/dL (12.0-16.0); LYMPHOCYTES % (AUTO) 13.9 %; MEAN CORPUSCULAR HEMOGLOBIN 32.9 pg (27.0-31.0); MEAN CORPUSCULAR HGB CONC 34.7 g/dL (32.0-36.0); MEAN CORPUSCULAR VOLUME 94.8 fL (81.0-99.0); MEAN PLATELET VOLUME 10.7 fL (7.9-10.8); MONOCYTES % (AUTO) 14.9 %; PLT - PLATELET COUNT 113 10^3/uL (130-450); RED BLOOD COUNT 2.89 10^6/uL (4.20-5.40); WHITE BLOOD COUNT 4.6 x10^3/uL (4.8-10.8)
[2021-12-28 07:32] LABS: ABNORMAL LYMPHS % (MANUAL) 0 %
[2021-12-28 07:38] LABS: ALBUMIN 3.4 g/dL (3.2-5.5); ALBUMIN/GLOBULIN RATIO 1.3 (1.0-2.2); BILIRUBIN,TOTAL 0.7 mg/dL (0.2-1.0); CALCIUM 7.3 mg/dL (8.5-10.3); CREATININE 2.5 mg/dL (0.4-1.0); POTASSIUM 3.7 mmol/L (3.5-5.0)
[2021-12-28 08:13] LABS: BAND NEUTROPHILS % (MANUAL) 43 %; LYMPHOCYTES # (MANUAL) 0.8 10^3/uL (1.5-3.5); LYMPHOCYTES % (MANUAL) 17 %; METAMYELOCYTES % (MANUAL) 1 %; MONOCYTES # (MANUAL) 0.4 10^3/uL (0.0-1.0); NEUTROPHILS # (MANUAL) 3.4 10^3/uL (1.5-6.6)
[2021-12-28 08:15] LABS: DIFFERENTIAL COMMENT MANUAL DIFFERENTIAL
[2021-12-28 08:16] LABS: PLATELET ESTIMATE, MANUAL DECREASED (<130,000) (NORMAL)
[2021-12-28] MEDS: ENOXAPARIN 30 MG/0.3 ML SYRINGE SUBQ SCH ×2 (10:13→13:01)
[2021-12-28] MEDS ORDERED: SODIUM CHLORIDE 0.9% 1,000 ML IV STA ×2 (12:04→14:02)
[2021-12-28 12:40] LABS: CALCIUM 7.6 mg/dL (8.5-10.3); CREATININE 2.1 mg/dL (0.4-1.0); POTASSIUM 3.6 mmol/L (3.5-5.0)
[2021-12-28] MEDS ORDERED: KETOROLAC 15 MG/ML VIAL IVP STA (13:03)
[2021-12-28] MEDS ORDERED: ONDANSETRON 4 MG/2 ML VIAL IVP STA (13:03)
[2021-12-28] MEDS ORDERED: ACETAMINOPHEN 325 MG TABLET PO STA (13:03)
[2021-12-28] MEDS ORDERED: DIPHENOX/ATROPINE 2.5/0.025 MG TABLET PO STA (13:23)
--- NOTE | 2021-12-28 14:06 | ED Physician Documentation ---
ED Addendum - Addendum Addendum: 12/28/21 14:04 The patient was feeling improved today. She is taking water and fluids. She feels slightly nauseous still and has not had any food. She has not been up from bed so unable to assess General weakness. We will attempt having her ambulate and check walking to the bathroom. Her creatinine level has had stepwise improvement and is quite well improved. It is now down to 2.1. I talked with Dr. Areli diego who is the hospitalist today and asked what she felt criteria would be for improvement on discharge. She states keeping oral down and would like to see the creatinine below 2. At this point the patient is looking like she may be able to be discharged later today with some further IV hydration and a recheck of her labs. We will likely discharge her with acid reducing medicine as well as NT emetics and antidiarrhea medicine. Presumption is a viral gastroenteritis at this point with acute dehydration. The patient is feeling comfortable with going home assuming she is improved later today.
--- NOTE | 2021-12-28 14:27 | XRAY Report ---
PROCEDURE: Hip w/Pelvis 2-3V RT INDICATIONS: right hip pain; fall TECHNIQUE: AP pelvis with lateral view(s) of the right hip(s). COMPARISON: None. FINDINGS: Bones: No fractures or dislocations. Right worse than left bilateral hip joint osteoarthritic change s are seen with joint space narrowing and subchondral sclerosis. Pelvic ring appears intact. No ankush picious bony lesions. Soft tissues: The visualized bowel gas pattern is normal. No suspicious soft tissue calcifications. IMPRESSION: Right worse than left bilateral hip joint osteoarthritis. No fracture or dislocation. No evidence of avascular necrosis. Reviewed by: Anupam Trejo MD on 12/28/2021 2:26 PM PST Approved by: Anupam Trejo MD on 12/28/2021 2:26 PM PST Station ID: [id number]
--- NOTE | 2021-12-28 16:37 | HISTORY & PHYSICAL EXAMINATION ---
Chief Complaint - Chief Complaint Chief Complaint: nausea, vomitting diarrhea History of Present Illness - Admitted From Admitted From:: home - History Obtained From Records Reviewed: [facility] History obtained from: patient Exam Limitations: none - History of Present Illness HPI Comment/Other: Patient is a 56-year-old white female who has alcoholic liver disease with cirrhosis and chronic pancreatitis and was admitted to us in April 2020 for incarcerated bowel requiring transfer to higher level of care. She had a ventral hernia repair a few weeks before this. Admission was complicated by alcohol withdrawal requiring restraints, and she also was septic. She said she was at [place] for 17 days and did not require rehab and went home. She still continues to drink but is very vague about how much she is drinking. She also smokes about a half a pack a day. She says that emotionally is been very rough this last month. Her stepmom and she was very close to her. In her grief she just did not eat anything because she had no appetite. She continued to drink alcohol. Again she does not monitor how much she was drinking or what she was drinking. Then she started developing epigastric and right upper quadrant pain. Diarrhea. She was drinking lots and lots of water because she could not take the dry heaves and wanted to at least vomit something up. She said that her emesis and her stool did not have blackness in it. She had no fever, no chills. She denied any URI symptoms, or symptoms. She went to the [facility] today and from their Clinic referred her to the emergency room. Temperature is 36.6, heart rate 109. Blood pressure 111/58. Respirations 20 and she was 100% on room air. She was complaining of generalized abdominal aching at a 6/10. On examination her belly was soft, not distended. No organomegaly. She was tender in the mid to right lower abdomen without rebound or guarding. There was some percussion tenderness. Normal bowel sounds. She was without tremors or tremulousness. Sodium was 127, BUN was 63, creatinine 4.3. This patient has a previous history of acute kidney failure. In April 2020 her creatinine got as high as 7.5. By May of that year she was 0.8. In February 2021 she was 0.7. So she is clearly bumped up her creatinine at 4.9 today. White cell count is 9.0. Hemoglobin 10.6 which is about normal for her. Platelets are 209. Abdomen and pelvis CT was done and she has a liver and spleen that are normal in size. Previous gallbladder wall thickening has resolved. No gallstones. Extensive pancreatic calcifications noted again consistent with chronic pancreatitis. Kidneys are normal in size without hydronephrosis. She has had an interval of partial small bowel resection since her last CT. Currently bowel loops are normal. The hospitalist service was asked to admit this patient for dehydration. Unfortunately there are no beds. This patient can be taken care of here at this critical access hospital without need for higher level of care but we have no beds available. With the current bed status on the [facility] we are unable to transfer to the [facility] per the ER MD. we have accepted her admission and she is to be kept in to the emergency room until a bed is available on [facility]. 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 Ovarian fibroma, necrotic/infarcted. ) CHEMICAL PROJECT ENGINEER: reports: Other () : reports: None HEENT: reports: None Psych: reports: Depression, Anxiety, Other (alcohol abuse w multiple episodes intox in ER, fall 11/2014 w L angulated fx humeral shaft, ORIF. R arm fx due to fall. Rib fx due to fall. ) Musculoskeletal: reports: Osteoarthritis, Other (chronic arm pain) Derm: reports: Psoriasis MRSA Hx?: No Other Past Medical History: chronic macrocytic anemia - Past Surgical History General: reports: Hiatal hernia repair Ortho: reports: Other /CHEMICAL PROJECT ENGINEER: reports: Hysterectomy HEENT: reports: Cataracts - Family & Social History Family History Comment/Other: Dad is of old age after heart attack. Mother had breast cancer but of complications of dementia. 4 sisters ( one is a half sister), one murdered all others healthy. 1 son is severely autistic. Living arrangement: At home Living Situation: With spouse/s.o. (ex . although live together. ) Social History Notes: smokes up to maybe 2 packs a day. Currently 1/2 ppd. Has done so since the age of 16. She does quite a bit of alcohol. But she won't tell me how much. patient denies cocaine, heroin, LSD, methamphetamines. She is unemployed. On disability. - Substance History Abuse: Recurrent use of substance despite neg consequences: Other (tobacco) - POLST Patient has POLST: No Meds/Allgy - Home Medications Home Medications: Ambulatory Orders Medication Instructions Recorded Confirmed Gabapentin [Neurontin] 600 mg PO BID 01/30/20 05/14/20 Losartan/Hydrochlorothiazide 1 each PO DAILY 04/14/20 05/14/20 [Hyzaar 100-25 Tablet] Ondansetron Odt [Zofran Odt] 4 mg TL Q6HR PRN #10 tablet 05/05/20 05/14/20 Pantoprazole [Protonix] 40 mg PO QDAC #30 tablet 05/05/20 05/14/20 buPROPion [Wellbutrin Xl] 300 mg PO DAILY tablet 05/05/20 05/14/20 methocarbamoL [Methocarbamol] 750 mg PO TID PRN #30 tab 05/05/20 05/14/20 oxyCODONE [Roxicodone] 5 mg PO Q4HR PRN #30 tablet 05/05/20 05/14/20 Gabapentin [Neurontin] 600 mg PO 1200 05/14/20 05/14/20 Acetaminophen [Acetaminophen Extra 500 mg PO QID PRN #40 tablet 12/28/21 Strength] Diphenoxylate/Atropine [Lomotil] 1 each PO QID PRN #12 tablet 12/28/21 Famotidine [Pepcid] 20 mg PO DAILY #20 tablet 12/28/21 Ondansetron Odt [Zofran] 4 mg TL Q6H PRN #10 tablet 12/28/21 - Allergies Allergies/Adverse Reactions: Allergies Allergy/AdvReac Type Severity Reaction Status Date / Time Penicillins Allergy Hives Verified 12/27/21 10:21 Review of Systems - Constitutional Constitutional: reports: Fatigue, Malaise, Weakness, Poor appetite - Eyes Eyes: denies: Pain, Irritation, Amaurosis, Blurred vision - Ears, Nose & Throat Ears, Nose & Throat: denies: Hearing loss, Hearing aids, Nasal pain, Nasal obst ruction, Nasal congestion, Postnasal drainage, Sore throat, Hoarseness - Cardiovascular Cariovascular: denies: Irregular heart rate, Palpitations, Chest pain, Edema, Syncope, Exertional dyspnea, Decr. exercise tolerance - Respiratory Respiratory: denies: Cough, Sputum production, Wheezing, Snoring, SOB at rest, SOB with exertion - Gastrointestinal Gastrointestinal: reports: Abdominal pain, Abdominal distention, Diarrhea, Vomiting, Reflux/heartburn, Bloating - Genitourinary Genitourinary: denies: Dysuria, Frequency, Urgency, Flank pain, Nocturia - Musculoskeletal Musculoskeletal: denies: Muscle pain, Back pain, Muscle aches, Stiffness - Integumentary Integumentary: denies: Rash - Neurological Neurological: denies: General weakness, Focal weakness, Headache, Dizziness - Psychiatric Psychiatric: reports: Depression, Anxiety - Endocrine Endocrine: denies: Polyuria, Polydypsia, Polyphagia - Hematologic/Lymphatic Hematologic/Lymphatic: reports: Anemia, Bruising. 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 negative: Stiff neck Respiratory: positive: No respiratory distress. negative: Wheezes, Rales, Rhonchi Cardiovascular: positive: Regular rate & rhythm, Systolic murmur Peripheral Pulses: positive: 1+ Abdomen: positive: Other (Diffusely distended, does not have a bellybutton, hypogastric skin area feels very leathery and thick. She says that as a result of her surgical repair in April 2020. She has mild tenderness at the umbilicus, epigastrium, right upper quadrant. No real rebound or guarding. Hyperactive bowel sound) Skin: positive: Warm, Dry, Pallor Extremities: positive: Full ROM, No pedal edema, Other (Overall loss of s ubcutaneous fat. Very lean, almost cachectic) Neurologic/Psychiatric: positive: Oriented x3, CN's nml (2-12), Motor nml (no tremors) Conclusion/Plan - Problem List (1) Acute renal failure Conclusion/Plan: Due to volume loss. She has had both diarrhea and nausea and vomiting. And no p.o. intake. This is now the highest her creatinine has been as we can see from her April [address] already confirms no obstruction. She does not have a UTI. As such I think she should respond to IV fluids and hydration and control of her GI symptomatology. This does not appear to be acute on chronic pancreatitis. Plan: Inpatient admission Aggressive IV fluid hydration Qualifiers: Acute renal failure type: unspecified Qualified Code(s): N17.9 - Acute kidney failure, unspecified (2) Gastroenteritis Conclusion/Plan: Continues to abuse alcohol. Yes she acknowledges that she is not supposed to drink because of her pancreatitis and previous liver disease. Again, I would consider pancreatitis but her lipase is normal. And her pain is in the right upper quadrant or epigastrium but not in the left upper quadrant. As such I think her nausea vomiting and diarrhea are due to probable excessive alcohol intake in a patient who is not eating solid food. Plan: As above with IV fluids. Frequent BMP checks. And encourage her to slowly advance diet. We will start with clear liquids (3) Cirrhosis with alcoholism Conclusion/Plan: She rolls her eyes when I explained to her that she really needs to stop drinking if she would like to prolong her life. I said I still have to do my job and go through the effort of letting her know that this will impact her life that if she could stop drinking she would become much healthier. Consider banana bag, or oral multivitamins if she can keep food down (4) Chronic systolic heart failure Conclusion/Plan: Seen on previous echo. We will need to monitor fluid balance to make sure we do not put her into congestive heart failure. Home medication list does not include ELDA inhibitor, diuretic, or beta-stefanie. I have asked her to please follow-up with her primary care provider on this issue to make sure that she does not need these medications. (5) Diabetes mellitus type 2 in nonobese Conclusion/Plan: Again, much like her systolic heart failure, she has this in her past medical history. Most likely due to her chronic pancreatitis history. Glucose with her 2020 admission got as high as 731. Her lab work between August 2020 and February 2021 all show various stages of hyperglycemia. The patient herself states that she really does not think she has diabetes and disagrees with this diagnosis. Admission glucose is 327. Again, she will need aggressive IV fluids for hydration. Abdominal pain nausea and vomiting can sometimes be the presentation for DKA. Her anion gap is quite high but ketones were not checked, nor was lactic acid. We will hydrate, see how she responds to simple hydration. And again have asked the patient to make sure she follows up with her PCP about her diabetes. Metformin would be contraindicated in the face of alcohol abuse. - Lab Results Lab results reviewed: Yes Jose Angel Bones: 12/28/21 07:16 12/28/21 16:24 Core Measures - Anticipated LOS I expect patient to be DC'd or transferred within 96 hours.: Yes - DVT/VTE - Prophylaxis Not Ordered - Low Risk: Low Risk
[2021-12-28 16:40] LABS: CALCIUM 7.5 mg/dL (8.5-10.3); CREATININE 1.8 mg/dL (0.4-1.0); POTASSIUM 3.4 mmol/L (3.5-5.0)
--- NOTE | 2021-12-28 17:57 | Discharge Plan ---
Discharge Plan Problem Reviewed?: Yes Disposition: Home, Self Care Condition: Stable Prescriptions: Acetaminophen [Acetaminophen Extra Strength] 500 mg PO QID PRN #40 tablet PRN Reason: Pain Diphenoxylate/Atropine [Lomotil] 1 each PO QID PRN #12 tablet PRN Reason: Diarrhea Famotidine [Pepcid] 20 mg PO DAILY #20 tablet Ondansetron Odt [Zofran] 4 mg TL Q6H PRN #10 tablet PRN Reason: Nausea / Vomiting Diet: Diabetic Activity Restrictions: Activity as Tolerated Shower Restrictions: No Driving Restrictions: No Instruction Topics: DKA Prevent Ch Health Concerns: You presented to the hospital with severe weakness in your legs associated with nausea, vomiting, diarrhea and generalized abdominal aching. We found you to be severely dehydrated. I shared with you that normal creatinine function is less than 1.0 and you were 4.9. You have been this high before when you were hospitalized in April 2020 with your small bowel incarceration that needed surgery at [facility]. After the hospitalization your kidney function had gone to normal and your creatinine was 0.8 in the last few months. You also have diabetes mellitus but you are considered "borderline". Borderline means your sugar is less than 125 but above 100. After evaluating you in the emergency room, we found you to be severely dehydrated with kidney failure, and probable near diabetic ketoacidosis. Your glucose was 327 and your blood work showed evidence of a severe acid load. We hydrated you with simple salt water and gave you clear liquids. Your kidney function came down to 1.8 today. But your glucose is still 324. Remember we would like to see you below 125. Putting it altogether, we think that not eating or drinking normal food, drinking your regular alcohol intake on top of your chronic pancreatitis, all resulted in you having diabetic ketoacidosis. I would like you to stay another day so that we can control your sugars even better but you really want to go home. You do not want to stay at all. You say you have a puppy at home that has to be taken care of Plan of Treatment: 1. You must see your primary care provider in follow-up in the next 1 to 2 days. You need to be put on diabetic medication. I do not recommend that you go on metformin at this time due to your alcoholic liver disease and pancreatitis. They will need to find a different medication for you. Unfortunately, if they cannot find pills, you may need to go on insulin. Recommend that you see the environmental educator here at the hospital. Please have your primary care provider refer you for diabetic education. 2. Please make sure you drink plenty of water. Drink at least 1-1/2 L of fluid a day. Not coffee, not tea, not soda. Water. 3. If at all possible, please stop drinking. It has already caused cirrhosis, a pancreas that is chronically insufficient and loaded with scar tissue, and it will shorten your life span. Also please take a vitamin and thiamine. These are vitamins that are fuchs out of your system with alcohol abuse. It would help your bone marrow if you were able to take these vitamins. Care Goals: To see your diabetes under control, your alcohol abuse to stop. Those are too large, large goals and will require a lot of work on your part. Please make sure you follow-up with your primary care provider. Assessment: Patient is alert, oriented, not tremulous, lucid speech. She tells me that she understands what I am telling her but she still would like to go home. Follow-Up Care: [facility] - Diabetes Ed No Smoking: If you smoke, Please STOP! Call for help. Follow-up with: Xenia Bradshaw PA-C [Primary Care Provider] -
--- NOTE | 2021-12-28 18:04 | DISCHARGE SUMMARY ---
"Discharge Summary Admit Date: 12/27/21 Discharge Date: 12/28/21 Discharging Provider: Chitra Goodman MD Primary Care Provider: ARMEN Nieves Code Status: Attempt Resuscitation Condition at Discharge: Fair Discharge Disposition: 01 Home, Self Care - DIAGNOSES Discharge Diagnoses with Status of Each Condition: 1. DKA, type II 2. Dehydration 3. Nausea vomiting and diarrhea 4. Hypertension 5. Alcoholic liver disease 6. Chronic pancreatitis 7. History of systolic heart failure. Echo 2017 with EF 30%. Echo 2020 is with normal EF. - HPI History of Present Illness: Patient is a 56-year-old white female who has alcoholic liver disease with cirrhosis and chronic pancreatitis and was admitted to us in April 2020 for incarcerated bowel requiring transfer to higher level of care. She had a ventral hernia repair a few weeks before this. Admission was complicated by alcohol withdrawal requiring restraints, and she also was septic. She said she was at [place] for 17 days and did not require rehab and went home. She still continues to drink but is very vague about how much she is drinking. She also smokes about a half a pack a day. She says that emotionally is been very rough this last month. Her stepmom and she was very close to her. In her grief she just did not eat anything because she had no appetite. She continued to drink alcohol. Again she does not monitor how much she was drinking or what she was drinking. Then she started developing epigastric and right upper quadrant pain. Diarrhea. She was drinking lots and lots of water because she could not take the dry heaves and wanted to at least vomit something up. She said that her emesis and her stool did not have blackness in it. She had no fever, no chills. She denied any URI symptoms, or symptoms. She went to the [place] [facility] today and from their Clinic referred her to the emergency room. Temperature is 36.6, heart rate 109. Blood pressure 111/58. Respirations 20 and she was 100% on room air. She was complaining of generalized abdominal aching at a 6/10. On examination her belly was soft, not distended. No organomegaly. She was tender in the mid to right lower abdomen without rebound or guarding. There was some percussion tenderness. Normal bowel sounds. She was without tremors or tremulousness. Sodium was 127, BUN was 63, creatinine 4.3. This patient has a previous history of acute kidney failure. In April 2020 her creatinine got as high as 7.5. By May of that year she was 0.8. In February 2021 she was 0.7. So she is clearly bumped up her creatinine at 4.9 today. White cell count is 9.0. Hemoglobin 10.6 which is about normal for her. Platelets are 209. Abdomen and pelvis CT was done and she has a liver and spleen that are normal in size. Previous gallbladder wall thickening has resolved. No gallstones. Extensive pancreatic calcifications noted again consistent with chronic pancreatitis. Kidneys are normal in size without hydronephrosis. She has had an interval of partial small bowel resection since her last CT. Currently bowel loops are normal. The hospitalist service was asked to admit this patient for dehydration. Unfortunately there are no beds. This patient can be taken care of here at this critical access hospital without need for higher level of care but we have no beds available. With the current bed status on the [facility] we are unable to transfer to the [facility] per the ER MD. we have accepted her admission and she is to be kept in to the emergency room until a bed is available on [facility]. 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 Ovarian fibroma, necrotic/infarcted. ) FOOD SERVICE ASSOCIATE: reports: Other () : reports: None HEENT: reports: None Psych: reports: Depression, Anxiety, Other (alcohol abuse w multiple episodes intox in ER, fall 11/2014 w L angulated fx humeral shaft, ORIF. R arm fx due to fall. Rib fx due to fall. ) Musculoskeletal: reports: Osteoarthritis, Other (chronic arm pain) Derm: reports: Psoriasis MRSA Hx?: No Other Past Medical History: chronic macrocytic anemia - Past Surgical History General: reports: Hiatal hernia repair Ortho: reports: Other /FOOD SERVICE ASSOCIATE: reports: Hysterectomy HEENT: reports: Cataracts - CONSULTS | PROCEDURES Procedures: CT of abdomen and pelvis Chest x-ray - HOSPITAL COURSE Hospital Course: The patient was admitted to inpatient status. We were never able to find a bed for her due to staffing shortages and bed issues. This probably affected the quality of her sleep, and desire to be here. While we admitted her as an enteritis, I have a suspicion that she may have been in mild DKA causing nausea, vomiting, abdominal pain with a glucose that was over 300 and an anion gap that was quite high.Glucose 327. Previous history of borderline diabetes with an A1c of 5.6% in August 2019. I can see where the patient is protesting when I say that she may have diabetes and DKA as the cause of her N/V/D. She responded to IV fluids for hydration. Did not need insulin. I was getting ready to start sliding scale insulin the day of discharge. However the patient was adamant that she wanted to leave. She had a baby puppy at home that she wanted to take care of and she did not want to stay in an emergency room [facility] anymore. But she promised to follow-up with her primary care provider for diabetes. I also asked her to please stop drinking. Creatinine had come down to 1.8 by the time of discharge. Anion gap was 42 on admission and 18 at discharge. Carbon dioxide level was 8 on admission and now normal at 21 at discharge. She did not have any problems with withdrawal during her stay. There is no tremulous, hypertension, tachycardia. At discharge she was alert, comfortable female who looks older than stated age. Temperature was 36.7. Heart rate was 99. Blood pressure 149/80. Respirations 17 and 99% on room air. She is 5 feet 2 inches tall, 53 kg. Oral mucosa had improved tremendously was no longer dry. Neck was supple. Lungs were clear without any crackles rhonchi or wheezing or respiratory distress. Tachycardia had been low-grade during her stay at 101 to 108 and she was 75 in the afternoon and 99 at the moment of discharge. Abdomen was soft, slightly still bloated and distended. Interesting anatomy since she does not have an umbilicus anymore. The same leathery changes of her skin below in the hypogastrium. She says that was a result of her surgery. Still had hyperactive bowel sounds. She was still having loose stools but they had decreased in frequency and amount. Nontender abdomen. Extremities with tremendous loss of muscle mass and subcutaneous fat. She was ambulatory, without tremulousness or ataxia. She is discharged in stable condition but I am worried about her. Again I made her promise at least 3 times that she will follow-up with her primary care provider ARMEN Nieves for diabetes and hydration. Greater than 30 minutes was spent coordinating discharge - ALLERGIES Allergies/Adverse Reactions: Allergies Allergy/AdvReac Type Severity Reaction Status Date / Time Penicillins Allergy Hives Verified 12/27/21 10:21 - MEDICATIONS Home Medications: Ambulatory Orders Medication Instructions Recorded Confirmed Gabapentin [Neurontin] 600 mg PO BID 01/30/20 05/14/20 Losartan/Hydrochlorothiazide 1 each PO DAILY 04/14/20 05/14/20 [Hyzaar 100-25 Tablet] Ondansetron Odt [Zofran Odt] 4 mg TL Q6HR PRN #10 tablet 05/05/20 05/14/20 Pantoprazole [Protonix] 40 mg PO QDAC #30 tablet 05/05/20 05/14/20 buPROPion [Wellbutrin Xl] 300 mg PO DAILY tablet 05/05/20 05/14/20 methocarbamoL [Methocarbamol] 750 mg PO TID PRN #30 tab 05/05/20 05/14/20 oxyCODONE [Roxicodone] 5 mg PO Q4HR PRN #30 tablet 05/05/20 05/14/20 Gabapentin [Neurontin] 600 mg PO 1200 05/14/20 05/14/20 Acetaminophen [Acetaminophen Extra 500 mg PO QID PRN #40 tablet 12/28/21 Strength] Diphenoxylate/Atropine [Lomotil] 1 each PO QID PRN #12 tablet 12/28/21 Famotidine [Pepcid] 20 mg PO DAILY #20 tablet 12/28/21 Ondansetron Odt [Zofran] 4 mg TL Q6H PRN #10 tablet 12/28/21 - LABS Result Diagrams: 12/28/21 07:16 12/28/21 16:24"
[2021-12-28] MEDS: SODIUM CHLORIDE 0.9% 1,000 ML IV SCH (18:30)
[2021-12-28 18:47] VITALS: BP 127/65
== END 2021-12-28 18:46 | disposition home or self-care (01) ==
LOC: ED 10:04
DX: N17.9 Acute kidney failure, unspecified (principal); E86.0 Dehydration; R11.2 Nausea with vomiting, unspecified; R10.31 Right lower quadrant pain; K70.9 Alcoholic liver disease, unspecified; K86.1 Other chronic pancreatitis; K52.9 Noninfective gastroenteritis and colitis, unspecified; K70.30 Alcoholic cirrhosis of liver without ascites; I50.22 Chronic systolic (congestive) heart failure; F17.200 Nicotine dependence, unspecified, uncomplicated; E11.22 Type 2 diabetes mellitus with diabetic chronic kidney disease; N18.9 Chronic kidney disease, unspecified; I12.9 Hypertensive chronic kidney disease with stage 1 through stage 4 chronic kidney disease, or unspecified chronic kidney disease
CPT/HCPCS: 36415; 51702; 73502; 74176; 80048; 80053; 80320; 81001; 83690; 83735; 85025; 87633; 93005; 96361; 96374; 99284; A9270; 81003; 84484; 87086

== ENCOUNTER 2022-02-28 09:36 | Outpatient (CLI) | payer MEDICAID ==
[2022-02-28 14:56] LABS: ALBUMIN 4.9 g/dL (3.2-5.5); ALBUMIN/GLOBULIN RATIO 1.6 (1.0-2.2); BILIRUBIN,TOTAL 1.6 mg/dL (0.2-1.0); CALCIUM 10.7 mg/dL (8.5-10.3); CREATININE 1.1 mg/dL (0.4-1.0); POTASSIUM 4.8 mmol/L (3.5-5.0)
[2022-02-28 15:01] LABS: CREATININE,URINE 68.8 mg/dL; MICROALBUM/CREATININE RATIO,UR 36.3 ug/mg (<30.0); MICROALBUMIN,URINE 2.5 mg/dL (0-300.0)
[2022-02-28 15:25] LABS: THYROID STIMULATING HORMONE 1.2 uIU/mL (0.34-5.60)
[2022-02-28 15:29] LABS: ESTIMATED AVERAGE GLUCOSE 105 mg/dL (70-100); HEMOGLOBIN A1c% 5.3 % (4.27-6.07)
== END 2022-02-28 09:37 | disposition home or self-care (01) ==
LOC: LAB.S 09:36
PROVIDERS: ATTEND Nurse Practitioner Acute Care
DX: E11.9 Type 2 diabetes mellitus without complications (principal); Z79.899 Other long term (current) drug therapy; Z13.29 Encounter for screening for other suspected endocrine disorder; D64.9 Anemia, unspecified
CPT/HCPCS: 36415; 80053; 82043; 82570; 83036; 84443; 85025

== ENCOUNTER 2022-06-10 23:06 | Outpatient (CLI) | payer MEDICAID | END 2022-06-10 23:59 | disposition critical access hospital (66) | LOC: EMS 23:06 | DX: R53.1 Weakness (principal); R53.83 Other fatigue; R41.89 Other symptoms and signs involving cognitive functions and awareness; R11.10 Vomiting, unspecified; R19.7 Diarrhea, unspecified; R63.8 Other symptoms and signs concerning food and fluid intake; R73.03 Prediabetes; R73.9 Hyperglycemia, unspecified; R00.0 Tachycardia, unspecified | CPT/HCPCS: A0425; A0427; A0999 ==

== ENCOUNTER 2022-06-11 00:03 | Emergency (ER) | payer MEDICAID ==
[2022-06-11] MEDS ORDERED: SODIUM CHLORIDE 0.9% 1,000 ML IV STA ×2 (00:36→02:44)
[2022-06-11 00:42] LABS: BASOPHILS % (AUTO) 0.6 %; EOSINOPHILS % (AUTO) 1.5 %; HCT - HEMATOCRIT 20.9 % (37.0-47.0); LYMPHOCYTES % (AUTO) 8.1 %; MEAN CORPUSCULAR HGB CONC 32.1 g/dL (32.0-36.0); MEAN CORPUSCULAR VOLUME 106.1 fL (81.0-99.0); MEAN PLATELET VOLUME 12.3 fL (7.9-10.8); MONOCYTES % (AUTO) 8.1 %; NEUTROPHILS % (AUTO) 80.9 %; PLT - PLATELET COUNT 114 10^3/uL (130-450); RED BLOOD COUNT 1.97 10^6/uL (4.20-5.40); RED CELL DISTRIBUTION WIDTH 13.3 % (12.0-15.0); WHITE BLOOD COUNT 6.7 x10^3/uL (4.8-10.8)
[2022-06-11 00:47] LABS: HGB - HEMOGLOBIN 6.7 g/dL (12.0-16.0)
[2022-06-11 00:48] LABS: ABNORMAL LYMPHS % (MANUAL) 0 %
[2022-06-11 01:10] LABS: ALBUMIN 3.1 g/dL (3.2-5.5); ALBUMIN/GLOBULIN RATIO 1.6 (1.0-2.2); BILIRUBIN,TOTAL 1.2 mg/dL (0.2-1.0); CALCIUM 7.2 mg/dL (8.5-10.3); CREATININE 3.6 mg/dL (0.4-1.0); POTASSIUM 4.1 mmol/L (3.5-5.0); TOTAL PROTEIN 5.1 g/dL (6.7-8.2)
[2022-06-11 01:20] LABS: BAND NEUTROPHILS % (MANUAL) 22 %; DIFFERENTIAL COMMENT MANUAL DIFFERENTIAL; LYMPHOCYTES # (MANUAL) 0.8 10^3/uL (1.5-3.5); LYMPHOCYTES % (MANUAL) 12 %; MONOCYTES # (MANUAL) 0.1 10^3/uL (0.0-1.0); NEUTROPHILS # (MANUAL) 5.8 10^3/uL (1.5-6.6); PLATELET ESTIMATE, MANUAL DECREASED (<130,000) (NORMAL); RBC MORPHOLOGY (MULTIPLE) NORMAL APPEARANCE (NORMAL)
--- NOTE | 2022-06-11 01:34 | ED Physician Documentation ---
PD HPI ALTERED MENTAL STATUS - Stated complaint Stated Complaint: WEAKNESS, DM - Chief complaint Chief Complaint: Neuro - History obtained from History obtained from: EMS - Additional information Additional information: HPI is from EMS. Patient is very confused and disoriented on my evaluation and thus is unable to contribute to HPI/ROS. Per EMS, a family member called 911 tonight due to patient exhibiting altered mental status. Patient is a diabetic, [id number]. Family member indicated that the medics that the patient has had very little p.o. intake over the past 3 days, unclear why this is but possibly due to patient grieving over the of a friend. EMS was also told that patient has not been taking her medications over the past few days including her diabetic medication. EMS notes FSBS reads high. 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 Ovarian fibroma, necrotic/infarcted. ) SALES REPRESENTATIVES: Other () : None HEENT: None Psych: Depression, Anxiety, Other (alcohol abuse w multiple episodes intox in ER, fall 11/2014 w L angulated fx humeral shaft, ORIF. R arm fx due to fall. Rib fx due to fall. ) Musculoskeletal: Osteoarthritis, Other (chronic arm pain) Derm: Psoriasis - Past Surgical History Past Surgical History: Yes General: Hiatal hernia repair Ortho: Other /SALES REPRESENTATIVES: Hysterectomy HEENT: Cataracts - Present Medications Home Medications: Ambulatory Orders Medication Instructions Recorded Confirmed Gabapentin [Neurontin] 600 mg PO BID 01/30/20 05/14/20 Losartan/Hydrochlorothiazide 1 each PO DAILY 04/14/20 05/14/20 [Hyzaar 100-25 Tablet] Ondansetron Odt [Zofran Odt] 4 mg TL Q6HR PRN #10 tablet 05/05/20 05/14/20 Pantoprazole [Protonix] 40 mg PO QDAC #30 tablet 05/05/20 05/14/20 buPROPion [Wellbutrin Xl] 300 mg PO DAILY tablet 05/05/20 05/14/20 methocarbamoL [Methocarbamol] 750 mg PO TID PRN #30 tab 05/05/20 05/14/20 oxyCODONE [Roxicodone] 5 mg PO Q4HR PRN #30 tablet 05/05/20 05/14/20 Gabapentin [Neurontin] 600 mg PO 1200 05/14/20 05/14/20 Acetaminophen [Acetaminophen Extra 500 mg PO QID PRN #40 tablet 12/28/21 Strength] Diphenoxylate/Atropine [Lomotil] 1 each PO QID PRN #12 tablet 12/28/21 Famotidine [Pepcid] 20 mg PO DAILY #20 tablet 12/28/21 Ondansetron Odt [Zofran] 4 mg TL Q6H PRN #10 tablet 12/28/21 - Allergies Allergies/Adverse Reactions: Allergies Allergy/AdvReac Type Severity Reaction Status Date / Time Penicillins Allergy Hives Verified 12/27/21 10:21 - Social History Does the pt smoke?: Yes Smoking Status: Current every day smoker Does the pt drink ETOH?: Yes Does the pt have substance abuse?: No - Immunizations Immunizations are current?: Yes - POLST Patient has POLST: No PD ED PE NORMAL - Vitals Vital signs reviewed: Yes - General General: No acute distress, Well developed/nourished, Other (lethargic, wakens to tactile but confused; responses to my questions are mostly slurred and either unintelligible or inappropriate to question.) - HEENT HEENT: PERRL, Other (parched mucous membranes) - Respiratory Respiratory: No respiratory distress, Clear bilaterally - Abdomen Abdomen: Soft, Non tender - Derm Derm: Other (pale) - Extremities Extremities: No edema - Neuro Eye Opening: To Voice Motor: Localizes to Pain Verbal: Inappropriate GCS Score: 11 PD ED PE EXPANDED - Cardiac Cardiac: Tachy, Regular Rhythm Results - Vitals Vitals: Vital Signs - 24 hr 06/11/22 06/11/22 06/11/22 00:11 01:45 02:48 Temperature 36.8 C Heart Rate 116 H 119 H 126 H Heart Rate [ Monitoring electrodes] Respiratory 26 H 20 28 H Rate Blood Pressure 100/66 145/63 H 93/64 Blood Pressure [Right] O2 Saturation 97 95 99 06/11/22 06/11/22 06/11/22 03:00 03:30 04:00 Temperature Heart Rate 120 H 117 H 118 H Heart Rate [ Monitoring electrodes] Respiratory 26 H 25 H 26 H Rate Blood Pressure 114/68 127/57 L 136/61 H Blood Pressure [Right] O2 Saturation 98 96 92 06/11/22 06/11/22 06/11/22 04:17 04:30 04:32 Temperature 36.6 C 36.9 C Heart Rate 123 H Heart Rate [ 120 H Monitoring electrodes] Respiratory 23 24 26 H Rate Blood Pressure 140/66 H Blood Pressure 135/54 H 159/47 H [Right] O2 Saturation 97 99 97 06/11/22 06/11/22 06/11/22 05:00 05:52 06:26 Temperature Heart Rate 124 H 120 H 110 H Heart Rate [ Monitoring electrodes] Respiratory 26 H 29 H 21 Rate Blood Pressure 142/112 H 168/119 H 149/69 H Blood Pressure [Right] O2 Saturation 99 98 97 Oxygen O2 Source Room air - EKG (time done) No standard instances EKG releavant findings:: EKG personally interpreted by author of this note. Relevant findings are: Rate: Rate (enter#) (117) Rhythm: Sinus tachycardia [place]: Normal Intervals: Normal MO QRS: Normal Ischemia: Normal ST segments Computer interpretation: Disagree with computer (QRS is not wide; I disagree with NSIVCD) - Labs Labs: Microbiology 06/11/22 03:13 Occult Blood - Final Stool Laboratory Tests 06/11/22 06/11/22 06/11/22 00:31 00:31 00:31 WBC 6.7 RBC 1.97 L Hgb 6.7 L* Hct 20.9 L MCV 106.1 H MCH 34.0 H MCHC 32.1 RDW 13.3 Plt Count 114 L MPV 12.3 H Neut # (Auto) Not Reportable Lymph # (Auto) Not Reportable [place] # (Auto) Not Reportable Eos # (Auto) Not Reportable Baso # (Auto) Not Reportable Absolute Nucleated RBC Not Reportable Total Counted 100 Band Neuts % (Manual) 22 H Abnorm Lymph % (Manual) 0 Nucleated RBC % Not Reportable Neutrophils # (Manual) 5.8 Lymphocytes # (Manual) 0.8 L Monocytes # (Manual) 0.1 Eosinophils # (Manual) 0.0 Basophils # (Manual) 0.0 Differential Comment MANUAL DIFFERENTIAL Platelet Estimate DECREASED (<130,000) RBC Morph Micro Appear NORMAL APPEARANCE Bld Gas Analysis Time Sample Site ABG pH ABG pCO2 ABG pO2 ABG HCO3 ABG Total CO2 ABG O2 Saturation ABG Base Excess Joaquin Test O2 Delivery Device FiO2 Sodium 123 L Potassium 4.1 Chloride 75 L* Carbon Dioxide 8 L* Anion Gap 40.0 H BUN 125 H* Creatinine 3.6 H Estimated GFR (MDRD) 13 L Glucose 660 H* POC Whole Bld Glucose Lactic Acid Calcium 7.2 L Total Bilirubin 1.2 H AST 409 H ALT 144 H Alkaline Phosphatase 61 Ammonia Total Protein 5.1 L Albumin 3.1 L Globulin 2.0 L Albumin/Globulin Ratio 1.6 Lipase 156 H Urine Color Urine Clarity Urine pH Ur Specific [place] Urine Protein Urine Glucose (UA) Urine Ketones Urine Occult Blood Urine Nitrite Urine Bilirubin Urine Urobilinogen Ur Leukocyte Esterase Urine RBC Urine WBC Ur Squamous Epith Cells Urine Bacteria Ur Microscopic Review Urine Culture Comments Ethyl Alcohol Serum Ketones MODERATE H SARS-CoV-2 (PCR) Blood Type Antibody Screen Crossmatch IS Only 06/11/22 06/11/22 06/11/22 00:31 01:43 02:32 WBC RBC Hgb Hct MCV MCH MCHC RDW Plt Count MPV Neut # (Auto) Lymph # (Auto) [place] # (Auto) Eos # (Auto) Baso # (Auto) Absolute Nucleated RBC Total Counted Band Neuts % (Manual) Abnorm Lymph % (Manual) Nucleated RBC % Neutrophils # (Manual) Lymphocytes # (Manual) Monocytes # (Manual) Eosinophils # (Manual) Basophils # (Manual) Differential Comment Platelet Estimate RBC Morph Micro Appear Bld Gas Analysis Time Sample Site ABG pH ABG pCO2 ABG pO2 ABG HCO3 ABG Total CO2 ABG O2 Saturation ABG Base Excess Joaquin Test O2 Delivery Device FiO2 Sodium Potassium Chloride Carbon Dioxide Anion Gap BUN Creatinine Estimated GFR (MDRD) Glucose POC Whole Bld Glucose Lactic Acid Calcium Total Bilirubin AST ALT Alkaline Phosphatase Ammonia Total Protein Albumin Globulin Albumin/Globulin Ratio Lipase Urine Color DARK YELLOW Urine Clarity CLEAR Urine pH 6.0 Ur Specific [place] 1.020 Urine Protein TRACE Urine Glucose (UA) 250 H Urine Ketones 15 H Urine Occult Blood SMALL H Urine Nitrite NEGATIVE Urine Bilirubin NEGATIVE Urine Urobilinogen 0.2 (NORMAL) Ur Leukocyte Esterase NEGATIVE Urine RBC 0-5 Urine WBC 0-3 Ur Squamous Epith Cells FEW Squamous Urine Bacteria Rare Ur Microscopic Review INDICATED Urine Culture Comments NOT INDICATED Ethyl Alcohol 24.2 Serum Ketones SARS-CoV-2 (PCR) Blood Type O POSITIVE Antibody Screen NEGATIVE Crossmatch IS Only See Detail 06/11/22 06/11/22 06/11/22 02:41 03:18 03:25 WBC RBC Hgb Hct MCV MCH MCHC RDW Plt Count MPV Neut # (Auto) Lymph # (Auto) [place] # (Auto) Eos # (Auto) Baso # (Auto) Absolute Nucleated RBC Total Counted Band Neuts % (Manual) Abnorm Lymph % (Manual) Nucleated RBC % Neutrophils # (Manual) Lymphocytes # (Manual) Monocytes # (Manual) Eosinophils # (Manual) Basophils # (Manual) Differential Comment Platelet Estimate RBC Morph Micro Appear Bld Gas Analysis Time Sample Site ABG pH ABG pCO2 ABG pO2 ABG HCO3 ABG Total CO2 ABG O2 Saturation ABG Base Excess Jo[place]quin Test O2 Delivery Device FiO2 Sodium Potassium Chloride Carbon Dioxide Anion Gap BUN Creatinine Estimated GFR (MDRD) Glucose POC Whole Bld Glucose 409 H 506 H* Lactic Acid Calcium Total Bilirubin AST ALT Alkaline Phosphatase Ammonia Total Protein Albumin Globulin Albumin/Globulin Ratio Lipase Urine Color Urine Clarity Urine pH Ur Specific [place] Urine Protein Urine Glucose (UA) Urine Ketones Urine Occult Blood Urine Nitrite Urine Bilirubin Urine Urobilinogen Ur Leukocyte Esterase Urine RBC Urine WBC Ur Squamous Epith Cells Urine Bacteria Ur Microscopic Review Urine Culture Comments Ethyl Alcohol Serum Ketones SARS-CoV-2 (PCR) NOT DETECTED Blood Type Antibody Screen Crossmatch IS Only 06/11/22 06/11/22 06/11/22 03:49 04:19 04:19 WBC RBC Hgb Hct MCV MCH MCHC RDW Plt Count MPV Neut # (Auto) Lymph # (Auto) [place] # (Auto) Eos # (Auto) Baso # (Auto) Absolute Nucleated RBC Total Counted Band Neuts % (Manual) Abnorm Lymph % (Manual) Nucleated RBC % Neutrophils # (Manual) Lymphocytes # (Manual) Monocytes # (Manual) Eosinophils # (Manual) Basophils # (Manual) Differential Comment Platelet Estimate RBC Morph Micro Appear Bld Gas Analysis Time Sample Site ABG pH ABG pCO2 ABG pO2 ABG HCO3 ABG Total CO2 ABG O2 Saturation ABG Base Excess [place]quin Test O2 Delivery Device FiO2 Sodium Potassium Chloride Carbon Dioxide Anion Gap BUN Creatinine Estimated GFR (MDRD) Glucose POC Whole Bld Glucose 488 H Lactic Acid 2.8 H Calcium Total Bilirubin AST ALT Alkaline Phosphatase Ammonia 31.0 Total Protein Albumin Globulin Albumin/Globulin Ratio Lipase Urine Color Urine Clarity Urine pH Ur Specific [place] Urine Protein Urine Glucose (UA) Urine Ketones Urine Occult Blood Urine Nitrite Urine Bilirubin Urine Urobilinogen Ur Leukocyte Esterase Urine RBC Urine WBC Ur Squamous Epith Cells Urine Bacteria Ur Microscopic Review Urine Culture Comments Ethyl Alcohol Serum Ketones SARS-CoV-2 (PCR) Blood Type Antibody Screen Crossmatch IS Only 06/11/22 06/11/22 06/11/22 04:40 04:57 06:11 WBC RBC Hgb Hct MCV MCH MCHC RDW Plt Count MPV Neut # (Auto) Lymph # (Auto) [place] # (Auto) Eos # (Auto) Baso # (Auto) Absolute Nucleated RBC Total Counted Band Neuts % (Manual) Abnorm Lymph % (Manual) Nucleated RBC % Neutrophils # (Manual) Lymphocytes # (Manual) Monocytes # (Manual) Eosinophils # (Manual) Basophils # (Manual) Differential Comment Platelet Estimate RBC Morph Micro Appear Bld Gas Analysis Time 0446 Sample Site RIGHT BRACHIAL ABG pH 7.47 H ABG pCO2 23 L* ABG pO2 83 ABG HCO3 16.7 L ABG Total CO2 17.4 L ABG O2 Saturation 95 ABG Base Excess -6.4 L Joaquin Test NOT APPLICABLE O2 Delivery Device NON REBREATHER MASK FiO2 21.00 Sodium Potassium Chloride Carbon Dioxide Anion Gap BUN Creatinine Estimated GFR (MDRD) Glucose POC Whole Bld Glucose 436 H 402 H Lactic Acid Calcium Total Bilirubin AST ALT Alkaline Phosphatase Ammonia Total Protein Albumin Globulin Albumin/Globulin Ratio Lipase Urine Color Urine Clarity Urine pH Ur Specific [place] Urine Protein Urine Glucose (UA) Urine Ketones Urine Occult Blood Urine Nitrite Urine Bilirubin Urine Urobilinogen Ur Leukocyte Esterase Urine RBC Urine WBC Ur Squamous Epith Cells Urine Bacteria Ur Microscopic Review Urine Culture Comments Ethyl Alcohol Serum Ketones SARS-CoV-2 (PCR) Blood Type Antibody Screen Crossmatch IS Only - Rads (name of study) chest xray Relevant Findings:: Prelim report reviewed, EMP independent interpretation of test (I reviewed the chest x-ray performed for line placement and my interpretation is no acute abnormality, tip of the central line is in appropriate position and region of SVC), See rad report Procedures - Central Line - Major Central Line Preparation: Unable to obtain consent, Ultrasound used, Sterile prep and drape Central line location: Right IJ Central line type: Triple lumen Central line aftercare: Chlorhexidine disc placed, Secured, Placement confirmed, No pneumothorax, No complications, Pt tolerated well PD Medical Decision Making - ED course Complexity details: reviewed old records (I reviewed inpatient records from [facility] when she was admitted May 13, 2020. These records indicate she was then transferred on May 19, [address] [facility]. The records from [facility] are requested, faxed, and reviewed by me.), reviewed results, re-evaluated patient, considered differential, d/w patient ED course: As noted above, I reviewed the records from [facility] regarding inpatient stay 05/19/2020, discharged 06/03/2020. These records indicate patient's past medical history includes hypertension, depression, anxiety, necrotic fibroma for which she an open hysterectomy 11/03/2019 which resulted in a ventral hernia for which she underwent ventral hernia repair on 05/01/2020. The records indicate past medical history also includes macrocytic anemia, alcoholic pancreatitis alcohol dependence and alcoholic cirrhosis, small bowel obstruction. Tonight, patient presents in diabetic ketoacidosis with blood sugar of 660, CO2 of 8 (on basic metabolic profile), anion gap of 40, sodium of 123. She is afebrile and her white blood cell count is 6.7. Her hemoglobin is 6.7, and during her ED stay she has moderate amount of black, tarry stool output which is guaiac positive. Triple-lumen central line is placed by me in the right IJ as noted above. She is given IV fluid bolus, and insulin drip is initiated requiring up titration during her ED stay. 2 units of packed red blood cells are ordered for transfusion, although she was only able to receive the first unit prior to being transferred to [facility]. Patient remained confused throughout her ED stay, with her mental status neither worsening nor improving. She had tachycardia throughout ED stay, although this gradually improved from 120s to 110s. She did not have any hypotension during ED stay. There are no ICU beds available at [facility] at this time, although patient's current emergent problems (DKA combined with ongoing GI bleeding with substantial anemia) would benefit from transfer to higher level of care. This is also considering that there is no surgeon on duty at this time at [facility]. Multiple hospitals were contacted regarding bed availability, and eventually we were able to procure a bed at [facility] for this patient. I discussed the case with Dr. Stone at who accepts transfer. Dr. Stone recommends octreotide drip due to documentation of h/o alcoholic cirrhosis and her current GI bleeding (no documentation regarding varices), and thus an octreotide drip is initiated in ED prior to transfer. - Critical Care Time Includes: Direct patient care, Review records, Reassess patient, Document care, Coordinate care, See progress note Data interpretation: Labs, Pulse ox, ABG, CXR, See progress note Procedures included in critical care time: See progress note Procedures excluded from critical care time: Central IV, EKG, See progress note Departure - Departure Disposition: 02 Transfer Acute Care Hosp Clinical Impression: GI bleed Qualifiers: GI bleed type/associated pathology: melena Qualified Code(s): K92.1 - Melena Diabetic ketoacidosis Qualifiers: Diabetes mellitus type: type 2 Diabetes mellitus complication detail: without coma Qualified Code(s): E11.10 - Type 2 diabetes mellitus with ketoacidosis without coma Condition: Serious Discharge Date/Time: 06/11/22 06:51
[2022-06-11] MEDS ORDERED: INSULIN REGULAR IN 0.9 % NS 100 UNIT/100 ML BAG IV STA (01:40)
[2022-06-11] MEDS ORDERED: INSULIN REGULAR HUMAN 300 UNIT/3 ML VIAL IVP STA (01:42)
[2022-06-11] MEDS ORDERED: POTASSIUM CHLORIDE INJ 20 MEQ in SODIUM CHLORIDE 0.9% 1,000 ML IV STA (01:42)
[2022-06-11 01:50] LABS: GLUCOSE, URINE (UA) 250 mg/dL (NEGATIVE); KETONES,URINE (UA) 15 mg/dL (NEGATIVE); LEUKOCYTE ESTERASE, URINE NEGATIVE (NEGATIVE); NITRITE,URINE NEGATIVE (NEGATIVE); OCCULT BLOOD,URINE SMALL (NEGATIVE); PROTEIN,URINE TRACE mg/dL (NEGATIVE); UROBILINOGEN,URINE 0.2 (NORMAL) E.U./dL (NORMAL)
[2022-06-11 01:56] LABS: BILIRUBIN,URINE NEGATIVE (NEGATIVE); CLARITY,URINE CLEAR (CLEAR); ICTOTEST,URINE NEGATIVE
[2022-06-11 01:58] LABS: BACTERIA,URINE Rare /HPF (None Seen); RBC,URINE 0-5 /HPF (0-5); SQUAMOUS EPITHELIAL CELL,UR FEW Squamous (<= Few); WBC,URINE 0-3 /HPF (0-5)
[2022-06-11] MEDS ORDERED: NS W/20 MEQ KCL 1,000 ML IV STA (02:42)
[2022-06-11 04:47] LABS: ABG BASE EXCESS -6.4 mmol/L (-2.0-3.0); ABG HCO3 16.7 mmol/L (22.0-26.0); ABG OXYGEN SATURATION 95 % (94-98); ABG PH 7.47 (7.35-7.45); ABG PO2 83 mmHg (80-100); ABG TCO2 17.4 MMOL/L (21.0-29.0)
[2022-06-11 04:48] LABS: ABG PCO2 23 mmHg (34-45)
[2022-06-11] MEDS ORDERED: PANTOPRAZOLE 40 MG VIAL IVP STA (05:04)
[2022-06-11] MEDS ORDERED: OCTREOTIDE 500 MCG in SODIUM CHLORIDE 0.9% 100ML 95 ML IV STA (05:06)
[2022-06-11 06:26] VITALS: BP 149/69
--- NOTE | 2022-06-11 08:58 | XRAY Report ---
PROCEDURE: Chest for Line Placement INDICATIONS: right IJ CVC TECHNIQUE: One view of the chest was acquired. COMPARISON: Chest x-ray 05/19/2020 FINDINGS: Surgical changes and devices: Right-sided central venous catheter is present distal tip projecting o kalen the proximal SVC. Lungs and pleura: No pleural effusions or pneumothorax. Lungs are clear. Mediastinum: Mediastinal contours appear normal. Heart size is normal. Bones and chest wall: No suspicious bony lesions. Overlying soft tissues appear unremarkable. IMPRESSION: Central venous catheter placement as above. Reviewed by: Minda Keys MD on 06/11/2022 8:57 AM PDT Approved by: Minda Keys MD on 06/11/2022 8:57 AM PDT Station ID: [id number]
--- NOTE | 2022-07-10 01:31 | ED Physician Documentation ---
ED Addendum - Addendum Addendum: 07/10/22 01:30 CRITICAL CARE TIME: 60 minutes
== END 2022-06-11 06:51 | disposition short-term general hospital (02) ==
LOC: EDUNIT# → EDBD → ED 00:03
DX: K92.1 Melena (principal); E11.10 Type 2 diabetes mellitus with ketoacidosis without coma; I10 Essential (primary) hypertension; F17.200 Nicotine dependence, unspecified, uncomplicated
CPT/HCPCS: 36415; 36556; 80053; 80320; 81001; 82009; 82140; 82272; 82803; 83605; 83690; 85025; 86850; 86900; 86901; 86920; 87635; 93005; 96374; 96375; 99285; 99291; J1815; J2354; P9016; 81003; 85610; 85730; 87086

== ENCOUNTER 2022-07-04 07:00 | Outpatient (CLI) | payer MEDICAID ==
--- NOTE | 2022-07-05 12:40 | XRAY Report ---
PROCEDURE: Wrist 3 View LT INDICATIONS: PAIN IN LEFT WRIST TECHNIQUE: 3 views of the wrist were acquired. COMPARISON: X-ray wrist 02/15/2018 FINDINGS: Bones: No fractures or dislocations. No suspicious bony lesions. Radiocarpal narrowing is present as well as mild first CMC narrowing. Soft tissues: No suspicious soft tissue calcifications or masses. IMPRESSION: No acute osseous abnormality. If concern persists, follow-up imaging in 7-10 days is recommended. Reviewed by: Minda Keys MD on 07/05/2022 12:39 PM PDT Approved by: Minda Keys MD on 07/05/2022 12:39 PM PDT Station ID: [id number]
== END 2022-07-04 23:59 | disposition home or self-care (01) ==
LOC: DI.S 07:00
PROVIDERS: ATTEND Registered Nurse
DX: M25.532 Pain in left wrist (principal)

== ENCOUNTER 2022-08-22 14:45 | Outpatient (CLI) | payer MEDICAID ==
[2022-08-22 21:01] LABS: MICROALBUM/CREATININE RATIO,UR 9.4 ug/mg (<30.0); MICROALBUMIN,URINE 0.6 mg/dL (0-300.0)
[2022-08-22 21:40] LABS: ESTIMATED AVERAGE GLUCOSE 105 mg/dL (70-100); HEMOGLOBIN A1c% 5.3 % (4.27-6.07)
== END 2022-08-22 14:46 | disposition home or self-care (01) ==
LOC: LAB.S 14:45
PROVIDERS: ATTEND Nurse Practitioner Acute Care
DX: E11.22 Type 2 diabetes mellitus with diabetic chronic kidney disease (principal); N18.31 Chronic kidney disease, stage 3a
CPT/HCPCS: 36415; 82043; 82570; 83036

== ENCOUNTER 2022-09-24 07:44 | Outpatient (CLI) | payer MEDICAID | END 2022-09-24 23:59 | disposition E | LOC: EMS 07:44 ==